=== PATIENT | male | born 1945 | race Caucasian/White ===

== ENCOUNTER 2019-11-02 09:39 | Observation (INO) | payer OTHER, MEDICARE, SELFPAY ==
[2019-11-01 11:09] VITALS: BMI 32.5
[2019-11-01 11:53] LABS: Basophils % 0.7 %; Eosinophils # 0.1 10^3/uL (0.0-0.8); Eosinophils % 3.1 %; Hematocrit 46.4 % (42.0-52.0); Hemoglobin 15.3 g/dL (11.7-16.6); Lymphocytes # 1.3 10^3/uL (0.8-4.8); Lymphocytes % 28.1 %; Mean Corpuscular Hemoglobin 30.8 pg (28.0-34.0); Mean Corpuscular Volume 93.4 fL (80-94); Mean Platelet Volume 10.2 fL (7.4-10.4); Monocytes # 0.3 10^3/uL (0.2-0.9); Monocytes % 6.1 %; Neutrophils # 2.8 10^3/uL (1.8-7.7); Neutrophils % 61.6 %; Nucleated Red Blood Cells % 0 %; Platelet Count 152 10^3/cmm (130-400); Red Blood Count 4.97 10^6/uL (4.1-5.3); White Blood Count 4.6 10^3/uL (4.0-10.0)
[2019-11-01 11:55] LABS: INR 0.95 (0.8-1.2)
[2019-11-01 12:02] LABS: Anion Gap 15.8 (5-19); Blood Urea Nitrogen 23 mg/dL (8-23); Calcium 10.1 mg/dL (8.5-10.5); Carbon Dioxide 29 mmol/L (22-29); Chloride 101 mmol/L (98-107); Glucose 227 mg/dL (74-106); Osmolality Calculated 296 mOsm/kg (285-295); Potassium 4.8 mmol/L (3.5-5.1); Sodium 141 mmol/L (136-145)
[2019-11-02] VITALS (26 sets, daily range): BP systolic 98–143; BP diastolic 51–71; PULSE 48–58; RESP 3–25; O2SAT 93–98
--- NOTE | 2019-11-02 07:30 | XACV_ITS ---
Ht: 178 cm Wt: 103 kg BSA: 2.29 m2 Gender: Male : 1945 Any Known Allergies: Sulfa Exam Priority: Routine Procedure(s): Procedure Description: Diagnostic procedure Procedure Description: Left Heart Catheterization Procedure Description: Left ventriculography Diagnostic Cath Status: Elective Diagnostic Findings The left main is a medium caliber vessel with no significant stenotic lesions. The left anterior descending artery is a medium caliber vessel with diffuse disease in the proximal and mid segment. The lesions were anywhere from 40 to 50%. Minimal intimal regularities were noted in the distal vessel. The artery appears to wrap around the LV apex minimally. The first diagonal branch was found to have around 30% ostial narrowing. The left circumflex artery is a medium caliber vessel which also was found to have diffuse narrowing of around 40% proximally. No other significant stenotic lesions were noted. The right coronary artery is a small to in caliber vessel with a minimal intimal irregularities. No significant stenotic lesions. Intermedius artery is a high obtuse marginal branch with 30 to 40% diffuse narrowing proximally. Coronary angiography shows right dominance. To moderate coronary calcification in the proximal vessels. Conclusions This is a 74-year-old white male with history of diabetes, high blood pressure, dyslipidemia, presenting with some atypical chest pain, increasing shortness of breath and fatigue. Myocardial perfusion imaging revealing areas of fixed defects. Because of the patient's ongoing worsening of the symptoms, in order to further evaluate his coronary status, a cardiac catheterization was recommended. Patient underwent left heart catheterization with a left and right coronary angiogram today. The findings are as follows. Mild to moderate diffuse disease in the proximal segment of all the 3 coronary arteries. No significant stenotic lesions. Slightly elevated LVEDP. Recommendations Continue current medical management and risk factor modification. Diagnostic RX Recommendation: medical therapy and/or counseling LV EDP: 18 mmHg Pressures Phase:Rest AO : 174 mmHg / 102 mmHg ( 130 mmHg ) @ 3:07:00 AM 117 mmHg / 46 mmHg ( 73 mmHg ) @ 3:10:00 AM LV : 122 mmHg / -4 mmHg / @ 3:21:00 AM 121 mmHg / -4 mmHg / @ 3:21:00 AM Clinical Evaluation EBL: 5mL-10mL Procedural Details Procedure Consent Obtained. Admit Source: In Patient. Pre-Procedure Time Out. Identified patient by full name and date of as verbalized by the patient/guarantor. Does the consent match the physician's order: Yes. Accurate & Complete Informed Consent: Yes. Inpatient/Outpatient History & Physical on Chart: Yes. If H&P is completed, is and addenduem needed: N/A; If yes, is the addendum complete: N/A. Visualize and Verify Site with Patient/Guarantor: N/A. Relevant Radiology Images available: N/A. Pre-op teaching completed and patient verbalized understanding. The risks, benefits, and alternatives of sedation and/or procedure were discussed by physician. The patient agrees to continue. Procedure started. Correct patient, site and procedure confirmed by cath team. PERRLA. Strong, equal hand flour broker bilaterally. Lungs clear x 5 lobes. IV Site on Arrival: 18 gauge in the left anticubital. Pre Procedural Pulses: bilateral dorsalis pedis was 2+. Pre Procedural Pulses: bilateral posterior tibial was 2+. Pre Procedural Pulses: bilateral radial was 3+. Oxygen started at 2liters/min via nasal canula. bilateral groins was prepped with chloroprep then draped in the usual sterile fashion. right radial was prepped with chloroprep then draped in the usual sterile fashion. Physician notified. Baseline sample Acquired. HR: 58 BPM. Physician arrived. Physician scrubbed in. Immediate Pre-Procedure Time Out. Correct Patient: Yes; Correct Procedure: Yes; Correct Site: Yes; Correct Patient Position: Yes; Correct Supplies: Yes; Dried Flammable Prep: Yes; Blood Products Available: No;. Lidocaine 1% infiltrated to the right radial. Arterial access obtained. A 5 taiwanese Corona catheter in over wire. Catheter out. A TR Band was successful obtaining hemostatsis at the Right Radial artery insertion site. Lidocaine 1% infiltrated to the right groin. Arterial access obtained with micropuncture set. A 5 taiwanese JL4 catheter in over wire. Catheter out. A 5 taiwanese JL4.5 catheter in over wire. Multiple views taken of left coronary artery. Catheter out. A 5 taiwanese JR4 catheter in over wire. Multiple views taken of right coronary artery. Catheter out. A 5 taiwanese Angled Pig catheter in over wire. LV gram performed in RAMIREZ @ 10 mL/second for a total of 30 mL. EDP Sample taken: LV 122/-5,16; HR: 54 BPM; SpO2: Off%. Catheter out. Sheath(s) removed and manual pressure held until hemostasis was achieved. Sterile 4x4 and Op-site applied to the puncture site. No oozing or hematoma noted. Post sheath removal instructions were given and the patient verbalized understanding. Post Procedure: Pulses reassessed and unchanged. PERRLA. Strong, equal hand flour broker bilaterally. No VTE prophylaxis required. Medication's Wasted: Lidocaine 1% = 18 mL. Medication's Wasted: Nitro = 49.8 mg. Medication's Wasted: Other = heprin 4500units. Total IV fluids: 250 mL. Contrast type used: Omnipaque 300 mgI/mL, 500 mL bottle. Contrast Material : Omnipaque 95 ml. Post-op diagnosis: moderate CAD. Complications: none. Estimated blood loss: 5mL-10mL. Procedure completed. Patient transferred by bed to 1st floor. A Manual Compression was successful obtaining hemostatsis at the Right Femoral artery insertion site. [facility] Clinical Fraility Score: 3: Managing Well. 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 Chest Pain Symptom Assessment: Non-anginal Chest Pain. Cardiovascular Instability: No. Vital chart was stopped. Site: Right Radial artery Sheath Size: 6 Fr Hemostasis Method: TR Band Hemostasis Success: Successful Site: Right Femoral artery Sheath Size: 5 Fr Hemostasis Method: Manual Compression Hemostasis Success: Successful Procedure Medications Start: 8:49 AM Stop: 8:49 AM Medication: Versed Amount: 1 mg Route: I.V. Start: 8:49 AM Stop: 8:49 AM Medication: Fentanyl Amount: 50 mcg Route: I.V. Start: 8:54 AM Stop: 8:54 AM Medication: Verapamil Amount: 5 mg Route: I.A. Start: 8:54 AM Stop: 8:54 AM Medication: Nitrogylcerin Amount: 200 mcg Route: I.A. Start: 9:01 AM Stop: 9:01 AM Medication: Versed Amount: 1 mg Route: I.V. Start: 9:01 AM Stop: 9:01 AM Medication: Fentanyl Amount: 50 mcg Route: I.V. Start: 9:06 AM Stop: 9:06 AM Medication: Heparin Amount: 1500 units Route: I.V. I, the attending physician, have reviewed and verified all procedure medications. Yes, all medications given per verbal order History/Risk Factors Hypertension: Yes Dyslipidemia: Yes Peripheral Arterial Disease (PAD): No Myocardial Infarction (AK): No Obesity: Yes Renal Disease: No Tobacco Use: Never Prior Interventions PCI: No CABG: No Valve Surgery: No Report Signatures Finalized by:Dr Chris Craft MD [facility] on 11/02/2019 6:14:56 PM
[2019-11-02] MEDS: diphenhydrAMINE 50 mg Capsule PO (08:03)
--- NOTE | 2019-11-02 08:16 | PM.HP ---
Providers/Chief Complaint Primary Care Provider: Chinedu Babin DO Chief Complaint: cath History of Present Illness Alex Quiros is a 74 year old male is here for a scheduled cardiac authorization. Patient has been having episodes of chest tightness/shortness of breath.he has a history of high blood pressure and dyslipidemia. His symptoms have been progressively getting worse. He had a myocardial perfusion imaging which revealed areas of fixed defects with no significant reversible defect. However because of his ongoing symptoms and the multiple risk factors, in order to further evaluate his coronary status, a cardiac catheterization was recommended. Review of Systems Const: Reports: other (Anorexia); Denies: fever, chills, change in appetite, fatigue or night sweats Eyes: Denies: change in vision, blurry vision or eye discomfort ENMT: Denies: bleeding gums, nose bleeds or other (Spinning Sensation, Trouble Swallowing) Card: Reports: chest pain; Denies: syncope, pre-syncope, shortness of breath when lying down or leg pain with exertion Resp: Reports: shortness of breath (With exception); Denies: productive cough, change in phlegm color or coughing up blood GI: Denies: vomiting, vomiting blood, bloating, blood in stool or black tarry stool : Denies: blood in urine or other (Gynecomastia) Musc: Denies: neck pain, extremity pain, extremity swelling, redness, muscle cramps, muscle weakness or other (Neck Pain or Swollen Glands) Skin/Breast: Denies: rash, itching, redness, new lesion, changes in skin color, yellow skin, nail changes or breast mass/lump Neuro: Denies: headache, changes in sensation, lack of coordination, frequent falls, dizziness, vertigo, seizure-like activity or other (TIA, Numbness) Psych: Reports: other (Delusions, Disorientation, or Insomnia); Denies: visual hallucinations, auditory hallucinations or tactile hallucinations Endo: Denies: excessive urination, excessive thirst or other (Abnormal Hair Loss) Michael/Lymph: Denies: easy bruising All/Imm: Denies: hives Medications/Allergies Home Medications Medication Instructions Recorded Confirmed Last Taken Type aspirin 81 mg PO DAILY 11/01/19 11/01/19 Unknown History atenolol 100 mg PO DAILY 11/01/19 11/01/19 Unknown History atorvastatin 10 mg PO DAILY 11/01/19 11/01/19 Unknown History calcium carbonate 600 mg PO BID 11/01/19 11/01/19 Unknown History chromium picolinate 1,000 mcg PO DAILY 11/01/19 11/01/19 Unknown History flaxseed oil 1,000 mg PO DAILY 11/01/19 11/01/19 Unknown History glipizide 10 mg PO DAILY 11/01/19 11/01/19 Unknown History hydrochlorothiazide 25 mg PO DAILY 11/01/19 11/01/19 Unknown History isosorbide mononitrate 30 mg PO DAILY 11/01/19 11/01/19 Unknown History lisinopril 10 mg PO DAILY 11/01/19 11/01/19 Unknown History metformin 1,000 mg PO BID 11/01/19 11/01/19 Unknown History multivitamin [Multiple Vitamins] 1 tab PO DAILY 11/01/19 11/01/19 Unknown History omega 4-ndr-vxv-fish oil [Fish Oil] 1 cap PO DAILY 11/01/19 11/01/19 Unknown History Allergies Allergy/AdvReac Type Severity Reaction Status Date / Time Sulfa (Sulfonamide Allergy ALGY-Rash Verified 11/01/19 10:47 Antibiotics) PFSH Acute PFSH: Statuses (acute, chronic, etc) shown below reflect problem list status as previously entered and may not be historically accurate Medical History Abnormal stress test (Acute) Chest pain (Acute) Diabetes mellitus (Acute) Hyperlipemia (Acute) Obesity (Acute) Primary hypertension (Acute) Tear of meniscus of right knee (Acute) Transient cerebral ischemia (Acute) Surgical History History of arthroscopic surgery of shoulder (Acute) History of knee replacement (Acute) History of prostatectomy (Acute) Family History Other CAD (coronary artery disease) Cancer Social History Smoking and tobacco status: never smoked Vitals/I&O/Wt Weight last 48 hrs Weight 227 lb Physical Exam Narrative: EXAM NARRATIVE: GENERAL: The patient is alert and oriented times three. Not in any acute distress. HEENT: No significant pallor, icterus or lymphadenopathy.Oral cavity: There are no mucous membrane lesions. NECK: Trachea appears to be central. No masses noted. No JVD or thyromegaly appreciated. RESPIRATORY: Chest is symmetrical. No intercostals muscle retraction or any accessory muscle activation. There is no chest wall tenderness. Breath sounds are heard bilaterally. No rales or rhonchi heard. No evidence of any consolidation. BREASTS: Deferred. HEART: The heart sounds are normal. No S3 or S4. Murmurs. No pericardial rub ABDOMEN: No vessel pulsations or distention. No tenderness. No organomegaly appreciated. Bowel sounds are normally heard. : Deferred. RECTAL: Deferred. LYMPHATIC: No lymphadenopathy noted in the neck or groin. EXTREMITIES: No edema or cyanosis. No clubbing. Peripheral pulses are palpated in fairly good volume and amplitude MUSCULOSKELETAL: No acute joint deformities or swelling SKIN: There are no significant scars or skin rash noted. NEUROPSYCHIATRIC: The patient is alert and oriented x3. Appears to be in a good mood. No tremors or rigidity noted. Data : 11/01/19 11:30 11/01/19 11:30 A&P Assessment and plan (1) Abnormal stress test: Patient has mainly areas of fixed defects. In view of his ongoing chest symptoms and the multiple risk factors, in order to further evaluate his coronary status, he requires a cardiac catheterization. The risk of bleeding, hematoma, vascular injury, myocardial infarction, CVA, renal failure and other concomitant complications were explained in detail. Patient understood this well and consented to proceed. Status: Acute Code(s): R94.39 - Abnormal result of other cardiovascular function study (2) Chest pain: As mentioned above. He has been having episodes of chest tightness/shortness of breath, easy fatigability and dyspnea on exertion. Status: Acute Qualifiers: Chest pain type: other chest pain Qualified Code(s): R07.89 - Other chest pain Code(s): R07.9 - Chest pain, unspecified (3) Hyperlipemia: Patient is on atorvastatin. He has been compliant with medications. Advised to continue on the current medications. Status: Acute Qualifiers: Hyperlipidemia type: mixed hyperlipidemia Qualified Code(s): E78.2 - Mixed hyperlipidemia Code(s): E78.5 - Hyperlipidemia, unspecified (4) Primary hypertension: Currently the blood pressure is of stage II. Need to optimize the antihypertensive medications. Status: Acute Code(s): I10 - Essential (primary) hypertension Additional A&P Information Patient also is known to have type 2 diabetes and moderate obesity. Based on the results of the cardiac catheterization, further recommendations will be made. He may continue on the current medications for the time being. Attestations Medical Necessity Statement*: Patient may require at least one midnight stay, if he is going to require intervention after the diagnostic catheterization. 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
--- NOTE | 2019-11-02 10:50 | PC.NURSE ---
TR band removed per protocol, patient tolerated well no bleeding or hematoma noted; 2x2 and tegaderm applied. Patient educated on s/s that need to be reported as well as activity for the next 2 days patient verbalizes understanding.
== END 2019-11-02 16:31 | disposition home or self-care (01) ==
LOC: CSU 09:41
PROVIDERS: Admitting Provider Internal Medicine Cardiovascular Disease; Family Provider Electrodiagnostic Medicine; PCP Electrodiagnostic Medicine; Visit Provider Internal Medicine Cardiovascular Disease
DX: I25.10 Atherosclerotic heart disease of native coronary artery without angina pectoris (principal); R94.39 Abnormal result of other cardiovascular function study; R07.89 Other chest pain; E78.5 Hyperlipidemia, unspecified; I10 Essential (primary) hypertension; Z79.82 Long term (current) use of aspirin; Z79.84 Long term (current) use of oral hypoglycemic drugs; E11.9 Type 2 diabetes mellitus without complications; E66.9 Obesity, unspecified; Z68.32 Body mass index [BMI] 32.0-32.9, adult; Z86.73 Personal history of transient ischemic attack (TIA), and cerebral infarction without residual deficits; Z82.49 Family history of ischemic heart disease and other diseases of the circulatory system
CPT/HCPCS: 12345; 36415; 80048; 85025; 85610; 86850; 86900; 93452; C1769; C1887; C1894; G0378; J1644; J2001; J2250; J3010; J3490; J7030; Q0163; Q9967

== ENCOUNTER → 2019-11-09 11:02 | Outpatient (BNVA) | payer OTHER, MEDICARE, SELFPAY | PROVIDERS: Family Provider Electrodiagnostic Medicine; PCP Electrodiagnostic Medicine; Visit Provider Nurse Practitioner Family | DX: I25.10 Atherosclerotic heart disease of native coronary artery without angina pectoris (principal); R07.9 Chest pain, unspecified; E78.5 Hyperlipidemia, unspecified; I10 Essential (primary) hypertension; R94.39 Abnormal result of other cardiovascular function study | CPT/HCPCS: 80048 ==

== ENCOUNTER 2020-05-12 10:21 | Observation (INO) | payer OTHER, MEDICARE, SELFPAY ==
--- NOTE | 2020-05-10 07:30 | XRR_ITS ---
PROCEDURE INFORMATION: Exam: XR Chest, 2 Views Exam date and time: 05/10/2020 9:52 AM Age: 74 years old Clinical indication: Pre-operative exam; Cardiovascular screening and respiratory screening exam; Additional info: Pre-pacemaker placement TECHNIQUE: Imaging protocol: XR of the chest Views: 2 views. COMPARISON: CR Chest 1 [place] [id number] 09/13/2019 10:43 PM FINDINGS: Lungs: Emphysematous change. Pleural space: No significant pleural effusion. Heart/Mediastinum: Marked cardiomegaly. Bones/joints: Degenerative change and ligamentous calcification. Right rotator cuff repair. Soft tissues: 9 mm nodular density overlying the right lung base on the frontal projection, suggesting an nipple shadow. Repeat radiograph utilizing nipple markers is recommended for confirmation. XR/XR chest 2V* [id number] IMPRESSION: 1. 9 mm nodular density overlying the right lung base on the frontal projection, suggesting an nipple shadow. Repeat radiograph utilizing nipple markers is recommended for confirmation. 2. Marked cardiomegaly.
[2020-05-10 10:32] LABS: Basophils % 0.5 %; Eosinophils # 0.1 10^3/uL (0.0-0.8); Eosinophils % 1.9 %; Hematocrit 47.9 % (42.0-52.0); Hemoglobin 15.2 g/dL (11.7-16.6); Lymphocytes # 1.5 10^3/uL (0.8-4.8); Lymphocytes % 26.3 %; Mean Corpuscular HGB Conc 31.7 g/dL (30.0-36.0); Mean Corpuscular Hemoglobin 29.7 pg (28.0-34.0); Mean Corpuscular Volume 93.7 fL (80-94); Mean Platelet Volume 9.8 fL (7.4-10.4); Monocytes # 0.5 10^3/uL (0.2-0.9); Monocytes % 8.9 %; Neutrophils # 3.54 10^3/uL (1.8-7.7); Nucleated Red Blood Cells % 0 %; Platelet Count 151 10^3/cmm (130-400); Red Blood Count 5.11 10^6/uL (4.1-5.3); Red Cell Distribution Width 13.2 % (12.1-15.1); White Blood Count 5.7 10^3/uL (4.0-10.0)
[2020-05-10 10:53] LABS: Anion Gap 11.1 (5-19); Blood Urea Nitrogen 22 mg/dL (8-23); Calcium 9.8 mg/dL (8.5-10.5); Carbon Dioxide 30 mmol/L (22-29); Chloride 100 mmol/L (98-107); Glucose 147 mg/dL (65-115); NT Pro B Type Natriuretic Pept 296 pg/mL (0-125); Osmolality Calculated 281 mOsm/kg (285-295); Potassium 5.1 mmol/L (3.5-5.1); Sodium 136 mmol/L (136-145)
[2020-05-10 10:57] LABS: INR 0.94 (0.8-1.2)
[2020-05-12] VITALS (13 sets, daily range): BP systolic 109–151; BP diastolic 52–78; PULSE 56–64; RESP 17–18; TEMP 36.8–37.1; O2SAT 93–97; BMI 31.7
--- NOTE | 2020-05-12 07:06 | W.PM.OPSUD ---
Surgery/Procedure H&P Update DATE OF PROCEDURE: May 12, 2020 DATE H&P PERFORMED: 05/04/20 H&P UPDATE INFORMATION: I have reviewed H&P completed within last 30 days, I have examined patient prior to procedure and No changes to prior documentation PREOP DIAGNOSIS: symptomatic bradycardia PLANNED PROCEDURE: Operation Date: 05/12/20 07:30 Proposed Procedures p Pacemaker Insertion(Not Applicable) - Chris Craft MD PATIENT REASSESSED PRIOR TO SEDATION, WITH NO CHANGE NOTED: Yes PHYSICAL EXAM: alert, oriented x 3, clear to auscultation bilaterally and regular rate & rhythm AIRWAY EVAL/ANESTHESIA PLAN: normal airway, see other exam findings, ASA II, Risks, benefits & alternatives of sedation and/or procedure discussed and Patient agrees to continue as planned
--- NOTE | 2020-05-12 10:12 | P.OP_ITS ---
Operative Report Date of procedure: May 12, 2020 Pre-op Diagnosis: symptomatic bradycardia Procedure: LOCATION: Outpatient PREOPERATIVE DIAGNOSES: Symptomatic bradycardia/sinus shauna dysfunction. POSTOPERATIVE DIAGNOSES: Same. COMPLICATIONS: None. ESTIMATED BLOOD LOSS: Around less than 5 milliliters. BRIEF HISTORY: This is a 74-year-old white male with a history of coronary artery disease, high blood pressure and dyslipidemia, presents with episodes of palpitations. He was found to have episodes of nonsustained ventricular tachycardia on the event monitor. He also was found to have sinus pauses of more than 3 seconds. The clinical features are consistent with sinus shauna dysfunction and nonsustained ventricular tachycardia. For further management of his condition, a permanent pacemaker implantation was recommended. For the AV synchrony and symptom relief, a dual-chamber pacemaker was thought to be appropriate. A dual-chamber permanent pacemaker implantation was recommended for further management of her condition. The procedure was explained to the patient in detail with the risks and benefits. The risks of bleeding, hematoma, vascular injury, infection, pneumothorax, myocardial perforation and other concomitant complications were explained in detail, which the patient understood well and consented to proceed. PROCEDURE DESCRIPTION: The patient was brought to the Cardiac Catheterization Lab. The left and the right side of the neck and the subclavian area were cleaned and draped in a sterile fashion. 1% Xylocaine was used as the local anesthetic agent. A left subclavian venous access was obtained using a micropuncture needle system. Under venographic guidance, the patient was injected with 20 milliliters of Omnipaque through the left antecubital vein. A two-inch long incision was made 2.0 centimeters below the midclavicular region. By sharp and blunt dissection, a pacemaker pocket was made. A second venous access was obtained using another micropuncture needle system. Over the first guidewire, a 7-Guyanese venous sheath with dilator was advanced. The venous dilator and the guidewire were taken out. A screw-in ventricular lead was advanced through the venous sheath and was positioned towards the right ventric le. Under fluoroscopy guidance, the ventricular lead was positioned toward the right ventricular apex. Good pacing and sensing thresholds were obtained. The lead was secured to the endocardium by advancing the helix. The stability of the lead was tested by gentle twisting movements and also by asking the patient to take some deep breaths and cough. The venous sheath was peeled off, at this time. The lead was secured to the pectoralis fascia, by suturing with 1-0 Surgilon. Over the second guidewire, another 7-Guyanese venous sheath with dilator was advanced. The dilator and the guidewire were taken out. Under fluoroscopy guidance, an atrial lead (Medtronic), was advanced and positioned toward the right atrium. The lead was positioned in the right atrial appendage. Good pacing and sensing thresholds were obtained. The lead was secured to the endocardium by advancing the helix. Stability of the lead was tested by gentle twisting movements and also by asking the patient to take some deep breaths and cough. The venous sheath was peeled off, at this time. The lead was secured to the pectoralis fascia by suturing with 0-Surgilon. The pacemaker pocket was copiously irrigated with vancomycin solution. Complete hemostasis was achieved. Sponge counts were confirmed. The leads were attached to a Medtronic generator. The leads were positioned behind the generator and the generator was attached to the pectoralis fascia by suturing with 0-Surgilon. The pocket was closed in layers. Skin was approximated using 4-0 Vicryl. IMPLANTED DEVICES: ATRIAL LEAD: Model number: 50 76/45 Serial number:[id number] Make: Medtronic VENTRICULAR LEAD: Model number: 50 76/52 Serial number:[id number] Make: Medtronic GENERATOR Brand:Viviane XT DR LOZANO Nathanstephaniewen Model number:[id number] Serial number:[id number] Make: Medtronic IMPLANTATION DATA: With the pacing system analyzer, the R wave sensing was 4.8 millivolts with a lead impedance of 917 ohms and a pacing threshold was 0.5 volts at 0.5 milliseconds. In the atrium, the sensing was 2.1 millivolts with a lead impedance of 770 ohms and a pacing threshold was 0.4 volts at 0.5 milliseconds. Through the device, the R-wave sensing was 4.3 millivolts with a lead impedance of 760 and a pacing threshold was 0.5 volts at 0.4 milliseconds. The atrial sensing was 3.3 millivolts with a lead impedance of 570 ohms and a pacing threshold of 0.5 volts at 0.4 milliseconds. The pacemaker was set for AAIR/DDDR mode with upper rate of 130 and a lower rate of 60/min. A pressure dressing was applied over the pacemaker site. The patient was transferred to the Medical Floor in stable condition. A chest x-ray was ordered to confirm the lead position and also to rule out any pneumothorax.
--- NOTE | 2020-05-12 10:30 | PC.NURSE ---
Patient arrived to floor at 1020. 2 nurse verification pacemaker insertion site, asymptomatic. Patient is A&Ox4, denies pain at this time. Immobilizer is in place. Patient oriented to room and call light. Nurse to continue to monitor.
[2020-05-12] MEDS: sodium chloride 0.9% 1,000 ML 75 ML IV (10:36)
--- NOTE | 2020-05-12 10:45 | PC.NURSE ---
Dr. Craft contacted via telephone instructs nurse to administer post procedure fluids NS at 75 ml/hr until Kefzol dose at 1500, RBVO.
[2020-05-12 11:02] LABS: Glucose Point of Care 192 mg/dL (70-110)
--- NOTE | 2020-05-12 12:06 | XRR_ITS ---
PROCEDURE INFORMATION: Exam: XR Chest, 1 View Exam date and time: 05/12/2020 12:07 PM Age: 74 years old Clinical indication: Device placement; Cardiac pacemaker placement or adjustment; Additional info: Post pacemaker TECHNIQUE: Imaging protocol: XR of the chest Views: 1 view. COMPARISON: CR XR chest 2V* [id number] 05/10/2020 9:57 AM FINDINGS: Lungs: Lungs are well aerated without a focal area of consolidation. Pleural space: Unremarkable. No pleural effusion. No pneumothorax. Heart/Mediastinum: Severe cardiomegaly Vasculature: Pacemaker is present via a left subclavian approach. Bones/joints: Unremarkable. XR/XR chest 1V portable [id number] IMPRESSION: Lungs are well aerated without a focal area of consolidation.
[2020-05-12 16:51] LABS: Glucose Point of Care 122 mg/dL (70-110)
--- NOTE | 2020-05-12 18:00 | PC.NURSE ---
Dr. Craft contacted via telephone to clarify orders. Physician gave telephone order to put metformin on hold. Physician also intended dc orders for tomorrow. Physician instructed nurse not to finalize anything on discharge until the program manager has seen him tomorrow and finished the discharge.
[2020-05-13 04:08] VITALS: BP 155/78; PULSE 66; RESP 18; TEMP 36.9; O2SAT 97
--- NOTE | 2020-05-13 04:44 | PC.NURSE ---
PT IS RESTING IN BED. PT HAD COMPLAINED OF PAIN EARLIER IN THE SHIFT. DR LYNNE WAS NOTIFIED AND HE ORDERED NORCO 5/325MG PRN. PT WAS RESTING WITH EYES CLOSED WHEN PRN ORDER CAME IN. PT DENIES PAIN AT THIS TIME. WILL CONTINUE TO MONITOR.
--- NOTE | 2020-05-13 06:00 | ECG_ITS ---
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 Measurements Intervals [place] Rate: 60 P: 56 SD: 185 QRS: 33 QRSD: 106 T: 71 QT: 401 QTc: 404 Interpretive Statements SINUS RHYTHM LOW QRS VOLTAGE IN PRECORDIAL LEADS [QRS DEFLECTION < 1.0 mV IN CHEST LEADS] Compared to ECG 09/13/2019 22:56:40 Sinus bradycardia no longer present Ventricular premature complex(es) no longer present Electronically Signed On 05-13-2020 12:48:57 CDT by Pauline Calderon M.D. [id number]
--- NOTE | 2020-05-13 06:00 | XRR_ITS ---
PROCEDURE INFORMATION: Exam: XR Chest, 1 View Exam date and time: 05/13/2020 5:16 AM Age: 74 years old Clinical indication: Device placement; Cardiac pacemaker placement or adjustment; Prior surgery; Additional info: Post permanent pacemaker placement; Visualize lead tip TECHNIQUE: Imaging protocol: XR of the chest Views: 1 view. COMPARISON: CR XR chest 1V portable [id number] 05/12/2020 12:11 PM FINDINGS: Lungs: Marked asymmetric left-sided airspace disease. Emphysematous change and interstitial prominence. Pleural space: Suspected left pleural effusion. Heart/Mediastinum: No cardiomegaly. Vasculature: Calcification of the thoracic aorta. Next para atrioventricular pacemaker. Bones/joints: Degenerative change. Right rotator cuff repair. XR/XR chest 1V [id number] IMPRESSION: Marked asymmetric left-sided airspace disease.
[2020-05-13 07:35] VITALS: BP 154/79; PULSE 63; RESP 18; TEMP 37; O2SAT 94
[2020-05-13] MEDS: isosorbide mononitrate ER 30 mg Tablet PO (09:01)
[2020-05-13] MEDS: lisinopril 10 mg Tablet PO (09:01)
[2020-05-13] MEDS: aspirin 81 mg EC Tablet PO (09:01)
[2020-05-13] MEDS: multivitamin therapeutic Tablet 1 TAB PO (09:01)
[2020-05-13] MEDS: atorvastatin 40 mg Tablet 20 MG PO (09:01)
[2020-05-13] MEDS: atenolol 50 mg Tablet 100 MG PO (09:01)
[2020-05-13] MEDS: hydroCHLOROthiazide 25 mg Tablet PO (09:01)
[2020-05-13 11:24] VITALS: BP 118/66; PULSE 60; RESP 18; TEMP 37; O2SAT 96
[2020-05-13 11:48] VITALS: BP 118/66; PULSE 60; RESP 18; TEMP 37; O2SAT 96
--- NOTE | 2020-05-13 11:58 | PM.DCS ---
Discharge Providers Date of Admission: 05/12/20 10:21 Date of Discharge: May 13, 2020 Attending Provider at Admission: Chris Craft MD Attending Provider at Discharge: Dr. Kvng MD Primary Care Provider: Chinedu Babin DO Diagnoses at Discharge Discharge Diagnosis (1) Non-sustained ventricular tachycardia: Status: Acute (2) Bradycardia: Status: Acute (3) Coronary atherosclerosis: Status: Acute Qualifiers: Coronary Disease-Associated Artery/Lesion type: [place] artery [place] vs. transplanted heart: [place] heart Associated angina: with unspecified angina Qualified Code(s): I25.119 - Atherosclerotic heart disease of [place] coronary artery with unspecified angina pectoris (4) Primary hypertension: Status: Acute (5) Hyperlipemia: Status: Acute Qualifiers: Hyperlipidemia type: mixed hyperlipidemia Qualified Code(s): E78.2 - Mixed hyperlipidemia Reason for Visit Reason for Visit: pacemaker insertion Hospital Course Hospital Course: 74-year-old man with past medical history of hypertension, hyperlipidemia, type 2 diabetes mellitus, dyslipidemia with history of palpitations for which he wore an event monitor. On event monitor he was found to have nonsustained ventricular tachycardia as well as 2 pauses 3 and 3.5 seconds long. These were asymptomatic. Patient was seen in office by Dr. Craft and decision was made to place permanent pacemaker for sinus node dysfunction. He was admitted and underwent elective dual-chamber Medtronic permanent pacemaker placement by Dr. Craft yesterday. Patient tolerated the procedure well. Chest x-ray this morning showed normal lead position without any pneumothorax. Pacemaker was interrogated and was found to be normally functioning. Occasional PVCs and 1 PVC triplet was noted. Discharge Summary: Patient feels well this morning denies having any significant discomfort at pacemaker insertion site. Physical Exam Narrative: EXAM NARRATIVE: GENERAL: Obese man lying in bed nourished in no acute distress HEENT: Extraocular movement intact. Pupils equal round reactive to light. No pallor or icterus. NECK: No JVD. No carotid bruit. CARDIOVASCULAR SYSTEM: S1-S2 regular. No S3 or S4 present. No murmur rubs or gallops. RESPIRATORY SYSTEM: Left upper chest dressing in situ. Mild tenderness present. No significant bruising or hematoma noted. Chest clear to auscultation. No wheezes rhonchi or rubs heard. No use of accessory muscles. ABDOMEN: Soft, nontender and nondistended. Normal bowel sounds present. EXTREMITIES: No cyanosis or clubbing. No edema. No signs of chronic venous insufficiency. BRIDGE ATTACHER: Patient is alert oriented ?3. No focal neurological deficits. PSYCH: Normal insight and judgment. Discharge Data Data Completed and Pending: Completed Studies During Hospitalization Category Date Time Status CANDY PACKER request for service Routin e Exams 05/12/20 06:00 Completed CXRP [XR chest 1V portable [id number]] S tat Exams 05/12/20 12:06 Completed XR chest 1V 25205 Routine Exams 05/13/20 06:00 Completed XR chest 2V* 7104 6 Routine Exams 05/10/20 07:30 Completed Labs from last 24 hours 05/12/20 16:30 POC Glucose 122 Vitals: Last Vital Signs Temp 98.6 F 05/13/20 11:48 Pulse 60 05/13/20 11:48 Resp 18 05/13/20 11:48 BP 118/66 05/13/20 11:48 Pulse Ox 96 05/13/20 11:48 Discharge Plan Discharge Patient Disposition: Home Condition: Stable Prescriptions: New Keflex 500 mg capsule 500 mg PO Q6H 5 Days Qty: 20 RF: 0 hydrocodone-acetaminophen 5-325 mg Tablet 1 tab PO Q8H PRN (Reason: Moderate Pain) 5 Days Qty: 15 RF: 0 Continued multivitamin [Multiple Vitamins] Tablet 1 tab PO DAILY RF: 0 atorvastatin 10 mg Tablet 10 mg PO DAILY RF: 0 atenolol 100 mg Tablet 100 mg PO DAILY RF: 0 isosorbide mononitrate 30 mg Tablet Extended Release 24 Hr 30 mg PO DAILY RF: 0 aspirin 81 mg Tablet,Delayed Release (Dr/Ec) 81 mg PO DAILY RF: 0 calcium carbonate 600 mg calcium (1,500 mg) Tablet 600 mg PO BID RF: 0 flaxseed oil 1,000 mg Capsule 1,000 mg PO DAILY RF: 0 lisinopril 10 mg Tablet 10 mg PO DAILY RF: 0 hydrochlorothiazide 25 mg Tablet 25 mg PO DAILY RF: 0 omega 3-lrm-pah-fish oil [Fish Oil] 1,000 mg (120 mg-180 mg) Capsule 1 cap PO DAILY RF: 0 chromium picolinate 1,000 mcg Tablet 1,000 mcg PO DAILY RF: 0 Held metformin 1,000 mg Tablet 1,000 mg PO BID RF: 0 Hold Instructions: Resume on 05/14/20. May resume 05/14/20 Discharge Orders: Discharge Order (Routine); Ordered 05/12/20 Ordered By: Chris Craft Referrals: Chris Craft MD [Physician] - ([facility] will contact you to schedule an follow-up appointment with Dr. Craft in 3 weeks. If you haven't heard from them by Friday afternnon. Please call ([phone]) Celina Herrera FNP [Nurse Practitioner] - 4-7 days ([facility] will contact you to schedule an follow-up appointment with Celina Herrera in 4 to 7 days. If you haven't heard from them by Friday Afternoon. Please call ) Discharge Diet: Cardiac Discharge Activity: Limit activity as instructed and As per PT/OT instructions Patient Instructions: Cephalexin (By mouth), Hydrocodone/Acetaminophen (By mouth), Pacemaker (DC), Post Pacemaker - Venancio Activity Restrictions/Additional Instructions: Limit the movements of the left shoulder to 45 degrees for the next 6 weeks.. Avoid any weightbearing on the left elbow. Appointment to [facility] on next for a wound check and pacemaker check with Celina Barrios. Appointment with me in the office in 3 weeks. Discharge Attestations Time Spent in Discharge Care*: greater than 30 min Specific Discharge Activities: Specific discharge activities: educating patient, documenting/other paperwork and evaluating patient/reviewing data Quality Metrics Clinical Quality Measures During this hospital stay, did patient experience: None Coding Level of Care Code Acute Automatic Profile Shaper Operator for g Fwd Diagnoses Non-sustained ventricular tachycardia I47.2 Bradycardia R00.1 Coronary atherosclerosis I25.119 Coronary Disease-Associated Artery/Lesion type: [place] artery [place] vs. transplanted heart: [place] heart Associated angina: with unspecified angina Primary hypertension I10 Hyperlipemia E78.2 Hyperlipidemia type: mixed hyperlipidemia
--- NOTE | 2020-05-13 12:44 | PC.NURSE ---
Discharge to home with caregiver Instructed pt on follow-up appointments for wound check and device check. Educated pt on new meds actions, dosing, timing and frequency. meds care notes provided to pt. Informed pt on continued home meds as well as resuming his metformin as prescribed tomorrow. Instructed pt on how to take care of his incision, activity restrictions. Pt teaches back. Discharge papers provided to pt. Call med to [facility]. Hard script for Hydrocodone given to pt.
--- NOTE | 2020-05-13 12:49 | PC.NURSE ---
Discharge to home with caregiver Instructed pt to follow-up as discussed for wound check. Instructed pt on how to take care of his incision and activity restrictions on left arm. Educated pt on new meds actions, dosing and timing. Med care notes provided. Pt teaches back. Discharge papers provided. Called [facility] and Hydrocodone hard script given to pt. Ushered pt via wheelchair to [facility]
== END 2020-05-13 12:44 | disposition home or self-care (01) ==
LOC: CSU 16:53
PROVIDERS: Admitting Provider Internal Medicine Cardiovascular Disease; PCP Electrodiagnostic Medicine; Visit Provider Internal Medicine Cardiovascular Disease
DX: R00.1 Bradycardia, unspecified (principal); I47.2 Ventricular tachycardia; I25.119 Atherosclerotic heart disease of native coronary artery with unspecified angina pectoris; I10 Essential (primary) hypertension; E78.2 Mixed hyperlipidemia
CPT/HCPCS: 12345; 33208; 36415; 36416; 71045; 71046; 80048; 82962; 83880; 85025; 85610; 86850; 86900; 93005; 96361; 96365; 97165; C1769; C1779; C1786; C1894; G0378; J0690; J2250; J3010; J7030; J7050; Q9967

== ENCOUNTER 2020-05-17 10:33 | Outpatient (CLI) | payer MEDICARE, OTHER, SELFPAY ==
--- NOTE | 2020-05-17 10:41 | XRR_ITS ---
PROCEDURE INFORMATION: Exam: XR Chest, 2 Views Exam date and time: 05/17/2020 11:05 AM Age: 74 years old Clinical indication: Device placement; Cardiac pacemaker placement or adjustment; Prior surgery; Patient HX: Checking to see if pacemaker leads have moved. ; Additional info: High threshold noted on post op check TECHNIQUE: Imaging protocol: XR of the chest Views: Frontal and lateral upright views. COMPARISON: 1. CR XR chest 1V [id number] 05/13/2020 5:03 AM 2. CT[place] [id number] 09/14/2019 12:57:47 AM FINDINGS: Lungs: The pulmonary vasculature is normal. The lungs are clear bilaterally. The lungs are clear bilaterally. Pleural space: No pleural effusion. No pneumothorax. Heart/Mediastinum: The heart is normal in size and contour. Prominent the left anterior mediastinal adipose with fat necrosis redemonstrated. Mediastinum: Stable. Vasculature: A dual lead left subclavian permanent pacemaker is present. The right atrial and right ventricular leads appear to be in good position. Bones/joints: Right proximal humeral greater tuberosity suture anchors. XR/XR chest 2V* [id number] IMPRESSION: Prominent the left anterior mediastinal adipose with fat necrosis redemonstrated.
== END 2020-05-17 10:34 | disposition home or self-care (01) ==
LOC: RAD 10:37
PROVIDERS: PCP Electrodiagnostic Medicine; Visit Provider Internal Medicine Cardiovascular Disease
DX: Z95.0 Presence of cardiac pacemaker (principal); M79.89 Other specified soft tissue disorders
CPT/HCPCS: 71046

== ENCOUNTER 2020-05-19 07:19 | Day surgery (SDC) | payer OTHER, MEDICARE, SELFPAY ==
[2020-05-19] VITALS (22 sets, daily range): BP systolic 120–169; BP diastolic 67–89; PULSE 57–65; RESP 16–25; TEMP 36.8–36.9; O2SAT 92–97; BMI 30.7
--- NOTE | 2020-05-19 08:00 | XACV_ITS ---
Exam Room: [facility] Ht: 178 cm Wt: 97 kg BSA: 2.22 m2 Gender: Male : 1945 Any Known Allergies: Sulfa Exam Priority: Routine Procedure(s): Procedure Description: Diagnostic procedure Procedure Description: Miscellaneous Diagnostic Cath Status: Elective Diagnostic Findings Patient is here for lead repositioning. The note was dictated. Recommendations Patient underwent lead repositioning under fluoroscopy. Tolerated the procedure well. No complications. Note is dictated. Patient is sent back to the telemetry floor. Discharge home tomorrow. Clinical Evaluation EBL: 5mL-10mL Procedural Details Procedure Consent Obtained. Admit Source: Out Patient. Pre-Procedure Time Out. Identified patient by full name and date of as verbalized by the patient/guarantor. Does the consent match the physician's order: Yes. Accurate & Complete Informed Consent: Yes. Inpatient/Outpatient History & Physical on Chart: Yes. If H&P is completed, is and addenduem needed: NO; If yes, is the addendum complete: N/A. Visualize and Verify Site with Patient/Guarantor: N/A. Relevant Radiology Images available: N/A. The risks, benefits, and alternatives of sedation and/or procedure were discussed by physician. The patient agrees to continue. Procedure started. Correct patient, site and procedure confirmed by cath team. PERRLA. Strong, equal hand flattening press operator bilaterally. Lungs clear x 5 lobes. IV Site on Arrival: 20 gauge in the left anticubital. Pre Procedural Pulses: bilateral radial was 3+. Oxygen started at 2liters/min via nasal canula. left subclavian was prepped with chloroprep then draped in the usual sterile fashion. Physician notified. Baseline sample Acquired. HR: 63 BPM. Ancef 1g IV was given in label press operator. Physician arrived. Supplies: Cath pack, micropunture, bovie pen, 2-0 silk, 0 surgilon, 3-0 vicryl, 4-0 vicryl. Pre sponge count: 55. Pre sharps count: 17. Pre instrument count: 19. Physician scrubbed in. Time out performed with cath team. Lidocaine 1% infiltrated to Left subclavian area. Incision and pacer pocket made in left subclavian region. cutting A and V lead sutures. detaching generator from A and V leads. A lead repositioned. A lead retested. V lead retested. A lead repositioned. V lead retested. Ventricular lead sutured into place with surgilon. cleaning pocket. A lead retested. Atrial lead sutured into place with surgilon. Antibiotic flush used to clean pacer pocket. A lead retested. [employer] TYRX 2.5 X 2.7 absorbable antibiotic envelope-medium used Lot#[id number]. V lead retested. Generator attached and tested. Generator secured with surgilon. Subcutaneous tissue closed with 3-0 vicryl. Cutaneous tissue closed with 4-0 vicryl. All final counts correct. left subclavian pocket dressed per physician order. Shoulder immobilizer in place. Fredy wrap and 4x4's in place. No bleeding or hematoma noted at left subclavian pocket. Post Procedure: Pulses reassessed and unchanged. Procedure completed. Total IV fluids: 100 mL. No VTE prophylaxis required. Post-op diagnosis: Lead displacement, repositioning. Estimated blood loss: 5mL-10mL. Complications: none. Procedure Medications Start: 8:56 AM Stop: 8:56 AM Medication: Ancef Amount: 1 g Route: I.V. Start: 9:16 AM Stop: 9:16 AM Medication: Versed Amount: 1 mg Route: I.V. Start: 9:17 AM Stop: 9:17 AM Medication: Fentanyl Amount: 50 mcg Route: I.V. I, the attending physician, have reviewed and verified all procedure medications. Yes, all medications given per verbal order History/Risk Factors Hypertension: Yes Dyslipidemia: Yes Diabetic Therapy: Oral Peripheral Arterial Disease (PAD): No Myocardial Infarction ([place]): No Obesity: Yes Tobacco Use: Former Prior Interventions PCI: No CABG: No Valve Surgery: No Report Signatures Finalized by:Dr Chris Craft MD [facility] on 05/19/2020 4:45:36 PM
[2020-05-19 08:40] LABS: Basophils % 0.7 %; Eosinophils # 0.2 10^3/uL (0.0-0.8); Hematocrit 42.7 % (42.0-52.0); Lymphocytes % 22.4 %; Mean Corpuscular HGB Conc 32.8 g/dL (30.0-36.0); Mean Corpuscular Volume 94.5 fL (80-94); Monocytes # 0.3 10^3/uL (0.2-0.9); Monocytes % 7.5 %; Neutrophils # 2.93 10^3/uL (1.8-7.7); Nucleated Red Blood Cells % 0 %; Platelet Count 148 10^3/cmm (130-400); Red Blood Count 4.52 10^6/uL (4.1-5.3); Red Cell Distribution Width 12.9 % (12.1-15.1); White Blood Count 4.5 10^3/uL (4.0-10.0)
[2020-05-19 08:58] LABS: Anion Gap 10.6 (5-19); Blood Urea Nitrogen 18 mg/dL (8-23); Calcium 9.7 mg/dL (8.5-10.5); Carbon Dioxide 29 mmol/L (22-29); Chloride 105 mmol/L (98-107); Glucose 191 mg/dL (65-115); Osmolality Calculated 292 mOsm/kg (285-295); Potassium 4.6 mmol/L (3.5-5.1); Sodium 140 mmol/L (136-145)
--- NOTE | 2020-05-19 08:58 | W.PM.OPSUD ---
Surgery/Procedure H&P Update DATE OF PROCEDURE: May 19, 2020 DATE H&P PERFORMED: 05/04/20 H&P UPDATE INFORMATION: I have reviewed H&P completed within last 30 days, I have examined patient prior to procedure and No changes to prior documentation PREOP DIAGNOSIS: symptomatic bradycardia/lead displacement PLANNED PROCEDURE: Operation Date: 05/19/20 08:30 Proposed Procedures p Pacemaker Generator Change/lead reposition(Not Applicable) - Chris Craft MD PATIENT REASSESSED PRIOR TO SEDATION, WITH NO CHANGE NOTED: No PHYSICAL EXAM: alert, oriented x 3, clear to auscultation bilaterally and regular rate & rhythm OTHER PERTINENT EXAM FINDINGS: Heart sounds are normal. No S3-S4. No pericardial rub. AIRWAY EVAL/ANESTHESIA PLAN: normal airway, see other exam findings, ASA II, Risks, benefits & alternatives of sedation and/or procedure discussed and Patient agrees to continue as planned
--- NOTE | 2020-05-19 11:01 | P.OP_ITS ---
Operative Report Date of procedure: May 19, 2020 Pre-op Diagnosis: symptomatic bradycardia/lead displacement Procedure: PROCEDURE: PACEMAKER lead repositioning PREOPERATIVE DIAGNOSIS: Lead displacement POSTOPERATIVE DIAGNOSIS: Same ESTIMATED BLOOD LOSS: Around 5 milliliters. COMPLICATIONS: None. BRIEF HISTORY: The patient is 74-year-old white [male/female] who had a permanent pacemaker implantation for symptomatic bradycardia/nonsustained ventricular tachycardia, on 05/12/2020. Follow-up pacemaker interrogation in the office revealed loss of sensing in the atrial lead. Subsequent chest x-ray revealed lead displacement. Apparently both the atrial and ventricular leads were pulled up. For further management of his condition, a lead repositioning was recommended. As per the patient, he accidentally was lying on the left side in the night. The procedure was explained to the patient and his in detail with the risks and benefits. The risks of bleeding, hematoma, vascular injury, infection and other concomitant complications were explained in detail, which the patient understood well and consented to proceed. PROCEDURES PERFORMED: 1. Repositioning of the atrial lead 2. Readjust the ventricular lead to provide more slack. The patient brought to the Cardiac Motor Express Clerk. The left side of the neck and the subclavian area were cleaned and draped in a sterile fashion. 1% Xylocaine was used for local anesthetic agent. A 2 inch long incision was made just below the previous pacemaker scar. By sharp and blunt dissection, the pacemaker pocket was accessed. The pacemaker generator was delivered from the pocket. The generator was detached from the lead. The stay sutures on the leads were removed. The ventricular lead tip was found to be positioned appropriately with loss of slack . Using a stylette, this lead was given more slack and then secured to the pectoralis fascia by suturing with 0 Surgilon. Then I released the atrial lead from the patella's fascia by removing the stay sutures. This lead was displaced. After retracting the helix at the tip, the lead was repositioned in the atrial appendage. Stability of the lead was tested by gentle twisting movements and also asking the patient to take some deep breath and cough. After confirming appropriate sensing and pacing, the lead was secured to the pectoralis fascia by suturing with 0 Surgilon. Both leads were reattached to the Medtronic generator. Pacemaker pocket was copiously irrigated with vancomycin solution. Considering the possibility of infection, it was decided to place the device in the antibiotic pouch - TYRX. The generator was attached to the pectoralis fascia bysuturing with 0 Surgilon Complete hemostasis was achieved. Sponge counts were confirmed. The pacemaker pocket was closed in layers. Skin was approximated using 4-0 Vicryl. IMPLANTED DEVICES: ATRIAL LEAD: Date of implantation 05/12/2020 Model number: 50 76/45 Serial number:[id number] Make: Medtronic VENTRICULAR LEAD: Model number: 50 76/52 Serial number:[id number] Make: Medtronic GENERATOR Brand:Viviane XT DR MRI Nathanflwen Model number:[id number] Serial number:[id number] Make: Medtronic The antibiotic pouch, TYRX had a reference code [id number]; lot # [id number] Stimulation Threshold: Through the PSA the ventricular sensing was 4.5 millivolts. Lead impedance was 570 and the pacing threshold was 0.5 volts at 0.4 milliseconds. The atrial lead sensing was 0.8 with an impedance of 410 ohms and a pacing threshold of 1.0 V at 0.4 ms Through the device, the ventricular sensing was 4.6 mV with an impedance of 551 ohms and a pacing threshold of 0.5 V at 0.4 ms. The atrial sensing was 1.0 mV with an impedance of 418 ohms and a pacing threshold of 1.0 V at 0.4 ms The pacemaker is set for an AAIR/DDDR mode with a lower rate of 60 and upper rate of 130 A pressure dressing was applied over the pacemaker site. The patient was transferred back to medical floor in stable condition. Sponge counts were correct. Chest x-ray was ordered to confirm the lead position.
--- NOTE | 2020-05-19 11:30 | PC.NURSE ---
Contacted Dr Craft to clarify if he wanted patient to have continuos fluids running at 75ml/hr instructions from Dr Craft to dc fluids if patient would continue to drink well
--- NOTE | 2020-05-19 12:09 | PC.CHAP ---
Pastoral Care Encounter/Spiritual Assessment Type of Contact [] Declined systems librarian visit [] Patient/Family/Request visit [] Outpatient visit [] Follow-up visit [] Physician referral [] Code/Alert [] Routine visit [] Staff referral [] Actively dying [] Patient sleeping [] Family support [] [X] Out of room [] Palliative care [] [] Receiving care in room [] Pre-surgical visit [] Trauma [] Long length of stay [] ICU visit [X] Other: NEEDS FOLLOW-UP. Relational/Emotional Strength [] Patient feels connected with others/family/visitors/staff [] Distress [] Loneliness/isolation [] Abandonment Spirituality of Patient [] Person of [place]omara [] Attends Buddhism of their [place] [] Believes in Prayer [] Reads Bible or Adventist materials [] There are Spiritual issues to be addressed Cost Consultant Interventions [] Prayer [] Active listening [] Non-anxious presence [] Spiritual/emotional support [] Crisis/trauma care [] Spiritual counseling [] Bereavement support [] Provided bereavement packet [] Provided Bible/devotional materials [] Provided toy/stuffed animal, coloring book to patient or family member [] Provided Communion [] Anointing/[place] [] Salvation [] Completed spiritual assessment [] Other: Impact on Illness or Injury [] Angry [] Fearful [] Anxious [] Often cries [] Exhaustion [] Unable to work [] Unable to attend jainism [] Unable to walk/stand [] Unable to read [] Unable to drive [] Unable to eat/drink [] Unable to sleep [] Unable to be with family [] Patient intubated [] Other: Summary PATIENT WAS OUT OF ROOM FOR EXTENSIVE CARE FOLLOW UP WILL BE NEEDED Time spent with patient QUANTITY SURVEYOR DANIELLE QUEZADA
--- NOTE | 2020-05-19 12:11 | PC.CHAP ---
Pastoral Care Encounter/Spiritual Assessment Type of Contact [] Declined line repairer tower visit [] Patient/Family/Request visit [] Outpatient visit [] Follow-up visit [] Physician referral [] Code/Alert [] Routine visit [] Staff referral [] Actively dying [] Patient sleeping [] Family support [] [X] Out of room [] Palliative care [] [] Receiving care in room [] Pre-surgical visit [] Trauma [] Long length of stay [] ICU visit [X] Other: FOLLOW UP NEEDED Relational/Emotional Strength [] Patient feels connected with others/family/visitors/staff [] Distress [] Loneliness/isolation [] Abandonment Spirituality of Patient [] Person of [place]omara [] Attends Orthodoxy of their [place] [] Believes in Prayer [] Reads Bible or Sabianist materials [] There are Spiritual issues to be addressed Advanced Practice Psychiatric Nurse Interventions [] Prayer [] Active listening [] Non-anxious presence [] Spiritual/emotional support [] Crisis/trauma care [] Spiritual counseling [] Bereavement support [] Provided bereavement packet [] Provided Bible/devotional materials [] Provided toy/stuffed animal, coloring book to patient or family member [] Provided Communion [] Anointing/[place] [] Salvation [] Completed spiritual assessment [] Other: Impact on Illness or Injury [] Angry [] Fearful [] Anxious [] Often cries [] Exhaustion [] Unable to work [] Unable to attend religious [] Unable to walk/stand [] Unable to read [] Unable to drive [] Unable to eat/drink [] Unable to sleep [] Unable to be with family [] Patient intubated [] Other: Summary PATIENT OUT OF ROOM FOR EXTENSIVE TREATMENTS. FOLLOW UP NEEDED Time spent with patient 2 MINUTES TAX FORM PREPARER DANIELLE QUEZADA
--- NOTE | 2020-05-19 13:00 | XR_ITS ---
WS: [id number] Portable AP upright chest, 05/19/2020 Clinical Data: s/p pacemaker Comparison: PA and lateral chest, 05/17/2020. Findings: No nodules, masses or effusions are seen. The heart is enlarged. The pulmonary vascularity is not increased. No pneumonia or pneumothorax is seen. The prominent pacemaker has not changed in po sition. The generator is overlying the left axilla. The wire leads end in the right atrium and ventri tenzin respectively. There are orthopedic anchors in the right humeral head. 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 XR/XR chest 1V portable [id number] Impression: 1. Cardiomegaly. 2. No change in position of pacemaker and pacemaker leads.
--- NOTE | 2020-05-19 18:10 | PC.NURSE ---
clarified orders with Dr Craft for metformin Patient reports he does not think that he is supposed to take it for a couple of days Instructions received from Dr Craft is ok for him to take metformin due to no contrast given today. patient did refuse medication Dr Craft aware.
--- NOTE | 2020-05-19 19:53 | PC.NURSE ---
Rounding: Patient is resting in bed reading a book and complaints of pain. Patient dressing is intact no sign of bleeding or hematoma. Patient denies any needs at this time.
[2020-05-19] MEDS: acetaminophen 325 mg Tablet 650 MG PO (21:01)
[2020-05-19] MEDS: atorvastatin 40 mg Tablet 20 MG PO (21:02)
[2020-05-20 00:28] VITALS: BP 111/60; PULSE 60; RESP 21; TEMP 36.7; O2SAT 93
[2020-05-20 04:25] VITALS: BP 133/78; PULSE 60; RESP 20; TEMP 36.6; O2SAT 95
--- NOTE | 2020-05-20 05:15 | PC.NURSE ---
End of shift: Patient ambulates to the bathroom with no assistance. Patient has rested well this shift. Patient remains alert and oriented. Patient has had tylenol for pain. Vitals remain stable will continue to monitor.
--- NOTE | 2020-05-20 06:00 | ECG_ITS ---
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 Measurements Intervals [place] Rate: 60 P: 112 VT: 217 QRS: 26 QRSD: 107 T: 30 QT: 396 QTc: 396 Interpretive Statements ELECTRONIC ATRIAL PACEMAKER ABNORMAL RHYTHM ECG Compared to ECG 05/13/2020 06:08:29 Sinus rhythm no longer present Electronically Signed On 05-21-2020 18:14:11 CDT by Jordi Juarez M.D. [id number]
--- NOTE | 2020-05-20 06:00 | XRR_ITS ---
PROCEDURE INFORMATION: Exam: XR Chest, 1 View Exam date and time: 05/19/2020 11:59 PM Age: 74 years old Clinical indication: Other: Post op; Prior surgery; Surgery date: Post-operative (0-2 days); Surgery type: Pacemaker; Additional info: Post permanent pacemaker placement; Visualize lead tip TECHNIQUE: Imaging protocol: XR of the chest Views: 1 view. COMPARISON: CR XR chest 1V portable [id number] 05/19/2020 1:08 PM FINDINGS: Lungs: Unremarkable. No consolidation. Pleural space: Unremarkable. No pleural effusion. No pneumothorax. Heart/Mediastinum: The heart is enlarged with left subclavian pacemaker in place. Additional density is seen overlying laterally which may be due to superimposed soft tissue. The appearance is unchanged since previous examination. Bones/joints: Unremarkable. XR/XR chest 1V [id number] IMPRESSION: No significant change.
[2020-05-20 06:42] VITALS: BP 134/75; PULSE 60; RESP 21; TEMP 36.8; O2SAT 95
--- NOTE | 2020-05-20 09:00 | PC.NURSE ---
Patient refused metformin rainey this AM. He states it can kill me if I take metformin after getting dye in the cardiac catheterization technologist . Unable to non-admit metformin in [facility].
[2020-05-20] MEDS: hydroCHLOROthiazide 25 mg Tablet PO (09:01)
[2020-05-20] MEDS: omega-3 fatty acids 1,000 mg Capsule 1000 MG PO (09:01)
[2020-05-20] MEDS: multivitamin therapeutic Tablet 1 TAB PO (09:02)
[2020-05-20] MEDS: lisinopril 10 mg Tablet PO (09:02)
[2020-05-20] MEDS: aspirin 81 mg EC Tablet PO (09:02)
[2020-05-20] MEDS: isosorbide mononitrate ER 30 mg Tablet PO (09:02)
[2020-05-20] MEDS: atenolol 50 mg Tablet 100 MG PO (09:03)
--- NOTE | 2020-05-20 10:47 | PM.SDS ---
Short Stay Summary Providers Date of Admit/Discharge: 05/20/20 Attending Provider: Chris Craft MD Primary Care Provider: Chinedu Babin DO Chief Complaint: pacemaker generator change HPI History of Present Illness Alex Quiros is a 74 year old male past medical history significant for diabetes mellitus history of permanent pacemaker placement for significant bradycardia underwent lead readjustment and reposition. Post op care remains uncomplicated. Patient denies pain and swelling. Pacemaker check revealed leads are working properly and in good standing. Pacemaker wound covered with gauze but no induration or swelling noted. Physical examination is unremarkable. He will be discharged home on Keflex for 5 days. Patient denies allergy to it. He will be following up with Celina Herrera in 7 days for wound check and Dr. Craft as scheduled. Patient has been given instruction for post pacemaker discharge. Home Meds/Allergies Home Medications and Allergies Home Medications Medication Instructions Recorded Confirmed Type aspirin 81 mg PO DAILY 11/01/19 05/19/20 History atenolol 100 mg PO DAILY 11/01/19 05/18/20 History atorvastatin 10 mg PO DAILY 11/01/19 05/18/20 History calcium carbonate 600 mg PO BID 11/01/19 05/18/20 History flaxseed oil 1,000 mg PO DAILY 11/01/19 05/18/20 History hydrochlorothiazide 25 mg PO DAILY 11/01/19 05/18/20 History isosorbide mononitrate 30 mg PO DAILY 11/01/19 05/18/20 History lisinopril 10 mg PO DAILY 11/01/19 05/18/20 History metformin 1,000 mg PO BID 11/01/19 05/19/20 History multivitamin [Multiple Vitamins] 1 tab PO DAILY 11/01/19 05/18/20 History omega 6-sov-ctm-fish oil [Fish Oil] 1 cap PO DAILY 11/01/19 05/18/20 History cephalexin 500 mg PO QID 05/18/20 05/18/20 History Allergies Allergy/AdvReac Type Severity Reaction Status Date / Time Sulfa (Sulfonamide Allergy ALGY-Rash Verified 05/19/20 08:21 Antibiotics) PFSH Acute PFSH: Medical History Abnormal stress test Bradycardia Bradycardia Chest pain Coronary atherosclerosis Diabetes mellitus History of colon polyps Hyperlipemia Intermittent palpitations Internal hemorrhoids Male erectile dysfunction Non-sustained ventricular tachycardia Obesity Pacemaker Primary hypertension Prostatic cancer Tear of meniscus of right knee Transient cerebral ischemia Urinary incontinence Ventricular arrhythmia Surgical History History of arthroscopic surgery of shoulder History of knee replacement History of prostatectomy Family History Other CAD (coronary artery disease) Cancer Social History Smoking and tobacco status: former smoker Alcohol intake: former Vitals/I&O/Wt Last Vital Signs Temp 98.3 F 05/20/20 06:42 Pulse 60 05/20/20 06:42 Resp 21 H 05/20/20 06:42 BP 134/75 05/20/20 06:42 Pulse Ox 95 05/20/20 06:42 05/19/20 05/20/20 05/20/20 22:59 06:59 14:59 Intake Total 410 / 650 450 / 1100 240 / 240 Balance 410 / 650 450 / 1100 240 / 240 Weight last 48 hrs Weight 214 lb Physical Exam Narrative: EXAM NARRATIVE: GENERAL: Patient is alert, awake and oriented x3. Pacemaker wound unremarkable, no swelling no induration NECK: No jugular vein distension. HEENT: No cyanosis. No icterus. No pallor. HEART: Regular S1 and S2. No murmur, rub or gallop. LUNGS: Clear to auscultate bilaterally. ABDOMEN: Soft, nontender and nondistended. Positive bowel sounds. No guarding, rebound or tenderness. CENTRAL NERVOUS SYSTEM: Grossly nonfocal. EXTREMITIES: Lower extremities without edema bilaterally. Hospital Course Hospital Course: As above unremarkable SSS Data Data Completed and Pending: Completed Studies During Hospitalization Category Date Time Status [employer]ER request for service Routin e Exams 05/19/20 08:00 Completed XR chest 1V [id number] Routine Exams 05/20/20 06:00 Completed XR chest 1V antwon ble [id number] Urgent Exams 05/19/20 13:00 Completed Discharge Plan Discharge Patient Disposition: Home Condition: Stable Prescriptions: New Keflex 500 mg capsule 500 mg PO Q6H 5 Days Qty: 20 RF: 0 Continued multivitamin [Multiple Vitamins] Tablet 1 tab PO DAILY RF: 0 atorvastatin 10 mg Tablet 10 mg PO DAILY RF: 0 atenolol 100 mg Tablet 100 mg PO DAILY RF: 0 isosorbide mononitrate 30 mg Tablet Extended Release 24 Hr 30 mg PO DAILY RF: 0 aspirin 81 mg Tablet,Delayed Release (Dr/Ec) 81 mg PO DAILY RF: 0 calcium carbonate 600 mg calcium (1,500 mg) Tablet 600 mg PO BID RF: 0 flaxseed oil 1,000 mg Capsule 1,000 mg PO DAILY RF: 0 metformin 1,000 mg Tablet 1,000 mg PO BID RF: 0 Hold Instructions: Resume on 05/14/20. May resume 05/14/20 lisinopril 10 mg Tablet 10 mg PO DAILY RF: 0 hydrochlorothiazide 25 mg Tablet 25 mg PO DAILY RF: 0 omega 2-squ-dop-fish oil [Fish Oil] 1,000 mg (120 mg-180 mg) Capsule 1 cap PO DAILY RF: 0 cephalexin 500 mg Capsule 500 mg PO QID RF: 0 Discharge Orders: Discharge Order (Routine); Ordered 05/20/20 Ordered By: Jordi Juarez Referrals: Chris Craft MD [Physician] - Discharge Diet: Cardiac Discharge Activity: Limit activity as instructed Patient Instructions: Post Pacemaker - Venancio Attestations Medical Necessity Statement*: Patient can be discharged home today. 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
[2020-05-20 10:48] VITALS: BP 134/75; PULSE 60; RESP 21; TEMP 36.8; O2SAT 95
--- NOTE | 2020-05-20 11:30 | PC.NURSE ---
Assisted patient to dress. Sling and swath reapplied. Reviewed positioning of sling and guidelines for limited mobility of left arm due to pacemanker placement.
== END 2020-05-20 11:40 | disposition home or self-care (01) ==
LOC: CCL 07:26 → CSU 05-20 07:40 → CCL 05-20 15:47 → CSU 05-20 15:47
PROVIDERS: PCP Electrodiagnostic Medicine; Visit Provider Internal Medicine Cardiovascular Disease
DX: T82.120A Displacement of cardiac electrode, initial encounter (principal); R00.1 Bradycardia, unspecified; E11.9 Type 2 diabetes mellitus without complications; I25.10 Atherosclerotic heart disease of native coronary artery without angina pectoris; E78.5 Hyperlipidemia, unspecified; I47.2 Ventricular tachycardia; E66.9 Obesity, unspecified; I10 Essential (primary) hypertension; N52.9 Male erectile dysfunction, unspecified; Z85.46 Personal history of malignant neoplasm of prostate; Z86.73 Personal history of transient ischemic attack (TIA), and cerebral infarction without residual deficits; Z95.0 Presence of cardiac pacemaker; Z86.010 Personal history of colon polyps; Y83.8 Other surgical procedures as the cause of abnormal reaction of the patient, or of later complication, without mention of misadventure at the time of the procedure; Z87.891 Personal history of nicotine dependence; Z79.82 Long term (current) use of aspirin; Z79.84 Long term (current) use of oral hypoglycemic drugs; Z79.899 Other long term (current) drug therapy
CPT/HCPCS: 12345; 33215; 36415; 71045; 80048; 85025; 93005; 97165; C1769; G0378; J0690; J2250; J3010; J7030; J7050

== ENCOUNTER → 2020-09-13 09:05 | Outpatient (BNVA) | payer MEDICARE, SELFPAY | PROVIDERS: PCP Electrodiagnostic Medicine; Referring Provider Electrodiagnostic Medicine; Visit Provider Specialist | DX: M17.12 Unilateral primary osteoarthritis, left knee (principal) | CPT/HCPCS: 73560; 73565 ==

== ENCOUNTER → 2022-01-16 11:02 | Outpatient (BNVA) | payer OTHER, SELFPAY | PROVIDERS: PCP Electrodiagnostic Medicine; Visit Provider Internal Medicine Cardiovascular Disease | DX: I25.10 Atherosclerotic heart disease of native coronary artery without angina pectoris (principal); I10 Essential (primary) hypertension; E78.2 Mixed hyperlipidemia; I49.9 Cardiac arrhythmia, unspecified; Z95.0 Presence of cardiac pacemaker; Z79.82 Long term (current) use of aspirin; Z87.891 Personal history of nicotine dependence | CPT/HCPCS: 99214 ==

== ENCOUNTER 2022-02-28 14:21 | Observation (INO) | payer OTHER, MEDICARE, SELFPAY ==
[2022-02-28 14:24] VITALS: BP 161/78; PULSE 64; RESP 16; TEMP 36.6; O2SAT 98
--- NOTE | 2022-02-28 15:49 | ECG_ITS ---
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 Measurements Intervals [place] Rate: 66 P: 106 DC: 224 QRS: 37 QRSD: 102 T: 62 QT: 388 QTc: 409 Interpretive Statements ELECTRONIC ATRIAL PACEMAKER LOW QRS VOLTAGE IN PRECORDIAL LEADS [QRS DEFLECTION < 1.0 mV IN CHEST LEADS] ABNORMAL RHYTHM ECG Compared to ECG 05/20/2020 10:17:53 Low QRS voltage now present Electronically Signed On 02-28-2022 22:24:44 CDT by Joshua Farrell M.D. [id number]
--- NOTE | 2022-02-28 15:49 | XRR_ITS ---
PROCEDURE INFORMATION: Exam: XR Chest Exam date and time: 02/28/2022 4:30 PM Age: 76 years old Clinical indication: Chest wall pain; Additional info: Chest pain TECHNIQUE: Imaging protocol: XR of the chest. Views: 1 view. COMPARISON: CR XR chest 1V [id number] 05/20/2020 4:33 AM FINDINGS: Tubes, catheters and devices: Two lead pacer device noted in the left chest wall. Rotator cuff anchors noted in the right humeral head. Lungs: No consolidation. Pleural spaces: No pleural effusion. No pneumothorax. Heart/Mediastinum: Similar moderate cardiomegaly. Bones/joints: Visualized osseous structures are intact. XR/XR chest 1V portable [id number] IMPRESSION: Stable exam, no acute findings.
--- NOTE | 2022-02-28 15:51 | ED_ITS ---
HPI - General Adult General: Chief complaint: Chest Pain Stated complaint: chest pain/heaviness Time Seen by Provider: 02/28/22 15:49 History of Present Illness: This is a 76 yo patient hx of CAD, HTN, HLD presenting to the ED complaining of acute sudden onset of chest pressure lasting for 5-10 minutes intermittent since 12pm. Chest pain present with exertion and dyspnea present on exertion. Pain is not tearing in nature and does not radiate to the back. Pain not associated with vomiting or PO intake. Denies any recent sympathomimetic drug use. Patient denies any cough. Denies palpitations, dysphagia, diaphoresis, radiation of pain to bilateral arms, jaw. Denies F/N/V/D. Patient denies any recent immobility, surgery, unilateral leg swelling, or prior PE. Patient denies any orthopnea. Onset: 12pm Duration: ongoing intermittently since 12pm Location: home Severity: moderate Associated symptoms: Reports chest pain and dyspnea (+exertional dyspnea); Deny nausea, rash, palpitations or vomiting Review of Systems Const: Denies: fever(s) or chills Eyes: Denies: change in vision ENMT: Denies: mouth pain Card: Reports: chest pain; Denies: palpitations Resp: Reports: dyspnea (+exertional dyspnea); Denies: non-productive cough GI: Denies: abdominal pain, nausea, vomiting or diarrhea : Denies: dysuria Musc: Denies: extremity pain Skin/Breast: Denies: rash or new lesions Neuro: Denies: weakness in extremities Psych: Reports: other (Normal mood) Michael/Lymph: Denies: easy bruising PFS ED PFSH: Medical History Abnormal stress test Benign essential HTN Bradycardia Bradycardia Chest pain Coronary atherosclerosis Diabetes mellitus Diastasis recti History of colon polyps Hyperlipemia Intermittent palpitations Internal hemorrhoids Male erectile dysfunction Non-sustained ventricular tachycardia Obesity Pacemaker Primary hypertension Prostatic cancer Tear of meniscus of right knee Transient cerebral ischemia Urinary incontinence Ventricular arrhythmia Surgical History History of arthroscopic surgery of shoulder History of knee replacement History of prostatectomy Family History Mother CAD (coronary artery disease) Diabetes Father Cancer Diabetes Denies family history of Clotting disorder Dementia Chronic kidney disease (CKD) Suicide Anesthesia complication Bleeding disorder Lung disease Stroke Social History Smoking and tobacco status: former smoker Alcohol intake: former Physical Exam Const: COMMON NORMALS: alert HENMT: COMMON NORMALS: atraumatic HEAD & SCALP: atraumatic MOUTH: moist mucous membranes not abnormal Eye: COMMON NORMALS: EOMs intact bilaterally and conjunctivae normal CONJUNCTIVA: Yes conjunctivae normal Neck/C-Spine: COMMON NORMALS: full ROM and supple Resp: COMMON NORMALS: normal respiratory effort and clear to auscultation bilaterally AUSCULTATION: clear to auscultation bilaterally Cardio: COMMON NORMALS: regular rate RATE: regular rate OTHER: 2+ radial pulses b/l GI: COMMON NORMALS: Soft to palpation and non-tender PALPATION: Yes Soft to palpation Extremity: COMMON NORMALS: full ROM OTHER: no lower extremity edema b/l Neuro: SENSORIUM/ORIENTATION: Yes alert MOTOR EXAM: No Abnormal motor strength present and Other motor observations present (no focal motor deficits) Psych: COMMON NORMALS: speech normal SPEECH: Yes normal speech MOOD & AFFECT: Yes euthymic mood Course Vital Signs: Vital signs: Vital Signs Temperature 97.9 F 02/28/22 14:24 Pulse Rate 58 L 02/28/22 15:52 Respiratory Rate 16 02/28/22 15:52 Blood Pressure 111/45 02/28/22 15:52 Pulse Oximetry 94 02/28/22 15:52 MDM - General Adult Medical Decision Making [76]yo patient w/ hx of CAD, HTN, DM presenting to the ED with evaluation of chest pain since 12pm. HDS, pulse 2+ radially bilaterally, no signs of fluid overload, AAOx3, neuro exam intact. Given History and Exam today, will evaluate for ACS, Pneumothorax, Pneumonia, Pulmonary Embolus, Tamponade, Aortic Dissection or other emergent problems as a cause for this presentation. EMS: ASA Workup: ECG x 2, CXR, CBC, BMP, Troponinx 2 Interventions: nitroglycerin SL, morphine Findings: ECG: No overt evidence of STEMI, hyperacute T waves, localizable STD or T wave inversions. No evidence of Brugada?s sign, delta wave, epsilon wave, significantly prolonged QTc, or malignant arrhythmia. No Q waves. Other Labs unremarkable for emergent problems. CXR: Without PTX, PNA, or widened mediastinum HEART Score: 5 [5:30pm] On reassessment, the patient is HDS, no complaints of persistent chest pain in the ED after evaluation. ECG is non-ischemic. Dispositin: admission Discharge Plan Discharge Condition: Stable Prescriptions: No Action isosorbide mononitrate 30 mg tablet extended release 24 hr See Rx Instructions .ROUTE .COMPLEX Qty: 90 3RF Dose Instruction: TAKE ONE TABLET BY MOUTH EVERY DAY Rx Instructions: TAKE ONE TABLET BY MOUTH EVERY DAY multivitamin [Multiple Vitamins] Tablet 1 tab PO DAILY 0RF atorvastatin 10 mg Tablet 10 mg PO DAILY 0RF atenolol 100 mg Tablet 100 mg PO DAILY 0RF aspirin 81 mg Tablet,Delayed Release (Dr/Ec) 81 mg PO DAILY 0RF calcium carbonate 600 mg calcium (1,500 mg) Tablet 600 mg PO BID 0RF flaxseed oil 1,000 mg Capsule 1,000 mg PO DAILY 0RF metformin 1,000 mg Tablet 1,000 mg PO BID 0RF Hold Instructions: Resume on 05/14/20. May resume 05/14/20 lisinopril 10 mg Tablet 10 mg PO DAILY 0RF hydrochlorothiazide 25 mg Tablet 25 mg PO DAILY 0RF omega 1-bxg-jau-fish oil [Fish Oil] 1,000 mg (120 mg-180 mg) Capsule 1 cap PO DAILY 0RF Referrals: Chinedu Babin DO [Primary Care Provider] - Coding Level of Care Code ED Manager Of Case Management for Chg Fwd Exam Comprehensive
[2022-02-28 15:52] VITALS: BP 111/45; PULSE 58; RESP 16; O2SAT 94
[2022-02-28 16:28] LABS: Basophils % 0.6 %; Eosinophils # 0.2 10^3/uL (0.0-0.8); Eosinophils % 3.7 %; Hematocrit 46.4 % (42.0-52.0); Hemoglobin 15.5 g/dL (11.7-16.6); Lymphocytes # 1.6 10^3/uL (0.8-4.8); Mean Corpuscular HGB Conc 33.4 g/dL (30.0-36.0); Mean Corpuscular Hemoglobin 31.3 pg (28.0-34.0); Mean Corpuscular Volume 93.7 fl (80-94); Mean Platelet Volume 10.3 fL (7.4-10.4); Monocytes # 0.4 10^3/uL (0.2-0.9); Neutrophils # 2.84 10^3/uL (1.8-7.7); Neutrophils % 55.5 %; Nucleated Red Blood Cells % 0 %; Platelet Count 149 10^3/cmm (130-400); Red Blood Count 4.95 10^6/uL (4.1-5.3); Red Cell Distribution Width 13.3 % (12.1-15.1); White Blood Count 5.1 10^3/uL (4.0-10.0)
[2022-02-28 16:33] VITALS: RESP 16; O2SAT 95
[2022-02-28] MEDS: morphine 4 mg/mL SDV 1 mL IVP (16:33)
[2022-02-28 16:40] LABS: Troponin(5th) Baseline 14 ng/L (0-15)
[2022-02-28 16:43] LABS: Anion Gap 15.8 (5-19); Blood Urea Nitrogen 20 mg/dL (8-23); Calcium 9.8 mg/dL (8.5-10.5); Carbon Dioxide 28 mmol/L (22-29); Chloride 102 mmol/L (98-107); Glucose 122 mg/dL (65-115); Osmolality Calculated 296 mOsm/kg (285-295); Potassium 4.8 mmol/L (3.5-5.1); Sodium 141 mmol/L (136-145)
--- NOTE | 2022-02-28 17:49 | ECG_ITS ---
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 Measurements Intervals [place] Rate: 62 P: 123 SD: 259 QRS: 37 QRSD: 92 T: 61 QT: 400 QTc: 409 Interpretive Statements ELECTRONIC ATRIAL PACEMAKER LOW QRS VOLTAGE IN PRECORDIAL LEADS [QRS DEFLECTION < 1.0 mV IN CHEST LEADS] SEPTAL MYOCARDIAL INFARCTION , PROBABLY OLD [40+ ms Q WAVE IN V1/V2] Compared to ECG 02/28/2022 14:29:38 Myocardial infarct finding now present Electronically Signed On 02-28-2022 22:27:00 CDT by Joshua Farrell M.D. [id number]
[2022-02-28 18:05] LABS: Troponin 5 2HR 13.97 ng/L (0-15)
--- NOTE | 2022-02-28 18:05 | PC.NURSE ---
PT placed on continuous NIBP, SpO2, and CM
[2022-02-28 18:12] LABS: Troponin 5 2HR Delta -0.03 ABS# (0-10)
--- NOTE | 2022-02-28 18:19 | PM.HP ---
Providers/Chief Complaint Admitting Physician: Rocio Angeles MD Primary Care Provider: Chinedu Babin DO Chief Complaint: chest pain/heaviness History of Present Illness Alex Quiros is a 76 year old male who has significant medical history for diabetes, hypertension, significant bradycardia requiring pacemaker with revision for lead dislodgment, presented today for chief complaint of chest pain. He follows up with Dr. Venancio maya. Patient stating that today he went to the bank and there he started having chest discomfort which he describing as pressure-like sensation at its last for about 10 to 12 minutes, it transformed into burning-like sensation substernally, it was associated with shortness of breath on exertion. He considers himself mildly active for his age. He did not experience any nausea, vomiting, diaphoresis, presyncope or syncopal event. According to his his heart rate has been running low. He is compliant with his medications including atenolol. He would not call his chest discomfort chest pain but he would describe it as pressure-like sensation, burning and fluttery sensation. This morning his blood pressure on LT arm 154/70 mmHg, right arm 134/90 mmHg At the time of my evaluation no active chest pain, hemodynamically stable, heart rate in 60s, I have admitted him to do stress test in the morning, do pacemaker evaluation, trend troponin and EKG Patient is full code Plan discussed with the patient and his at the bedside Diagnostic work-up in the ER revealed normal CBC and BMP troponin without remarkable delta, hemodynamically stable except bradycardia, he was given aspirin loading dose in the ER along morphine and nitroglycerin. EKG showing paced rhythm with old MN changes Previous) left heart catheterization after abnormal cardiac stress test 2020 gnostic Findings ? The left main is a medium caliber vessel with no significant stenotic lesions. ? The left anterior descending artery is a medium caliber vessel with diffuse disease in the proximal and mid segment.? The lesions were anywhere from 40 to 50%.? Minimal intimal regularities were noted in the distal vessel.? The artery appears to wrap around the LV apex minimally.? The first diagonal branch was found to have around 30% ostial narrowing. ? The left circumflex artery is a medium caliber vessel which also was found to have diffuse narrowing of around 40% proximally.? No other significant stenotic lesions were noted. ? The right coronary artery is a small to in caliber vessel with a minimal intimal irregularities.? No significant stenotic lesions. ? Intermedius artery is a high obtuse marginal branch with 30 to 40% diffuse narrowing proximally. ? Coronary angiography shows right dominance. To moderate coronary calcification in the proximal vessels. Conclusions ? This is a 74-year-old white male with history of diabetes, high blood pressure, dyslipidemia, presenting with some atypical chest pain, increasing shortness of breath and fatigue.? Myocardial perfusion imaging revealing areas of fixed defects.? Because of the patient's ongoing worsening of the symptoms, in order to further evaluate his coronary status, a cardiac catheterization was recommended.? Patient underwent left heart catheterization with a left and right coronary angiogram today.? The findings are as follows. ? Mild to moderate diffuse disease in the proximal segment of all the 3 coronary arteries. No significant stenotic lesions.? Slightly elevated LVEDP. Review of Systems Const: Denies: fever(s) Eyes: Denies: change in vision ENMT: Denies: throat pain Card: Reports: chest pain Resp: Reports: dyspnea GI: Denies: abdominal pain : Denies: flank pain Musc: Denies: neck pain Skin/Breast: Denies: rash Neuro: Denies: headache(s) Psych: Denies: anxiety Endo: Denies: polyuria Michael/Lymph: Denies: easy bruising All/Imm: Denies: urticaria Medications/Allergies Home Medications Medication Instructions Recorded Confirmed Last Taken Type aspirin 81 mg tablet,delayed 81 mg PO DAILY 11/01/19 02/28/22 02/28/22 History release 81 mg & 325 mg today atenolol 100 mg tablet 100 mg PO DAILY 11/01/19 02/28/22 02/28/22 History atorvastatin 10 mg tablet 10 mg PO DAILY 11/01/19 02/28/22 02/27/22 History flaxseed oil 1,000 mg capsule 1,000 mg PO DAILY 11/01/19 02/28/22 02/28/22 History hydrochlorothiazide 25 mg tablet 25 mg PO DAILY 11/01/19 02/28/22 02/28/22 History lisinopril 10 mg tablet 10 mg PO DAILY 11/01/19 02/28/22 02/28/22 History metformin 1,000 mg tablet 1,000 mg PO BID 11/01/19 02/28/22 02/28/22 History multivitamin (Multiple Vitamins) 1 tab PO DAILY 11/01/19 02/28/22 02/28/22 History omega 8-ksu-thy-fish oil 1,000 mg 1 cap PO DAILY 11/01/19 02/28/22 02/28/22 History (120 mg-180 mg) capsule (Fish Oil) calcium carbonate 500 mg calcium 500 mg PO DAILY 02/28/22 02/28/22 02/27/22 History (1,250 mg) tablet clindamycin phosphate 1 % topical 1 applic TOPICAL . DIRECTED 02/28/22 02/28/22 Unknown History gel hydrocortisone 2.5 % topical cream 1 applic TOPICAL . DIRECTED 02/28/22 02/28/22 Unknown History isosorbide mononitrate 30 mg 30 mg PO DAILY 02/28/22 02/28/22 02/28/22 History tablet,extended release 24 hr Allergies Allergy/AdvReac Type Severity Reaction Status Date / Time meloxicam Allergy elevated Verified 02/28/22 14:34 blood pressure Sulfa (Sulfonamide Allergy ALGY-Rash Verified 02/28/22 14:34 Antibiotics) PFSH Acute PFSH: Medical History (Updated 02/28/22 @ 18:40 by Jordi Durbin MD) Abnormal stress test Benign essential HTN Bradycardia Bradycardia Chest pain Coronary atherosclerosis Diabetes mellitus Diastasis recti History of cardiac pacemaker History of colon polyps Hyperlipemia Intermittent palpitations Internal hemorrhoids Male erectile dysfunction Non-sustained ventricular tachycardia Obesity Pacemaker Primary hypertension Prostatic cancer Tear of meniscus of right knee Transient cerebral ischemia Urinary incontinence Ventricular arrhythmia Surgical History (Updated 02/28/22 @ 18:40 by Jordi Durbin MD) History of arthroscopic surgery of shoulder History of colonoscopy with polypectomy History of eye surgery History of knee replacement History of knee surgery History of prostatectomy Family History Mother CAD (coronary artery disease) Diabetes Father Cancer Diabetes Denies family history of Clotting disorder Dementia Chronic kidney disease (CKD) Suicide Anesthesia complication Bleeding disorder Lung disease Stroke Social History Smoking and tobacco status: former smoker Alcohol intake: former Vitals/I&O/Wt Last Vital Signs Temp 97.9 F 02/28/22 14:24 Pulse 58 L 05/26/22 15:52 Resp 16 02/28/22 16:33 BP 111/45 02/28/22 15:52 Pulse Ox 95 02/28/22 16:33 Weight last 48 hrs Weight 92.986 kg Physical Exam Narrative: Very pleasant early male Sitting comfortably in his bed Saturating well on room air Hemodynamically stable Heart rate 60s, paced rhythm Abdomen which will be stated nontender soft S1, S2 No signs of heart failure or dehydration No active chest pain EOMI, PERRLA Lungs are clear to auscultation Very pleasant and cooperative No sign of cellulitis Data : 02/28/22 14:40 02/28/22 14:40 A&P Assessment and plan (1) Chest pain: Status: Acute (2) Presence of permanent cardiac pacemaker: Status: Acute (3) Benign essential HTN: Status: Acute (4) Pacemaker: Status: Acute (5) Bradycardia: Status: Acute Plan Atypical chest pain Has moderate risk factors for coronary disease, known atherosclerotic coronary disease as per previous coronary angiogram 2019 EKG showing paced rhythm Troponin unremarkable Do pacemaker evaluation Hold atenolol Cardiac stress test in the morning Check D-dimer Serial troponin EKG Currently chest pain-free hemodynamically stable Echo in the morning, 2018 echo revealed EF 65% Bradycardia Patient has a pacemaker for indication of symptomatic bradycardia He is on atenolol as well Currently noted bradycardia on telemetry, do pacemaker evaluation, hold atenolol check TSH and mag level No active signs of [place] Essential hypertension: Currently normotensive continue antihypertensive other than atenolol He has history of ventricular arrhythmia Diabetes: Sliding scale Cardiac diet Full code DVT prophylaxis Lovenox Attestations Medical Necessity Statement*: Anticipating discharge within 48 hours will need cardiac stress in the morning for atypical chest pain Time Spent in Patient Care: 40mins Coding Level of Care Code Acute Email Production Consultant for Chg Fwd Diagnoses Chest pain R07.9 Presence of permanent cardiac pacemaker Z95.0 Benign essential HTN I10 Pacemaker Z95.0 Bradycardia R00.1
--- NOTE | 2022-02-28 18:52 | ECG_ITS ---
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 Interpretive Statements NAME OF STUDY: LEXISCAN SESTAMIBI STRESS TEST INDICATION: [Unstable Angina, ] Procedure: At the baseline, the blood pressure was 153/81 mmHg with a heart rate of 60 bpm. The electrocardiogram showed normal sinus rhythm, normal axis with normal ST and T's. The Lexiscan was infused over a period of 20 seconds. A total of 0.4 mg of Lexiscan was infused. The stress phase was continued for a total of 5 minutes. Heart rate was at the end of stress phase was 62 bpm and a blood pressure of 141/75 mmHg. The EKG at the peak infusion revealed since normal sinus rhythm with no significant ST-T wave changes with occasional PVCs. Sestamibi was injected 20 seconds after the Lexiscan infusion. Blood pressure at the end of recovery phase was 148/82 mmHg with a heart rate of 61 bpm. Conclusion: 1. Normal EKG response to Lexiscan infusion 2. No Lexiscan induced chest pain or cardiac arrhythmia. 3. Normal blood pressure and heart rate response. 4. Sestamibi/sestamibi perfusion scan pending; see separate report. Electronically Signed On 03-14-2022 12:13:00 CDT by Joshua Farrell M.D. [id number]
[2022-02-28] MEDS: enoxaparin 40 mg/0.4 mL Syringe SUBCUT (19:19)
[2022-02-28 19:28] LABS: Thyroid Stimulating Hormone 1.97 uIU/mL (0.27-4.20)
[2022-02-28 20:33] VITALS: BMI 30.1
[2022-02-28 21:00] VITALS: BP 143/73; PULSE 83; RESP 16; TEMP -13.4; TEMP 7.9; O2SAT 92
[2022-02-28 21:02] LABS: Troponin 5 6HR 11.77 ng/L (0-15)
[2022-02-28 21:11] LABS: Troponin 5 6HR Delta -2.23 ng/L (0-12)
[2022-02-28 21:42] LABS: Glucose Point of Care 186 mg/dL (70-110)
--- NOTE | 2022-02-28 21:49 | ECG_ITS ---
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 Measurements Intervals [place] Rate: 59 P: 109 VT: 247 QRS: 41 QRSD: 111 T: 53 QT: 413 QTc: 412 Interpretive Statements ELECTRONIC ATRIAL PACEMAKER LOW QRS VOLTAGE IN PRECORDIAL LEADS [QRS DEFLECTION < 1.0 mV IN CHEST LEADS] MODERATE INTRAVENTRICULAR CONDUCTION DELAY [110+ ms QRS DURATION] ABNORMAL RHYTHM ECG Compared to ECG 02/28/2022 17:33:41 Intraventricular conduction delay now present Myocardial infarct finding no longer present Electronically Signed On 02-28-2022 22:26:24 CDT by Joshua Farrell M.D. [id number]
[2022-02-28 22:41] VITALS: PULSE 60
[2022-03-01] VITALS (10 sets, daily range): BP systolic 125–159; BP diastolic 62–83; PULSE 58–61; RESP 15–20; TEMP 36.5–37.2; O2SAT 94–97
--- NOTE | 2022-03-01 02:31 | USCV_ITS ---
Alex Quiros Age: 76 Gender: M : 1945 Exam Date: 03/01/2022 02:37 Ordering Phys: Jordi Durbin MD Technologist: CLAUDIA [place] [facility] [place]: UA BP: / HR: 59 Rhythm: Sinus Technical Quality: Adequate MEASUREMENTS (Male / Female) Normal Values 2D ECHO LV Diastolic Diameter PLAX 4.5 cm 4.2 - 5.9 / 3.9 - 5.3 cm LV Systolic Diameter PLAX 3.1 cm IVS Diastolic Thickness 1.3 cm 0.6 - 1.0 / 0.6 - 0.9 cm IVS Systolic Thickness 2.0 cm LVPW Diastolic Thickness 1.7 cm 0.6 - 1.0 / 0.6 - 0.9 cm LVPW Systolic Thickness 2.3 cm LVOT Diameter 2.6 cm LV Ejection Fraction 2D Teich 55.0 % LV Ejection Fraction MOD 2C 64.9 % LV Ejection Fraction 2C AL 64.4 % LA Diameter 3.4 cm LA Width 2.7 cm LA Height 4.6 cm RA Width 4.1 cm RA Height 3.8 cm Aorta at Sinotubular Diameter 2.4 cm M-MODE Aortic Annulus Diameter 2.4 cm LA Ao Ratio MM 1.4 MV E Point Septal Separation 1.8 cm DOPPLER AV Peak Velocity 127.5 cm/s LVOT Peak Velocity 75.0 cm/s AV Area Cont Eq vti 3.9 cm squared AV Area Cont Eq pk 3.1 cm squared MV Peak Velocity 84.0 cm/s MV Area PHT 3.2 cm squared Mitral E to A Ratio 0.8 MV E' Velocity 35.5 cm/s Mitral E to MV E' Ratio 18.2 Mitral E to LV E' Lateral Ratio 18.2 Mitral E to LV E' Septal Ratio 18.2 TR Peak Velocity 83.9 cm/s TR Peak Gradient 2.8 mmHg TR Mean Velocity 55.3 cm/s TR Mean Gradient 1.4 mmHg TR Velocity Time Integral 15.0 cm Right Atrial Pressure 10.0 mmHg Pulmonary Artery Systolic Pressu 12.8 mmHg PV Peak Velocity 62.0 cm/s RV Acceleration Time 0.1 s RV Ejection Time 0.4 s RV AcT/ET 0.2 FINDINGS Left Ventricle Technically difficult study. Only subcostal views were obtained. Definitely appears to be normal size and ejection fraction. Segmental wall motion analysis difficult.Grade I/IV diastolic dysfunction (abnormal relaxation filling pattern), normal to mildly elevated filling pressures. Right Ventricle Could not be visualized well Right Atrium Could not be visualized well Left Atrium Possibly of normal size Mitral Valve Moderate mitral annular calcification. .Trace mitral valve regurgitation. Aortic Valve Thickened aortic valve. Tricuspid Valve Could not be visualized well.trace tricuspid valve regurgitation. Pulmonic Valve Pulmonic valve not well visualized. Trace pulmonary valve regurgitation. Pericardium No pericardial effusion. Aorta Visualized IVC Could not be visualized well CONCLUSIONS Technically difficult study. Only subcostal views were obtained. The left ventricle appears to be normal size and ejection fraction. Segmental wall motion analysis difficult. Thickened aortic and mitral valves. Moderate mitral annular calcification. Trace of MR, TR and FL Grade I/IV diastolic dysfunction (abnormal relaxation filling pattern), normal to mildly elevated filling pressures. There is no pericardial effusion. Comparison with the previous study is difficult because of the difference in the technical quality. Dr Chris Craft MD [facility] (Electronically Signed) Final Date: 01 Mar 2022 11:24 S
[2022-03-01 04:34] LABS: Basophils % 0.7 %; Eosinophils # 0.2 10^3/uL (0.0-0.8); Eosinophils % 4.6 %; Hematocrit 44.5 % (42.0-52.0); Lymphocytes # 1.6 10^3/uL (0.8-4.8); Lymphocytes % 35.8 %; Mean Corpuscular HGB Conc 33.7 g/dL (30.0-36.0); Mean Corpuscular Hemoglobin 31.2 pg (28.0-34.0); Mean Corpuscular Volume 92.5 fl (80-94); Mean Platelet Volume 9.7 fL (7.4-10.4); Monocytes # 0.4 10^3/uL (0.2-0.9); Monocytes % 8.1 %; Neutrophils # 2.32 10^3/uL (1.8-7.7); Neutrophils % 50.6 %; Nucleated Red Blood Cells % 0 %; Platelet Count 124 10^3/cmm (130-400); Red Blood Count 4.81 10^6/uL (4.1-5.3); Red Cell Distribution Width 13.2 % (12.1-15.1); White Blood Count 4.6 10^3/uL (4.0-10.0)
[2022-03-01 05:06] LABS: Alanine Aminotransferase 26 U/L (0-41); Albumin Level 3.9 g/dL (3.5-5.2); Alkaline Phosphatase 65 IU/L (40-130); Anion Gap 16.1 (5-19); Aspartate Amino Transferase 26 U/L (0-40); Blood Urea Nitrogen 18 mg/dL (8-23); Calcium 9.1 mg/dL (8.5-10.5); Carbon Dioxide 23 mmol/L (22-29); Chloride 103 mmol/L (98-107); Globulin 1.9 g/dL (1.3-4.6); Glucose 126 mg/dL (65-115); Magnesium 1.9 mg/dL (1.7-2.3); Osmolality Calculated 289 mOsm/kg (285-295); Potassium 4.1 mmol/L (3.5-5.1); Sodium 138 mmol/L (136-145); Total Bilirubin 0.6 mg/dL (0.15-1.2); Total Protein 5.8 g/dL (6.6-8.7)
[2022-03-01 06:42] LABS: Glucose Point of Care 152 mg/dL (70-110)
[2022-03-01] MEDS: regadenoson 0.4 Mg/5 ml Syringe IVP (07:32)
[2022-03-01] MEDS: insulin lispro 100 unit/1 mL SUBCUT ×2 (09:24→11:41)
[2022-03-01] MEDS: aspirin 81 mg EC Tablet PO (09:26)
[2022-03-01] MEDS: hydroCHLOROthiazide 25 mg Tablet PO (09:26)
[2022-03-01] MEDS: isosorbide mononitrate ER 30 mg Tablet PO (09:26)
[2022-03-01] MEDS: atorvastatin 40 mg Tablet 20 MG PO (09:26)
[2022-03-01] MEDS: lisinopril 10 mg Tablet PO (09:27)
[2022-03-01 11:45] LABS: Glucose Point of Care 250 mg/dL (70-110)
--- NOTE | 2022-03-01 12:13 | P.PN_ITS ---
Subjective Subjective: Seen this morning. Patient is chest pain-free. He states he did have some pain last night with some shortness of breath but right now is doing okay. He also did not experience any pain or shortness of breath during exercise this morning. He is awaiting results of the stress test. Vitals/I&O/Wt Last Vital Signs Temp 98.0 F 03/01/22 11:11 Pulse 60 03/01/22 11:11 Resp 18 03/01/22 11:11 BP 125/72 03/01/22 11:11 Pulse Ox 96 03/01/22 11:11 02/28/22 03/01/22 03/01/22 22:59 06:59 14:59 Intake Total 520 / 520 480 / 1000 0 / 0 Output Total 0 / 0 Balance 520 / 520 480 / 1000 0 / 0 Weight last 48 hrs Weight 93.259 kg Weight 95.164 kg Weight 92.986 kg Physical Exam Narrative: General: Alert oriented x3, patient seen sitting up in bed appearing comfortable on room air at this time. Denies any chest pain HEENT: Normocephalic, atraumatic, EOMI, Cardio: Regular rate rhythm, normal S1-S2, no murmurs rubs gallops Respiratory: Good bilateral air entry, no wheezes no rhonchi appreciated GI: Abdomen soft, nontender, nondistended, bowel sounds + Behavior: Appropriate and cooperative Extremities: Trace edema, no cyanosis Data : 03/01/22 03:30 03/01/22 03:27 A&P Assessment and plan (1) Chest pain: Status: Acute (2) Presence of permanent cardiac pacemaker: Status: Acute (3) Atherosclerosis of coronary artery of [place] heart without angina pectoris: Status: Acute (4) Dyslipidemia: Status: Acute (5) Benign essential HTN: Status: Acute (6) Pacemaker: Status: Acute (7) Non-sustained ventricular tachycardia: Status: Acute (8) Coronary atherosclerosis: Status: Acute Qualifiers: Coronary Disease-Associated Artery/Lesion type: [place] artery [place] vs. transplanted heart: [place] heart Associated angina: with unspecified angina Qualified Code(s): I25.119 - Atherosclerotic heart disease of [place] coronary artery with unspecified angina pectoris (9) Chest pain: Status: Acute Qualifiers: Chest pain type: other chest pain Qualified Code(s): R07.89 - Other chest pain (10) Hyperlipemia: Status: Acute Qualifiers: Hyperlipidemia type: mixed hyperlipidemia Qualified Code(s): E78.2 - Mixed hyperlipidemia (11) Abnormal stress test: Status: Acute Plan #Chest pain #History of coronary artery disease, previous angiogram does show evidence of disease 2019 #Status post pacemaker due to bradycardia #Hypertension #Hyperlipidemia #History of NSVT EKG showing paced rhythm Troponin unremarkable Hold atenolol Cardiac stress test completed today. Result pending. Serial troponin EKG Echo results pending. Currently chest pain-free hemodynamically stable Echo in the morning, 2019 echo revealed EF 65% Stress test positive. Will consult cardiology Essential hypertension: Currently normotensive continue antihypertensive other than atenolol He has history of ventricular arrhythmia Diabetes: Sliding scale Cardiac diet Full code DVT prophylaxis Lovenox Attestations Medical Necessity Statement*: Will need to stay in hospital tonight. Stress test positive. He will need cardiology consult. Coding Level of Care Code Acute Bracelet Former for g Fwd Diagnoses Chest pain R07.9 Presence of permanent cardiac pacemaker Z95.0 Atherosclerosis of coronary artery of [place] heart without angina pectoris I25.10 Dyslipidemia E78.5 Benign essential HTN I10 Pacemaker Z95.0 Non-sustained ventricular tachycardia I47.2 Coronary atherosclerosis I25.119 Coronary Disease-Associated Artery/Lesion type: [place] artery [place] vs. transplanted heart: [place] heart Associated angina: with unspecified angina Chest pain R07.89 Chest pain type: other chest pain Hyperlipemia E78.2 Hyperlipidemia type: mixed hyperlipidemia Abnormal stress test R94.39
[2022-03-01 17:14] LABS: Glucose Point of Care 116 mg/dL (70-110)
--- NOTE | 2022-03-01 17:43 | PM.CONSULT ---
Providers/Reason For Consult Consulting Physician/Specialty*: Joshua Farrell MD/ Cardiology Reason for Consult*: Chest pain/abnormal stress test Requesting Physician: Dr Angeles Attending Physician: Rocio Angeles MD Primary Care Provider: Chinedu Babin DO History of Present Illness History of Present Illness Alex Quiros is a 76 year old male with PMH of diabetes, hypertension, pacemaker has presented with chest pressure symptoms. Patient was walking to bank when started noticing chest pressure. Initial episode lasted for 15-20 minutes but on and off still having chest pressure. EKG did not show significant ischemic changes. Troponin did not have significant uptrend. ECHO is of poor quality but grossly normal LV function. Lexiscan showed prior infarct with significant ashely infarct ischemia in left circumflex artery territory. Review of Systems Const: Denies: fever(s) Eyes: Denies: change in vision ENMT: Denies: throat pain Card: Reports: chest pain Resp: Reports: dyspnea GI: Denies: abdominal pain : Denies: flank pain Musc: Denies: neck pain Skin/Breast: Denies: rash Neuro: Denies: headache(s) Psych: Denies: anxiety Endo: Denies: polyuria Michael/Lymph: Denies: easy bruising All/Imm: Denies: urticaria Medications/Allergies Home Medications Medication Instructions Recorded Confirmed Last Taken Type aspirin 81 mg tablet,delayed 81 mg PO DAILY 11/01/19 02/28/22 02/28/22 History release 81 mg & 325 mg today atenolol 100 mg tablet 100 mg PO DAILY 11/01/19 02/28/22 02/28/22 History atorvastatin 10 mg tablet 10 mg PO DAILY 11/01/19 02/28/22 02/27/22 History flaxseed oil 1,000 mg capsule 1,000 mg PO DAILY 11/01/19 02/28/22 02/28/22 History hydrochlorothiazide 25 mg tablet 25 mg PO DAILY 11/01/19 02/28/22 02/28/22 History lisinopril 10 mg tablet 10 mg PO DAILY 11/01/19 02/28/22 02/28/22 History metformin 1,000 mg tablet 1,000 mg PO BID 11/01/19 02/28/22 02/28/22 History multivitamin (Multiple Vitamins) 1 tab PO DAILY 0102/28/22 02/28/22 History omega 3-ngz-vah-fish oil 1,000 mg 1 cap PO DAILY 11/01/19 02/28/22 02/28/22 History (120 mg-180 mg) capsule (Fish Oil) calcium carbonate 500 mg calcium 500 mg PO DAILY 02/28/22 02/28/22 02/27/22 History (1,250 mg) tablet clindamycin phosphate 1 % topical 1 applic TOPICAL . DIRECTED 02/28/22 02/28/22 Unknown History gel hydrocortisone 2.5 % topical cream 1 applic TOPICAL . DIRECTED 02/28/22 02/28/22 Unknown History isosorbide mononitrate 30 mg 30 mg PO DAILY 02/28/22 02/28/22 02/28/22 History tablet,extended release 24 hr Allergies Allergy/AdvReac Type Severity Reaction Status Date / Time meloxicam Allergy elevated Verified 02/28/22 14:34 blood pressure Sulfa (Sulfonamide Allergy ALGY-Rash Verified 02/28/22 14:34 Antibiotics) Current Medications Generic Name Dose Route Start Last Admin Trade Name Freq PRN Reason Stop Dose Admin Aspirin 81 mg 03/01/22 09:00 03/01/22 09:26 Aspirin 81 Mg Ec Tablet PO 81 mg DAILY YAMILETH Administration Atorvastatin Calcium 20 mg 03/01/22 09:00 03/01/22 09:26 Atorvastatin 40 Mg Tablet PO 20 mg DAILY YAMILETH Administration Enoxaparin Sodium 40 mg 02/28/22 19:00 02/28/22 19:19 Enoxaparin 40 Mg/0.4 Ml Syringe SUBCUT 40 mg Q24H YAMILETH Administration Hydrochlorothiazide 25 mg 03/01/22 09:00 03/01/22 09:26 Hydrochlorothiazide 25 Mg Tablet PO 25 mg DAILY YAMILETH Administration Insulin Human Lispro 0 unit 03/01/22 08:00 03/01/22 17:28 Insulin Lispro 100 Unit/1 Ml SUBCUT Not Given TIDWM [facility] Protocol Isosorbide Mononitrate 30 mg 03/01/22 09:00 03/01/22 09:26 Isosorbide Mononitrate Er 30 Mg Tablet PO 30 mg DAILY YAMILETH Administration Lisinopril 10 mg 03/01/22 09:00 03/01/22 09:27 Lisinopril 10 Mg Tablet PO 10 mg DAILY YAMILETH Administration PFSH Acute PFSH: Medical History Abnormal stress test Benign essential HTN Bradycardia Bradycardia Chest pain Coronary atherosclerosis Diabetes mellitus Diastasis recti History of cardiac pacemaker History of colon polyps Hyperlipemia Intermittent palpitations Internal hemorrhoids Male erectile dysfunction Non-sustained ventricular tachycardia Obesity Pacemaker Primary hypertension Prostatic cancer Tear of meniscus of right knee Transient cerebral ischemia Urinary incontinence Ventricular arrhythmia Surgical History History of arthroscopic surgery of shoulder History of colonoscopy with polypectomy History of eye surgery History of knee replacement History of knee surgery History of prostatectomy Family History Mother CAD (coronary artery disease) Diabetes Father Cancer Diabetes Denies family history of Clotting disorder Dementia Chronic kidney disease (CKD) Suicide Anesthesia complication Bleeding disorder Lung disease Stroke Social History Smoking and tobacco status: former smoker Alcohol intake: former Vitals/I&O/Wt Last Vital Signs Temp 98.9 F 03/01/22 15:07 Pulse 60 03/01/22 15:07 Resp 18 03/01/22 15:07 BP 126/78 03/01/22 15:07 Pulse Ox 95 03/01/22 15:07 03/01/22 03/01/22 03/01/22 06:59 14:59 22:59 Intake Total 480 / 1000 400 / 400 400 / 800 Balance 480 / 1000 400 / 400 400 / 800 Weight last 48 hrs Weight 205 lb 9.6 oz Weight 209 lb 12.8 oz Weight 205 lb Physical Exam Narrative: GENERAL: Patient is alert, awake and oriented x3.? NECK: No jugular vein distension. HEENT: No cyanosis. No icterus. No pallor. HEART: Regular S1 and S2. No murmur, rub or gallop. LUNGS: Clear to auscultate bilaterally. ABDOMEN: Soft, nontender and nondistended. Positive bowel sounds. No guarding, rebound or tenderness. CENTRAL NERVOUS SYSTEM: Grossly nonfocal. EXTREMITIES: Lower extremities without edema bilaterally. Data : 03/02/22 04:25 03/02/22 04:25 A&P Assessment and plan (1) Chest pain: Status: Acute (2) Presence of permanent cardiac pacemaker: Status: Acute (3) Dyslipidemia: Status: Acute (4) Benign essential HTN: Status: Acute (5) Hyperlipemia: Status: Acute Qualifiers: Hyperlipidemia type: mixed hyperlipidemia Qualified Code(s): E78.2 - Mixed hyperlipidemia (6) Abnormal stress test: Status: Acute Plan Patient has presented with chest pain symptoms with typical features and abnormal stress test with prior infarct and significant ashely-infarct ischemia in the LCx territory. We will proceed with coronary angiogram with possible percutaneous coronary intervention. Risks and benefits of the procedure have been discussed. He understands the risks and benefits and wants to proceed with the procedure Continue current medications ECHO is of limited quality but grossly normal NPO past midnights. Thank you for involving us with care of this patient. We will continue to follow. Please call with questions Consult Attestations Medical Necessity Statement: Care expected to cross 2 midnights. 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
[2022-03-01] MEDS: enoxaparin 40 mg/0.4 mL Syringe SUBCUT (18:12)
--- NOTE | 2022-03-01 18:19 | PC.NURSE ---
end of shift : Patient discussed plan of care with Steamtable Attendant Railroad at bedside. Discussed angiogram for in the am between 8-10 r/t stress test results. Denies current chest pain. Eating well, npo at midnight. No complaints or concerns at this time. Family also at bedside for discussion.
--- NOTE | 2022-03-01 18:52 | NMCV_ITS ---
NM mac perf SPECT r/s* [id number] Alex Quiros Age: 76 Gender: M : 1945 Exam Date: 03/01/2022 06:55 Ordering Phys: Jordi Durbin MD Technologist: MARYCRUZ Sellers Exam Location: [facility] Indications: CHEST PAIN STRESS TEST Please see separate stress test report [facility] for full findings IMAGE PROTOCOL Rest/Stress 1 Lexiscan Day Radiopharmaceutical Dose (mCi) Administration Site Administered by Rest: Tc-99m 10.9 IV MARYCRUZ Brooks Sestamibi Stress:Tc-99m 32.8 IV MARYCRUZ Sellers Sestamikrishna Rest: 01-Mar-2022 60 Discovery 630 Stress: 01-Mar-2022 30 Discovery 630 0.4mg Lexiscan. Images obtained in supine and prone position. SPECT RESULTS Technical Quality: Excellent Raw Data Analysis: Normal Image Corrections: No attenuation or motion correction applied Summed Stress Score: 9 Summed Rest Score: 4 Summed Difference Score: 6 PERFUSION FINDINGS There is a moderate sized, mostly reversible perfusion defect noted in the inferolateral wall. This is consistent with prior infarct with significant area of ashely-infarct ischemia in the left circumflex artery territory FUNCTIONAL RESULTS (calculated via Gated SPECT) Stress Image LV EF (%): 58 Stress EDV (mL):109 TID: 0.78 Stress ESV (mL):46 FUNCTIONAL FINDINGS: There is normal left ventricular systolic function. IMPRESSIONS 1. Abnormal myocardial perfusion imaging with prior infarct and significant area of ashely-infarct ischemia in the left circumflex artery territroy 2. LV systolic function is normal Joshua Farrell MD (Electronically Signed) Final Date: 01 Mar 2022 10:49 S
[2022-03-01 20:52] LABS: Glucose Point of Care 189 mg/dL (70-110)
[2022-03-02] VITALS (10 sets, daily range): BP systolic 107–150; BP diastolic 70–85; PULSE 57–73; RESP 14–20; TEMP 36.4–36.9; O2SAT 94–98
[2022-03-02 05:05] LABS: Basophils % 0.6 %; Eosinophils # 0.2 10^3/uL (0.0-0.8); Eosinophils % 3.4 %; Hematocrit 48.5 % (42.0-52.0); Hemoglobin 16.6 g/dL (11.7-16.6); Lymphocytes # 1.4 10^3/uL (0.8-4.8); Mean Corpuscular HGB Conc 34.2 g/dL (30.0-36.0); Mean Corpuscular Hemoglobin 31.2 pg (28.0-34.0); Mean Corpuscular Volume 91.2 fl (80-94); Mean Platelet Volume 10.1 fL (7.4-10.4); Monocytes # 0.4 10^3/uL (0.2-0.9); Monocytes % 8.7 %; Neutrophils # 2.95 10^3/uL (1.8-7.7); Neutrophils % 58.5 %; Nucleated Red Blood Cells % 0 %; Platelet Count 130 10^3/cmm (130-400); Red Blood Count 5.32 10^6/uL (4.1-5.3); Red Cell Distribution Width 13.2 % (12.1-15.1)
[2022-03-02 05:19] LABS: Slide Review Slide Review Perform
[2022-03-02 05:22] LABS: Anion Gap 18.1 (5-19); Blood Urea Nitrogen 20 mg/dL (8-23); Calcium 9.2 mg/dL (8.5-10.5); Carbon Dioxide 23 mmol/L (22-29); Chloride 101 mmol/L (98-107); Glucose 153 mg/dL (65-115); Magnesium 2.2 mg/dL (1.7-2.3); Osmolality Calculated 292 mOsm/kg (285-295); Potassium 4.1 mmol/L (3.5-5.1); Sodium 138 mmol/L (136-145)
--- NOTE | 2022-03-02 05:32 | XACV_ITS ---
Exam Room: [facility] Ht: 178 cm Wt: 92 kg BSA: 2.15 m2 Gender: Male : 1945 Any Known Allergies: Sulfa Exam Priority: Routine Procedure(s): Procedure Description: Diagnostic procedure Procedure Description: Left Heart Catheterization Procedure Description: Left ventriculography Procedure Description: Coronary Angiography Diagnostic Cath Status: Elective Diagnostic Findings * INDICATION:76 year old male with PMH of diabetes, hypertension, pacemaker has presented with chest pressure symptoms. Patient was walking to bank when started noticing chest pressure. Initial episode lasted for 15-20 minutes but on and off still having chest pressure. EKG did not show significant ischemic changes. Troponin did not have significant uptrend. ECHO is of poor quality but grossly normal LV function. Lexiscan showed prior infarct with significant ashely infarct ischemia in left circumflex artery territory.. * Left Main has no disease. * Right Coronary Artery has no disease. * Proximal Left Anterior Descending: luminal irregularities 20% stenosis, BOO: 3 flow. * Proximal Circumflex: luminal irregularities 20% stenosis, BOO: 3 flow. * Coronary angiography shows right dominance. Conclusions 1. There is luminal irregularities coronary artery disease with two vessel disease. 2. Normal left ventricular systolic function. Ejection fraction of 55%. Recommendations * Aggressive risk factor modification. * Outpatient cardiology followup in 4 weeks. Interventional RX Recommendation: medical therapy and/or counseling Diagnostic RX Recommendation: medical therapy and/or counseling Anticoagulation: Heparin Ventriculography Ejection Fraction: 55.0 % Pressures Phase:Rest AO : 111 / 72 ( 89 ) @ 8:26:00 AM 113 / 58 ( 79 ) @ 8:35:00 AM 112 / 58 ( 79 ) @ 8:35:00 AM LV : 109 / -7 / 7 @ 8:34:00 AM 109 / -6 / 10 @ 8:35:00 AM 110 / -6 / 10 @ 8:35:00 AM Valves Phase:DefaultPhase AV : 0.0 @ 7:45:37 AM AV Mean Gradient: 0.0 @ 7:45:37 AM 0.0 @ 7:45:37 AM Clinical Evaluation EBL: 5mL-10mL Procedural Details Procedure Consent Obtained. Admit Source: In Patient. Pre-Procedure Time Out. Identified patient by full name and date of as verbalized by the patient/guarantor. Does the consent match the physician's order: Yes. Accurate & Complete Informed Consent: Yes. Inpatient/Outpatient History & Physical on Chart: Yes. If H&P is completed, is and addenduem needed: N/A; If yes, is the addendum complete: N/A. Visualize and Verify Site with Patient/Guarantor: N/A. Relevant Radiology Images available: N/A. Pre-op teaching completed and patient verbalized understanding. The risks, benefits, and alternatives of sedation and/or procedure were discussed by physician. The patient agrees to continue. Procedure started. [facility] Clinical Fraility Score: 3: Managing Well. Examination Supervisor Indications: Worsening Angina, positive stress test. Chest Pain Symptom Assessment: Atypical Angina. Correct patient, site and procedure confirmed by cath team. Current diagnosis: Chest Pain. PERRLA. Strong, equal hand english as a second language instructor bilaterally. Lungs clear x 5 lobes. IV Site on Arrival: 20 gauge in the right anticubital. IV Fluids: 0.9% NaCl at KVO. 0 mL infused prior to operations label clerk. Pre Procedural Pulses: right radial was 2+. Pre Procedural Pulses: bilateral dorsalis pedis was 2+. Oxygen started at 2liters/min via nasal canula. right groin was prepped with chloroprep then draped in the usual sterile fashion. right radial was prepped with chloroprep then draped in the usual sterile fashion. Physician notified. Baseline sample Acquired. HR: 60 BPM. Physician arrived. Physician scrubbed in. Immediate Pre-Procedure Time Out. Correct Patient: Yes; Correct Procedure: Yes; Correct Site: Yes; Correct Patient Position: Yes; Correct Supplies: Yes; Dried Flammable Prep: Yes; Blood Products Available: N/A;. Arterial access obtained. A 5 german TIG catheter in over wire. Injection performed through the Alvord catheter to view placement in arm. Glidewire inserted through the Alvord catheter. Catheter out. Radial access aborted due to torturosity. A TR Band was successful obtaining hemostatsis at the Radial artery insertion site. Lidocaine 1% infiltrated to the right groin. Lidocaine 1% infiltrated to the right radial. Arterial access obtained with micropuncture set. A 5 german JL4 catheter in over wire. Multiple views taken of left coronary artery. Catheter removed over the standard wire. A 5 german JR4 catheter in over wire. Multiple views taken of right coronary artery. Catheter out. A 5 german Angled Pig catheter in over wire. EDP Sample taken: LV 109/-8,7; HR: 60 BPM; SpO2: 92%. LV gram performed in RAMIREZ @ 10 mL/second for a total of 30 mL. EDP Sample taken: LV 109/-7,10; HR: 60 BPM; SpO2: 93%. Pullback taken: LV 110/-7,10; AO 113/58(79); Mean: 0mmHg, Peak to Peak: 0mmHg, SEP: 6sec/min; HR: 60 BPM; SpO2: 93%. Catheter out. A Right femoral angiogram was performed to determine safe placement of closure device. Lidocaine 1% infiltrated to the right groin. A Angio-Seal VIP ([employer]) was successful obtaining hemostatsis at the Right Femoral artery insertion site. Lot #[id number] Exp 01/03/2023. Angioseal placed without complications. No signs or symptoms of hematoma noted. Sterile dressing applied per usual sterile fashion. Post Procedure: Pulses reassessed and unchanged. PERRLA. Strong, equal hand english as a second language instructor bilaterally. No VTE prophylaxis required. Medication's Wasted: Heparin = 1000u. Medication's Wasted: Nitro = 49.8 mg. Total IV fluids: 60 mL. Post-op diagnosis: Non Obstructive CAD. Complications: none. Estimated blood loss: 5mL-10mL. Responsiveness - Normal response to verbal stimuli; alert and oriented, PERRLA. Airway - Unaffected, no intervention required; spontaneous ventilation. Circulation: W/N/L, pulses unchanged. Nausea/Vomiting: No. Procedure completed. Patient transferred by bed to [facility]. Vital chart was stopped. Access Site Site: Radial artery Sheath Size: 6 Fr Hemostasis Method: TR Band Hemostasis Success: Successful Site: Right Femoral artery Sheath Size: 6 Fr Hemostasis Method: Angio-Seal VIP ([employer]) Hemostasis Success: Successful Procedure Medications Start: 7:05 AM Stop: 7:05 AM Medication: Versed Amount: 1 mg Route: I.V. Start: 7:05 AM Stop: 7:05 AM Medication: Fentanyl Amount: 50 mcg Route: I.V. Start: 7:09 AM Stop: 7:09 AM Medication: Versed Amount: 1 mg Route: I.V. Start: 7:15 AM Stop: 7:15 AM Medication: Nitrogylcerin Amount: 200 mcg Route: I.A. Start: 7:23 AM Stop: 7:23 AM Medication: Versed Amount: 1 mg Route: I.V. Start: 7:23 AM Stop: 7:23 AM Medication: Fentanyl Amount: 25 mcg Route: I.V. I, the attending physician, have reviewed and verified all procedure medications. Yes, all medications given per verbal order History/Risk Factors Hypertension: Yes Dyslipidemia: Yes Peripheral Arterial Disease (PAD): No Myocardial Infarction (DC): No Obesity: Yes Renal Disease: No Tobacco Use: Former Prior Interventions PCI: No CABG: No Valve Surgery: No Report Signatures Finalized by Joshua Farrell MD on 03/10/2022 11:00 PM
[2022-03-02 06:14] LABS: Glucose Point of Care 153 mg/dL (70-110)
[2022-03-02] MEDS: sodium chloride 0.9% 1,000 ML 50 ML IV (06:15)
--- NOTE | 2022-03-02 08:56 | W.PM.OPSUD ---
Surgery/Procedure H&P Update DATE OF PROCEDURE: March 02, 2022 DATE H&P PERFORMED: 03/01/22 H&P UPDATE INFORMATION: I have reviewed H&P completed within last 30 days, I have examined patient prior to procedure and No changes to prior documentation PREOP DIAGNOSIS: Chest pain/abnormal stress test PRIMARY INDICATION FOR PROCEDURE: Chest pain/abnormal stress test PLANNED PROCEDURE: Left heart cath with possible percutaneous coronary intervention PATIENT REASSESSED PRIOR TO SEDATION, WITH NO CHANGE NOTED: Yes PHYSICAL EXAM: alert, oriented x 3, clear to auscultation bilaterally and regular rate & rhythm AIRWAY EVAL/ANESTHESIA PLAN: ASA III, Monitored Anesthesia, Local Anesthesia, Risks, benefits & alternatives of sedation and/or procedure discussed and Patient agrees to continue as planned
--- NOTE | 2022-03-02 09:35 | P.PN_ITS ---
Subjective Subjective: Patient is doing well. Underwent coronary angiogram that showed nonobstructive CAD and no severe stenosis. LV systolic function on LV gram was normal. Vitals/I&O/Wt Last Vital Signs Temp 98.2 F 03/02/22 07:38 Pulse 73 03/02/22 07:38 Resp 14 03/02/22 07:38 BP 134/73 03/02/22 07:38 Pulse Ox 96 03/02/22 07:38 03/01/22 03/02/22 03/02/22 22:59 06:59 14:59 Intake Total 1360 / 1760 600 / 2360 Balance 1360 / 1760 600 / 2360 Weight last 48 hrs Weight 202 lb 9.6 oz Weight 205 lb 9.6 oz Weight 209 lb 12.8 oz Weight 205 lb Physical Exam Narrative: GENERAL: Patient is alert, awake and oriented x3.? NECK: No jugular vein distension. HEENT: No cyanosis. No icterus. No pallor. HEART: Regular S1 and S2. No murmur, rub or gallop. LUNGS: Clear to auscultate bilaterally. ABDOMEN: Soft, nontender and nondistended. Positive bowel sounds. No guarding, rebound or tenderness. CENTRAL NERVOUS SYSTEM: Grossly nonfocal. EXTREMITIES: Lower extremities without edema bilaterally. Data : 03/02/22 04:25 03/02/22 04:25 A&P Assessment and plan (1) Chest pain: Status: Acute (2) Presence of permanent cardiac pacemaker: Status: Acute (3) Dyslipidemia: Status: Acute (4) Benign essential HTN: Status: Acute (5) Hyperlipemia: Status: Acute Qualifiers: Hyperlipidemia type: mixed hyperlipidemia Qualified Code(s): E78.2 - Mixed hyperlipidemia (6) Abnormal stress test: Status: Acute Plan Patient has presented with chest pain symptoms with typical features and abnormal stress test with prior infarct and significant ashely-infarct ischemia in the LCx territory. Coronary angiogram did not show significant CAD. LV gram shows normal LV systolic function. Medical therapy Continue current medications ECHO is of limited quality but grossly normal Patient is stable to be discharged from cardiology standpoint. Thank you for involving us with care of this patient. Please call with questions Attestations Medical Necessity Statement*: Care expected to cross 2 midnights Coding Level of Care Code Acute Electric Fan Assembler for Chg Fwd Diagnoses Chest pain R07.9 Presence of permanent cardiac pacemaker Z95.0 Dyslipidemia E78.5 Benign essential HTN I10 Hyperlipemia E78.2 Hyperlipidemia type: mixed hyperlipidemia Abnormal stress test R94.39
[2022-03-02 11:12] LABS: Glucose Point of Care 129 mg/dL (70-110)
--- NOTE | 2022-03-02 11:24 | PM.DCS ---
Discharge Providers Date of Admission: 02/28/22 17:24 Date of Discharge: March 02, 2022 Attending Provider at Admission: Rocio Angeles MD Attending Provider at Discharge: Rocio Angeles MD Primary Care Provider: Chinedu Babin DO Diagnoses at Discharge Discharge Diagnosis (1) Chest pain: Status: Acute (2) Presence of permanent cardiac pacemaker: Status: Acute (3) Dyslipidemia: Status: Acute (4) Benign essential HTN: Status: Acute (5) Hyperlipemia: Status: Acute Qualifiers: Hyperlipidemia type: mixed hyperlipidemia Qualified Code(s): E78.2 - Mixed hyperlipidemia (6) Abnormal stress test: Status: Acute Reason for Visit Reason for Visit: chest pain/heaviness Brief History: As per Dr. 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 He follows up with Dr. Venancio maya. Patient stating that today he went to the bank and there he started having chest discomfort which he describing as pressure-like sensation at its last for about 10 to 12 minutes, it transformed into burning-like sensation substernally, it was associated with shortness of breath on exertion.? He considers himself mildly active for his age.? He did not experience any nausea, vomiting, diaphoresis, presyncope or syncopal event.? According to his his heart rate has been running low.? He is compliant with his medications including atenolol.? He would not call his chest discomfort chest pain but he would describe it as pressure-like sensation, burning and fluttery sensation.? This morning his blood pressure on LT? arm 154/70 mmHg, right arm 134/90 mmHg At the time of my evaluation no active chest pain, hemodynamically stable, heart rate in 60s, I have admitted him to do stress test in the morning, do pacemaker evaluation, trend troponin and EKG Patient is full code Plan discussed with the patient and his at the bedside Diagnostic work-up in the ER revealed normal CBC and BMP troponin without remarkable delta, hemodynamically stable except bradycardia, he was given aspirin loading dose in the ER along morphine and nitroglycerin. EKG showing paced rhythm with old SD changes Previous) left heart catheterization after abnormal cardiac stress test 2020 gnostic Findings ? The left main is a medium caliber vessel with no significant stenotic lesions. ? The left anterior descending artery is a medium caliber vessel with diffuse disease in the proximal and mid segment.? The lesions were anywhere from 40 to 50%.? Minimal intimal regularities were noted in the distal vessel.? The artery appears to wrap around the LV apex minimally.? The first diagonal branch was found to have around 30% ostial narrowing. ? The left circumflex artery is a medium caliber vessel which also was found to have diffuse narrowing of around 40% proximally.? No other significant stenotic lesions were noted. ? The right coronary artery is a small to in caliber vessel with a minimal intimal irregularities.? No significant stenotic lesions. ? Intermedius artery is a high obtuse marginal branch with 30 to 40% diffuse narrowing proximally. ? Coronary angiography shows right dominance. To moderate coronary calcification in the proximal vessels. Conclusions ? This is a 74-year-old white male with history of diabetes, high blood pressure, dyslipidemia, presenting with some atypical chest pain, increasing shortness of breath and fatigue.? Myocardial perfusion imaging revealing areas of fixed defects.? Because of the patient's ongoing worsening of the symptoms, in order to further evaluate his coronary status, a cardiac catheterization was recommended.? Patient underwent left heart catheterization with a left and right coronary angiogram today.? The findings are as follows. ? Mild to moderate diffuse disease in the proximal segment of all the 3 coronary arteries. No significant stenotic lesions.? Slightly elevated LVEDP. Hospital Course Hospital Course Patient presented with chest pain. Stress test was performed which was abnormal showing a large area with perfusion defect that seems to be old with ashely-infarct ischemia. Cardiology was consulted. Patient was taken for angiogram next day. Angio showed nonobstructive coronary disease and no severe stenosis. LV systolic function normal. Patient will be discharged home on his existing home medications with no changes at this time. He will follow-up outpatient [facility] within 2 to 3 weeks. Patient was asked to lay flat for about 6 hours postprocedure. He was discharged later on in the afternoon. Physical Exam Narrative: General: Alert oriented x3, patient seen sitting up in bed appearing comfortable on room air at this time.? Denies any chest pain. present at bedside HEENT: Normocephalic, atraumatic, EOMI, Cardio: Regular rate rhythm, normal S1-S2, no murmurs rubs gallops Right femoral site appears clean with no fluctuance erythema or evidence of hematoma Respiratory: Good bilateral air entry, no wheezes no rhonchi appreciated GI: Abdomen soft, nontender, nondistended, bowel sounds + Behavior: Appropriate and cooperative Extremities: Trace edema, no cyanosis Discharge Data Studies Completed and Pending Completed Studies During Hospitalization Category Date Time Status Sestamibi Stress Test Request Routine Exams 02/28/22 18:52 Draft XR chest 1V portable [id number] Stat Exams 02/28/22 15:49 Completed NM mac perf SPECT r/s* [id number] Routine Nuc Med 03/01/22 18:52 Completed CV. echo complete* [id number] Routine Ultrasound 03/01/22 02:31 Completed Pending at discharge Category Date Time Status LOST CHARGE CARD CLERK request for service Routine Exams 03/02/22 05:32 Ordered Radiology Impressions Chest X-Ray 02/28/22 15:49 IMPRESSION: Stable exam, no acute findings. Laboratory Results WBC 5.0 10^3/uL (4.0-10.0) 03/02/22 04:25 RBC 5.32 10^6/uL (4.1-5.3) H 03/02/22 04:25 Hgb 16.6 g/dL (11.7-16.6) 03/02/22 04:25 Hct 48.5 % (42.0-52.0) 03/02/22 04:25 MCV 91.2 fl (80-94) 03/02/22 04:25 MCH 31.2 pg (28.0-34.0) 03/02/22 04:25 MCHC 34.2 g/dL (30.0-36.0) 03/02/22 04:25 RDW 13.2 % (12.1-15.1) 03/02/22 04:25 Plt Count 130 10^3/cmm (130-400) 03/02/22 04:25 MPV 10.1 fL (7.4-10.4) 03/02/22 04:25 Neut % (Auto) 58.5 % 03/02/22 04:25 Lymph % (Auto) 28.0 % 03/02/22 04:25 [place] % (Auto) 8.7 % 03/02/22 04:25 Eos % (Auto) 3.4 % 03/02/22 04:25 Baso % (Auto) 0.6 % 03/02/22 04:25 Neut # (Auto) 2.95 10^3/uL (1.8-7.7) 03/02/22 04:25 Lymph # (Auto) 1.4 10^3/uL (0.8-4.8) 03/02/22 04:25 [place] # (Auto) 0.4 10^3/uL (0.2-0.9) 03/02/22 04:25 Eos # (Auto) 0.2 10^3/uL (0.0-0.8) 03/02/22 04:25 Baso # (Auto) 0.0 10^3/uL (0.0-0.1) 03/02/22 04:25 Nucleated RBC % (auto) 0 % 03/02/22 04:25 Nucleated RBCs # 0.0 /100WBC 03/02/22 04:25 D-Dimer 0.50 ug/mIFEU (0-0.59) 02/28/22 14:40 Sodium 138 mmol/L (136-145) 03/02/22 04:25 Potassium 4.1 mmol/L (3.5-5.1) 03/02/22 04:25 Chloride 101 mmol/L (98-107) 03/02/22 04:25 Carbon Dioxide 23 mmol/L (22-29) 03/02/22 04:25 Anion Gap 18.1 (5-19) 03/02/22 04:25 BUN 20 mg/dL (8-23) 03/02/22 04:25 Creatinine 0.9 mg/dL (0.7-1.2) 03/02/22 04:25 GFR Calculation Not Reportable 03/02/22 04:25 Glucose 153 mg/dL (65-115) H 03/02/22 04:25 POC Glucose 129 mg/dL (70-110) H 03/02/22 11:07 Calculated Osmolality 292 mOsm/kg (285-295) 03/02/22 04:25 Calcium 9.2 mg/dL (8.5-10.5) 03/02/22 04:25 Magnesium 2.2 mg/dL (1.7-2.3) 03/02/22 04:25 Total Bilirubin 0.6 mg/dL (0.15-1.2) 03/01/22 03:27 AST 26 U/L (0-40) 03/01/22 03:27 ALT 26 U/L (0-41) 03/01/22 03:27 Alkaline Phosphatase 65 IU/L (40-130) 03/01/22 03:27 Troponin T Baseline 14 ng/L (0-15) 02/28/22 14:40 Troponin T 120 Minute 13.97 ng/L (0-15) 02/28/22 17:24 Delta Troponin T -0.03 ABS# (0-10) L 02/28/22 17:24 Troponin T Hi Sens 6Hr 11.77 ng/L (0-15) 02/28/22 20:25 Troponin T Hi Sens 6Hr Delta -2.23 ng/L (0-12) L 02/28/22 20:25 Total Protein 5.8 g/dL (6.6-8.7) L 03/01/22 03:27 Albumin 3.9 g/dL (3.5-5.2) 03/01/22 03:27 Globulin 1.9 g/dL (1.3-4.6) 03/01/22 03:27 TSH 1.97 uIU/mL (0.27-4.20) 02/28/22 17:24 Vitals Last Vital Signs Temp 98.5 F 03/02/22 11:10 Pulse 60 03/02/22 11:10 Resp 18 03/02/22 11:10 BP 128/77 03/02/22 11:10 Pulse Ox 97 03/02/22 11:10 Discharge Plan Discharge Patient Disposition: Home Condition: Stable Prescriptions: Continued multivitamin [Multiple Vitamins] Tablet 1 tab PO DAILY 0RF atorvastatin 10 mg Tablet 10 mg PO DAILY 0RF atenolol 100 mg Tablet 100 mg PO DAILY 0RF aspirin 81 mg Tablet,Delayed Release (Dr/Ec) 81 mg PO DAILY 0RF flaxseed oil 1,000 mg Capsule 1,000 mg PO DAILY 0RF metformin 1,000 mg Tablet 1,000 mg PO BID 0RF Hold Instructions: Resume on 05/14/20. May resume 05/14/20 lisinopril 10 mg Tablet 10 mg PO DAILY 0RF hydrochlorothiazide 25 mg Tablet 25 mg PO DAILY 0RF omega 8-kbr-smm-fish oil [Fish Oil] 1,000 mg (120 mg-180 mg) Capsule 1 cap PO DAILY 0RF clindamycin phosphate 1 % gel 1 applic TOPICAL . DIRECTED 0RF calcium carbonate 500 mg calcium (1,250 mg) Tablet 500 mg PO DAILY 0RF hydrocortisone 2.5 % cream 1 applic TOPICAL . DIRECTED 0RF isosorbide mononitrate 30 mg tablet extended release 24 hr 30 mg PO DAILY 0RF Discharge Orders: Discharge Order (Routine); Ordered 03/02/22 Ordered By: Rocio Angeles Referrals: Celina Herrera FNP [Nurse Practitioner] - 2 weeks ([facility] will contact you to schedule an follow-up appointment. If you haven't heard from them by Friday afternoon. Please call ) Chinedu Babin, [Primary Care Provider] - 4-7 days (Please follow-up with Dr. Babin on March 11 at 9:30A.M. If you have any questions or need to reschedule. Please call ) Discharge Diet: Cardiac Discharge Activity: Resume usual activity Patient Instructions: Pneumonitis (DC), Carotid Artery Disease (DC), Hyperlipidemia (DC), Pacemaker (DC), Opioid Safety, Post Angiogram Home Care Instructions Discharge Attestations Time Spent in Discharge Care*: less than 30 min Quality Metrics Clinical Quality Measures [ No reported AMI, CVA or VTE this stay] Coding Level of Care Code Acute Chg FW DC note Diagnoses Chest pain R07.9 Presence of permanent cardiac pacemaker Z95.0 Dyslipidemia E78.5 Benign essential HTN I10 Hyperlipemia E78.2 Hyperlipidemia type: mixed hyperlipidemia Abnormal stress test R94.39
== END 2022-03-02 13:53 | disposition home or self-care (01) ==
LOC: ER 16:14 → MEDSURG 17:54
PROVIDERS: Internal Medicine; Admitting Provider Internal Medicine; Emergency Provider Emergency Medicine; PCP Electrodiagnostic Medicine; Visit Provider Internal Medicine
DX: R07.9 Chest pain, unspecified (principal); Z95.0 Presence of cardiac pacemaker; I10 Essential (primary) hypertension; E78.2 Mixed hyperlipidemia; R94.39 Abnormal result of other cardiovascular function study; E11.9 Type 2 diabetes mellitus without complications; E66.9 Obesity, unspecified; Z68.29 Body mass index [BMI] 29.0-29.9, adult; Z87.891 Personal history of nicotine dependence; Z79.82 Long term (current) use of aspirin; I25.119 Atherosclerotic heart disease of native coronary artery with unspecified angina pectoris; I47.2 Ventricular tachycardia
CPT/HCPCS: 36415; 36416; 71045; 78452; 80048; 80053; 82962; 83735; 84443; 84484; 85025; 85378; 93005; 93017; 93306; 93452; 93458; 96360; 96372; 96374; 99152; 99153; 99285; A9500; C1760; C1769; C1887; C1894; G0378; J1644; J1650; J1815; J2250; J2270; J2785; J3010; J3490; J7030; Q9967

== ENCOUNTER → 2022-03-18 12:39 | Outpatient (BNVA) | payer OTHER, SELFPAY | PROVIDERS: PCP Electrodiagnostic Medicine; Visit Provider Nurse Practitioner Family | DX: Z09 Encounter for follow-up examination after completed treatment for conditions other than malignant neoplasm (principal); I25.10 Atherosclerotic heart disease of native coronary artery without angina pectoris; Z87.891 Personal history of nicotine dependence | CPT/HCPCS: 99213; 99214 ==

== ENCOUNTER 2022-03-19 16:33 | Outpatient (CLI) | payer OTHER, SELFPAY ==
[2022-03-19 19:40] LABS: Anion Gap 17.4 (5-19); Blood Urea Nitrogen 25 mg/dL (8-23); Calcium 9.7 mg/dL (8.5-10.5); Carbon Dioxide 26 mmol/L (22-29); Chloride 102 mmol/L (98-107); Glucose 124 mg/dL (65-115); Osmolality Calculated 298 mOsm/kg (285-295); Potassium 4.4 mmol/L (3.5-5.1); Sodium 141 mmol/L (136-145)
== END 2022-03-19 16:34 | disposition home or self-care (01) ==
LOC: LAB 16:36
PROVIDERS: PCP Electrodiagnostic Medicine; Visit Provider Nurse Practitioner Family
DX: I25.10 Atherosclerotic heart disease of native coronary artery without angina pectoris (principal)
CPT/HCPCS: 36415; 80048

== ENCOUNTER 2022-06-26 09:21 | Outpatient (CLI) | payer OTHER, SELFPAY ==
--- NOTE | 2022-06-26 09:35 | US_ITS ---
WS: [id number] RENAL ULTRASOUND HISTORY: STAGE 3 A CHRONIC KIDNEY DZ COMPARISON: None available. TECHNIQUE: 2-D and color Doppler imaging of the kidney submitted. Right kidney: 11.0 cm x 5.8 cm x 3.8 cm. Normal size kidney. No hydronephrosis. Several small simple cortical cysts. The largest from the mid kidney measures 3.5 x 3.2 x 2.4 cm. No solid mass. No cortical thinning. Left kidney: 12.2 cm x 6.2 cm x 4.1 cm. Normal size kidney. There are several small exophytic cortical cysts. No solid mass or obstruction. L argest cyst measures approximately 1.3 x 1.2 x 1.3 cm. Aorta: Normal. Urinary Bladder: Nondistended. US/US renal BI* [id number] IMPRESSION: 1. No renal obstruction or solid mass. 2. Bilateral renal cysts as described above.
== END 2022-06-26 09:22 | disposition home or self-care (01) ==
PROVIDERS: PCP Electrodiagnostic Medicine; Visit Provider Internal Medicine Nephrology
DX: N18.31 Chronic kidney disease, stage 3a (principal); Q61.02 Congenital multiple renal cysts
CPT/HCPCS: 76770

== ENCOUNTER → 2022-07-11 11:23 | Outpatient (BNVA) | payer OTHER, SELFPAY | PROVIDERS: PCP Electrodiagnostic Medicine; Visit Provider Internal Medicine Cardiovascular Disease | DX: I25.10 Atherosclerotic heart disease of native coronary artery without angina pectoris (principal); Z95.0 Presence of cardiac pacemaker; E78.5 Hyperlipidemia, unspecified; I10 Essential (primary) hypertension; Z87.891 Personal history of nicotine dependence | CPT/HCPCS: 99214 ==

== ENCOUNTER → 2022-07-12 11:02 | Outpatient (BNVA) | payer OTHER, SELFPAY | PROVIDERS: PCP Electrodiagnostic Medicine; Visit Provider Internal Medicine Cardiovascular Disease | DX: Z45.010 Encounter for checking and testing of cardiac pacemaker pulse generator [battery] (principal) | CPT/HCPCS: 93280 ==

== ENCOUNTER → 2022-08-13 09:51 | Outpatient (BNVA) | payer OTHER, SELFPAY | PROVIDERS: PCP Electrodiagnostic Medicine; Visit Provider Podiatrist Foot & Ankle Surgery | DX: E11.8 Type 2 diabetes mellitus with unspecified complications (principal); L60.3 Nail dystrophy; M20.40 Other hammer toe(s) (acquired), unspecified foot; M21.611 Bunion of right foot; M21.612 Bunion of left foot; Z79.84 Long term (current) use of oral hypoglycemic drugs | CPT/HCPCS: 99204 ==

== ENCOUNTER → 2022-10-02 15:10 | Outpatient (BNVA) | payer OTHER, SELFPAY | PROVIDERS: PCP Electrodiagnostic Medicine; Referring Provider Nurse Practitioner; Visit Provider Specialist | DX: M17.11 Unilateral primary osteoarthritis, right knee (principal) | CPT/HCPCS: 73560; 73565; 99213 ==

== ENCOUNTER → 2022-10-03 10:32 | Outpatient (BNVA) | payer OTHER, SELFPAY | PROVIDERS: PCP Electrodiagnostic Medicine; Visit Provider Podiatrist Foot & Ankle Surgery | DX: L60.0 Ingrowing nail (principal); L60.3 Nail dystrophy | CPT/HCPCS: 11750; A6219; A6446 ==

== ENCOUNTER → 2022-10-24 10:27 | Outpatient (BNVA) | payer OTHER, SELFPAY | PROVIDERS: PCP Electrodiagnostic Medicine; Visit Provider Podiatrist Foot & Ankle Surgery | DX: L60.0 Ingrowing nail (principal); Z95.0 Presence of cardiac pacemaker | CPT/HCPCS: 11750; 93296 ==

== ENCOUNTER 2022-12-04 11:57 | Emergency (ER) | payer OTHER, SELFPAY ==
[2022-12-04 12:39] VITALS: BP 126/75; PULSE 71; RESP 16; TEMP 36.4; O2SAT 96; BMI 30.8
--- NOTE | 2022-12-04 13:24 | W.ED.EXTPRO ---
HPI - Extremity Problem General: Chief complaint: Extremity Injury, Upper Stated complaint: [facility] Time Seen by Provider: 12/04/22 12:51 Source: patient and family Mode of arrival: ambulatory Limitations: no limitations History of Present Illness: Patient is a nice 77-year-old male who presents to ED today along with his for concerns of right shoulder and neck pain that has been present for several weeks now. Patient states he has been seen by his primary care provider who apparently is trying to order him an MRI. He placed him on tramadol which has not been helping with his discomfort. He has been seen at a walk-in clinic and had x-rays of the shoulder and cervical spine. Radiology reports were reviewed. Patient has been on steroids and muscle relaxers without much relief. [facility] states [facility]. Patient is not having any numbness, tingling, or loss of sensation to the extremities. No fevers/EVERETT. MD Complaint: joint pain (R shoulder, neck) Onset (ago): month(s) Pain Consistency: constant Location: right and upper extremity Relieving factors: nothing Exacerbating factors: range of motion Associated symptoms: Reports no associated symptoms; Deny chest pain, fever(s) or rash Review of Systems Const: Denies: fever(s), chills, body aches, fatigue or malaise Eyes: Denies: change in vision, blurry vision, photophobia, floaters or seeing flashes Card: Denies: chest pain Resp: Denies: dyspnea GI: Denies: abdominal pain, nausea or vomiting Musc: Reports: neck pain and joint pain (R shoulder); Denies: back pain, extremity pain, extremity swelling, joint swelling, joint redness or joint warmth Skin/Breast: Denies: rash Neuro: Denies: headache(s), numbness in extremities, weakness in extremities, sensory changes or dizziness PFS ED PFSH: Medical History Abnormal stress test Benign essential HTN Bradycardia Bradycardia Chest pain Coronary atherosclerosis Diabetes mellitus Diastasis recti History of cardiac pacemaker History of colon polyps Hyperlipemia Intermittent palpitations Internal hemorrhoids Male erectile dysfunction Non-sustained ventricular tachycardia Obesity Pacemaker Primary hypertension Prostatic cancer Tear of meniscus of right knee Transient cerebral ischemia Urinary incontinence Ventricular arrhythmia Surgical History History of arthroscopic surgery of shoulder History of colonoscopy with polypectomy History of eye surgery History of knee replacement History of knee surgery History of prostatectomy Family History Mother CAD (coronary artery disease) Diabetes Father Cancer Diabetes Denies family history of Clotting disorder Dementia Chronic kidney disease (CKD) Suicide Anesthesia complication Bleeding disorder Lung disease Stroke Social History Smoking and tobacco status: former smoker Alcohol intake: former Physical Exam Const: COMMON NORMALS: no acute distress, patient oriented x3, no limitations, alert and well nourished GENERAL APPEARANCE: cooperative ORIENTATION/CONSCIOUSNESS: Yes awake, Yes oriented to person, Yes oriented to place and Yes oriented to time HENMT: COMMON NORMALS: normocephalic and atraumatic HEAD & SCALP: normal to inspection, normocephalic and atraumatic FACE & SINUS: normal facial exam Neck/C-Spine: COMMON NORMALS: full ROM, no lymphadenopathy, no meningeal signs and no JVD GENERAL: Yes normal visual inspection, No anterior neck swelling and No submandibular swelling CERVICAL SPINE: Yes cervical ROM normal, Yes pain with cervical ROM, Yes Cervical spine tenderness, No step off deformity, Yes Paracervical muscle tenderness and No Paracervical spasm Resp: COMMON NORMALS: normal respiratory effort Cardio: COMMON NORMALS: no JVD Back/Pelvis: COMMON NORMALS: thoracic and lumbar spine normal to inspection, no thoracic nor lumbar tenderness and thoraco-lumbar ROM normal Extremity: COMMON NORMALS: capillary refill normal, no joint enlargement and no clubbing, cyanosis or edema GENERAL: Yes normal exam except as noted RIGHT UPPER EXTREMITY: Yes shoulder joint (TTP posterior shoulder) Right shoulder: Yes palpation, Yes Right shoulder joint ROM exam (limited-patient states some of that is chronic from rotator cuff injury) and Yes Right shoulder joint neurovascular exam (normal) Neuro: COMMON NORMALS: patient oriented x3, moves all extremities, no focal motor deficits and no sensory deficits noted SENSORIUM/ORIENTATION: Yes alert, Yes oriented to person, Yes oriented to place and Yes oriented to time MENINGEAL SIGNS: Yes no meningeal signs Skin: COMMON NORMALS: no rashes or lesions noted GENERAL SKIN EXAM: no rashes or lesions noted Course Vital Signs: Vital signs: Vital Signs Temperature 97.6 F 12/04/22 12:39 Pulse Rate 71 12/04/22 12:39 Respiratory Rate 16 12/04/22 12:39 Blood Pressure 126/75 12/04/22 12:39 Pulse Oximetry 96 12/04/22 12:39 Oxygen Delivery Me thod 12/04/22 12:39 MDM - Extremity (Nontraumatic) Medical Decision Making SHOULDER AND CERVICAL XRS PERFORMED ON 11/25 REPORTS BELOW: XR/XR shoulder RT min 2V* [id number] IMPRESSION: 1. No fracture. 2. High riding humeral head suggesting rotator cuff degeneration. 3. Degenerative changes. ? XR/XR cervical spine 4-5V [id number] IMPRESSION: 1. Advanced degenerative changes. No fracture or malalignment. 2. No significant flexion or extension instability. Patient states his primary care is setting him up for MRI imaging. At this point from an ED standpoint I don't know what else to do for patient other than treat his discomfort. He was given something for pain here and I will up his pain medications to hydrocodone and recommend he follow up with his primary care provider. Discharge Plan Discharge Patient Disposition: Home Clinical Impression: Pain in right shoulder, Neck pain Condition: Stable Prescriptions: New hydrocodone-acetaminophen 5-325 mg tablet 1 tab PO Q6H PRN (Reason: pain) Qty: 20 0RF No Action ascorbic acid (vitamin C) 500 mg capsule PO DAILY clobetasol 0.05 % ointment 1 applic topical BID 14 Days Qty: 45 1RF Rx Instructions: Apply to affected area on right leg no more than 2 weeks per month. not for face or skin folds cephalexin 500 mg capsule 500 mg PO BID 7 Days Qty: 14 0RF mupirocin 2 % ointment 1 applic topical BID 14 Days Qty: 22 2RF isosorbide mononitrate 30 mg tablet extended release 24 hr 30 mg PO DAILY Qty: 90 3RF atenolol 100 mg tablet 100 mg PO DAILY Qty: 90 3RF multivitamin [Multiple Vitamins] Tablet 1 tab PO DAILY atorvastatin 10 mg Tablet 10 mg PO DAILY aspirin 81 mg Tablet,Delayed Release (Dr/Ec) 81 mg PO DAILY flaxseed oil 1,000 mg Capsule 1,000 mg PO DAILY metformin 1,000 mg Tablet 1,000 mg PO BID Hold Instructions: Resume on 05/14/20. May resume 05/14/20 lisinopril 10 mg Tablet 10 mg PO DAILY hydrochlorothiazide 25 mg Tablet 25 mg PO DAILY omega 4-wqn-bjn-fish oil [Fish Oil] 1,000 mg (120 mg-180 mg) Capsule 1 cap PO DAILY clindamycin phosphate 1 % gel 1 applic TOPICAL . DIRECTED calcium carbonate 500 mg calcium (1,250 mg) Tablet 500 mg PO DAILY hydrocortisone 2.5 % cream 1 applic TOPICAL . DIRECTED Discharge Orders: Discharge ED (Routine); Ordered 12/04/22 Ordered By: Debbie Gao Referrals: Chinedu Babin, [Primary Care Provider] - Patient Instructions: Opioid Safety, Pain Management Activity Restrictions/Additional Instructions: As we discussed you need to continue to follow-up with your primary care provider for further treatment of your pain. Coding Level of Care Code ED Product Safety Compliance Leader for Ravi Lee
[2022-12-04 13:47] VITALS: RESP 16
[2022-12-04] MEDS: morphine 4 mg/mL SDV 1 mL IM (13:47)
== END 2022-12-04 13:51 | disposition home or self-care (01) ==
PROVIDERS: Emergency Provider Physician Assistant; PCP Electrodiagnostic Medicine
DX: M25.511 Pain in right shoulder (principal); M54.2 Cervicalgia; Z79.82 Long term (current) use of aspirin; Z79.84 Long term (current) use of oral hypoglycemic drugs; Z87.891 Personal history of nicotine dependence; I10 Essential (primary) hypertension; I25.10 Atherosclerotic heart disease of native coronary artery without angina pectoris; E11.9 Type 2 diabetes mellitus without complications; Z95.0 Presence of cardiac pacemaker; E78.5 Hyperlipidemia, unspecified; Z85.46 Personal history of malignant neoplasm of prostate
CPT/HCPCS: 96372; 99284; J2270

== ENCOUNTER → 2023-01-16 10:24 | Outpatient (BNVA) | payer MEDICARE, SELFPAY | PROVIDERS: PCP Electrodiagnostic Medicine; Referring Provider Electrodiagnostic Medicine; Visit Provider Physician Assistant | DX: I25.10 Atherosclerotic heart disease of native coronary artery without angina pectoris (principal); I10 Essential (primary) hypertension; I49.9 Cardiac arrhythmia, unspecified; Z87.891 Personal history of nicotine dependence | CPT/HCPCS: 99203; 99214 ==

== ENCOUNTER → 2023-01-21 08:11 | Outpatient (BNVA) | payer MEDICARE, SELFPAY | PROVIDERS: PCP Electrodiagnostic Medicine; Visit Provider Internal Medicine Cardiovascular Disease | DX: Z45.010 Encounter for checking and testing of cardiac pacemaker pulse generator [battery] (principal) | CPT/HCPCS: 93296 ==

== ENCOUNTER → 2023-01-23 09:54 | Outpatient (BNVA) | payer MEDICARE, SELFPAY | PROVIDERS: PCP Electrodiagnostic Medicine; Visit Provider Family Medicine | DX: Z01.818 Encounter for other preprocedural examination (principal); E11.9 Type 2 diabetes mellitus without complications | CPT/HCPCS: 80048; 83036; 85025 ==

== ENCOUNTER 2023-02-05 10:29 | Inpatient (IN) | payer MEDICARE, SELFPAY ==
[2023-01-30 10:05] VITALS: BMI 28.7
--- NOTE | 2023-01-30 16:04 | P.ANESASSM_ITS ---
Pre-Anesthetic Assessment Height/Weight: Height 1.78 m Weight 90.718 kg Operation Date: 02/05/23 07:00 Proposed Procedures p Cervical Posterior Fusion Posterior Cervical Fusion: C2-T2,C2 02702,C3 62522,C4 43905,C5 21976, C6 25828,C7 16397, 79883,[id number] G9539, M54.12,M48.02(Not Applicable) - Jim Banda DO s Cervical Decompression:[id number](Not Applicable) - Jim Banda DO Familial anesthetic complications: Patient describes episodes of recall with previous surgeries. Was Beta Obie taken within 24 hours: Yes Was Clonidine taken within 24 hours: N/A Social No alcohol and No tobacco Exam alert, oriented x 3, clear to auscultation bilaterally and regular rate & rhythm Airway Submandibular: within normal limits Cervical ROM: Other (Very limited extension) Mallampati: Class II Dentition: false CV/HEM Arrythmia, Coronary Artery Disease and Hypertension Pacemaker CONCLUSIONS ?Technically difficult study.? Only subcostal views were ?obtained. ?The left ventricle appears to be normal size and ejection ?fraction.? ?Segmental wall motion analysis difficult. ?Thickened aortic and mitral valves. ?Moderate mitral annular calcification. ?Trace of MR, TR and MI ?Grade I/IV diastolic dysfunction (abnormal relaxation filling ?pattern), normal to mildly elevated filling pressures. ?There is no pericardial effusion. ?Comparison with the previous study is difficult because of the ?difference in the technical quality. ?Dr Chris Craft MD [facility] ?(Electronically Signed) ?Final Date:? ? ? 01 Mar 2022 11: Conclusion: 1.? Normal EKG response to Lexiscan infusion 2.? No Lexiscan induced chest pain or cardiac arrhythmia. 3.? Normal blood pressure and heart rate response. 4.? Sestamibi/sestamibi perfusion scan pending; see separate report. Electronically Signed On 03-14-2022 12:13:00 CDT by Joshua COLEMAN Chronic Renal Insufficiency Metabolic Diabetes Mellitus and Hyperlipidemia [facility] Osteoarthritis/DJD Anesthetic Plan ASA status: 3 Anesthesia: General Other: A.line, transfusion is OK Medications/Allergies Home Medications Medication Instructions Recorded Confirmed Last Taken Type aspirin 81 mg tablet,delayed 81 mg PO DAILY 11/01/19 01/30/23 01/29/23 History release atorvastatin 10 mg tablet 10 mg PO DAILY 11/01/19 01/30/23 01/29/23 History hydrochlorothiazide 25 mg tablet 25 mg PO DAILY 11/01/19 01/30/23 01/30/23 H istory lisinopril 10 mg tablet 10 mg PO DAILY 11/01/19 01/30/23 01/29/23 History metformin 1,000 mg tablet 1,000 mg PO BID 11/01/19 01/30/23 01/30/23 History multivitamin (Multiple Vitamins 1 tab PO DAILY 11/01/19 01/30/23 01/30/23 History tablet) calcium carbonate 500 mg calcium 500 mg PO DAILY 02/28/22 01/30/23 01/30/23 History (1,250 mg) tablet ascorbic acid (vitamin C) 500 mg 500 mg PO DAILY 07/11/22 01/30/23 01/30/23 History capsule isosorbide mononitrate 30 mg 30 mg PO DAILY #90 tabs 08/15/22 01/30/23 01/30/23 Rx tablet,extended release 24 hr atenolol 100 mg tablet 100 mg PO DAILY #90 tabs 08/16/22 01/30/23 01/30/23 Rx Allergies Allergy/AdvReac Type Severity Reaction Status Date / Time meloxicam Allergy elevated Verified 01/30/23 10:00 blood pressure Sulfa (Sulfonamide Allergy ALGY-Rash Verified 01/30/23 10:00 Antibiotics) [facility] Anesthesia Medical History Abnormal stress test Benign essential HTN Bradycardia Bradycardia Chest pain Coronary atherosclerosis Diabetes mellitus Diastasis recti History of cardiac pacemaker History of colon polyps Hyperlipemia Intermittent palpitations Internal hemorrhoids Male erectile dysfunction Non-sustained ventricular tachycardia Obesity Pacemaker Primary hypertension Prostatic cancer Tear of meniscus of right knee Transient cerebral ischemia Urinary incontinence Ventricular arrhythmia Surgical History History of arthroscopic surgery of shoulder History of colonoscopy with polypectomy History of eye surgery History of knee replacement History of knee surgery History of prostatectomy Family History Mother CAD (coronary artery disease) Diabetes Father Cancer Diabetes Denies family history of Clotting disorder Dementia Chronic kidney disease (CKD) Suicide Anesthesia complication Bleeding disorder Lung disease Stroke Social History Smoking and tobacco status: former smoker Alcohol intake: former Substance/Drug Use: never Data Anesthesia Cardiac Studies: Echocardiogram 03/01/22 Sestamibi Stress Test (Cardiology) 02/28 Holter Monitor 04/25/20
[2023-02-05] VITALS (24 sets, daily range): BP systolic 94–159; BP diastolic 49–82; PULSE 60–91; RESP 16–18; TEMP 36.1–38.5; O2SAT 94–100
--- NOTE | 2023-02-05 06:25 | W.PM.OPSUD ---
Surgery/Procedure H&P Update DATE OF PROCEDURE: February 05, 2023 DATE H&P PERFORMED: 01/16/23 H&P UPDATE INFORMATION: I have reviewed H&P completed within last 30 days, I have examined patient prior to procedure and No changes to prior documentation PREOP DIAGNOSIS: Cervical myelopathy with radiculopathy PLANNED PROCEDURE: Operation Date: 02/05/23 07:00 Proposed Procedures p Cervical Posterior Fusion Posterior Cervical Fusion: C2-T2,C2 54548,C3 33427,C4 72874,C5 61736, C6 90320,C7 19283, [id number] G9539, M54.12,M48.02(Not Applicable) - Jim Banda DO s Cervical Decompression:[id number](Not Applicable) - Jim Banda DO
--- NOTE | 2023-02-05 06:29 | P.ANESUD_ITS ---
Pre-Anesthetic Update Pre-Anesthetic Assessment: Date of Surgery/Procedure: 02/05/23 Preop Azalea gnosis: Cervical myelopathy with radiculopathy Proposed Procedure: Operation Date: 02/05/23 07:00 Proposed Procedures p Cervical Posterior Fusion Posterior Cervical Fusion: C2-T2,C2 07215,C3 57255,C4 42211,C5 95335, C6 46774,C7 19808, 86595,[id number],[id number] G9539, M54.12,M48.02(Not Applicable) - Jim Banda, DO s Cervical Decompression:[id number](Not Applicable) - Jim Banda, DO Any changes to Pre-Anesthetic Assessment?: No Last Intake: Intake Last Liquid Date 02/04/23 Last Liquid Time 22:00 Last Solid Date 02/04/23 Last Solid Time 18:00 Vitals: Temperature 97.8 F 02/05/23 06:11 Temperature Source Temporal Artery S can 02/05/23 06:11 Pulse Rate 81 02/05/23 06:11 Respiratory Rate 18 02/05/23 06:11 Blood Pressure 137/82 02/05/23 06:11 Blood Pressure Lisa n 100 02/05/23 06:11 Pulse Oximetry 96 02/05/23 06:11 Oxygen Delivery Me thod Room Air 02/05/23 06:21 Exam: Pre-Anes Outpt Exam: alert, oriented x 3, clear to auscultation bilaterally and regular rate & rhythm Cardiac Studies: Echocardiogram 03/01/22 Sestamibi Stress Test (Cardiology) 02/28 Holter Monitor 04/25/20
[2023-02-05 06:42] LABS: Glucose Point of Care 161 mg/dL (70-110)
[2023-02-05] MEDS: sodium chloride 0.9% 1,000 ML 30 ML IV (06:52)
[2023-02-05] MEDS: ceFAZolin 2,000 MG in sodium chloride 0.9% (plus) 50 ML 100 MG IV ×3 (07:05→22:51)
[2023-02-05] MEDS: lidocaine-epi 1% 20 mL INJ INJECTION (08:02)
[2023-02-05] MEDS: vancomycin 1,000 MG SDV 1000 MG XX (08:03)
[2023-02-05] MEDS: thrombin 5,000 unit SDV 5000 UNIT XX (08:36)
--- NOTE | 2023-02-05 10:34 | XR_ITS ---
WS: [id number] XR lumbar spine 2-3V* [id number] REASON FOR EXAM: OR PICS FINDINGS: Intraoperative images: Posterior decompression with posterior pedicle screws and interconnecting rods C2-T2. Surgical appliances are intact and in proper position and alignment. XR/XR lumbar spine 2-3V* [id number] IMPRESSION: Postoperative cervical spine as above.
[2023-02-05 10:51] LABS: Hematocrit 34.4 % (42.0-52.0); Hemoglobin 11.3 g/dL (11.7-16.6)
--- NOTE | 2023-02-05 11:05 | P.OP_ITS ---
Operative Report Date of procedure: February 05, 2023 Pre-op diagnosis: Preop Diagnosis Cervical myelopathy with radiculopathy Post-op diagnosis: same Procedure done: 1. C2-T2 posterior cervical fusion 2. C2-T2 instrumentation 3. C3/4 laminectomy with partial facetectomies 4. C4/5 laminectomy with partial facetectomies 5. C5/6 laminectomy with partial facetectomies 6. C6/7 laminectomy with partial facetectomies 7. C7/T1 laminectomy with partial facetectomies 8.? use of computer navigation/Serotactic for spine 9. use of autograft from same incision 10. Use of allograft Surgeon: Jim Banda Airplane Inspector: Faizan Sunshine Airplane Inspector: The clinical nursing assistant, Faizan Sunshine, PAC was needed for his expertise under the microscope. He was important and necessary throughout the procedure to complete in a safe and timely manner. He assisted with patient positioning prepping and draping tissue retraction suctioning of the operative field protection of the dural sac and tissue closure Estimated blood loss (mL): 900 Procedure: 1. C2-T2 posterior cervical fusion 2. C2-T2 instrumentation 3. C3/4 laminectomy with partial facetectomies 4. C4/5 laminectomy with partial facetectomies 5. C5/6 laminectomy with partial facetectomies 6. C6/7 laminectomy with partial facetectomies 7. C7/T1 laminectomy with partial facetectomies 8.? use of computer navigation/Serotactic for spine 9. use of autograft from same incision 10. Use of allograft Patient brought to the operative suite after undergoing anesthesia was placed in the prone position.? Neuro monitoring was attached to the patient is throughout the entire case.? Patient was placed so that was no areas impingement.? Patient was then prepped and draped normal sterile fashion. Skin incision is made from C2 down to T2.? Cervical fascia was identified.? Retractors were placed.? Subperiosteal dissection was made out from the spinous process of C2 out to the lateral masses of C2.? Down to C3, C4, C5, C6, C7, and out to the transverse processes of T1 and T2.? This was done bilaterally. Next attention was brought to placing a spinous process clamp on to T3.? This was done in order to facilitate using the computer navigation.? The C-arm was brought in and spun around patient and the information from the C-arm was loaded in the computer to facilitate placing screws using computer navigation. Next attention was brought to placing screws.? Attention was first brought to doing the pedicle screws at T1-T2.? This was done by using high-speed bur.? Followed by using the navigated drill followed by pedicle feeler followed by placement of the screws.? 24 mm screws were used at each level.? This process was done at T1 and T2 bilaterally.? Once pedicle screws are completed navigation was then used on the C2 screws. The C2 pars screw was placed.? This was done using the high-speed bur followed by the drill followed by placement of the screw.? A 14 mm screw was placed bilaterally.? The technique was used bilaterally.? The screw was placed navigated. Lateral mass screws were then placed at C3-C4-C5 and C6 bilaterally.? C7 was skipped.? The body mass screws were done by using high-speed bur followed by a drill set at 12 mm.? Followed by pedicle feeler followed by placement of the screw. Next attention was brought to performing the laminectomies and partial facetectomies.? Attention was brought to the C7-T1 level first.? The ligamentum flavum was taken down between the interlaminar space.? Was seen and lumbar space was opened up was used to help undermine and get the ligamentum flavum taken down from lateral mass lateral mass.? High-speed bur was then used to take down the medial aspect of the facet joint as well as the lamina.? Then the #2 Kerrison was used to finish off the gutter that was performed and also take down the medial aspect of the facet joint of C7 and T1.? This was done bilaterally.? The lamina was then elevated up and the facet joints were cleaned up with a Kerrison rongeur and curved curette was used to ensure that the nerve roots were freed up. Next attention was brought to the C6-7 level.The ligamentum flavum was taken down between the interlaminar space.? Was seen and lumbar space was opened up was used to help undermine and get the ligamentum flavum taken down from lateral mass lateral mass.? High-speed bur was then used to take down the medial aspect of the facet joint as well as the lamina.? Then the #2 Kerrison was used to finish off the gutter that was performed and also take down the medial aspect of the facet joint of C6 and C7.? This was done bilaterally.? The lamina was then elevated up and the facet joints were cleaned up with a Kerrison rongeur and curved curette was used to ensure that the nerve roots were freed up. Was brought to the C5-6 level.The ligamentum flavum was taken down between the interlaminar space.? Was seen and lumbar space was opened up was used to help undermine and get the ligamentum flavum taken down from lateral mass lateral mass.? High-speed bur was then used to take down the medial aspect of the facet joint as well as the lamina.? Then the #2 Kerrison was used to finish off the gutter that was performed and also take down the medial aspect of the facet joint of C5 and C6.? This was done bilaterally.? The lamina was then elevated up and the facet joints were cleaned up with a Kerrison rongeur and curved curette was used to ensure that the nerve roots were freed up. Next attention was brought to the C4-5 level. The ligamentum flavum was taken down between the interlaminar space.? Was seen and lumbar space was opened up was used to help undermine and get the ligamentum flavum taken down from lateral mass lateral mass.? High-speed bur was then used to take down the medial aspect of the facet joint as well as the lamina.? Then the #2 Kerrison was used to finish off the gutter that was performed and also take down the medial aspect of the facet joint of C4 and C5.? This was done bilaterally.? The lamina was then elevated up and the facet joints were cleaned up with a Kerrison rongeur and curved curette was used to ensure that the nerve roots were freed up. Next attention was brought to the C3-4 level. The ligamentum flavum was taken down between the interlaminar space.? Was seen and lumbar space was opened up was used to help undermine and get the ligamentum flavum taken down from lateral mass lateral mass.? High-speed bur was then used to take down the medial aspect of the facet joint as well as the lamina.? Then the #2 Kerrison was used to finish off the gutter that was performed and also take down the medial aspect of the facet joint of C3 and C4.? This was done bilaterally.? The lamina was then elevated up and the facet joints were cleaned up with a Kerrison rongeur and curved curette was used to ensure that the nerve roots were freed up. Once decompression was done at each level.? Attention was then brought to decorticating the lateral masses from C2-C7.? As well as the lamina and transverse processes of T1 and T2.? This was done bilaterally.? Then the autograft from the lamina of the shoulder was packed into the lateral gutters along with ostial amp bone graft. Vancomycin powder and deep drain was placed in the wound.? Wound was then closed in layered fashion with 0 Vicryl 2-0 Vicryl and Monocryl suture.? Sterile dressings were applied patient was transferred to the PACU in stable condition.
[2023-02-05 11:13] LABS: Glucose Point of Care 238 mg/dL (70-110)
--- NOTE | 2023-02-05 14:04 | ANE.PACU2 ---
Inpatient post-anesthesia follow up: Airway intact: Yes Vital signs: Temperature 97.6 F Pulse Rate 67 Respiratory Rate 18 Blood Pressure 124/70 Pulse Oximetry 97 Oxygen Delivery Me thod Room Air Oxygen Flow Rate 6 Fraction of Inspir ed Oxygen Hydration adequate: Yes Nausea and vomiting: No Pain level: 1 Mental status: Baseline
[2023-02-05] MEDS: lactated ringers 1,000 ML 90 ML IV (14:47)
[2023-02-05] MEDS: HYDROcodone-acetaminophen 5-325 mg Tablet PO (14:47)
[2023-02-05] MEDS: morphine 4 mg/mL SDV 1 mL 2 MG IVP (16:10)
[2023-02-05 16:38] LABS: Glucose Point of Care 273 mg/dL (70-110)
[2023-02-05] MEDS: ketorolac 30 mg/mL INJ IVP (17:50)
[2023-02-05] MEDS: metformin 500 mg Tablet 1000 MG PO (17:51)
[2023-02-05] MEDS: docusate sodium 100 mg Capsule PO (17:51)
[2023-02-06] VITALS: BP 111/62; PULSE 92; RESP 16; TEMP 37; O2SAT 94
[2023-02-06] MEDS: lactated ringers 1,000 ML 90 ML IV ×2 (01:15→20:04)
[2023-02-06 04:15] VITALS: BP 123/68; PULSE 91; RESP 18; TEMP 37.8; O2SAT 95
[2023-02-06] MEDS: ceFAZolin 2,000 MG in sodium chloride 0.9% (plus) 50 ML 100 MG IV (05:20)
[2023-02-06 05:48] LABS: Hematocrit 31.5 % (42.0-52.0); Hemoglobin 10.1 g/dL (11.7-16.6)
--- NOTE | 2023-02-06 07:17 | P.PN_ITS ---
Subjective Subjective: POD 1 Patient resting comfortably. Denies any headaches, shortness of breath, chest pain. He has noticed some improvement of his numbness in his hands. Vitals/I&O/Wt Last Vital Signs Temp 100.0 F H 02/06/23 04:15 Pulse 91 02/06/23 04:15 Resp 18 02/06/23 04:15 BP 123/68 02/06/23 04:15 Pulse Ox 95 02/06/23 04:15 O2 Del Method Room Air 02/05/23 20:00 O2 Flow Rate 6 02/05/23 11:08 02/05/23 02/06/23 02/06/23 22:59 06:59 14:59 Intake Total 290 / 2040 1142 / 3182 Output Total 800 / 2500 500 / 3000 Balance -510 / -460 642 / 182 Physical Exam Narrative: Patient is alert and oriented x3 with a good general appearance normal mood and affect. Nontender with palpation about the incisional site. Incision appears to be clean and dry without signs of erythema or drainage. No signs of infection. Good motor strength throughout both upper extremities. Appears to fire in all motor groups with 5/5 strength. Hands are warm good cap refill in all digits. Normal sensation to light touch in all dermatomal areas. Urinary Catheter Management: [place]: Cath Placed During This Visit: yes Reason for Continuing Indwelling Catheter: Perioperative Use in Selected Surgeries Urinary Catheter Date of Insertion: 02/05/23 Urinary Catheter Time of Insertion: 07:15 Data 02/06/23 04:57 A&P Assessment and plan (1) Status post cervical spinal fusion: Physical therapy to mobilize. We will discontinue the [place]ocho catheter and the Hemovac drain. Encourage incentive spirometer for pulmonary toilet. Patient is high risk of bleeding therefore we will continue mechanical SCDs for DVT pr ophylaxis. We will work to discharge home tomorrow. Attestations Medical Necessity Statement*: DC home tomorrow Coding Level of Care Code Acute Code for Chg Fwd Diagnoses Status post cervical spinal fusion Z98.1
[2023-02-06 08:22] VITALS: BP 143/69; PULSE 89; TEMP 38.2; O2SAT 95
[2023-02-06] MEDS: calcium carbonate 500 mg Chew Tablet PO (08:41)
[2023-02-06] MEDS: atorvastatin 40 mg Tablet 10 MG PO (08:42)
[2023-02-06] MEDS: isosorbide mononitrate ER 30 mg Tablet PO (08:42)
[2023-02-06] MEDS: docusate sodium 100 mg Capsule PO ×2 (08:44→17:33)
[2023-02-06] MEDS: ascorbic acid 500 mg Tablet PO (08:44)
[2023-02-06] MEDS: aspirin 81 mg EC Tablet PO (08:45)
[2023-02-06] MEDS: lisinopril 10 mg Tablet PO (08:46)
[2023-02-06] MEDS: hydroCHLOROthiazide 25 mg Tablet PO (08:46)
[2023-02-06] MEDS: atenolol 50 mg Tablet 100 MG PO (08:47)
[2023-02-06] MEDS: metformin 500 mg Tablet 1000 MG PO ×2 (08:48→17:33)
[2023-02-06] MEDS: multivitamin therapeutic Tablet 1 TAB PO (08:49)
[2023-02-06 11:56] VITALS: BP 150/72; PULSE 81; RESP 17; TEMP 37.1; O2SAT 96
[2023-02-06] MEDS: HYDROcodone-acetaminophen 5-325 mg Tablet PO ×2 (17:33→22:53)
[2023-02-06] MEDS: acetaminophen 325 mg Tablet 650 MG PO (19:41)
[2023-02-06 20:15] VITALS: BP 158/75; PULSE 91; RESP 18; TEMP 38.1; O2SAT 94
[2023-02-07] VITALS: BP 117/66; PULSE 86; RESP 18; TEMP 37.4; O2SAT 92
[2023-02-07] MEDS: HYDROcodone-acetaminophen 5-325 mg Tablet PO ×2 (04:31→10:00)
[2023-02-07 05:06] VITALS: BP 161/74; PULSE 91; RESP 29; TEMP 37.7; O2SAT 97
--- NOTE | 2023-02-07 06:51 | PM.DCS ---
Discharge Providers Date of Admission: 02/05/23 10:29 Date of Discharge: February 07, 2023 Attending Provider at Admission: Jim Banda DO Attending Provider at Discharge: Jim Banda DO Primary Care Provider: Chinedu Babin DO Diagnoses at Discharge Discharge Diagnosis (1) Status post cervical spinal fusion: Status: Acute Reason for Visit Reason for Visit: C2-T2 posterior instrumented fusion with decompres Physical Exam Narrative: Patient complaining of spasm in his neck. Otherwise pain controlled. Moving all extremities. Urinary Catheter Management: [place]: Cath Placed During This Visit: yes, but has since been removed by the nurse Reason for Continuing Indwelling Catheter: Decision to DC Catheter Urinary Catheter Date of Insertion: 02/05/23 Urinary Catheter Time of Insertion: 07:15 Date Urinary Catheter Removed: 02/06/23 Time Urinary Catheter Discontinued: 08:45 Discharge Data Studies Completed and Pending Completed Studies During Hospitalization Category Date Time Status XR lumbar spine 2-3V* [id number] Routine Exams 02/05/23 10:34 Completed Radiology Impressions Lumbar Spine X-Ray 02/05/23 10:34 IMPRESSION: Postoperative cervical spine as above. Laboratory Results Hgb 10.1 g/dL (11.7-16.6) L 02/06/23 04:57 Hct 31.5 % (42.0-52.0) L 02/06/23 04:57 POC Glucose 273 mg/dL (70-110) H 02/05/23 16:33 Blood Type O Positive 02/05/23 06:40 Rho(D) Type Positive 02/05/23 06:40 Antibody Screen Negative 02/05/23 06:40 Vitals Last Vital Signs Temp 99.9 F H 02/07/23 05:06 Pulse 91 02/07/23 05:06 Resp 29 H 02/07/23 05:06 BP 161/74 02/07/23 05:06 Pulse Ox 97 02/07/23 05:06 O2 Del Method Room Air 02/07/23 05:06 O2 Flow Rate 6 02/05/23 11:08 Discharge Plan Discharge Patient Disposition: Home Condition: Stable Prescriptions: New hydrocodone-acetaminophen 10-325 mg tablet 1 - 2 tab PO Q4H PRN (Reason: pain) 7 Days Qty: 40 0RF cyclobenzaprine 10 mg tablet 10 mg PO TID PRN (Reason: muscle spasm) 10 Days Qty: 30 0RF Continued ascorbic acid (vitamin C) 500 mg capsule 500 mg PO DAILY isosorbide mononitrate 30 mg tablet extended release 24 hr 30 mg PO DAILY Qty: 90 3RF atenolol 100 mg tablet 100 mg PO DAILY Qty: 90 3RF (DME) Intraoperative Neuromonitoring See Rx Instructions .Route .MEDSUPPLY Qty: 1 0RF Rx Instructions: As directed (DME) Bone Growth Stimulator E0748 See Rx Instructions .Route .MEDSUPPLY Qty: 1 0RF Rx Instructions: As directed multivitamin [Multiple Vitamins] Tablet 1 tab PO DAILY atorvastatin 10 mg Tablet 10 mg PO DAILY aspirin 81 mg Tablet,Delayed Release (Dr/Ec) 81 mg PO DAILY metformin 1,000 mg Tablet 1,000 mg PO BID Hold Instructions: Resume on 05/14/20. May resume 05/14/20 lisinopril 10 mg Tablet 10 mg PO DAILY hydrochlorothiazide 25 mg Tablet 25 mg PO DAILY calcium carbonate 500 mg calcium (1,250 mg) Tablet 500 mg PO DAILY Discharge Orders: Discharge Order (Routine); Ordered 02/07/23 Ordered By: Jim Banda Referrals: Jim Banda DO [Physician] - 02/13/23 2:00 pm Chinedu Babin DO [Primary Care Provider] - 02/10/23 11:30 am Discharge Diet: Advance as tolerated Discharge Activity: Limit activity as instructed Patient Instructions: Opioid Safety Activity Restrictions/Additional Instructions: Thank you for choosing [facility] for your care! The following is a list of instructions, from your provider, to follow upon your discharge to ensure you have the optimal recovery from your recent injury or surgery. Cervical fusion: What to Expect at Home Your Recovery Follow-up care is a soliz part of your treatment and safety. Be sure to make and go to all appointments, and call your doctor if you are having problems. If you do not already have a follow-up appointment made, call office in the next 1-3 days to make follow up appointment for 1-2 weeks at [phone]. It is also a good idea to know your test results and keep a list of the medicines you take. You can expect your neck to feel stiff or sore after surgery. This should improve in the weeks after surgery. But it may take 4 to 6 months for you to get better completely. You may have trouble sitting or standing in one position for very long and may need pain medicine in the weeks after your surgery. It may take 4 to 6 weeks to get back to your usual activities, but it may depend on what kind of surgery you had. Your throat will feel sore and it may be difficult to swallow for the first 3 days after your surgery. As long as you can get liquids down without difficulty, this should slowly improve, otherwise call our office or seek medical attention if it becomes increasingly difficult to get anything down including liquids. Avoid hot liquids for first 3-5 days. Soothing foods/liquids such as jello, pudding, and luke warm soups are recommended until swallowing improves. Staying elevated will also help, it's advised you keep propped up at while sleeping to help reduce the swelling. You may use an ice pack directly on your incision or around it on the front of your neck, using a cloth to protect your skin; and a heating pad to the back of your neck as needed. Do not use over the counter anti-inflammatory medications (Ibuprofen, Motrin, Aleve, Advil, etc) Taking these meds after having a fusion can delay fusion rates, we recommend you avoid them for the first 3 [address] your surgery[address]. Banda may advise you to work with a physical therapist to strengthen the muscles around your neck and back - this will be discussed at your follow - up appointments. The pain or numbness you were having in your arms before surgery should get better or go away completely. This care sheet gives you a general idea about how long it will take for you to recover. But each person recovers at a different pace. Follow the steps below to get better as quickly as possible. How can you care for yourself at home? Activity ? Rest when you feel tired. Getting enough sleep will help you recover. ? Try to walk each day. Start by walking a little more than you did the day before. Bit by bit, increase the amount you walk. Walking boosts blood flow and helps prevent pneumonia and constipation. Walking may also decrease your muscle soreness after surgery. ? No lifting anything that is more that 5 pounds. This may include heavy grocery bags and milk containers, a heavy briefcase or backpack, cat litter or dog food bags, a child, or a vacuum bobbin cleaner. ? Avoid strenuous activities, such as bicycle riding, jogging, weightlifting, or aerobic exercise, until your doctor says it is okay. ? Do not drive until your follow-up visit after your surgery, or until your doctor says it isokay. ? Avoid taking long car trips for 2 to 4 weeks after surgery. Your neck may become tired and painful from sitting too long in one position. ? You will probably need to take 4 to 6 weeks off from work. It depends on the type of work you do and how you feel. ? You may have sex as soon as you feel able, but avoid positions that put stress on your neck or cause pain. Diet ? You can eat your normal diet. If your stomach is upset, try bland, low-fat foods like plain rice, broiled chicken, toast, and yogurt ? Drink plenty of fluids. If you have kidney, heart, or liver disease and have to limit fluids, talk with your doctor before you increase the amount of fluids you drink. ? You may notice that your bowel movements are not regular right after your surgery. This is common. Try to avoid constipation and straining with bowel movements. You may want to take a fiber supplement every day. If you have not had a bowel movement after a couple of days, ask your doctor about taking a mild laxative. Medicines ? Take pain medicines exactly as directed. 1. If Dr. Banda gave you a prescription medicine for pain, take lt as prescribed. 2. Do not take two or more pain medicines at the same time unless the doctor told you to. Many pain medicines have acetaminophen, which is Tylenol. Too much acetaminophen {Tylenol) can be harmful. 3. If you think your pain pill is making you sick to your stomach: 4. Take your pills after meals (unless your doctor has told you not to). 5. Ask your Dr. for a different pain pill. Incisioncare ? Remove your dressing 48 hours after your surgery. Ok to shower and get the incision wet. Do not overtly wash your incision. When done, pad dry, leave open to air thereafter. Avoid creams and ointments directly on your incision. ? Your sutures in the incision will dissolve and fall out on their own. ? Keep the area clean and dry. You may cover it with a gauze bandage if it weeps or rubs against clothing; if you choose to do this, change the dressing everyday. Other instructions ? Use a heating pad, hot water bottle, or gentle massage on your back to reduce stiffness. Avoid putting heat on your incision When should you call for help? ? Call 911 anytime you think you may need emergency care. For example, call if: ? You pass out (lose consciousness). ? You have sudden chest pain and shortness of breath, or you cough upblood. ? You cannot swallow. ? You have severe pain in your neck or back. ? Call your Dr. or seek immediate medical care if: ? You have pain that does not get better after you take pain pills. ? You have loose stitches, or your incision comes open. ? You have blood or fluid draining from the incision. ? You have signs of infection, such as: 1. Increased pain, swelling, warmth, or redness. 2. Red streaks leading from the site. 3. Pus draining from the site. 4. Swollen lymph nodes in your neck or armpits. 5. A fever. ? You have severe pain in your arms. ? You have new or increased weakness or numbness in your arms. ? Watch closely for any changes in your health, and be sure to contact your doctor if: ? You do not have a bowel movement after taking a laxative. Discharge Attestations Time Spent in Discharge Care*: less than 30 min Quality Metrics Clinical Quality Measures [ No reported AMI, CVA or VTE this stay] Coding Level of Care Code Acute Code for Chg Fwd Diagnoses Status post cervical spinal fusion Z98.1
[2023-02-07 08:43] VITALS: BP 166/75; PULSE 91; RESP 18; TEMP 36.9; O2SAT 90
[2023-02-07] MEDS: calcium carbonate 500 mg Chew Tablet PO (09:56)
[2023-02-07] MEDS: docusate sodium 100 mg Capsule PO (09:57)
[2023-02-07] MEDS: aspirin 81 mg EC Tablet PO (09:57)
[2023-02-07] MEDS: metformin 500 mg Tablet 1000 MG PO (09:57)
[2023-02-07] MEDS: atenolol 50 mg Tablet 100 MG PO (09:57)
[2023-02-07] MEDS: hydroCHLOROthiazide 25 mg Tablet PO (09:57)
[2023-02-07] MEDS: lisinopril 10 mg Tablet PO (09:57)
[2023-02-07] MEDS: isosorbide mononitrate ER 30 mg Tablet PO (09:57)
[2023-02-07] MEDS: multivitamin therapeutic Tablet 1 TAB PO (09:57)
[2023-02-07] MEDS: ascorbic acid 500 mg Tablet PO (09:58)
[2023-02-07] MEDS: atorvastatin 40 mg Tablet 10 MG PO (09:58)
[2023-02-07 11:43] VITALS: BP 166/75; PULSE 91; RESP 18; TEMP 36.9; O2SAT 90
== END 2023-02-07 10:50 | disposition home or self-care (01) | DRG 460 ==
LOC: MEDSURG 10:29
PROVIDERS: Anesthesiology; Admitting Provider Orthopaedic Surgery; PCP Electrodiagnostic Medicine; Visit Provider Orthopaedic Surgery
PROC: 0RG607J Fusion of Thoracic Vertebral Joint with Autologous Tissue Substitute, Posterior Approach, Anterior Column, Open Approach (ICD-10-PCS; CPT 22600; principal; 2023-02-05 07:00)
PROC: 0RG607J Fusion of Thoracic Vertebral Joint with Autologous Tissue Substitute, Posterior Approach, Anterior Column, Open Approach (ICD-10-PCS; CPT 63001; 2023-02-05 07:00)
DX: M48.02 Spinal stenosis, cervical region (principal); M50.01 Cervical disc disorder with myelopathy, high cervical region; M50.11 Cervical disc disorder with radiculopathy, high cervical region; Z79.82 Long term (current) use of aspirin; Z79.891 Long term (current) use of opiate analgesic; I10 Essential (primary) hypertension; E11.9 Type 2 diabetes mellitus without complications; Z95.0 Presence of cardiac pacemaker; E78.5 Hyperlipidemia, unspecified; E66.9 Obesity, unspecified; Z68.28 Body mass index [BMI] 28.0-28.9, adult; Z85.46 Personal history of malignant neoplasm of prostate; Z90.79 Acquired absence of other genital organ(s); Z87.891 Personal history of nicotine dependence; Z88.2 Allergy status to sulfonamides
CPT/HCPCS: 36415; 36416; 51702; 72100; 76000; 82962; 85014; 85018; 86850; 86900; 97161; 97530; C1713; C9359; J0690; J1100; J1170; J1885; J2270; J2370; J2405; J2704; J2710; J3010; J3370; J3490; J7030; J7120; P9045

== ENCOUNTER 2023-02-11 17:28 | Inpatient (IN) | payer MEDICARE, OTHER, SELFPAY ==
[2023-02-11] VITALS (11 sets, daily range): BP systolic 130–159; BP diastolic 58–89; PULSE 76–87; RESP 15–18; TEMP 37.2–37.4; O2SAT 91–94; BMI 28.7
--- NOTE | 2023-02-11 17:46 | ED_ITS ---
HPI - Altered Mental Status General: Chief Complaint: Altered Mental Status Stated Complaint: HALLUCINATIONS Time Seen by Provider: 02/11/23 17:46 Limitations: altered mental status History of Present Illness: Mr Quiros is a 77-year-old gentleman with recent surgical history spine surgery on 02/05 presenting to the emergency department for altered mental status. History is somewhat limited by patient and is assisted by the patient's at bedside. She noticed symptoms yesterday. Patient has had mumbling, confusion, inappropriate words, hallucinations, generalized weakness. No similar history in the past. Course has worsened. Intensity is moderate to severe. Patient is on pain medication and cyclobenzaprine though in the past he has been on both of these with the exception of cyclobenzaprine only being 5 mg instead of 10 and he has not had issues like this. Review of Systems General: Reports: ROS unobtainable due to mental status PFSH ED PFSH: Medical History Abnormal stress test Atherosclerosis of coronary artery of [place] heart without angina pectoris Benign essential HTN Bilateral bunions Bilateral foot pain Bradycardia Bradycardia Cervical myelopathy with cervical radiculopathy Chest pain Coronary atherosclerosis Degenerative cervical spinal stenosis Diabetes mellitus Diastasis recti History of cardiac pacemaker History of colon polyps Hyperlipemia Intermittent palpitations Internal hemorrhoids Male erectile dysfunction Non-sustained ventricular tachycardia Obesity Osteoarthritis of left knee Pacemaker Presence of permanent cardiac pacemaker Primary hypertension Prostatic cancer Tear of meniscus of right knee Transient cerebral ischemia Urinary incontinence Ventricular arrhythmia Surgical History History of arthroscopic surgery of shoulder History of colonoscopy with polypectomy History of eye surgery History of knee replacement History of knee surgery History of prostatectomy Post-operative state Family History Mother CAD (coronary artery disease) Diabetes Father Cancer Diabetes Denies family history of Clotting disorder Dementia Chronic kidney disease (CKD) Suicide Anesthesia complication Bleeding disorder Lung disease Stroke Social History Smoking and tobacco status: former smoker Alcohol intake: former Substance/Drug Use: never Physical Exam Const: COMMON NORMALS: alert GENERAL APPEARANCE: cooperative and well developed HENMT: COMMON NORMALS: normocephalic and atraumatic HEAD & SCALP: normocephalic and atraumatic Eye: COMMON NORMALS: conjunctivae normal CONJUNCTIVA: Yes conjunctivae normal SCLERA: sclerae normal Neck/C-Spine: COMMON NORMALS: supple GENERAL: Yes trachea midline CERVICAL SPINE: Yes collar present Resp: COMMON NORMALS: clear to auscultation bilaterally EFFORT & INSPECTION: Yes able to speak in complete sentences AUSCULTATION: clear to auscultation bilaterally Cardio: COMMON NORMALS: regular rate and regular rhythm RATE: regular rate RHYTHM: regular rhythm GI: COMMON NORMALS: Soft to palpation PALPATION: Yes Soft to palpation and No Tenderness to palpation present (GI) Extremity: GENERAL: Yes normal exam except as noted and No edema Neuro: COMMON NORMALS: moves all extremities SENSORIUM/ORIENTATION: Yes alert and Yes Orientation impaired Psych: COMMON NORMALS: mental status grossly normal and Normal thought process present THOUGHT PROCESS: Normal thought process present Course Vital Signs: Vital signs: Vital Signs Temperature 98.4 F 02/14/23 19:13 Pulse Rate 78 02/14/23 19:13 Respiratory Rate 16 02/14/23 19:13 Blood Pressure 128/74 02/14/23 19:13 Pulse Oximetry 94 02/14/23 19:13 Oxygen Delivery Me thod Room Air 02/14/23 19:13 MDM - Altered Mental Status Medical Decision Making 77-year-old gentleman presenting due to mental status change. Exam as above. No focal neurologic deficits. He does not appear to have evidence of obvious postsurgical complication. EKG demonstrates sinus rhythm with normal axis and intervals, no STEMI. Labs performed a cytosis, normocytic anemia is present. ABG with hypoxemia and mild respiratory compensation. Metabolic panel with hyponatremia and likely dehydration.. Chest x-ray similar to prior with no lobar consolidation or pneumothorax. CT demonstrates no acute intracranial hemorrhage or mass. Patient given IV fluids and analgesia. Exact etiology of patient's symptoms is unclear, low sodium and dehydration are a possible cause however mental status change would be atypical of sodium at this level. Low clinical suspicion for postop infection and given recent surgical procedure I will defer further evaluation such as lumbar puncture to inpatient team. The results of ED evaluation were discussed with the patient including plan for admission due to requirement for level of care not available if discharged to prevent significant worsening/deterioration. Patient agreeable with plan. Discussed with hospitalist service who was agreeable to admit patient. Medical Records I reviewed the patient's medical records. Lab Data I reviewed the patient's lab results. 02/14/23 04:36 02/14/23 04:36 Radiology Impressions Chest X-Ray 02/11/23 17:58 IMPRESSION: 1. No acute cardiopulmonary process. 2. Stable soft tissue focus with areas of amorphous calcification in the left hemithorax. 3. Incidental/nonacute findings are listed in the report. Head CT 02/11/23 17:58 IMPRESSION: 1. No acute abnormality of the brain. 2. Mild atrophy of the brain parenchyma. 3. Mild chronic white matter microangiopathic change. 4. Incidental/nonacute findings are listed in the report. Lumbar Puncture Fluoroscopy 02/12/23 13:12 IMPRESSION: Uncomplicated lumbar puncture for CSF. CSF was a light orange in color. Laboratory Results WBC 7.8 10^3/uL (4.0-10.0) 02/13/23 05: RBC 3.32 10^6/uL (4.1-5.3) L 02/13/23 05: Hgb 10.1 g/dL (11.7-16.6) L 02/13/23 05:23 Hct 30.5 % (42.0-52.0) L 02/13/23 05: MCV 91.9 fl (80-94) 02/13/23 05: MCH 30.4 pg (28.0-34.0) 02/13/23 05: MCHC 33.1 g/dL (30.0-36.0) 02/13/23 05: RDW 13.9 % (12.1-15.1) 02/13/23 05: Plt Count 255 10^3/cmm (130-400) D 02/13/23 05: MPV 9.6 fL (7.4-10.4) 02/13/23 05: Neut % (Auto) 82.8 % 02/13/23 05: Lymph % (Auto) 7.4 % 02/13/23 05:23 [place] % (Auto) 7.8 % 02/13/23 05:23 Eos % (Auto) 1.0 % 02/13/23 05: Baso % (Auto) 0.5 % 02/13/23 05:23 Neut # (Auto) 6.44 10^3/uL (1.8-7.7) 02/13/23 05: Lymph # (Auto) 0.6 10^3/uL (0.8-4.8) L 02/13/23 05:23 [place] # (Auto) 0.6 10^3/uL (0.2-0.9) 02/13/23 05:23 Eos # (Auto) 0.1 10^3/uL (0.0-0.8) 02/13/23 05: Baso # (Auto) 0.0 10^3/uL (0.0-0.1) 02/13/23 05: Nucleated RBC % (auto) 0 % 02/13/23: Nucleated RBCs # 0.0 /100WBC 02/13/23 05: Specimen Type Arterial 02/11/23 15:55 Sample Site Radial, left 02/11/23 15:55 ABG pH 7.46 (7.35-7.45) H 02/11/23 15:55 ABG pCO2 44.7 mmHg (35-45) 02/11/23 15:55 ABG pO2 62.1 mmHg (80.0-100.0) L 02/11/23 15:55 ABG HCO3 31.6 mmol/L (22-26) H 02/11/23 15:55 ABG Base Excess 6.9 mmol/L (-2.0-2.0) H 02/11/23 15:55 Nasir Test Pos 02/11/23 15:55 Hematocrit 28.8 % (42-52) L 02/11/23 15:55 O2 Delivery Device Room air 02/11/23 15:55 Pigment Making Supervisor ID [id number] 02/11/23 15:55 Sodium 129 mmol/L (136-145) L 02/13/23 05:23 Potassium 3.8 mmol/L (3.5-5.1) 02/13/23 05: Chloride 93 mmol/L (98-107) L 02/13/23 05:23 Carbon Dioxide 26 mmol/L (22-29) 02/13/23 05:23 Anion Gap 13.8 (5-19) 02/13/23 05: BUN 13 mg/dL (8-23) 02/13/23 05: Creatinine 0.6 mg/dL (0.7-1.2) L 02/13/23 05: GFR Calculation Not Reportable 02/13/23 05: Glucose 192 mg/dL (65-115) H 02/13/23 05: Serum Osmolality 269 mOsm/kg (278-305) L 02/12/23 00:56 Calculated Osmolality 273 mOsm/kg (285-295) L 02/13/23 05: Lactic Acid 1.1 mmol/L (0.5-2.2) 02/11/23 22:05 Calcium 8.9 mg/dL (8.5-10.5) 02/13/23 05: Phosphorus 2.9 mg/dL (2.5-4.5) 02/13/23: Magnesium 1.9 mg/dL (1.7-2.3) 02/13/23: Total Bilirubin 0.6 mg/dL (0.15-1.2) 02/13/23: AST 18 U/L (0-40) 02/13/23 05: ALT 16 U/L (0-41) 02/13/23 05: Alkaline Phosphatase 59 U/L (40-130) 02/13/23 05: Ammonia 31 umol/L (16-60) 02/11/23 18:08 Troponin T Baseline 13 ng/L (0-15) 02/11/23 18:08 Troponin T 120 Minute 13.31 ng/L (0-15) 02/11/23 20:06 Delta Troponin T 0.13 ABS# (0-10) 02/11/23 20:06 Troponin T Hi Sens 6Hr 15.42 ng/L (0-15) H 02/12/23 00:56 Troponin T Hi Sens 6Hr Delta 2.42 ng/L (0-12) 02/12/23 00:56 C-Reactive Protein 32.4 mg/L (0.0-4.9) H 02/11/23 18:08 NT-Pro-B Natriuret Pep 1282 pg/mL (0-450) H 02/11/23 18:08 Total Protein 5.8 g/dL (6.6-8.7) L 02/13/23 05:23 Albumin 3.5 g/dL (3.5-5.2) 02/13/23 05: Globulin 2.3 g/dL (1.3-4.6) 02/13/23 05: Procalcitonin 0.12 ng/mL (0-0.5) 02/13/23 05: TSH 1.09 uIU/mL (0.27-4.20) 02/11/23 18:08 Urine Color Yellow (Yellow) 02/11/23 19:55 Urine Appearance Clear (CLEAR) 02/11/23 19:55 Urine pH 7 (5-7) 02/11/23 19:55 Ur Specific [place] 1.010 (1.005-1.030) 02/11/23 19:55 Urine Protein 1+ (Negative) H 02/11/23 19:55 Urine Glucose (UA) Trace (Normal) H 02/11/23 19:55 Urine Ketones Negative (Negative) 02/11/23 19:55 Urine Blood Neg (Negative) 02/11/23 19:55 Urine Nitrate Negative (Negative) 02/11/23 19:55 Urine Bilirubin Neg (Negative) 02/11/23 19:55 Urine Urobilinogen 1 mg/dL (Negative) H 02/11/23 19:55 Ur Leukocyte Esterase Negative (Negative) 02/11/23 19:55 Urine RBC 0-4 /hpf (0-2) H 02/11/23 19:55 Urine WBC 0-4 /hpf (0-5) H 02/11/23 19:55 Ur Squamous Epith Cells 0-4 /hpf (0-5) H 02/11/23 19:55 Amorphous Sediment Not Reportable 02/11/23 19:55 Urine Bacteria Trace /hpf (NONE) 02/11/23 19:55 Urine Osmolality 625 mOsm/kg (50-1200) 02/11/23 19:55 Ur Random Sodium 124 mmol/L 02/11/23 19:55 CSF Appearance Bloody (CLEAR) 02/12/23 15:46 CSF Color Xanthocromic (COLORLESS) 02/12/23 15:46 CSF WBC 2827 /uL (0-5) H 02/12/23 15:46 CSF RBC 44 10^3/uL (0-0) H 02/12/23 15:46 CSF Mononuclear # Auto 0.197 10^3/uL (50-90) L 02/12/23 15:46 CSF Mononuclear WBCs % 7 % (50-90) L 02/12/23 15:46 CSF Polynuclear WBCs # 2.630 10^3/uL (0-10) 02/12/23 15:46 CSF Polynuclear WBCs % 93 % (0-10) H 02/12/23 15:46 CSF Glucose 192 mg/dL (40-70) H 02/12/23 15:46 CSF Total Protein > 693 mg/dL (15-45) H 02/12/23 15:46 Nasal Influ A H1 2009 PCR Not detected (NOT DETECT) 02/11/23 18:21 Vancomycin Trough < 4.0 ug/mL (10-15) L 02/13/23 11:47 Adenovirus (PCR) Not detected (NOT DETECT) 02/11/23 18:21 C. pneumoniae DNA (PCR) Not detected (NOT DETECT) 02/11/23 18:21 Coronavirus 229E (PCR) Not detected (NOT DETECT) 02/11/23 18:21 Human Metapneumovir PCR Not detected (NOT DETECT) 02/11/23 18:21 Influenza A (H1) PCR Not detected (NOT DETECT) 02/11/23 18:21 Influenza A (H3) PCR Not detected (NOT DETECT) 02/11/23 18:21 Influenza Type A (PCR) Not detected (NOT DETECT) 02/11/23 18:21 Influenza Type B (PCR) Not detected (NOT DETECT) 02/11/23 18:21 M. pneumoniae (PCR) Not detected (NOT DETECT) 02/11/23 18:21 Parainfluenza 1 (PCR) Not detected (NOT DETECT) 02/11/23 18:21 Parainfluenza 2 (PCR) Not detected (NOT DETECT) 02/11/23 18:21 Parainfluenza 3 (PCR) Not detected (NOT DETECT) 02/11/23 18:21 Parainfluenza 4 (PCR) Not detected (NOT DETECT) 02/11/23 18:21 RSV Type A (PCR) Not detected (NOT DETECT) 02/11/23 18:21 RSV Type B (PCR) Not detected (NOT DETECT) 02/11/23 18:21 Entero/Rhino (PCR) Not detected (NOT DETECT) 02/11/23 18:21 SARS-CoV-2 (PCR) Not detected (NOT DETECT) 02/11/23 18:21 Discharge Plan Discharge Patient Disposition: Placed in Observation Admit Provider: Rocio Angeles Clinical Impression: Altered mental status, Post-operative state, Acute hyponatremia Coding Level of Care Code ED Lightning Protection Installer for Ravi Lee
--- NOTE | 2023-02-11 17:58 | CTR_ITS ---
PROCEDURE INFORMATION: Exam: CT Head Without Contrast Exam date and time: 02/11/2023 6:40 PM Age: 77 years old Clinical indication: Altered mental status/memory loss; Confusion or disorientation; Additional info: AMS TECHNIQUE: Imaging protocol: Computed tomography of the head without contrast. Sagittal and coronal reformatted images were created and reviewed. Radiation optimization: All CT scans at this facility use at least one of these dose optimization techniques: automated exposure control; mA and/or kV adjustment per patient size (includes targeted exams where dose is matched to clinical indication); or iterative reconstruction. REPORTING DATA: Count of CT and Cardiac NM exams in prior 12 months: This patient has received [address] and 0 known cardiac nuclear medicine studies in the 12 months prior to the current study. COMPARISON: MR cervical spin wo con* [id number] 12/19/2022 12:08 PM RADIATION DOSE METRICS: Total DLP (mGy-cm): 1081.65 FINDINGS: Brain: No acute intracranial hemorrhage. No acute infarct. No intra-axial or extra-axial masses. Stephenson-white matter differentiation is preserved. No cerebral edema. No extra-axial fluid collections. No midline shift. No evidence for Chiari 1 malformation. Mild atrophy of the brain parenchyma. Mildly decreased attenuation in the deep white matter, consistent with mild chronic microangiopathic change. Bilateral basal ganglia calcifications. Cerebral ventricles: No hydrocephalus. Paranasal sinuses: Visualized paranasal sinuses are clear. Mastoid air cells: Visualized mastoid air cells are clear. Orbital cavities: Globes and lenses, extraocular muscles, and optic nerves are intact bilaterally. No acute intraorbital abnormality. Nasal cavity: Mild right nasal septal deviation. Bones/joints: Patient has had a previous fusion in the cervical spine. Soft tissues: No acute abnormality of the extracranial soft tissues. Vasculature: Atherosclerotic changes in the visualized arteries. CT/CT head wo con* [id number] IMPRESSION: 1. No acute abnormality of the brain. 2. Mild atrophy of the brain parenchyma. 3. Mild chronic white matter microangiopathic change. 4. Incidental/nonacute findings are listed in the report.
--- NOTE | 2023-02-11 17:58 | XRR_ITS ---
PROCEDURE INFORMATION: Exam: XR Chest Exam date and time: 02/11/2023 6:07 PM Age: 77 years old Clinical indication: Other: AMS; Prior surgery; Surgery date: 1-6 months; Surgery type: C. Spine TECHNIQUE: Imaging protocol: Radiologic exam of the chest. Views: 1 view. COMPARISON: 1. CR XR chest 1V portable [id number] 02/28/2022 4:30 PM 2. CTA Chest-Pulmonary Emb [id number] 09/14/2019 12:57 AM FINDINGS: Tubes, catheters and devices: There is a dual-lead cardiac pacer via left subclavian approach. Findings are stable. Lungs: Lungs are clear bilaterally. Pleural spaces: No pleural effusion. No pneumothorax. Heart/Mediastinum: Stable mild enlargement of the cardiac silhouette. Mediastinal contours are unremarkable. Vasculature: Stable vascular calcifications in the aorta. Bones/joints: Findings consistent with a right rotator cuff repair. Patient has had a previous fusion in the cervical spine. Bones are diffusely osteopenic. Degenerative changes in the spine and shoulders. Soft tissues: Stable soft tissue focus with areas of amorphous calcification in the left hemithorax. XR/XR chest 1V portable [id number] IMPRESSION: 1. No acute cardiopulmonary process. 2. Stable soft tissue focus with areas of amorphous calcification in the left hemithorax. 3. Incidental/nonacute findings are listed in the report.
--- NOTE | 2023-02-11 17:59 | ECG_ITS ---
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 Measurements Intervals [place] Rate: 76 P: 73 NC: 168 QRS: 59 QRSD: 104 T: 63 QT: 378 QTc: 426 Interpretive Statements SINUS RHYTHM WITH SINUS ARRHYTHMIA LOW QRS VOLTAGE IN PRECORDIAL LEADS [QRS DEFLECTION < 1.0 mV IN CHEST LEADS] Compared to ECG 02/28/2022 21:30:56 Atrial-paced complex(es) or rhythm no longer present Intraventricular conduction delay no longer present Electronically Signed On 02-12-2023 7:18:10 CDT by Joshua Farrell M.D. [email or web address] [email or web address] [email or web address] Bio [id number]
[2023-02-11 18:09] LABS: ABG PCO2 44.7 mmHg (35-45); ABG PH Result 7.46 (7.35-7.45); Arterial Blood Gas Hematocrit 28.8 % (42-52); Base Excess ABG 6.9 mmol/L (-2.0-2.0); Blood Gas Allen Test Pos; Blood Gas Operator Identificat cw; Blood Gas Sample Site Radial, left; Blood Gas Sample Type Arterial; HCO3 ABG 31.6 mmol/L (22-26); Oxygen Device ROOM AIR; PO2 ABG 62.1 mmHg (80.0-100.0)
[2023-02-11 18:25] LABS: Basophils % 0.3 %; Eosinophils # 0.2 10^3/uL (0.0-0.8); Eosinophils % 2.3 %; Hematocrit 26.5 % (42.0-52.0); Hemoglobin 9.1 g/dL (11.7-16.6); Lymphocytes # 0.6 10^3/uL (0.8-4.8); Lymphocytes % 8.8 %; Mean Corpuscular HGB Conc 34.3 g/dL (30.0-36.0); Mean Corpuscular Hemoglobin 31.3 pg (28.0-34.0); Mean Corpuscular Volume 91.1 fl (80-94); Mean Platelet Volume 9.9 fL (7.4-10.4); Monocytes # 0.6 10^3/uL (0.2-0.9); Monocytes % 9.4 %; Neutrophils # 5.17 10^3/uL (1.8-7.7); Neutrophils % 78.7 %; Nucleated Red Blood Cells % 0 %; Platelet Count 200 10^3/cmm (130-400); Red Blood Count 2.91 10^6/uL (4.1-5.3); Red Cell Distribution Width 13.6 % (12.1-15.1); White Blood Count 6.6 10^3/uL (4.0-10.0)
[2023-02-11 18:50] LABS: Ammonia 31 umol/L (16-60)
[2023-02-11 18:55] LABS: Troponin(5th) Baseline 13 ng/L (0-15)
[2023-02-11 19:06] LABS: NT Pro B Type Natriuretic Pept 1282 pg/mL (0-450); Procalcitonin 0.11 ng/mL (0-0.5); Thyroid Stimulating Hormone 1.09 uIU/mL (0.27-4.20)
[2023-02-11 19:17] LABS: Alanine Aminotransferase 12 U/L (0-41); Albumin Level 3.6 g/dL (3.5-5.2); Alkaline Phosphatase 49 U/L (40-130); Anion Gap 17.4 (5-19); Aspartate Amino Transferase 16 U/L (0-40); Blood Urea Nitrogen 17 mg/dL (8-23); C Reactive Protein 32.4 mg/L (0.0-4.9); Calcium 8.6 mg/dL (8.5-10.5); Carbon Dioxide 25 mmol/L (22-29); Chloride 87 mmol/L (98-107); Creatinine Clr Calc Pharmacy 88.9858; Globulin 2.2 g/dL (1.3-4.6); Glucose 190 mg/dL (65-115); Osmolality Calculated 267 mOsm/kg (285-295); Potassium 4.4 mmol/L (3.5-5.1); Sodium 125 mmol/L (136-145); Total Bilirubin 0.7 mg/dL (0.15-1.2); Total Protein 5.8 g/dL (6.6-8.7)
--- NOTE | 2023-02-11 19:59 | ECG_ITS ---
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 Measurements Intervals [place] Rate: 78 P: 89 [place]: 190 QRS: 53 QRSD: 101 T: 56 QT: 387 QTc: 442 Interpretive Statements ELECTRONIC ATRIAL PACEMAKER LOW QRS VOLTAGE IN PRECORDIAL LEADS [QRS DEFLECTION < 1.0 mV IN CHEST LEADS] Compared to ECG 02/11/2023 19:05:05 Sinus rhythm no longer present Sinus arrhythmia no longer present Electronically Signed On 02-12-2023 7:20:10 CDT by Joshua Farrell M.D. [id number]
[2023-02-11] MEDS: sodium chloride 0.9% 1,000 ML 999 ML IV (20:07)
[2023-02-11 20:27] LABS: Adenovirus Not Detected (NOT DETECT); Chlamydia Pneumoniae Not Detected (NOT DETECT); Coronavirus 229E,HKU1,NL63,OC4 Not Detected (NOT DETECT); Human Metapneumovirus Not Detected (NOT DETECT); Human Rhinovirus/Enterovirus Not Detected (NOT DETECT); Influenza A Not Detected (NOT DETECT); Influenza A H1 Not Detected (NOT DETECT); Influenza A H1-2009 Not Detected (NOT DETECT); Influenza A H3 Not Detected (NOT DETECT); Influenza B Not Detected (NOT DETECT); Mycoplasma Pneumoniae Not Detected (NOT DETECT); Parainfluenza Virus Type 1 Not Detected (NOT DETECT); Parainfluenza Virus Type 2 Not Detected (NOT DETECT); Parainfluenza Virus Type 3 Not Detected (NOT DETECT); Parainfluenza Virus Type 4 Not Detected (NOT DETECT); Respiratory Syncytial Virus A Not Detected (NOT DETECT); Respiratory Syncytial Virus B Not Detected (NOT DETECT); SARS-COV-2 Not Detected (NOT DETECT)
[2023-02-11 20:39] LABS: Troponin 5 2HR 13.31 ng/L (0-15)
[2023-02-11 20:48] LABS: Add Urine Microscopic? YES; Bilirubin Urine Neg (Negative); Blood Urine Neg (Negative); Glucose Urine UA Trace (Normal); Ketones Urine Negative (Negative); Leukocyte Esterase Urine Negative (Negative); Nitrate Urine Negative (Negative); Protein Urine 1+ (Negative); RBC Urine 0-4 /hpf (0-2); Urine Appearance Clear (CLEAR); Urine Color Yellow (Yellow); Urobilinogen Urine 1 mg/dL (Negative); WBC Urine 0-4 /hpf (0-5); pH Urine 7 (5-7)
[2023-02-11 20:49] LABS: Add Urine Culture? No; Bacteria Urine TRACE /hpf; Squamous Epithelial Cell Urine 0-4 /hpf (0-5)
[2023-02-11 20:50] LABS: Troponin 5 2HR Delta 0.13 ABS# (0-10)
--- NOTE | 2023-02-11 21:10 | P.HP_ITS ---
Providers/Chief Complaint Primary Care Provider: Chinedu Babin DO Chief Complaint: HALLUCINATIONS History of Present Illness Alex Quiros is a 77 year old male with past medical history of hyperlipidemia, obesity, hypertension, TIA, ventricular arrhythmia, bradycardia status post pacemaker, hypertension, cervical spine fusion most recently on 02/05/2023 presented to the hospital today brought in by his for experiencing hallucinations and altered mental status. History in ER by ER physician was assisted by patient's at bedside. She stated that she noticed symptoms that patient had been seeing wires in the air floating around. He was also mumbling confused using inappropriate words and generally not being himself. He is currently on cyclobenzaprine, Percocet hydrocodone at home for pain since being postop. He was seen by hospitalist at bedside in room and by that time patient's confusion had improved quite a bit. Patient did receive 1 L normal saline bolus in the ER. 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 Patient able to endorse that he has indeed been seeing wires floating in the air which she has never experienced before. He states he also had numbness tingling in his bilateral upper extremities. However that has improved. He does have some pain in his neck and some stiffness however denies having a fever at home. Able to answer questions appropriately, follow commands and make his needs known at this time. He does have a slight cough and he clears his throat during encounter and states that recently he has been clearing it more compared to before. Patient also denies difficulty swallowing. He states he had a big bowl of soup tonight. At this time he is comfortable, denies nausea, vomiting, diarrhea, abdominal pain, chest pain, shortness of breath. Denies blurry vision. Denies any discharge from his dressing. Is wearing a cervical collar at this time. Denies loss of bowel or bladder control. ED course: On arrival blood pressure 139/71, respiratory 15, pulse 80, temperature 99.2, saturating 92% on room air. WBC 6.6, hemoglobin 9.1, platelet 200, ABG 7.46/44.7, 62.1, 31.6. EKG showed a paced rhythm. Sodium 125, potassium 4.4, chloride 88, glucose 184, anion gap 12.4, bicarb 29. Lactic acid 1.1, magnesium pending, AST 16, ALT 12, ammonia 31. Troponin 13, 13.3. BNP 1282, C-reactive protein 32.4. UA negative for leukocyte esterase or nitrates. Respiratory viral panel obtained is negative. CT head shows no acute abnormality of the brain, mild atrophy of brain parenchyma, mild chronic white matter microangiopathic change. Chest x-ray shows no acute cardiopulmonary process. Stable soft tissue focus with areas of amorphous calcification in left hemithorax. There does seem to be some atelectasis at bases. Medications/Allergies Home Medications Medication Instructions Recorded Confirmed Last Taken Type aspirin 81 mg tablet,delayed 81 mg PO DAILY 11/01/19 01/30/23 01/29/23 History release atorvastatin 10 mg tablet 10 mg PO DAILY 11/01/19 01/30/23 02/04/23 History hydrochlorothiazide 25 mg tablet 25 mg PO DAILY 11/01/19 01/30/23 02/05/23 History lisinopril 10 mg tablet 10 mg PO DAILY 11/01/19 01/30/23 02/04/23 History metformin 1,000 mg tablet 1,000 mg PO BID 11/01/19 01/30/23 02/04/23 History multivitamin (Multiple Vitamins 1 tab PO DAILY 11/01/19 01/30/23 02/04/23 History tablet) calcium carbonate 500 mg calcium 500 mg PO DAILY 02/28/22 01/30/23 02/04/23 History (1,250 mg) tablet ascorbic acid (vitamin C) 500 mg 500 mg PO DAILY 07/11/22 01/30/23 02/04/23 History capsule isosorbide mononitrate 30 mg 30 mg PO DAILY #90 tabs 08/15/22 01/30/23 02/05/23 Rx tablet,extended release 24 hr atenolol 100 mg tablet 100 mg PO DAILY #90 tabs 08/16/22 01/30/23 02/04/23 Rx Bone Growth Stimulator E0748 #1 ea 01/31/23 Unknown Rx cyclobenzaprine 10 mg tablet 10 mg PO TID PRN muscle spasm 02/07/23 Unknown Rx days #30 tabs hydrocodone 10 mg-acetaminophen 1 - 2 tab PO Q4H PRN pain 7 days 02/07/23 Unknown Rx 325 mg tablet #40 tabs Lift Chair #1 ea 02/11/23 Unknown Rx Allergies Allergy/AdvReac Type Severity Reaction Status Date / Time meloxicam Allergy elevated Verified 01/30/23 10:00 blood pressure Sulfa (Sulfonamide Allergy ALGY-Rash Verified 01/30/23 10:00 Antibiotics) PFSH Acute PFSH: Medical History Abnormal stress test Benign essential HTN Bradycardia Bradycardia Chest pain Coronary atherosclerosis Diabetes mellitus Diastasis recti History of cardiac pacemaker History of colon polyps Hyperlipemia Intermittent palpitations Internal hemorrhoids Male erectile dysfunction Non-sustained ventricular tachycardia Obesity Pacemaker Primary hypertension Prostatic cancer Tear of meniscus of right knee Transient cerebral ischemia Urinary incontinence Ventricular arrhythmia Surgical History History of arthroscopic surgery of shoulder History of colonoscopy with polypectomy History of eye surgery History of knee replacement History of knee surgery History of prostatectomy Family History Mother CAD (coronary artery disease) Diabetes Father Cancer Diabetes Denies family history of Clotting disorder Dementia Chronic kidney disease (CKD) Suicide Anesthesia complication Bleeding disorder Lung disease Stroke Social History Smoking and tobacco status: former smoker Alcohol intake: former Substance/Drug Use: never Vitals/I&O/Wt Last Vital Signs Temp 99.2 F 02/11/23 17:36 Pulse 76 02/11/23 19:01 Resp 15 02/11/23 17:36 BP 131/63 02/11/23 19:01 Pulse Ox 92 02/11/23 19:01 O2 Del Method Room Air 02/11/23 17:36 Weight last 48 hrs Weight 90.718 kg Physical Exam Narrative: Patient provided consent to be seen over audiovisual cart before proceeding with history taking and physical exam in presence of RN. General: Alert oriented x3, patient seen laying in bed appearing comfortable at this time but does state that he has mild pain at surgical site which he has been having for the last few days however since his surgery. HEENT: Normocephalic, atraumatic, EOMI, breathing comfortably on room air. Does clear his throat often while talking. Cardio: Regular rate rhythm, normal S1-S2 Respiratory: Diminished bilateral air entry, no wheezes no rhonchi GI: Abdomen soft, nontender,bowel sounds + Extremities: No edema noted. Brudzinski Kernig's sign negative. Mild neck stiffness present most likely secondary to recent surgery. Neck shows no swelling and no drainage. Incision appears to be intact with no drainage. Steri-Strips seen. No pus noted. Cervical collar in place. Strength equal upper and bilateral lower extremities. Patient does state that he has been seeing things however is not experiencing that right now. Data 02/12/23 00:56 02/11/23 22:05 A&P Assessment and plan (1) Altered mental status: (2) Post-operative state: (3) Acute hyponatremia: (4) Diabetes mellitus: (5) Dyslipidemia: (6) Pacemaker: (7) Coronary atherosclerosis: Qualifiers: Coronary Disease-Associated Artery/Lesion type: [place] artery [place] vs. transplanted heart: [place] heart Associated angina: with unspecified angina Qualified Code(s): I25.119 - Atherosclerotic heart disease of [place] coronary artery with unspecified angina pectoris (8) Hyperlipemia: Qualifiers: Hyperlipidemia type: mixed hyperlipidemia Qualified Code(s): E78.2 - Mixed hyperlipidemia (9) Primary hypertension: Plan #Status post cervical fusion postop day 7 #Dehydration #Hyponatremia most likely secondary to dehydration #Hallucinations, altered mental status/metabolic encephalopathy? Possibly secondary to above #Hypertension #Bradycardia, ventricular arrhythmia status post pacemaker #Hyperlipidemia #Diabetes mellitus ? There is a possibility that patient may be dehydrated and also is hyponatremic. He has not been eating very much since surgery however is not experiencing any difficulty swallowing at this time. His hallucinations could be related to polypharmacy versus possible postop infection?. I do not believe he has true meningitis. May consider lumbar puncture if no improvement. Denies having a fever. Was not altered at this time when seen. Will cover with Vanco and cefepime empirically at this time however my suspicion of such is low.. ? Spine surgery not on-call today. Reach out to Dr. Banda in a.m. ? Check urine sodium, urine, serum osmolality ? Patient is status post 1 L normal saline bolus in ER. Continue normal saline 75 cc/h ? Monitor for fever. Obtain blood cultures ? Ammonia level okay. Check vitamin B12 level ? Low-dose intensity sliding scale insulin -Placed on cardiac diet ? Continue aspirin, atenolol, atorvastatin, Imdur, lisinopril. ? We will hold opioid pain medications at this time and placed on Tylenol as a trial. ? May use hydrocodone every 6 hours for breakthrough pain. ? Avoid NSAIDs as advised by spine surgery. ? Encourage incentive spirometry ? PT OT assessment deferred to day team. ? Of note patient did recently have an angiogram which showed nonobstructive coronary artery disease. Troponins negative. ? Procalcitonin negative ? Neurochecks every 2 hours Full code SCDs, heparin SQ twice daily Attestations Medical Necessity Statement*: Will cross greater than 2 midnight stay for management of hyponatremia, hallucinations, altered mental status. Coding Level of Care Code G0427 (70 min) TH Encounter Time (min): 70 Patient seen via Telehealth in the acute care setting (hospital or ED location) by agreement and consent of patient or patient retail field representative. Telehealth technology used during the visit includes video and audio. This patient encounter is appropriate and reasonable under the circumstances given the patient?s particular presentation at this time. The patient has been advised of the potential risks and limitations of this mode of treatment (including but not limited to the absence of in-person examination at this time) and has agreed to be treated by an off-site physician for this visit. If deemed clinically necessary from this telehealth visit, or if condition or consent for telehealth visit changes, an in-person visit will be arranged. For this encounter, total time for the origination of telehealth care on this date is as shown. Patient provided consent to be seen over audiovisual cart before proceeding with history taking and physical exam in presence of RN. Diagnoses Altered mental status R41.82 Post-operative state Z98.890 Acute hyponatremia E87.1 Diabetes mellitus E11.9 Dyslipidemia E78.5 Pacemaker Z95.0 Coronary atherosclerosis I25.119 Coronary Disease-Associated Artery/Lesion type: [place] artery [place] vs. transplanted heart: [place] heart Associated angina: with unspecified angina Hyperlipemia E78.2 Hyperlipidemia type: mixed hyperlipidemia Primary hypertension I10
[2023-02-11] MEDS: morphine 4 mg/mL SDV 1 mL IVP (22:09)
[2023-02-11] MEDS: sodium chloride 0.9% 1,000 ML 75 ML IV (22:09)
[2023-02-11 22:33] LABS: Blood Urea Nitrogen 16 mg/dL (8-23); Calcium 8.6 mg/dL (8.5-10.5); Carbon Dioxide 29 mmol/L (22-29); Chloride 88 mmol/L (98-107); Creatinine Clr Calc Pharmacy 88.9858; Glucose 184 mg/dL (65-115); Lactic Sepsis W/Reflex 1.1 mmol/L (0.5-2.2); Osmolality Calculated 266 mOsm/kg (285-295); Sodium 125 mmol/L (136-145)
[2023-02-11 22:34] LABS: Anion Gap 12.4 (5-19); Potassium 4.4 mmol/L (3.5-5.1)
--- NOTE | 2023-02-11 23:50 | PC.PHAR ---
Initial Vanc Dosing Goal Vanc Trough: 10-20 Plan: Initial dose of 1500 mg Q12H Vanc trough to be scheduled for prior to 4th dose and will reassess
--- NOTE | 2023-02-11 23:59 | ECG_ITS ---
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 Measurements Intervals [place] Rate: 82 P: 89 SD: 186 QRS: 58 QRSD: 89 T: 52 QT: 362 QTc: 425 Interpretive Statements Atrial fibrillation with controllled ventricular response rate LOW QRS VOLTAGE IN PRECORDIAL LEADS [QRS DEFLECTION < 1.0 mV IN CHEST LEADS] Compared to ECG 02/11/2023 19:33:50 Atrial-paced complex(es) or rhythm no longer present Electronically Signed On 02-12-2023 21:17:55 CDT by Chris Craft M.D. [id number]
[2023-02-12 01:10] LABS: Basophils % 0.4 %; Eosinophils # 0.1 10^3/uL (0.0-0.8); Eosinophils % 2.1 %; Hematocrit 27.3 % (42.0-52.0); Hemoglobin 9.3 g/dL (11.7-16.6); Lymphocytes # 0.7 10^3/uL (0.8-4.8); Lymphocytes % 11.9 %; Mean Corpuscular HGB Conc 34.1 g/dL (30.0-36.0); Mean Corpuscular Hemoglobin 31.3 pg (28.0-34.0); Mean Corpuscular Volume 91.9 fl (80-94); Mean Platelet Volume 9.9 fL (7.4-10.4); Monocytes # 0.5 10^3/uL (0.2-0.9); Monocytes % 9.2 %; Neutrophils # 4.29 10^3/uL (1.8-7.7); Nucleated Red Blood Cells % 0 %; Platelet Count 196 10^3/cmm (130-400); Red Blood Count 2.97 10^6/uL (4.1-5.3); Red Cell Distribution Width 13.8 % (12.1-15.1); White Blood Count 5.6 10^3/uL (4.0-10.0)
[2023-02-12] MEDS: vancomycin 1,500 MG/300 ML PIGGYBACK 200 MG IV ×3 (01:13→23:57)
[2023-02-12] MEDS: cefepime 1,000 MG in sodium chloride 0.9% (plus) 50 ML 100 MG IV ×2 (01:13→20:52)
[2023-02-12 01:49] LABS: Troponin 5 6HR 15.42 ng/L (0-15)
[2023-02-12 01:50] LABS: Troponin 5 6HR Delta 2.42 ng/L (0-12)
--- NOTE | 2023-02-12 01:53 | PC.NURSE ---
Patient holding his hands up as if he is holding something. Patient reports he is holding a diabetic test strip although nothing is there. Believe patient is experiencing visual hallucinations.
[2023-02-12 01:55] LABS: Alanine Aminotransferase 13 U/L (0-41); Albumin Level 3.4 g/dL (3.5-5.2); Alkaline Phosphatase 55 U/L (40-130); Anion Gap 14.2 (5-19); Aspartate Amino Transferase 16 U/L (0-40); Blood Urea Nitrogen 15 mg/dL (8-23); Calcium 8.8 mg/dL (8.5-10.5); Carbon Dioxide 29 mmol/L (22-29); Chloride 90 mmol/L (98-107); Creatinine Clr Calc Pharmacy 88.9858; Globulin 2.3 g/dL (1.3-4.6); Glucose 186 mg/dL (65-115); Magnesium 1.6 mg/dL (1.7-2.3); Osmolality Calculated 274 mOsm/kg (285-295); Potassium 4.2 mmol/L (3.5-5.1); Sodium 129 mmol/L (136-145); Total Bilirubin 0.6 mg/dL (0.15-1.2); Total Protein 5.7 g/dL (6.6-8.7)
--- NOTE | 2023-02-12 02:48 | PC.NURSE ---
when obtaining patients admission assessment patient is asked do you have any muslim preferences that will affect how we take care of you? 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 Thats my wifes. It appears evident a full admission assessment will not be possible at this time.
[2023-02-12 03:36] LABS: Urine Random Sodium 124 mmol/L
[2023-02-12] MEDS: magnesium sulfate premix 2 GM/50 ML PIGGYBACK IV (03:44)
[2023-02-12 03:54] LABS: Anion Gap 14.3 (5-19); Blood Urea Nitrogen 15 mg/dL (8-23); Calcium 8.6 mg/dL (8.5-10.5); Carbon Dioxide 28 mmol/L (22-29); Chloride 90 mmol/L (98-107); Creatinine Clr Calc Pharmacy 88.9858; Glucose 196 mg/dL (65-115); Osmolality Calculated 272 mOsm/kg (285-295); Potassium 4.3 mmol/L (3.5-5.1); Sodium 128 mmol/L (136-145)
[2023-02-12 04:00] VITALS: BP 157/72; PULSE 84; RESP 17; TEMP 37.8; O2SAT 94
[2023-02-12 07:39] VITALS: BP 171/77; PULSE 81; RESP 18; TEMP 37.1; O2SAT 96
[2023-02-12] MEDS: aspirin 81 mg EC Tablet PO (09:42)
--- NOTE | 2023-02-12 09:58 | PC.PHAR ---
medications verified by calling [facility] to verify last filled and picked up
[2023-02-12 10:41] LABS: Blood Urea Nitrogen 14 mg/dL (8-23); Calcium 8.9 mg/dL (8.5-10.5); Carbon Dioxide 27 mmol/L (22-29); Chloride 87 mmol/L (98-107); Creatinine Clr Calc Pharmacy 88.9858; Glucose 257 mg/dL (65-115); Osmolality Calculated 271 mOsm/kg (285-295); Sodium 126 mmol/L (136-145)
[2023-02-12 11:25] VITALS: BP 162/76; PULSE 87; RESP 18; TEMP 37.4; O2SAT 93
--- NOTE | 2023-02-12 13:12 | FL_ITS ---
WS: [id number] LUMBAR PUNCTURE UNDER FLUOROSCOPY: OBTAIN CSF FOR ANALYSIS HISTORY: Rule out meningitis COMPARISON: None available. FLUOROSCOPY TIME: 0min [id number] # of spot films: 1 Procedure, complications, and risk and benefits explained to the patient and his . is provid ing consent. Consent was obtained. Recent laboratory work and medication are reviewed prior to proced ure. Head CT reviewed. Skin over the lumbar is cleansed with ChloraPrep and anesthetized with 1% buffered lidocaine. Access into the thecal sac is achieved. CSF is removed in a sterile manner and placed in the sterile tubes. Approximately 10 ml is removed without difficulty. The CSF removed was a light orange-colored. May be from the prior surgery and bleeding. No complications are encountered. Patient tolerated the procedure well. CSF this into the laboratory for analysis as requested. FL/FL guided lumbarpunc dx* [id number] IMPRESSION: Uncomplicated lumbar puncture for CSF. CSF was a light orange in color.
--- NOTE | 2023-02-12 13:25 | PM.PN ---
Subjective Subjective: Patient is awake. He is interactive but responses are tangential often to the severity of nearly word salad. Reports diffuse neck pain. Denies fevers, chills, nausea or emesis although patient is a poor historian. Medications: Reviewed: Yes Vitals/I&O/Wt Last Vital Signs Temp 99.3 F 02/12/23 11:25 Pulse 87 02/12/23 11:25 Resp 18 02/12/23 11:25 BP 162/76 02/12/23 11:25 Pulse Ox 93 02/12/23 11:25 O2 Del Method Room Air 02/12/23 11:25 02/11/23 02/12/23 02/12/23 22:59 06:59 14:59 Intake Total 1000 / 1000 400 / 1400 120 / 120 Output Total 200 / 200 Balance 1000 / 1000 200 / 1200 120 / 120 Weight last 48 hrs Weight 90.718 kg Weight 90.718 kg Physical Exam Narrative: General: Patient is awake. Very tangential at times, amost like word salad. Head: Normocephalic. Atraumatic. Neck: Neck brace. Cardiovascular: RRR. No gallops. No murmurs. Lungs: Non-labored. No use of accessory muscles, no crackles or wheezes. On room air. Skin: No jaundice. No rashes. Abdomen: Normal bowel sounds, abdomen soft. Genito Urinary: Genital exam not performed since complaints not related. Rectal: Rectal exam not performed since no symptoms indicated blood loss. Extremities: No cyanosis or clubbing. Musculoskeletal: No swollen or erythematous joints. Neurological: Moves all 4 extremities. No myoclonus. Data 02/12/23 00:56 02/12/23 10:01 Micro: Microbiology 02/11/23 22:05 Blood Culture - Preliminary Blood SPECIMEN COLLECTED 02/11/23 22:07 Blood Culture - Preliminary Blood SPECIMEN COLLECTED A&P Assessment and plan (1) Altered mental status: Broad differential including acute hyponatremia, medication induced, infection, delirium, etc Empiric abx LP requested Correct electrolytes Serial neurological exams Avoid sedating medications Frequent reorientation (2) Acute hyponatremia: Initially improved, but now downtrending again Discontinue normal saline Start salt tabs Awaiting urine labs (3) Status post cervical spinal fusion: Status post surgery one week ago Discussed w/ Dr Veronika Bandage change requested Continue neck brace unless Dr Banda suggests otherwise (4) Diabetes mellitus: Hold home metformin Monitor blood glucose Consider SSI pending oral intake (5) Coronary atherosclerosis: Continue aspirin Qualifiers: Coronary Disease-Associated Artery/Lesion type: [place] artery [place] vs. transplanted heart: [place] heart Associated angina: with unspecified angina Qualified Code(s): I25.119 - Atherosclerotic heart disease of [place] coronary artery with unspecified angina pectoris Plan DVT ppx: SCD Code Status: Full Code Attestations Medical Necessity Statement*: Patient requires ongoing hospitalization for serial neuro exams, IV abx, wound care, lumbar puncture, further work up and supportive care. Coding Level of Care Code Acute Code for Chg Fwd Diagnoses Altered mental status R41.82 Acute hyponatremia E87.1 Status post cervical spinal fusion Z98.1 Diabetes mellitus E11.9 Coronary atherosclerosis I25.119 Coronary Disease-Associated Artery/Lesion type: [place] artery [place] vs. transplanted heart: [place] heart Associated angina: with unspecified angina
--- NOTE | 2023-02-12 13:43 | PM.PN ---
Subjective Subjective: Patient seen at bedside. Patient is wearing his collar. Collar was removed dressing was taken down the wound looks clean dry and intact. Patient is somewhat confused this point will we will continue to follow from a distance. Vitals/I&O/Wt Last Vital Signs Temp 99.3 F 02/12/23 11:25 Pulse 87 02/12/23 11:25 Resp 18 02/12/23 11:25 BP 162/76 02/12/23 11:25 Pulse Ox 93 02/12/23 11:25 O2 Del Method Room Air 02/12/23 11:25 02/11/23 02/12/23 02/12/23 22:59 06:59 14:59 Intake Total 1000 / 1000 400 / 1400 120 / 120 Output Total 200 / 200 Balance 1000 / 1000 200 / 1200 120 / 120 Weight last 48 hrs Weight 200 lb Weight 200 lb Data 02/12/23 00:56 02/12/23 10:01 Micro: Microbiology 02/11/23 22:05 Blood Culture - Preliminary Blood SPECIMEN COLLECTED 02/11/23 22:07 Blood Culture - Preliminary Blood SPECIMEN COLLECTED A&P Assessment and plan (1) Status post cervical spinal fusion: Wound is clean dry and intact. Dressing was changed. At this point we will continue to follow from distance we will plan on seeing in the clinic in 1 week. Attestations Medical Necessity Statement*: Per primary service Coding Level of Care Code Acute Code for Chg Fwd Diagnoses Status post cervical spinal fusion Z98.1
[2023-02-12] MEDS: acetaminophen 325 mg Tablet 1000 MG PO ×2 (14:28→20:50)
[2023-02-12] MEDS: sodium chloride 1 gm Tablet PO ×2 (14:28→20:52)
[2023-02-12 18:42] LABS: CSF Mononuclear # 0.197 10^3/uL (50-90); Cyto Order Verification No Order; Mononuclear WBC CSF % 7 % (50-90); Polynuclear WBC CSF % 93 % (0-10); Red Blood Cell CSF 44 10^3/uL (0-0); White Blood Cell CSF 2827 /uL (0-5)
[2023-02-12 18:58] LABS: Appearance CSF BLOODY (CLEAR); Color CSF XANTHOCROMIC (COLORLESS)
[2023-02-12 19:10] LABS: Glucose CSF 192 mg/dL (40-70)
[2023-02-12 19:48] VITALS: BP 146/72; PULSE 70; RESP 15; TEMP 36.8; O2SAT 95
[2023-02-12 23:58] VITALS: BP 160/72; PULSE 71; RESP 16; TEMP 36.9; O2SAT 96
[2023-02-13 04:00] VITALS: BP 159/70; PULSE 85; RESP 16; TEMP 37.8; O2SAT 96
[2023-02-13] MEDS: acetaminophen 500 mg Tablet 1000 MG PO ×2 (04:13→09:49)
[2023-02-13 05:38] LABS: Basophils % 0.5 %; Eosinophils # 0.1 10^3/uL (0.0-0.8); Hematocrit 30.5 % (42.0-52.0); Hemoglobin 10.1 g/dL (11.7-16.6); Lymphocytes # 0.6 10^3/uL (0.8-4.8); Lymphocytes % 7.4 %; Mean Corpuscular HGB Conc 33.1 g/dL (30.0-36.0); Mean Corpuscular Hemoglobin 30.4 pg (28.0-34.0); Mean Corpuscular Volume 91.9 fl (80-94); Mean Platelet Volume 9.6 fL (7.4-10.4); Monocytes # 0.6 10^3/uL (0.2-0.9); Monocytes % 7.8 %; Neutrophils # 6.44 10^3/uL (1.8-7.7); Neutrophils % 82.8 %; Nucleated Red Blood Cells % 0 %; Platelet Count 255 10^3/cmm (130-400); Red Blood Count 3.32 10^6/uL (4.1-5.3); Red Cell Distribution Width 13.9 % (12.1-15.1); White Blood Count 7.8 10^3/uL (4.0-10.0)
[2023-02-13 05:52] LABS: Alanine Aminotransferase 16 U/L (0-41); Albumin Level 3.5 g/dL (3.5-5.2); Alkaline Phosphatase 59 U/L (40-130); Anion Gap 13.8 (5-19); Aspartate Amino Transferase 18 U/L (0-40); Blood Urea Nitrogen 13 mg/dL (8-23); Calcium 8.9 mg/dL (8.5-10.5); Carbon Dioxide 26 mmol/L (22-29); Chloride 93 mmol/L (98-107); Globulin 2.3 g/dL (1.3-4.6); Glucose 192 mg/dL (65-115); Magnesium 1.9 mg/dL (1.7-2.3); Osmolality Calculated 273 mOsm/kg (285-295); Phosphorus 2.9 mg/dL (2.5-4.5); Potassium 3.8 mmol/L (3.5-5.1); Sodium 129 mmol/L (136-145); Total Bilirubin 0.6 mg/dL (0.15-1.2); Total Protein 5.8 g/dL (6.6-8.7)
[2023-02-13 05:55] LABS: Creatinine Clr Calc Pharmacy 88.9858
[2023-02-13 07:40] VITALS: BP 155/93; PULSE 80; RESP 20; O2SAT 98
[2023-02-13] MEDS: sodium chloride 1 gm Tablet PO ×3 (09:49→20:52)
[2023-02-13] MEDS: cefTRIAXone 2,000 MG in sodium chloride 0.9% (plus) 50 ML 100 MG IV ×2 (09:51→21:56)
[2023-02-13] MEDS: ampicillin 2,000 MG in sodium chloride 0.9% (plus) 50 ML 100 MG IV ×3 (11:21→20:49)
[2023-02-13 11:54] VITALS: BP 162/70; PULSE 77; RESP 18; TEMP 36.8; O2SAT 94
[2023-02-13 12:27] LABS: Vancomycin Trough < 4.0 ug/mL (10-15)
--- NOTE | 2023-02-13 13:22 | PM.PN ---
Subjective Subjective: Patient remains severed altered. He is awake and alert. He was reportedly awake all night. It is unclear the last time he actually slept. Flaviater reports ongoing confusion so far this morning. On exam, he is conversational with much of his speech actually comprehensible but not all speech. Much of the conversation is very tangential without purpose. He seems to deny fevers, chills, nausea or emesis. Met with his significant other later outside his room. Discussed his condition, plan of care and prognosis a length with her. All questions answered. Psychosocial support offered. Medications: Reviewed: Yes Vitals/I&O/Wt Last Vital Signs Temp 98.3 F 02/13/23 11:54 Pulse 77 02/13/23 11:54 Resp 18 02/13/23 11:54 BP 162/70 02/13/23 11:54 Pulse Ox 94 02/13/23 11:54 O2 Del Method Room Air 02/13/23 11:54 02/12/23 02/13/23 02/13/23 22:59 06:59 14:59 Intake Total 590 / 1950 300 / 2250 340 / 340 Output Total 500 / 500 1300 / 1800 Balance 90 / 1450 -1000 / 450 340 / 340 Weight last 48 hrs Weight 90.718 kg Weight 90.718 kg Physical Exam Narrative: General: Patient is awake. Alert. Not oriented. Delirious. Neck: Neck brace. Cardiovascular: RRR. No gallops. No murmurs. Lungs: Non-labored. No use of accessory muscles, no crackles or wheezes. Skin: No jaundice. No rashes. Abdomen: Normal bowel sounds, abdomen soft. Extremities: No cyanosis or clubbing. Musculoskeletal: No swollen or erythematous joints. Neurological: Moves all 4 extremities. No myoclonus. Data 02/13/23 05:23 02/13/23 05:23 Micro: Microbiology 02/11/23 22:05 Blood Culture - Preliminary Blood NEGATIVE TO DATE 02/11/23 22:07 Blood Culture - Preliminary Blood NEGATIVE TO DATE 02/12/23 15:46 Gram Stain - Final Cerebrospinal Fluid A&P Assessment and plan (1) Meningitis: A/w severe acute metabolic encephalopathy and acute derlirum S/P LP w/ CSF c/w meningitis Discontinue cefepime Start ceftriaxone as meningitis dosing Start ampicillin as well given age Change vancomycin to meningitis dosing Hold off on systemic steroids given he has already been started on abx Meningitis PCR requested (2) Acute hyponatremia: Improving at 129 Although initially considered, acute hyponatremia is now the cause of his altered mental status Continue salt tabs for now, wean off in coming days (3) Status post cervical spinal fusion: Dr Banad notified 02/12 Bandages changed per nursing w/ surgical wound site reported c/d/i Continue therapy when medically appropriate Continue neck brace until instructed to removed by ortho (4) Diabetes mellitus: Hold home metformin Monitor blood glucose Consider SSI pending oral intake (5) Coronary atherosclerosis: Hold aspirin Qualifiers: Associated angina: with unspecified angina Coronary Disease-Associated Artery/Lesion type: [place] artery [place] vs. transplanted heart: [place] heart Qualified Code(s): I25.119 - Atherosclerotic heart disease of [place] coronary artery with unspecified angina pectoris Plan DVT ppx: SCD Code Status: Full Code Attestations Medical Necessity Statement*: Patient admitted for meningitis with severe encephalopathy status post cervical neck fusion one week with him requiring ongoing hospitalization for cultures, IV abx, serial exams, labs, and supportive care. Coding Level of Care Code Acute Code for g Fwd Diagnoses Meningitis G03.9 Acute hyponatremia E87.1 Status post cervical spinal fusion Z98.1 Diabetes mellitus E11.9 Coronary atherosclerosis I25.119 Associated angina: with unspecified angina Coronary Disease-Associated Artery/Lesion type: [place] artery [place] vs. transplanted heart: [place] heart
[2023-02-13] MEDS: vancomycin 1,500 MG/300 ML PIGGYBACK 200 MG IV (14:06)
--- NOTE | 2023-02-13 14:16 | PC.PHAR ---
Trough to be drawn before 3rd dose Patient: Floor: Age: 77 yo Serum creatinine: 0.6 mg/dL Height: 70.1 Inches Weight (kg): 91 IBW (kg): 73.23 Dosing wt(kg): 91 Estimated Creatinine clearance (ml/min): 108.5 CRCL method: Cockcroft and Gault using ibw(default). Drug selected: Vancomycin Loading dose (mg): Vd (liters): 63.7 (factor used: 0.7 L/kg) Brown (hr-1): 0.094 Half life (hrs): 7.37 CLvanco=?? 5.988 L/hr Recommended dose: 1750 mg Interval: 12 hrs Infusion time (hrs): 1 Predicted peak (mcg/mL): 38.8 Predicted trough (mcg/mL): 13.80 Total body weight is being used for vancomycin dosing. Recommendations: Give Vancomycin 1750 mg q 12 hrs with an expected Cpeak of 38.8 mcg/ml and an expected Ctrough of 13.80 mcg/ml AUC 0-24 /FRANKLIN Data: FRANKLIN 0.5 mcg/mL:?? AUC/FRANKLIN:? 1169.0 [place] 1.0 mcg/mL:?? AUC/FRANKLIN:? 584.5 --------- [place]ANKLIN 1.5 mcg/mL:?? AUC/FRANKLIN:? 389.7 FRANKLIN 2.0 mcg/mL:?? AUC/FRANKLIN:? 292.3 Renal dosing of other antibiotics (review renal dosing of other medications and list guidelines here): Thank you for the consult, will continue to follow. Signature: Patricio RodriguezD
[2023-02-13 15:14] LABS: Procalcitonin 0.12 ng/mL (0-0.5)
[2023-02-13 15:28] VITALS: BP 142/69; PULSE 88; RESP 20; TEMP 37.2; O2SAT 95
[2023-02-13 20:00] VITALS: BP 161/79; PULSE 91; RESP 18; TEMP 38; O2SAT 93
[2023-02-13] MEDS: trazodone 50 mg Tablet PO (20:52)
[2023-02-13] MEDS: vancomycin 1,750 MG/350 ML PIGGYBACK 200 MG IV (22:51)
[2023-02-14] VITALS (7 sets, daily range): BP systolic 128–177; BP diastolic 70–79; PULSE 72–103; RESP 16–19; TEMP 36.6–36.9; O2SAT 92–96
[2023-02-14] MEDS: ampicillin 2,000 MG in sodium chloride 0.9% (plus) 50 ML 100 MG IV ×5 (01:39→20:02)
[2023-02-14 04:53] LABS: Basophils % 0.4 %; Eosinophils # 0.1 10^3/uL (0.0-0.8); Eosinophils % 1.6 %; Hematocrit 30.7 % (42.0-52.0); Hemoglobin 9.9 g/dL (11.7-16.6); Lymphocytes # 0.8 10^3/uL (0.8-4.8); Lymphocytes % 11.1 %; Mean Corpuscular HGB Conc 32.2 g/dL (30.0-36.0); Mean Corpuscular Hemoglobin 30.3 pg (28.0-34.0); Mean Corpuscular Volume 93.9 fl (80-94); Mean Platelet Volume 9.3 fL (7.4-10.4); Monocytes # 0.7 10^3/uL (0.2-0.9); Monocytes % 9.6 %; Neutrophils # 5.13 10^3/uL (1.8-7.7); Nucleated Red Blood Cells % 0 %; Platelet Count 268 10^3/cmm (130-400); Red Blood Count 3.27 10^6/uL (4.1-5.3); Red Cell Distribution Width 14.2 % (12.1-15.1); White Blood Count 6.8 10^3/uL (4.0-10.0)
[2023-02-14 05:15] LABS: Alanine Aminotransferase 21 U/L (0-41); Albumin Level 3.3 g/dL (3.5-5.2); Alkaline Phosphatase 59 U/L (40-130); Anion Gap 13.9 (5-19); Aspartate Amino Transferase 19 U/L (0-40); Blood Urea Nitrogen 15 mg/dL (8-23); Calcium 8.3 mg/dL (8.5-10.5); Carbon Dioxide 27 mmol/L (22-29); Chloride 96 mmol/L (98-107); Creatinine Clr Calc Pharmacy 88.9858; Globulin 2.3 g/dL (1.3-4.6); Glucose 202 mg/dL (65-115); Osmolality Calculated 283 mOsm/kg (285-295); Phosphorus 3.2 mg/dL (2.5-4.5); Potassium 3.9 mmol/L (3.5-5.1); Sodium 133 mmol/L (136-145); Total Bilirubin 0.4 mg/dL (0.15-1.2); Total Protein 5.6 g/dL (6.6-8.7)
[2023-02-14 10:29] LABS: Osmolality Serum 269 mOsm/kg (278-305)
[2023-02-14 10:29] LABS: Osmolality Urine 625 mOsm/kg (50-1200)
[2023-02-14] MEDS: cefTRIAXone 2,000 MG in sodium chloride 0.9% (plus) 50 ML 100 MG IV ×2 (11:09→21:18)
[2023-02-14] MEDS: sodium chloride 1 gm Tablet PO ×3 (11:10→21:21)
--- NOTE | 2023-02-14 12:24 | P.PN_ITS ---
Subjective Subjective: Patient remains severely altered. Noted to have at least visual, possibly auditory, hallucinations. Some speech is comprehensible but much is not. He speaks but does not answer my questions. Extremely tangential. Further reliable history could not be obtained from patient due to his severe e ncephalopathy. Medications: Reviewed: Yes Vitals/I&O/Wt Last Vital Signs Temp 98.5 F 02/14/23 12:00 Pulse 81 02/14/23 12:00 Resp 18 02/14/23 12:00 BP 168/73 02/14/23 12:00 Pulse Ox 95 02/14/23 12:00 O2 Del Method Room Air 02/14/23 12:00 02/13/23 02/14/23 02/14/23 22:59 06:59 14:59 Intake Total 956 / 1656 716 / 2372 220 / 220 Output Total 1100 / 1100 300 / 300 Balance 956 / 1656 -384 / 1272 -80 / -80 Physical Exam Narrative: General: Patient is awake. Encephalopathic. Fairly redirectable. Neck: Neck brace. Cardiovascular: RRR. No gallops. No murmurs. Hypertensive. Lungs: Non-labored. No use of accessory muscles, no crackles or wheezes. Skin: No jaundice. No rashes. Abdomen: Normal bowel sounds, abdomen soft. Extremities: No cyanosis or clubbing. Musculoskeletal: No swollen or erythematous joints. Neurological: Moves all 4 extremities. No myoclonus. Data 02/14/23 04:36 02/14/23 04:36 Micro: Microbiology 02/12/23 15:46 Gram Stain - Final Cerebrospinal Fluid CSF Culture - Preliminary 02/12/23 20:45 MRSA Culture - Final Nose A&P Assessment and plan (1) Meningitis: A/w severe acute metabolic encephalopathy and acute derlirum Continue ceftriaxone and ampicillin (02/13-p) MRSA swab negative, cx still growing, continue vancomycin for now Continue ampicillin Follow up meningitis PCR (2) Acute hyponatremia: Continue salt tabs, may be able to dc tomorrow (3) Status post cervical spinal fusion: Ortho evaluated, following distally Continue therapy when medically appropriate Continue neck brace until instructed to removed by ortho (4) Diabetes mellitus: Hold home metformin Monitor blood glucose BS mostly below 200, continue to monitor (5) Coronary atherosclerosis: Hold aspirin Qualifiers: Coronary Disease-Associated Artery/Lesion type: [place] artery [place] vs. transplanted heart: [place] heart Associated angina: with unspecified angina Qualified Code(s): I25.119 - Atherosclerotic heart disease of [place] coronary artery with unspecified angina pectoris Plan DVT ppx: SCD Code Status: Full Code Attestations Medical Necessity Statement*: Patient has severe encephalopathy and is not responding to treatment as intended, he requires further hospitalization for further work of meningitis, IV abx, and supportive care. Coding Level of Care Code Acute Code for [facility] Fwd Diagnoses Meningitis G03.9 Acute hyponatremia E87.1 Status post cervical spinal fusion Z98.1 Diabetes mellitus E11.9 Coronary atherosclerosis I25.119 Coronary Disease-Associated Artery/Lesion type: [place] artery [place] vs. transplanted heart: [place] heart Associated angina: with unspecified angina
[2023-02-14] MEDS: vancomycin 1,750 MG/350 ML PIGGYBACK 200 MG IV ×2 (13:26→22:40)
[2023-02-14] MEDS: HYDROcodone-acetaminophen 5-325 mg Tablet 1 TAB PO ×2 (17:23)
[2023-02-14] MEDS: trazodone 50 mg Tablet PO (21:22)
[2023-02-14 22:35] LABS: Vancomycin Trough 14.2 ug/mL (10-15)
[2023-02-15] MEDS: ampicillin 2,000 MG in sodium chloride 0.9% (plus) 50 ML 100 MG IV ×6 (00:32→21:08)
[2023-02-15] MEDS: HYDROcodone-acetaminophen 5-325 mg Tablet 1 TAB PO (01:38)
[2023-02-15 04:00] VITALS: BP 159/84; PULSE 78; RESP 18; TEMP 36.7; O2SAT 93
[2023-02-15 06:02] LABS: Basophils # 0.1 10^3/uL (0.0-0.1); Basophils % 0.8 %; Eosinophils # 0.2 10^3/uL (0.0-0.8); Eosinophils % 3.9 %; Hematocrit 34.1 % (42.0-52.0); Lymphocytes # 0.9 10^3/uL (0.8-4.8); Lymphocytes % 15.3 %; Mean Corpuscular HGB Conc 32.3 g/dL (30.0-36.0); Mean Corpuscular Hemoglobin 30.4 pg (28.0-34.0); Mean Corpuscular Volume 94.2 fl (80-94); Monocytes # 0.5 10^3/uL (0.2-0.9); Monocytes % 7.9 %; Neutrophils # 4.21 10^3/uL (1.8-7.7); Neutrophils % 71.1 %; Nucleated Red Blood Cells % 0 %; Platelet Count 257 10^3/cmm (130-400); Red Blood Count 3.62 10^6/uL (4.1-5.3); Red Cell Distribution Width 14.3 % (12.1-15.1); White Blood Count 5.9 10^3/uL (4.0-10.0)
[2023-02-15 08:23] VITALS: BP 167/90; PULSE 74; RESP 17; TEMP 36.8; O2SAT 95
[2023-02-15] MEDS: sodium chloride 1 gm Tablet PO ×3 (09:30→21:18)
[2023-02-15] MEDS: cefTRIAXone 2,000 MG in sodium chloride 0.9% (plus) 50 ML 100 MG IV ×2 (09:30→21:46)
[2023-02-15] MEDS: vancomycin 1,750 MG/350 ML PIGGYBACK 200 MG IV ×2 (10:49→22:28)
[2023-02-15 12:00] VITALS: BP 168/88; PULSE 76; RESP 18; TEMP 37.2; O2SAT 95
[2023-02-15 15:53] VITALS: BP 162/85; PULSE 76; RESP 16; TEMP 36.8; O2SAT 94
--- NOTE | 2023-02-15 16:09 | PM.PN ---
Subjective Subjective: Patient remains altered and confused although less than prior days. He denies any pain. Not oriented. No longer requiring sitter. Denies fevers, nausea, abdominal pain, or chest pains. Medications: Reviewed: Yes Vitals/I&O/Wt Last Vital Signs Temp 98.2 F 02/15/23 15:53 Pulse 76 02/15/23 15:53 Resp 16 02/15/23 15:53 BP 162/85 02/15/23 15:53 Pulse Ox 94 02/15/23 15:53 O2 Del Method Room Air 02/15/23 15:53 02/15/23 02/15/23 02/15/23 06:59 14:59 22:59 Intake Total 716 / 2468 1246 / 1246 Output Total 400 / 400 400 / 800 Balance 716 / 868 846 / 846 -400 / 446 Physical Exam Narrative: General: Patient is awake. Encephalopathic. Redirectable. Neck: Neck brace. Cardiovascular: RRR. No gallops. No murmurs. Lungs: Non-labored. No use of accessory muscles, no crackles or wheezes. Skin: No jaundice. No rashes. Abdomen: Normal bowel sounds, abdomen soft. Extremities: No cyanosis or clubbing. Musculoskeletal: No swollen or erythematous joints. Neurological: Moves all 4 extremities. No myoclonus. Oriented to self. Data 02/15/23 05:42 02/14/23 04:36 Micro: Microbiology 02/12/23 15:46 Gram Stain - Final Cerebrospinal Fluid CSF Culture - Preliminary A&P Assessment and plan (1) Meningitis: A/w severe acute metabolic encephalopathy and acute derlirum Continue ceftriaxone and ampicillin (02/13-p) MRSA swab negative, cx still growing, continue vancomycin for now Follow up meningitis PCR Precautions (2) Acute hyponatremia: Continue salt tabs Renal panel in AM (3) Status post cervical spinal fusion: Ortho evaluated, following distally Continue therapy as tolerated Continue neck brace until instructed to removed by ortho (4) Diabetes mellitus: Hold home metformin Monitor blood glucose BS mostly below 200, continue to monitor (5) Coronary atherosclerosis: Hold aspirin Qualifiers: Coronary Disease-Associated Artery/Lesion type: [place] artery [place] vs. transplanted heart: [place] heart Associated angina: with unspecified angina Qualified Code(s): I25.119 - Atherosclerotic heart disease of [place] coronary artery with unspecified angina pectoris Plan DVT ppx: SCD Code Status: Full Code Attestations Medical Necessity Statement*: Patient still with persistent encephalopathy not responding to treatment as quickly as intended, he requires further hospitalization for further work of meningitis, IV abx, and supportive care. Coding Level of Care Code Acute Code for [facility] Fwd Diagnoses Meningitis G03.9 Acute hyponatremia E87.1 Status post cervical spinal fusion Z98.1 Diabetes mellitus E11.9 Coronary atherosclerosis I25.119 Coronary Disease-Associated Artery/Lesion type: [place] artery [place] vs. transplanted heart: [place] heart Associated angina: with unspecified angina
[2023-02-15 18:37] LABS: Alanine Aminotransferase 36 U/L (0-41); Albumin Level 3.6 g/dL (3.5-5.2); Alkaline Phosphatase 62 U/L (40-130); Aspartate Amino Transferase 34 U/L (0-40); Blood Urea Nitrogen 12 mg/dL (8-23); Calcium 8.3 mg/dL (8.5-10.5); Carbon Dioxide 25 mmol/L (22-29); Chloride 93 mmol/L (98-107); Globulin 2.1 g/dL (1.3-4.6); Glucose 149 mg/dL (65-115); Magnesium 2.1 mg/dL (1.7-2.3); Osmolality Calculated 275 mOsm/kg (285-295); Phosphorus 3.5 mg/dL (2.5-4.5); Sodium 131 mmol/L (136-145); Total Bilirubin 0.4 mg/dL (0.15-1.2); Total Protein 5.7 g/dL (6.6-8.7)
[2023-02-15 18:38] LABS: Creatinine Clr Calc Pharmacy 88.9858
[2023-02-15 20:00] VITALS: BP 176/74; PULSE 84; RESP 18; TEMP 37.5; O2SAT 94
[2023-02-15] MEDS: trazodone 50 mg Tablet PO (21:19)
[2023-02-16] VITALS (7 sets, daily range): BP systolic 161–179; BP diastolic 71–89; PULSE 75–85; RESP 17–19; TEMP 36.8–37.4; O2SAT 92–97
[2023-02-16] MEDS: ampicillin 2,000 MG in sodium chloride 0.9% (plus) 50 ML 100 MG IV ×6 (00:28→20:30)
[2023-02-16 05:24] LABS: Basophils # 0.1 10^3/uL (0.0-0.1); Basophils % 0.8 %; Eosinophils # 0.2 10^3/uL (0.0-0.8); Hematocrit 32.2 % (42.0-52.0); Hemoglobin 10.5 g/dL (11.7-16.6); Lymphocytes % 14.7 %; Mean Corpuscular HGB Conc 32.6 g/dL (30.0-36.0); Mean Corpuscular Hemoglobin 30.4 pg (28.0-34.0); Mean Corpuscular Volume 93.3 fl (80-94); Mean Platelet Volume 9.1 fL (7.4-10.4); Monocytes # 0.5 10^3/uL (0.2-0.9); Monocytes % 8.1 %; Neutrophils # 4.76 10^3/uL (1.8-7.7); Neutrophils % 72.3 %; Nucleated Red Blood Cells % 0 %; Platelet Count 302 10^3/cmm (130-400); Red Blood Count 3.45 10^6/uL (4.1-5.3); Red Cell Distribution Width 13.9 % (12.1-15.1); White Blood Count 6.6 10^3/uL (4.0-10.0)
[2023-02-16 07:57] LABS: Alanine Aminotransferase 28 U/L (0-41); Albumin Level 3.3 g/dL (3.5-5.2); Alkaline Phosphatase 58 U/L (40-130); Aspartate Amino Transferase 21 U/L (0-40); Blood Urea Nitrogen 11 mg/dL (8-23); Carbon Dioxide 24 mmol/L (22-29); Chloride 95 mmol/L (98-107); Creatinine Clr Calc Pharmacy 88.9858; Glucose 172 mg/dL (65-115); Magnesium 1.8 mg/dL (1.7-2.3); Osmolality Calculated 273 mOsm/kg (285-295); Phosphorus 3.2 mg/dL (2.5-4.5); Sodium 130 mmol/L (136-145); Total Bilirubin 0.4 mg/dL (0.15-1.2); Total Protein 5.3 g/dL (6.6-8.7)
[2023-02-16] MEDS: sodium chloride 1 gm Tablet PO ×3 (09:40→20:30)
[2023-02-16] MEDS: cefTRIAXone 2,000 MG in sodium chloride 0.9% (plus) 50 ML 100 MG IV ×2 (09:42→22:10)
[2023-02-16] MEDS: vancomycin 1,750 MG/350 ML PIGGYBACK 200 MG IV ×2 (10:52→23:23)
[2023-02-16] MEDS: trazodone 50 mg Tablet PO (20:30)
--- NOTE | 2023-02-16 21:19 | P.PN_ITS ---
Subjective Subjective: Patient is more awake and alert today. He is much more conversational and appropriate as compared to prior days. Staff who are familiar with him from before his initial surgery reports he is getting closer to his baseline. He denies fevers, chills, nausea, chest pain, or neck pains. Medications: Reviewed: Yes Vitals/I&O/Wt Last Vital Signs Temp 98.4 F 02/16/23 20:00 Pulse 79 02/16/23 20:00 Resp 18 02/16/23 20:00 BP 161/83 02/16/23 20:00 Pulse Ox 94 02/16/23 20:00 O2 Del Method Room Air 02/16/23 20:00 02/16/23 02/16/23 02/16/23 06:59 14:59 22:59 Intake Total 956 / 2858 1246 / 1246 316 / 1562 Output Total 999 / 1999 1250 / 1250 850 / 2100 Balance -44 / 858 -4 / -4 -534 / -538 Physical Exam Narrative: General: Patient is awake. Alert. Pleasant. Neck: Neck brace. Cardiovascular: RRR. No gallops. No murmurs. Lungs: Non-labored. No use of accessory muscles, no crackles or wheezes. Skin: No jaundice. No rashes. Abdomen: Normal bowel sounds, abdomen soft. Extremities: No cyanosis or clubbing. Musculoskeletal: No swollen or erythematous joints. Neurological: Moves all 4 extremities. No myoclonus. Data 02/16/23 04:25 02/16/23 04:25 Micro: Microbiology 02/12/23 15:46 Gram Stain - Final Cerebrospinal Fluid CSF Culture - Final A&P Assessment and plan (1) Meningitis: A/w severe acute metabolic encephalopathy and acute delirium, improving Meningitis in the setting of recent cervical neck surgery Continue ceftriaxone and ampicillin (02/13-p) MRSA swab negative, cx still growing, continue vancomycin, consider d/c w/i next 24 hrs Continue Zovirax Follow up meningitis PCR Follow up CSF cultures (note abx started before LP) No steroids given abx started first (2) Acute hyponatremia: Continue salt tabs Trend (3) Status post cervical spinal fusion: Ortho evaluated, following distally Continue therapy as tolerated Continue neck brace until instructed to removed by ortho (4) Diabetes mellitus: Hold home metformin Monitor blood glucose SSI (5) Coronary atherosclerosis: Continue aspirin Qualifiers: Coronary Disease-Associated Artery/Lesion type: [place] artery [place] vs. transplanted heart: [place] heart Associated angina: with unspecified angina Qualified Code(s): I25.119 - Atherosclerotic heart disease of [place] coronary artery with unspecified angina pectoris Plan DVT ppx: SCD Code Status: Full Code Attestations Medical Necessity Statement*: Patient requires ongoing hospitalization for meningitis work up, IV abx, IV antiviral, serial labs, and supportive care. Coding Level of Care Code Acute Code for [facility] Fwd Diagnoses Meningitis G03.9 Acute hyponatremia E87.1 Status post cervical spinal fusion Z98.1 Diabetes mellitus E11.9 Coronary atherosclerosis I25.119 Coronary Disease-Associated Artery/Lesion type: [place] artery [place] vs. transplanted heart: [place] heart Associated angina: with unspecified angina
[2023-02-16] MEDS: enoxaparin 40 mg/0.4 mL Syringe SUBCUT (22:13)
--- NOTE | 2023-02-16 23:14 | PC.NURSE ---
Nurse called Nghia in Pharmacy for clarification on when Vancomycin trough should be drawn, Nghia verbalized to nurse to administer next dose of Vancomycin.
[2023-02-17] MEDS: ampicillin 2,000 MG in sodium chloride 0.9% (plus) 50 ML 100 MG IV ×2 (01:27→05:54)
[2023-02-17 03:56] VITALS: BP 163/66; PULSE 81; RESP 18; TEMP 36.9; O2SAT 96
[2023-02-17 05:19] LABS: Basophils # 0.1 10^3/uL (0.0-0.1); Basophils % 0.7 %; Eosinophils # 0.3 10^3/uL (0.0-0.8); Hematocrit 33.7 % (42.0-52.0); Lymphocytes # 0.9 10^3/uL (0.8-4.8); Lymphocytes % 13.4 %; Mean Corpuscular HGB Conc 32.6 g/dL (30.0-36.0); Mean Corpuscular Hemoglobin 30.3 pg (28.0-34.0); Mean Corpuscular Volume 92.8 fl (80-94); Mean Platelet Volume 8.8 fL (7.4-10.4); Monocytes # 0.5 10^3/uL (0.2-0.9); Monocytes % 6.5 %; Neutrophils # 5.25 10^3/uL (1.8-7.7); Neutrophils % 74.5 %; Nucleated Red Blood Cells % 0 %; Platelet Count 298 10^3/cmm (130-400); Red Blood Count 3.63 10^6/uL (4.1-5.3); Red Cell Distribution Width 13.7 % (12.1-15.1)
[2023-02-17 05:37] LABS: Alanine Aminotransferase 27 U/L (0-41); Albumin Level 3.2 g/dL (3.5-5.2); Alkaline Phosphatase 61 U/L (40-130); Anion Gap 12.3 (5-19); Aspartate Amino Transferase 18 U/L (0-40); Blood Urea Nitrogen 10 mg/dL (8-23); Calcium 8.4 mg/dL (8.5-10.5); Carbon Dioxide 27 mmol/L (22-29); Chloride 93 mmol/L (98-107); Globulin 2.1 g/dL (1.3-4.6); Glucose 172 mg/dL (65-115); Magnesium 1.9 mg/dL (1.7-2.3); Osmolality Calculated 269 mOsm/kg (285-295); Phosphorus 3.5 mg/dL (2.5-4.5); Potassium 4.3 mmol/L (3.5-5.1); Sodium 128 mmol/L (136-145); Total Bilirubin 0.4 mg/dL (0.15-1.2); Total Protein 5.3 g/dL (6.6-8.7)
[2023-02-17 05:47] LABS: Creatinine Clr Calc Pharmacy 88.9858
[2023-02-17 07:27] VITALS: BP 172/84; PULSE 81; RESP 17; TEMP 37; O2SAT 94
[2023-02-17] MEDS: aspirin 81 mg EC Tablet PO (08:23)
[2023-02-17] MEDS: sodium chloride 1 gm Tablet PO ×3 (08:23→20:07)
--- NOTE | 2023-02-17 10:43 | CT_ITS ---
WS: [id number] CT CERVICAL spine with contrast. HISTORY: post operative, possible abscess Technique: All CT scans at [facility] use at least one of these dose optimization techniques: automated exposure control; mA and/or kV adjustment per patient size (includes targeted exams where dose is matched to clinical indication); or iterative reconstruction. Omnipaque 350; 75 mL IV. DLP: 193.57 mGy.cm COMPARISON: No similar studies. Status post posterior cervical fusion beginning at the C2 level extending to T2. Vertical rods and sc rews are present at multiple levels. Absence screws at C7. Disc spaces are narrowed. There is extensi ve large laminectomy defects beginning at the C2-3 level and extending through C7-T1. Along the posterior surgical bed there is a large fluid collection beginning at the C1 level and exte nding contiguously to the upper thoracic spine. This collection extends over a length of at least 10. 7 cm x 4.6 cm. Fluid extends from the posterior epidural surgical bed posteriorly to the subcutaneous soft tissues. At the C2-3 level there is increased soft tissue that extends into the thecal sac whic h may be causing some mild compression upon the posterior cord. No significant enhancement. CT/CT cervical spine w con [id number] IMPRESSION: 1. There is a very large fluid collection in the cervical surgical bed measuri ng 10.7 x 4.6 cm. Fluid collection is contiguous from C1 to the upper thoracic spine and extends into the laminectomy sites to the posterior epidural space. M ost significant involvement of the epidural spaces at the C2-3 level there may be mild compression upon the cord. This complex fluid collection may be an absc ess, post operative seroma or hematoma. 2. Extensive postsurgical fusion from C2 to T2 with large laminectomy defects from C2-3 to C7-T1.
--- NOTE | 2023-02-17 10:43 | CT_ITS ---
WS: [id number] CT THORACIC spine with contrast. HISTORY: possible abscess TECHNIQUE: Contiguous axial images are reviewed through the thoracic spine with contrast. Images are reformatted in sagittal and coronal planes. All CT scans at [facility] use at least one of th liv[place] dose optimization techniques: automated exposure control; mA and/or kV adjustment per patient siz e (includes targeted exams where dose is matched to clinical indication); or iterative reconstruction . DLP: 1576.63 mGy.cm COMPARISON: None available. Significant motion artifact causing a significant limitation of the soft tissue structures. Mild incr ease in thoracic kyphosis and mild curvature. Degenerative disc disease and osteophytes. No air is no shiva along the thoracic spine or within the thecal sac. There is no compression or abnormal enhancemen t. No paraspinal edema or abscess. Calcified masses noted in the LEFT lower thorax within the pericardial fat. These calcifications were seen on a prior CT from 2019. Probably fat necrosis. Interstitial thickening throughout both lungs. Mild atherosclerosis aorta. CT/CT thoracic spine w con [id number] IMPRESSION: 1. Study is compromised by motion artifact. 2. No focal areas of abnormal enhancement in the thoracic spine along the thec al sac. No epidural abscess identified.
--- NOTE | 2023-02-17 10:43 | CT_ITS ---
WS: [id number] CT LUMBAR SPINE with contrast HISTORY: possible abscess, meningitis, recent spine surgery. TECHNIQUE: Contiguous axial imaging performed from T12 through the mid sacral level with contrast. Quirino ne and soft tissue windows reviewed. Sagittal and coronal reformats are submitted and reviewed. Omnipaque 350; 75 mL IV. DLP: 1576.[address] scans at [facility] use at least one of these dose optimization techniques: automated e xposure control; mA and/or kV adjustment per patient size (includes targeted exams where dose is matc hed to clinical indication); or iterative reconstruction. COMPARISON: Prior MRI 01/20/2019 Normal lumbar alignment. Disc spaces are mildly narrowed and desiccated. No areas of abnormal enhance ment within the disc or epidural space. Very insensitive examination for epidural abscess. There is a focal area of enhancement in the RIGHT paracentral subarticular location at the L2 level. Disc extru niall was noted in the same location on a prior MRI from 2019 with no change. Not likely an abscess. L1-L2: Osteophytic ridging with moderate RIGHT foraminal stenosis. L2-L3: Annular disc bulge with mild foraminal stenosis and mild central stenosis. L3-L4: Diffuse annular disc bulging with a RIGHT foraminal disc protrusion. Moderate central, bilater al subarticular recess and foraminal stenosis, RIGHT greater than LEFT. L4-L5: Diffuse annular disc bulging with facet and ligamentum flavum hypertrophy. Severe central, kerwin ateral subarticular recess and foraminal stenosis. L5-S1: Facet joint arthritis. Mild RIGHT foraminal stenosis. Calcification in aorta. LEFT renal cyst 10 mm. RIGHT renal cyst incompletely visualized. CT/CT lumbar spine w con [id number] IMPRESSION: 1. No epidural abscess or abnormal enhancement is identified. Please note this study is an insensitive evaluation for epidural abscess/discitis or osteomyeli tis. 2. Multilevel areas of the central, foraminal and subarticular recess stenosis . Most severe stenosis at L3-4 and L4-5. Stenoses have progressed since 2019. 3. Long-term stability RIGHT subarticular disc protrusion at L2-3. Similar to 2019.
[2023-02-17 11:34] LABS: Thyroid Stimulating Hormone 0.64 uIU/mL (0.27-4.20)
[2023-02-17 11:44] LABS: Procalcitonin 0.07 ng/mL (0-0.5); Vitamin B12 518 pg/mL (232-1245)
[2023-02-17 11:57] LABS: Iron 40 ug/dL (59-158); Percent Saturation 20.3 % (20-50); Total Iron Binding Capacity 197 mcg/dl; Unsaturated Iron Binding 157 ug/dL (112-347)
[2023-02-17] MEDS: iohexol 350 mg/mL 500 mL Btl (per mL) IV (12:05)
[2023-02-17] MEDS: magnesium hydroxide 30 mL UDC PO (12:19)
[2023-02-17] MEDS: sennosides-docusate Tablet 1 TAB PO ×2 (12:20→18:01)
[2023-02-17] MEDS: isosorbide mononitrate ER 30 mg Tablet PO (12:20)
[2023-02-17] MEDS: cefepime 2,000 MG in sodium chloride 0.9% (plus) 50 ML 100 MG IV ×2 (12:22→23:32)
--- NOTE | 2023-02-17 14:29 | PM.PN ---
Subjective Subjective: Hospital course, labs appreciated. On examination patient lying comfortably in bed with family at bedside. Cervical collar in place. Patient is hard of hearing. Able to answer questions appropriately. AOx3. After the family is doing a lot better than before. Patient has not had a bowel movement for last couple of weeks. Denies any abdominal pain or nausea. Otherwise has remained afebrile. Blood pressure slightly elevated. Medications: Reviewed: Yes Vitals/I&O/Wt Last Vital Signs Temp 98.6 F 02/17/23 07:27 Pulse 81 02/17/23 07:27 Resp 17 02/17/23 07:27 BP 172/84 02/17/23 07:27 Pulse Ox 94 02/17/23 07:27 O2 Del Method Room Air 02/17/23 03:56 02/16/23 02/17/23 02/17/23 22:59 06:59 14:59 Intake Total 416 / 1662 716 / 2378 240 / 240 Output Total 1200 / 2450 1700 / 4150 Balance -784 / -788 -984 / -1772 240 / 240 Physical Exam Narrative: General: No acute distress, AO x3, hard of hearing Neck: Neck brace. Cardiovascular: RRR. No gallops. No murmurs. Lungs: Non-labored. No use of accessory muscles, no crackles or wheezes. Skin: No jaundice. No rashes. Abdomen: Normal bowel sounds, abdomen soft. Extremities: No cyanosis or clubbing. Musculoskeletal: No swollen or erythematous joints. Neurological: Moves all 4 extremities. No myoclonus. Data 02/17/23 05:11 02/17/23 05:11 Micro: Microbiology 02/11/23 22:05 Blood Culture - Final Blood NO GROWTH AFTER 5 DAYS 02/11/23 22:07 Blood Culture - Final Blood NO GROWTH AFTER 5 DAYS A&P Assessment and plan (1) Altered mental status: In setting of meningitis and hyponatremia. Resolving. (2) Meningitis: Appreciate lumbar puncture results. CSF studies consistent with elevated protein, glucose and white count. CSF cultures so far negative. PCR panel on CSF elevated. So far blood cultures negative, MRSA negative. Stop vancomycin, ampicillin, ceftriaxone, acyclovir. Switch to cefepime to cover for Pseudomonas as well given recent postoperative status. We will consult ID for further recommendations. (3) Post-operative state: Given meningitis postoperatively within last 2 weeks of cervical laminectomy cannot rule out dural injury. Cannot rule out epidural abscess. Check CT spine with contrast to rule out epidural abscess or collection. We will consult neurosurgery as per the result of the CT spine given recent postoperative status with the last 2 weeks. (4) Acute hyponatremia: Baseline sodium level normal. Currently 128 today. Continue with oral salt tablets. Regular diet. Urine osmolality and sodium on admission appreciated. Urine sodium elevated 124 and osmolality of 625. Check TSH. Lipid panel recently checked. Oral Lasix 40 mg one-time. Repeat sodium level in morning. (5) Diabetes mellitus: Continue with insulin sliding scale. Carb consistent diet. (6) Primary hypertension: Goal blood pressure less than 140/90 mmHg. Blood pressure is elevated. At home patient takes atenolol 100 mg oral daily, Imdur 30 mg oral daily, hydrochlorothiazide 25 mg oral daily, lisinopril 10 mg oral daily. For now restart atenolol 50 mg oral daily at home dose of Imdur. Will uptitrate as per goal blood pressures. (7) Dyslipidemia: (8) Pacemaker: (9) Coronary atherosclerosis: No active chest pain. Continue with home dose of aspirin, statin. Qualifiers: Coronary Disease-Associated Artery/Lesion type: [place] artery [place] vs. transplanted heart: [place] heart Associated angina: with unspecified angina Qualified Code(s): I25.119 - Atherosclerotic heart disease of [place] coronary artery with unspecified angina pectoris (10) Hyperlipemia: Qualifiers: Hyperlipidemia type: mixed hyperlipidemia Qualified Code(s): E78.2 - Mixed hyperlipidemia Plan Aggressive bowel regimen. Soft mechanical carb consistent diet. Lovenox for DVT prophylaxis Famotidine for PUD prophylaxis. Full code. Discharge plan: Plan to discharge on oral antibiotics once meningitis panel is back depending on clinical picture going forward. Attestations Medical Necessity Statement*: Requires further hospitalization for management of postoperative meningitis, acute hyponatremia Diagnoses Altered mental status R41.82 Meningitis G03.9 Post-operative state Z98.890 Acute hyponatremia E87.1 Diabetes mellitus E11.9 Primary hypertension I10 Dyslipidemia E78.5 Pacemaker Z95.0 Coronary atherosclerosis I25.119 Coronary Disease-Associated Artery/Lesion type: [place] artery [place] vs. transplanted heart: [place] heart Associated angina: with unspecified angina Hyperlipemia E78.2 Hyperlipidemia type: mixed hyperlipidemia
[2023-02-17] MEDS: FUROsemide 10 mg/mL SDV 4mL 40 MG IVP (16:06)
[2023-02-17 19:52] VITALS: BP 141/71; PULSE 74; RESP 17; TEMP 37; O2SAT 96
[2023-02-17] MEDS: trazodone 50 mg Tablet PO (20:07)
[2023-02-17 20:36] LABS: Glucose Point of Care 214 mg/dL (70-110)
[2023-02-17] MEDS: enoxaparin 40 mg/0.4 mL Syringe SUBCUT (21:33)
[2023-02-17] MEDS: insulin lispro 100 unit/1 mL SUBCUT (21:33)
[2023-02-18] VITALS: BP 154/71; PULSE 72; RESP 16; TEMP 37; O2SAT 96
--- NOTE | 2023-02-18 00:31 | PM.CONSULT ---
Providers/Reason For Consult Consulting Physician/Specialty*: Staci Harvey MD/ Infectious Disease Reason for Consult*: Meningitis Requesting Physician: Simón Jordan MD Attending Physician: Simón Jordan MD Primary Care Provider: Chinedu Babin, DO History of Present Illness History of Present Illness Alex Quiros is a 77 year old male ?significant medical history for diabetes, hypertension, significant bradycardia requiring pacemaker?, recently diagnosed with Cervical myelopathy with cervical radiculopathy for which he underwent C2-T2 posterior instrumented fusion with decompression from C3-C7 posteriorly on 02/05/23. There were no immediate perioperative complications. EBL 900cc during surgery. He was discharged on 02/07. He was brought to the ER on 02/11 with hallucinations and altered mental status. He was also mumbling confused using inappropriate words and generally not being himself.?At hospitalist eveluation that same nigth he was AAO x 4. HE cc/o pain and tingling in his neck and arms B/L. Dressings were clean. his Na was 125. By the next day, his responses became tangential, often to the severity of nearly word salad. Wound evalutaed by surgery on 02/12 noted to be dry and intact. Lumbar puncture performed on February 12, 2023 showed xanthochromic CSF, WBCs 2827, predominantly 93% PMNLs, total protein greater than 600, CSF glucose 192. CSF Gram stain and culture are thus far negative to date. Blood cultures from admission are negative to date. Patient had received cefepime and vancomycin prior to lumbar puncture being performed. On February 13, antibiotics were changed to ceftriaxone, ampicillin, vancomycin and acyclovir. Meningitis PCR has been requested, sent out to reference lab, currently pending. CT head did not show any acute abnormalities. By 02/16 he was noted to have a clinical improvement. Patient was febrile on admission until 02/13/2023, Tmax 100.4 Fahrenheit during the course of this admission. No leukocytosis. Sodium improving. CT head without any acute intracranial abnormalities. He is currently showing clinical improvement, mentation is back at baseline culture from CSF remains negative to date. Review of Systems General: Reports: 10 or more systems reviewed and unremarkable except in HPI and below Const: Denies: fever(s), chills or body aches Eyes: Denies: change in vision, blurry vision or photophobia ENMT: Reports: hoarseness; Denies: throat pain, enlarged tonsils, odynophagia or nasal congestion Card: Denies: chest pain, palpitations, irregular heart rhythm, edema, swelling of feet/ankles, lightheadedness, pre-syncope, dyspnea on exertion or orthopnea Resp: Denies: dyspnea, productive cough, non-productive cough, wheezing, stridor, pain on inspiration, change in phlegm color, hemoptysis or chest congestion GI: Denies: abdominal pain, nausea, vomiting, hematemesis, coffee ground emesis, dysphagia, heartburn, diarrhea, constipation, GI cramping, change in stool character, hematochezia or melena : Denies: flank pain, dysuria, urinary frequency, urinary urgency, urinary hesitancy or hematuria Musc: Denies: neck pain, back pain, extremity pain, joint swelling, joint warmth or deformity Neuro: Denies: headache(s), numbness in extremities, weakness in extremities, sensory changes, difficulty walking, frequent falls, dizziness, vertigo, behavioral changes, Slurred speech present or seizure-like activity Psych: Denies: anxiety, depression, suicidal ideation or homicidal ideation Endo: Denies: polyuria, polydipsia, tired all the time, cold intolerance or hot flashes Michael/Lymph: Denies: easy bruising or easy bleeding Medications/Allergies Home Medications Medication Instructions Recorded Confirmed Last Taken Type aspirin 81 mg tablet,delayed 81 mg PO DAILY 11/01/19 02/12/23 01/29/23 History release atorvastatin 10 mg tablet 10 mg PO DAILY 11/01/19 02/12/23 02/04/23 History metformin 1,000 mg tablet 1,000 mg PO BID 11/01/19 02/12/23 02/04/23 History multivitamin (Multiple Vitamins 1 tab PO DAILY 11/01/19 02/12/23 02/04/23 History tablet) calcium carbonate 500 mg calcium 500 mg PO DAILY 02/28/22 02/12/23 02/04/23 History (1,250 mg) tablet ascorbic acid (vitamin C) 500 mg 500 mg PO DAILY 07/11/22 02/12/23 02/04/23 History capsule Bone Growth Stimulator [id number] #1 ea 01/31/23 02/12/23 Unknown Rx cyclobenzaprine 10 mg tablet 10 mg PO TID PRN muscle spasm 10 02/07/23 02/12/23 Unknown Rx days #30 tabs hydrocodone 10 mg-acetaminophen 1 - 2 tab PO Q4H PRN pain 7 days 02/07/23 02/12/23 Unknown Rx 325 mg tablet #40 tabs Lift Chair #1 ea 02/11/23 02/12/23 Unknown Rx atenolol 50 mg tablet 50 mg PO DAILY #30 tabs 02/21/23 Unknown Rx isosorbide mononitrate 30 mg 30 mg PO BID #90 tabs 02/21/23 02/12/23 02/05/23 Rx tablet,extended release 24 hr lisinopril 10 mg tablet 20 mg PO DAILY #60 tabs 02/21/23 02/12/23 02/04/23 Rx sennosides 8.6 mg-docusate sodium 1 tab PO BID #14 tabs 02/21/23 Unknown Rx 50 mg tablet (Stool Softener-Laxative) sodium chloride 1,000 mg soluble 1 g PO TID #42 tabs 02/21/23 Unknown Rx tablet Allergies Allergy/AdvReac Type Severity Reaction Status Date / Time meloxicam Allergy elevated Verified 01/30/23 10:00 blood pressure Sulfa (Sulfonamide Allergy ALGY-Rash Verified 01/30/23 10:00 Antibiotics) Current Medications Generic Name Dose Route Start Last Admin Trade Name Freq PRN Reason Stop Dose Admin Aspirin 81 mg 02/12/23 09:00 02/17/23 08:23 Aspirin 81 Mg Ec Tablet PO 81 mg DAILY YAMILETH Administration Enoxaparin Sodium 40 mg 02/16/23 21:30 02/17/23 21:33 Enoxaparin 40 Mg/0.4 Ml Syringe SUBCUT 40 mg Q24H YAMILETH Administration Cefepime HCl 2,000 mg/ Sodium 50 mls @ 100 mls/hr 02/17/23 11:00 02/17/23 23:32 Chloride IV 100 mls/hr Q12H YAMILETH Administration Protocol Insulin Human Lispro 0 unit 02/17/23 08:00 02/17/23 21:33 Insulin Lispro 100 Unit/1 Ml SUBCUT 4 unit WM&BEDTIME YAMILETH Administration Protocol Isosorbide Mononitrate 30 mg 02/17/23 10:50 02/17/23 12:20 Isosorbide Mononitrate Er 30 Mg Tablet PO 30 mg DAILY YAMILETH Administration Senna/Docusate Sodium 1 tab 02/17/23 11:15 02/17/23 18:01 Sennosides-Docusate Tablet PO 1 tab BID YAMILETH Administration Sodium Chloride 1 gm 02/12/23 15:00 02/17/23 20:07 Sodium Chloride 1 Gm Tablet PO 1 gm TID YAMILETH Administration Trazodone HCl 50 mg 02/13/23 21:00 02/17/23 20:07 Trazodone 50 Mg Tablet PO 50 mg BEDTIME YAMILETH Administration PFSH Acute PFSH: Medical History Abnormal stress test Atherosclerosis of coronary artery of [place] without angina pectoris Benign essential HTN Bilateral bunions Bilateral foot pain Bradycardia Bradycardia Cervical myelopathy with cervical radiculopathy Chest pain Coronary atherosclerosis Degenerative cervical spinal stenosis Diabetes mellitus Diastasis recti History of cardiac pacemaker History of colon polyps Hyperlipemia Intermittent palpitations Internal hemorrhoids Male erectile dysfunction Non-sustained ventricular tachycardia Obesity Osteoarthritis of left knee Pacemaker Presence of permanent cardiac pacemaker Primary hypertension Prostatic cancer Tear of meniscus of right knee Transient cerebral ischemia Urinary incontinence Ventricular arrhythmia Surgical History History of arthroscopic surgery of shoulder History of colonoscopy with polypectomy History of eye surgery History of knee replacement History of knee surgery History of prostatectomy Post-operative state Family History Mother CAD (coronary artery disease) Diabetes Father Cancer Diabetes Denies family history of Clotting disorder Dementia Chronic kidney disease (CKD) Suicide Anesthesia complication Bleeding disorder Lung disease Stroke Social History Smoking and tobacco status: former smoker Alcohol intake: former Substance/Drug Use: never Vitals/I&O/Wt Last Vital Signs Temp 98.6 F 02/17/23 19:52 Pulse 74 02/17/23 19:52 Resp 17 02/17/23 19:52 BP 141/71 02/17/23 19:52 Pulse Ox 96 02/17/23 19:52 O2 Del Method Room Air 02/17/23 03:56 02/17/23 02/17/2302/18/23 14:59 22:59 06:59 Intake Total 720 / 720 410 / 1130 Balance 720 / 720 410 / 1130 Physical Exam Narrative: General: No acute distress, AO x3 HEENT: PERRLA, pupils bilaterally equal and reactive, pallors not present Chest: Normal vesicular breath sounds, no added sounds, equal good air entry bilaterally CVS: S1-S2 regular, no murmurs, no tachycardia, no gallops, no rubs Abdomen: Soft, nontender, no organomegaly, bowel sounds present Neuro: No focal deficits, no facial deformity, AO x3, power 5/5 in all limbs Data 02/20/23 03:24 02/20/23 03:24 Other Labs: [facility] [address] [place] [id number] ALBAN CLARK, [employer] PROCESS[employer] TECHNICIAN NAME: Alex Quiros LOC: [facility] #: [id number] AGE/SX: 77/M ROOM: 255 RE02/13/[address]: Simón Jordan MD : 1945 BED: 1 DIS: FAX #: STATUS: ADM IN TLOC: Spec : [id number] Carlene: 02/12/23-1546 Status: COMP Req : [id number] Recd: 02/12/23-[address]: Patrick Wang MD Ordered: CSF Analysis, CSF Glu, CSF TP Test Low Normal High Flag Reference Site CSF Adan BLOODY CLEAR CSF Col XANTHOCROMIC COLORLESS CSF WBC 2827 H 0-5 /uL CSF RBC 44 H 0-0 10^3/uL CSF [place] WBC % 7 L 50-90 % CSF Poly WBC % 93 H 0-10 % CSF Glu 192 H 40-70 mg/dL CSF TP > 693 H 15-45 mg/dL CSF [place] # 0.197 L 50-90 10^3/uL CSF Poly # 2.630 0-10 10^3/uL [facility] [address] [place] [id number] ALBAN CLARK, SHALE PROCESSING TECHNICIAN NAME: Alex Quiros [facility] #: [id number] AGE/SX: 77/M ROOM: 255 RE02/13/[address]: Simón Jordan MD : 1945 BED: 1 DIS: FAX #: STATUS: ADM IN TLOC: Spec #: [id number] Carlene: 02/12/23 Status: COMP Req #: [id number] Recd: 02/12/[address]: Patrick Wang MD Src: CSF SpDesc: Ordered: CSf Culture GS Procedure Result Verified Site Gram Stain Final 02/12/23-1931 Result NO ORGANISMS SEEN Gram Stain Final (changed) 02/12/23 Result NO ORGANISMS SEEN CSF Culture Final 02/15/23-1627 NO GROWTH AT 72 HOURS CSF Culture Preliminary (changed) 02/14/23 NO GROWTH AT 36-48 HOURS CSF Culture Preliminary (changed) 02/13/23-1752 NO GROWTH AT 18-24 HOURS MRSA by PCR Final 02/13/23-1325 NO MRSA DNA DETECTED Micro: Microbiology 02/11/23 22:05 Blood Culture - Final Blood NO GROWTH AFTER 5 DAYS 02/11/23 22:07 Blood Culture - Final Blood NO GROWTH AFTER 5 DAYS Other data: CT/CT thoracic spine w con [id number] IMPRESSION: ? 1.? Study is compromised by motion artifact. 2.? No focal areas of abnormal enhancement in the thoracic spine along the thecal sac. No epidural abscess identified. CT/CT lumbar spine w con [id number] IMPRESSION: ? 1.? No epidural abscess or abnormal enhancement is identified. Please note this study is an insensitive evaluation for epidural abscess/discitis or osteomyelitis. 2.? Multilevel areas of the central, foraminal and subarticular recess stenosis. Most severe stenosis at L3-4 and L4-5. Stenoses have progressed since 2019. 3.? Long-term stability RIGHT subarticular disc protrusion at L2-3. Similar to 2019. CT/CT cervical spine w con [id number] IMPRESSION: ? 1.? There is a very large fluid collection in the cervical surgical bed measuring 10.7 x 4.6 cm. Fluid collection is contiguous from C1 to the upper thoracic spine and extends into the laminectomy sites to the posterior epidural space. Most significant involvement of the epidural spaces at the C2-3 level there may be mild compression upon the cord. This complex fluid collection may be an abscess, post operative seroma or hematoma. 2.? Extensive postsurgical fusion from C2 to T2 with large laminectomy defects from C2-3 to C7-T1. A&P Assessment and plan (1) Meningitis: (2) Status post cervical spinal fusion: (3) Postoperative abscess: (4) Epidural abscess: Plan 77-year-old male with recent events and surgery on 02/05 as described above in HPI presenting currently with meningitis, manifesting as hallucinations, fever, altered mental status. Patient was started on treatment with cefepime and vancomycin on the day of admission. Underwent lumbar puncture on the subsequent day which showed abnormal CSF as noted above consistent with meningitis. CSF cultures remain negative to date, of note taken approximately 24 hours after starting antibiotic coverage. Initially on treatment with ceftriaxone, vancomycin, ampicillin and acyclovir. After discussion with the hospitalist service, I recommended narrowing the treatment to cefepime to maintain pseudomonal coverage in postop neurosurgical patient and to discontinue vancomycin ampicillin and acyclovir as patient unlikely to be suffering from viral or Listeria meningitis. Culture thus far does not reveal any MRSA. Reviewed op note in detail, there does not appear to have been durotomy intraoperatively, however given the presence of meningitis now, suspect that dural breach may have occurred at some point perioperatively. As such since meningitis is such a rare complication following C-spine surgery, I was concerned for potential epidural abscess and if lumbar puncture had traversed an epidural abscess would expect to see abnormal CSF findings as well. For this reason recommended to obtain CT imaging of the spine. While CT imaging did not reveal any epidural abscess at the lumbar level, it did show a large fluid collection in the surgical bed measuring 10.7 x 4.7 cm, differentials for which include a dural leak, pseudomeningocoele postop seroma versus hematoma or an epidural abscess. Patient is unable to get an MRI at our facility due to having a pacemaker in place. Recommend to obtain spine surgery consult due to concern for potentially ongoing dural leak, possibility of epidural abscess and to assess for drainage and obtain cultures. Patient is overall clinically improving at this point. He is now afebrile. His mentation is back at baseline. Pain in the neck is also improving. Given negative CSF cultures, cannot exclude the possibility of chemical meningitis, however need to interpret culture data with caution given that CSF cultures were obtained approximately 24 hours after starting antibiotics. Plan: Continue cefepime empirically Follow CSF cultures Obtain spine surgery consult If unable to drain surgical bed culture of operatively, recommend IR aspiration to obtain cultures. will follow Coding Level of Care Code Acute Code for Chg Fwd Diagnoses Meningitis G03.9 Status post cervical spinal fusion Z98.1 Postoperative abscess T81.49XA Epidural abscess G06.2
[2023-02-18 04:00] VITALS: BP 138/56; PULSE 79; RESP 18; TEMP 37; O2SAT 94
[2023-02-18 05:33] LABS: Basophils % 0.6 %; Eosinophils # 0.1 10^3/uL (0.0-0.8); Eosinophils % 1.6 %; Hematocrit 33.3 % (42.0-52.0); Hemoglobin 10.9 g/dL (11.7-16.6); Lymphocytes # 0.9 10^3/uL (0.8-4.8); Lymphocytes % 12.6 %; Mean Corpuscular HGB Conc 32.7 g/dL (30.0-36.0); Mean Corpuscular Hemoglobin 30.5 pg (28.0-34.0); Mean Corpuscular Volume 93.3 fl (80-94); Mean Platelet Volume 8.8 fL (7.4-10.4); Monocytes # 0.4 10^3/uL (0.2-0.9); Monocytes % 5.8 %; Neutrophils # 5.46 10^3/uL (1.8-7.7); Neutrophils % 78.7 %; Nucleated Red Blood Cells % 0 %; Platelet Count 305 10^3/cmm (130-400); Red Blood Count 3.57 10^6/uL (4.1-5.3); Red Cell Distribution Width 14.2 % (12.1-15.1); White Blood Count 6.9 10^3/uL (4.0-10.0)
[2023-02-18 05:54] LABS: Alanine Aminotransferase 24 U/L (0-41); Albumin Level 3.6 g/dL (3.5-5.2); Alkaline Phosphatase 61 U/L (40-130); Anion Gap 14.2 (5-19); Aspartate Amino Transferase 16 U/L (0-40); Blood Urea Nitrogen 14 mg/dL (8-23); Calcium 8.5 mg/dL (8.5-10.5); Carbon Dioxide 28 mmol/L (22-29); Chloride 92 mmol/L (98-107); Chol HDL Ratio 3.66 mg/dL (1.0-5.00); Cholesterol 150 mg/dL (0-200); Creatinine Clr Calc Pharmacy 88.9858; Glucose 182 mg/dL (65-115); HDL Cholesterol 41 mg/dL (60-100); LDL Cholesterol Calculated 87 mg/dL (50-129); Osmolality Calculated 275 mOsm/kg (285-295); Potassium 4.2 mmol/L (3.5-5.1); Sodium 130 mmol/L (136-145); Total Bilirubin 0.6 mg/dL (0.15-1.2); Total Protein 5.6 g/dL (6.6-8.7); Triglycerides 109 mg/dL (0-150); VLDL Cholestrol Calculation 22 mg/dL (0-30)
[2023-02-18 06:31] LABS: Glucose Point of Care 189 mg/dL (70-110)
[2023-02-18 06:41] LABS: Folate Level > 20.0 ng/mL (4.5-32.2)
--- NOTE | 2023-02-18 07:21 | PM.PN ---
Subjective Subjective: POD 13 Patient resting comfortably. Reports mild neck pain reports improvement of his arm symptoms. Vitals/I&O/Wt Last Vital Signs Temp 98.6 F 02/18/23 04:00 Pulse 79 02/18/23 04:00 Resp 18 02/18/23 04:00 BP 138/56 02/18/23 04:00 Pulse Ox 94 02/18/23 04:00 O2 Del Method Room Air 02/17/23 03:56 02/17/23 02/18/23 02/18/23 22:59 06:59 14:59 Intake Total 410 / 1130 170 / 1300 Balance 410 / 1130 170 / 1300 Physical Exam Narrative: Patient presents alert and oriented x3 with a good general appearance normal mood and affect. Normal coordination normal stability. Mild tenderness around the incisional site with the incision appear to be healing nicely. No signs of erythema or drainage. No signs of infection. Patient denies any fevers or chills. 4/5 motor strength both lower extremities with negative straight leg raise bilaterally. Calves are supple no medial thigh tenderness. Pulses are 2+ at the dorsalis pedis and posterior tibial region. Good capillary refill throughout normal sensation light touch both lower extremities. Data 02/18/23 05:25 02/18/23 05:25 A&P Assessment and plan (1) Status post cervical spinal fusion: Continue [place] J collar. We will change the dressing posteriorly with a new Silverlon dressing. Continue to mobilize with physical therapy. See him back in the office in 1 to 2 weeks for postoperative follow-up. Attestations Medical Necessity Statement*: Defer to medical team Coding Level of Care Code Acute Code for Chg Fwd Diagnoses Status post cervical spinal fusion Z98.1
[2023-02-18 08:00] VITALS: BP 172/91; PULSE 78; RESP 18; TEMP 36.6; O2SAT 92
[2023-02-18] MEDS: insulin lispro 100 unit/1 mL SUBCUT ×4 (09:00→22:31)
[2023-02-18] MEDS: atenolol 50 mg Tablet PO (09:00)
[2023-02-18] MEDS: sodium chloride 1 gm Tablet PO ×3 (09:00→20:01)
[2023-02-18] MEDS: sennosides-docusate Tablet 1 TAB PO ×2 (09:00→18:06)
[2023-02-18] MEDS: aspirin 81 mg EC Tablet PO (09:00)
[2023-02-18] MEDS: isosorbide mononitrate ER 30 mg Tablet PO ×2 (09:00→18:06)
--- NOTE | 2023-02-18 10:27 | US_ITS ---
WS: [id number] ULTRASOUND-GUIDED FLUID ASPIRATION INDICATION: Subcutaneous cervical collection postoperative TECHNIQUE: The procedure including risks, benefits, and complications were discussed with the patient who agreed to proceed. Timeout was performed. Using standard technique, patient was prepped and drap ed in sterile fashion. After 1% lidocaine, using ultrasound guidance, a 4 Czech Yueh catheter was ad vanced into the upper cervical spine collection in the dorsal subcutaneous soft tissues. 20 cc of tenzin ar light orange fluid was aspirated. No immediate complications. Fluid was sent to the laboratory for cultures. US/US guide [facility] asp a/c/h [id number] IMPRESSION: 20 cc of clear light orange fluid was aspirated. No immediate compl ications. Fluid was sent to the laboratory for cultures
[2023-02-18 10:45] LABS: Glucose Point of Care 222 mg/dL (70-110)
[2023-02-18] MEDS: cefepime 2,000 MG in sodium chloride 0.9% (plus) 50 ML 100 MG IV ×2 (11:10→22:32)
[2023-02-18] MEDS: magnesium hydroxide 30 mL UDC PO (11:10)
[2023-02-18 12:00] VITALS: BP 161/77; PULSE 72; RESP 18; TEMP 37.2; O2SAT 92
--- NOTE | 2023-02-18 13:21 | PM.PN ---
Subjective Subjective: No acute events overnight. Patient remains hemodynamically stable and afebrile. Blood pressure is better but continues to remain on the higher side. Patient states he is feeling better. at bedside. Denies any nausea, vomiting, headache. Continues to remain in the cervical collar. Continues to complain of constipation. Received bowel regimen yesterday. Medications: Reviewed: Yes Vitals/I&O/Wt Last Vital Signs Temp 97.8 F 02/18/23 08:00 Pulse 78 02/18/23 08:00 Resp 18 02/18/23 08:00 BP 172/91 02/18/23 08:00 Pulse Ox 92 02/18/23 08:00 O2 Del Method Room Air 02/18/23 08:00 02/17/23 02/18/23 02/18/23 22:59 06:59 14:59 Intake Total 410 / 1130 170 / 1300 50 / 50 Balance 410 / 1130 170 / 1300 50 / 50 Physical Exam Narrative: General: No acute distress, AO x3, hard of hearing Neck: Neck brace. Cardiovascular: RRR. No gallops. No murmurs. Lungs: Non-labored. No use of accessory muscles, no crackles or wheezes. Skin: No jaundice. No rashes. Abdomen: Normal bowel sounds, abdomen soft. Extremities: No cyanosis or clubbing. Musculoskeletal: No swollen or erythematous joints. Neurological: Moves all 4 extremities. No myoclonus. Data 02/18/23 05:25 02/18/23 05:25 A&P Assessment and plan (1) Altered mental status: In setting of meningitis and hyponatremia. Resolving. (2) Meningitis: Appreciate lumbar puncture results. CSF studies consistent with elevated protein, glucose and white count. CSF cultures so far negative. PCR panel on CSF awaited. So far blood cultures negative, MRSA negative. Continue with cefepime to cover for Pseudomonas as well given recent postoperative status. Appreciate ID recommendations. (3) Post-operative state: Given meningitis postoperatively within last 2 weeks of cervical laminectomy cannot rule out dural injury. Cannot rule out epidural abscess. Appreciate CT spine results with concerns for collection at surgical site. Hematoma versus seroma versus abscess. Abscess cannot be ruled out. Discussed in detail with Dr. Banda. As per him patient is at a high risk of decompensating or having more complications if he tried to drain the collection and would want to treat the patient clinically with antibiotics. He is okay with needle aspiration for further evaluation of fluid. Discussed in detail with Dr. Morgan from radiology. Keep NPO. Plan for ultrasound-guided needle aspiration as possible for fluid studies and culture. (4) Acute hyponatremia: Baseline sodium level normal. Resolving. Sodium up to 130 today after Lasix yesterday. Continue with oral salt tablets. Regular diet. Urine osmolality and sodium on admission appreciated. Urine sodium elevated 124 and osmolality of 625. Appreciate lipid panel and TSH levels. Oral Lasix 40 mg one-time. Repeat sodium level in morning. (5) Diabetes mellitus: Continue with insulin sliding scale. Carb consistent diet. (6) Primary hypertension: Goal blood pressure less than 140/90 mmHg. Blood pressure continues to remain elevated. At home patient takes atenolol 100 mg oral daily, Imdur 30 mg oral daily, hydrochlorothiazide 25 mg oral daily, lisinopril 10 mg oral daily. For now restart atenolol 50 mg oral daily, increase dose of Imdur to 40 mg twice daily. Add lisinopril 10 mg oral daily. (7) Dyslipidemia: (8) Pacemaker: (9) Coronary atherosclerosis: No active chest pain. Continue with home dose of aspirin, statin. Qualifiers: Coronary Disease-Associated Artery/Lesion type: [place] artery [place] vs. transplanted heart: [place]ski heart Associated angina: with unspecified angina Qualified Code(s): I25.119 - Atherosclerotic heart disease of [place] coronary artery with unspecified angina pectoris (10) Hyperlipemia: Qualifiers: Hyperlipidemia type: mixed hyperlipidemia Qualified Code(s): E78.2 - Mixed hyperlipidemia Plan Aggressive bowel regimen. If no bowel movements today we will plan for enema tomorrow. N.p.o. for now. Restart soft mechanical carb consistent diet after needle aspiration. Lovenox for DVT prophylaxis Famotidine for PUD prophylaxis. Full code. Discharge plan: Plan to discharge to SNF as per PT recommendations on IV antibiotics for 2 to 4 weeks as per fluid study results once medically stable. Attestations Medical Necessity Statement*: Requires further hospitalization for management of meningitis, further evaluation of epidural collection at the surgical site Abscess is ruled out and outpatient antibiotics are sought. Diagnoses Altered mental status R41.82 Meningitis G03.9 Post-operative state Z98.890 Acute hyponatremia E87.1 Diabetes mellitus E11.9 Primary hypertension I10 Dyslipidemia E78.5 Pacemaker Z95.0 Coronary atherosclerosis I25.119 Coronary Disease-Associated Artery/Lesion type: [place] artery [place] vs. transplanted heart: [place]afski heart Associated angina: with unspecified angina Hyperlipemia E78.2 Hyperlipidemia type: mixed hyperlipidemia
[2023-02-18] MEDS: FUROsemide 40 mg Tablet PO (15:48)
[2023-02-18] MEDS: lisinopril 10 mg Tablet PO (15:49)
[2023-02-18 16:00] VITALS: BP 158/78; PULSE 70; RESP 16; TEMP 36.7; O2SAT 94
[2023-02-18 16:30] LABS: Cyto Order Verification No Order
[2023-02-18 16:33] LABS: Body Fluid Polynuclear #Cells 0.093; Body Fluid WBC 139 /uL; Monocytes # Body Fluid 0.046
[2023-02-18 16:46] LABS: Glucose Point of Care 228 mg/dL (70-110)
[2023-02-18 17:08] LABS: Apprearance, Body Fluid CLEAR; Color, Body Fluid YELLOW; Fluid Laterality PARASPINAL
[2023-02-18 19:23] VITALS: BP 138/74; PULSE 77; RESP 16; TEMP 37; O2SAT 95
[2023-02-18] MEDS: trazodone 50 mg Tablet PO (20:01)
[2023-02-18 21:44] LABS: Glucose Point of Care 210 mg/dL (70-110)
[2023-02-19] VITALS: BP 161/63; PULSE 72; RESP 18; TEMP 36.6; O2SAT 96
[2023-02-19 04:58] VITALS: BP 136/75; PULSE 73; RESP 18; TEMP 36.7; O2SAT 96
[2023-02-19 06:35] LABS: Glucose Point of Care 198 mg/dL (70-110)
[2023-02-19 08:00] VITALS: BP 163/85; PULSE 71; RESP 17; TEMP 37.1; O2SAT 95
[2023-02-19] MEDS: sodium chloride 1 gm Tablet PO ×3 (08:50→20:44)
[2023-02-19] MEDS: sennosides-docusate Tablet 1 TAB PO ×2 (08:50→18:38)
[2023-02-19] MEDS: atenolol 50 mg Tablet PO (08:50)
[2023-02-19] MEDS: aspirin 81 mg EC Tablet PO (08:51)
[2023-02-19] MEDS: isosorbide mononitrate ER 30 mg Tablet PO ×2 (08:51→18:38)
[2023-02-19] MEDS: insulin lispro 100 unit/1 mL SUBCUT ×3 (08:51→21:04)
[2023-02-19] MEDS: lisinopril 10 mg Tablet PO (08:51)
[2023-02-19 11:32] LABS: Glucose Point of Care 290 mg/dL (70-110)
[2023-02-19 12:00] VITALS: BP 164/82; PULSE 67; RESP 16; TEMP 37.3; O2SAT 96
[2023-02-19] MEDS: cefepime 2,000 MG in sodium chloride 0.9% (plus) 50 ML 100 MG IV ×2 (12:27→23:54)
--- NOTE | 2023-02-19 13:37 | XR_ITS ---
WS: [id number] Portable AP upright chest, 02/19/2023 Clinical Data: post picc insertion Comparison: Portable chest 02/11/2023 Findings: The right PICC line has been inserted a ends at the cavoatrial junction. No pneumothorax is seen. The remainder of the chest shows no change. XR/XR chest 1V portable [id number] Impression: Satisfactory insertion of right PICC line.
--- NOTE | 2023-02-19 14:10 | PC.NURSE ---
Single lumen PICC placed to right basilic vein without difficulty. Informed consent obtained from patient prior to procedure. Mid-arm circumference measured 10 cm from right AC 28 cm. Trimmed cath length 39 cm with 0 cm external length noted. CXR confirms cath tip in distal SVC, cavoatrial junction, good to use per radiologist. Dressing due to be changed 02/20/23. Report given to bedside nurseMiriam.
--- NOTE | 2023-02-19 15:49 | P.PN_ITS ---
Subjective Subjective: No acute vents overnight. Patient has been hemodynamically stable and afebrile. Patient denies any nausea, vomiting, headache. Laying comfortably in bed. Has hearing gait today stable to be better. As per patient is back to his baseline mentation. Working with physical therapy. Medications: Reviewed: Yes Vitals/I&O/Wt Last Vital Signs Temp 99.1 F 02/19/23 12:00 Pulse 67 02/19/23 12:00 Resp 16 02/19/23 12:00 BP 164/82 02/19/23 12:00 Pulse Ox 96 02/19/23 12:00 O2 Del Method Room Air 02/19/23 12:00 02/19/23 02/19/23 02/19/23 06:59 14:59 22:59 Intake Total 170 / 940 530 / 530 Balance 170 / 940 530 / 530 Physical Exam Narrative: General: No acute distress, AO x3, hard of hearing Neck: Neck brace. Cardiovascular: RRR. No gallops. No murmurs. Lungs: Non-labored. No use of accessory muscles, no crackles or wheezes. Skin: No jaundice. No rashes. Abdomen: Normal bowel sounds, abdomen soft. Extremities: No cyanosis or clubbing. Musculoskeletal: No swollen or erythematous joints. Neurological: Moves all 4 extremities. No myoclonus. Data 02/18/23 05:25 02/18/23 05:25 Micro: Microbiology 02/18/23 15:15 Gram Stain - Final Other Source Body Fluid Culture - Preliminary A&P Assessment and plan (1) Altered mental status: In setting of meningitis and hyponatremia. Resolving. (2) Meningitis: Appreciate lumbar puncture results. CSF studies consistent with elevated protein, glucose and white count. CSF cultures so far negative. PCR panel on CSF awaited. So far blood cultures negative, MRSA negative. Continue with cefepime to cover for Pseudomonas as well given recent postoperative status. Appreciate ID recommendations. (3) Post-operative state: Given meningitis postoperatively within last 2 weeks of cervical laminectomy cannot rule out dural injury. Cannot rule out epidural abscess. Appreciate CT spine results with concerns for collection at surgical site. Hematoma versus seroma versus abscess. Abscess cannot be ruled out. Discussed in detail with Dr. Banda. As per him patient is at a high risk of decompensating or having more complications if he tried to drain the collection and would want to treat the patient clinically with antibiotics. He is okay with needle aspiration for further evaluation of fluid. Discussed in detail with Dr. Morgan from radiology. Keep NPO. Plan for ultrasound-guided needle aspiration as possible for fluid studies and culture. (4) Acute hyponatremia: Baseline sodium level normal. Resolving. Sodium up to 130 today after Lasix yesterday. Continue with oral salt tablets. Regular diet. Urine osmolality and sodium on admission appreciated. Urine sodium elevated 124 and osmolality of 625. Appreciate lipid panel and TSH levels. Oral Lasix 40 mg one-time. Repeat sodium level in morning. (5) Diabetes mellitus: Continue with insulin sliding scale. Carb consistent diet. (6) Primary hypertension: Goal blood pressure less than 140/90 mmHg. Blood pressure continues to remain elevated. At home patient takes atenolol 100 mg oral daily, Imdur 30 mg oral daily, hydrochlorothiazide 25 mg oral daily, lisinopril 10 mg oral daily. For now restart atenolol 50 mg oral daily, increase dose of Imdur to 40 mg twice daily. Add lisinopril 10 mg oral daily. (7) Dyslipidemia: (8) Pacemaker: (9) Coronary atherosclerosis: No active chest pain. Continue with home dose of aspirin, statin. Qualifiers: Coronary Disease-Associated Artery/Lesion type: [place] artery [place] vs. transplanted heart: [place] heart Associated angina: with unspecified angina Qualified Code(s): I25.119 - Atherosclerotic heart disease of [place] coronary artery with unspecified angina pectoris (10) Hyperlipemia: Qualifiers: Hyperlipidemia type: mixed hyperlipidemia Qualified Code(s): E78.2 - Mixed hyperlipidemia Plan Aggressive bowel regimen. If no bowel movements today we will plan for enema tomorrow. N.p.o. for now. Restart soft mechanical carb consistent diet after needle aspiration. Lovenox for DVT prophylaxis Famotidine for PUD prophylaxis. Full code. Discharge plan: Plan to discharge to SNF as per PT recommendations on IV antibiotics for 2 to 4 weeks as per fluid study results once medically stable. Plan for today: Continue to follow-up fluid culture results. Following up on PCR for meningitis. For now continue with IV cefepime. Plan to continue antibiotics for 6 weeks overall. Appreciate neurosurgery and ID recommendations. Plan for PICC line placement. Blood pressures better controlled. Increase lisinopril to 20 mg daily. Continue with atenolol 50 mg and Imdur 30 mg twice daily. Attestations Medical Necessity Statement*: Requires further hospitalization for management of meningitis, postsurgical cervical paraspinal fluid collection while abscesses ruled out, outpatient antibiotics and safe discharge planning is sought Diagnoses Altered mental status R41.82 Meningitis G03.9 Post-operative state Z98.890 Acute hyponatremia E87.1 Diabetes mellitus E11.9 Primary hypertension I10 Dyslipidemia E78.5 Pacemaker Z95.0 Coronary atherosclerosis I25.119 Coronary Disease-Associated Artery/Lesion type: [place] artery [place] vs. transplanted heart: [place] heart Associated angina: with unspecified angina Hyperlipemia E78.2 Hyperlipidemia type: mixed hyperlipidemia
[2023-02-19 16:00] VITALS: BP 161/80; PULSE 69; RESP 16; TEMP 37.2; O2SAT 96
[2023-02-19 17:04] LABS: Glucose Point of Care 128 mg/dL (70-110)
[2023-02-19 19:46] VITALS: BP 150/70; PULSE 71; RESP 18; TEMP 37; O2SAT 93
[2023-02-19] MEDS: trazodone 50 mg Tablet PO (20:44)
[2023-02-19] MEDS: enoxaparin 40 mg/0.4 mL Syringe SUBCUT (20:46)
[2023-02-19 20:59] LABS: Glucose Point of Care 246 mg/dL (70-110)
[2023-02-20] VITALS (8 sets, daily range): BP systolic 135–174; BP diastolic 69–80; PULSE 64–74; RESP 12–18; TEMP 36.6–37.2; O2SAT 92–97
[2023-02-20 04:14] LABS: Basophils # 0.1 10^3/uL (0.0-0.1); Basophils % 0.7 %; Eosinophils # 0.2 10^3/uL (0.0-0.8); Eosinophils % 2.2 %; Hematocrit 33.1 % (42.0-52.0); Hemoglobin 10.8 g/dL (11.7-16.6); Lymphocytes % 15.5 %; Mean Corpuscular HGB Conc 32.6 g/dL (30.0-36.0); Mean Corpuscular Hemoglobin 30.9 pg (28.0-34.0); Mean Corpuscular Volume 94.8 fl (80-94); Monocytes # 0.4 10^3/uL (0.2-0.9); Monocytes % 6.4 %; Neutrophils % 74.6 %; Nucleated Red Blood Cells % 0 %; Platelet Count 288 10^3/cmm (130-400); Red Blood Count 3.49 10^6/uL (4.1-5.3); Red Cell Distribution Width 14.6 % (12.1-15.1); White Blood Count 6.7 10^3/uL (4.0-10.0)
[2023-02-20 04:46] LABS: Alanine Aminotransferase 22 U/L (0-41); Albumin Level 3.4 g/dL (3.5-5.2); Alkaline Phosphatase 56 U/L (40-130); Blood Urea Nitrogen 16 mg/dL (8-23); Calcium 8.7 mg/dL (8.5-10.5); Carbon Dioxide 29 mmol/L (22-29); Chloride 95 mmol/L (98-107); Creatinine Clr Calc Pharmacy 88.9858; Globulin 2.1 g/dL (1.3-4.6); Glucose 142 mg/dL (65-115); Osmolality Calculated 276 mOsm/kg (285-295); Sodium 131 mmol/L (136-145); Total Bilirubin 0.5 mg/dL (0.15-1.2); Total Protein 5.5 g/dL (6.6-8.7)
[2023-02-20 04:47] LABS: Anion Gap 11.6 (5-19); Aspartate Amino Transferase 21 U/L (0-40); Potassium 4.6 mmol/L (3.5-5.1)
[2023-02-20 06:28] LABS: Glucose Point of Care 142 mg/dL (70-110)
[2023-02-20] MEDS: lisinopril 20 mg Tablet PO (08:49)
[2023-02-20] MEDS: sodium chloride 1 gm Tablet PO ×3 (08:49→21:18)
[2023-02-20] MEDS: sennosides-docusate Tablet 1 TAB PO ×2 (08:50→17:43)
[2023-02-20] MEDS: atenolol 50 mg Tablet PO (08:50)
[2023-02-20] MEDS: isosorbide mononitrate ER 30 mg Tablet PO ×2 (08:50→17:43)
[2023-02-20] MEDS: aspirin 81 mg EC Tablet PO (08:50)
[2023-02-20] MEDS: insulin lispro 100 unit/1 mL SUBCUT ×4 (08:55→21:17)
--- NOTE | 2023-02-20 09:26 | PC.NURSE ---
Verbal orders from Dr. Jordan to give patient 80 mg PO Potassium chloride
[2023-02-20 12:02] LABS: Glucose Point of Care 163 mg/dL (70-110)
--- NOTE | 2023-02-20 12:43 | PC.CHAP ---
Pastoral Care Encounter/Spiritual Assessment Type of Contact [] Declined historian dramatic arts visit [] Patient/Family/Request visit [] Outpatient visit [x] Follow-up visit [] Physician referral [] Code/Alert [x] Routine visit [] Staff referral [] Actively dying [] Patient sleeping [] Family support [] [] Out of room [] Palliative care [] [x] Receiving care in room [] Pre-surgical visit [] Trauma [] Long length of stay [] ICU visit [] Other: Relational/Emotional Strength [x] Patient feels connected with others/family/visitors/staff [] Distress [] Loneliness/isolation [] Abandonment Spirituality of Patient [] Person of [place] [] Attends Pentecostal of their [place] [] Believes in Prayer [] Reads Bible or Shinto materials [] There are Spiritual issues to be addressed Heavy Duty Diesel Mechanic Interventions [] Prayer [] Active listening [] Non-anxious presence [] Spiritual/emotional support [] Crisis/trauma care [x] Spiritual counseling [] Bereavement support [] Provided bereavement packet [] Provided Bible/devotional materials [] Provided toy/stuffed animal, coloring book to patient or family member [] Provided Communion [] Anointing/[place] [] Salvation [x] Completed spiritual assessment [] Other: Impact on Illness or Injury [] Angry [] Fearful [] Anxious [] Often cries [] Exhaustion [] Unable to work [] Unable to attend yarsanism [] Unable to walk/stand [] Unable to read [] Unable to drive [] Unable to eat/drink [] Unable to sleep [] Unable to be with family [] Patient intubated [] Other: Summary had surgery Follow-up visit Time spent with patient 5 mins
--- NOTE | 2023-02-20 12:49 | PC.CHAP ---
Pastoral Care Encounter/Spiritual Assessment Type of Contact [] Declined travelift operator visit [] Patient/Family/Request visit [] Outpatient visit [] Follow-up visit [] Physician referral [] Code/Alert [x] Routine visit [] Staff referral [] Actively dying [] Patient sleeping [] Family support [] [] Out of room [] Palliative care [] [x] Receiving care in room [] Pre-surgical visit [] Trauma [] Long length of stay [] ICU visit [] Other: Relational/Emotional Strength [x] Patient feels connected with others/family/visitors/staff [] Distress [] Loneliness/isolation [] Abandonment Spirituality of Patient [xx] Person of Siomara [] Attends Shinto of their [place] [x] Believes in Prayer [] Reads Bible or Adventist materials [] There are Spiritual issues to be addressed Switchboard Wire Worker Helper Interventions [x] Prayer [x] Active listening [x] Non-anxious presence [x] Spiritual/emotional support [] Crisis/trauma care [xz] Spiritual counseling [] Bereavement support [] Provided bereavement packet [] Provided Bible/devotional materials [] Provided toy/stuffed animal, coloring book to patient or family member [] Provided Communion [] Anointing/[place] [] Salvation [x] Completed spiritual assessment [] Other: Impact on Illness or Injury [] Angry [] Fearful [] Anxious [] Often cries [] Exhaustion [] Unable to work [] Unable to attend mu-ism [] Unable to walk/stand [] Unable to read [] Unable to drive [] Unable to eat/drink [] Unable to sleep [] Unable to be with family [] Patient intubated [] Other: Summary knee surgery jn has a good attitude going home +1 Time spent with patient 10 mins
[2023-02-20] MEDS: cefepime 2,000 MG in sodium chloride 0.9% (plus) 50 ML 100 MG IV ×2 (13:23→23:08)
--- NOTE | 2023-02-20 15:03 | PC.NURSE ---
Tried to call Dr. Banda due to Radiology cannot do the MRI patient has a pacemaker. Dimensional Integration Engineer left message for him. Has not returned call.
--- NOTE | 2023-02-20 15:24 | PM.PN ---
Subjective Subjective: No acute events overnight. Today morning patient seen walking in the hallway with physical therapy. Denies any nausea, vomiting, headache. Medications: Reviewed: Yes Vitals/I&O/Wt Last Vital Signs Temp 99.0 F 02/20/23 12:00 Pulse 68 02/20/23 12:00 Resp 16 02/20/23 12:00 BP 145/74 02/20/23 12:00 Pulse Ox 94 02/20/23 12:00 O2 Del Method Room Air 02/20/23 12:00 02/20/23 02/20/23 02/20/23 06:59 14:59 22:59 Intake Total 170 / 1300 840 / 840 Output Total 1300 / 1300 Balance 170 / 1050 -460 / -460 Physical Exam Narrative: General: No acute distress, AO x3, Neck: Neck brace. Cardiovascular: RRR. No gallops. No murmurs. Lungs: Non-labored. No use of accessory muscles, no crackles or wheezes. Skin: No jaundice. No rashes. Abdomen: Normal bowel sounds, abdomen soft. Extremities: No cyanosis or clubbing. Musculoskeletal: No swollen or erythematous joints. Neurological: Moves all 4 extremities. No myoclonus. Data 02/20/23 03:24 02/20/23 03:24 Micro: Microbiology 02/18/23 15:15 Gram Stain - Final Other Source Body Fluid Culture - Preliminary A&P Assessment and plan (1) Meningitis: Appreciate lumbar puncture results. CSF studies consistent with elevated protein, glucose and white count. CSF cultures so far negative. PCR panel on CSF is still pending. Sent on 02/12. So far blood cultures negative, MRSA negative. Continue with cefepime to cover for Pseudomonas as well given recent postoperative status. Appreciate ID recommendations. Plan to discharge with IV cefepime 2 g every 12 hourly for 6-week course with repeat imaging of the spine within 3 weeks for further evaluation of collection to determine the duration of IV antibiotics in total. PICC line placed on 02/19. Case management has been alerted regarding IV antibiotics. Continue to monitor on cefepime for now. If decompensates will add vancomycin. (2) Status post cervical spinal fusion: (3) Postoperative abscess: (4) Epidural abscess: (5) Altered mental status: In setting of meningitis and hyponatremia. Resolved. (6) Post-operative state: Given meningitis postoperatively within last 2 weeks of cervical laminectomy cannot rule out dural injury. Cannot rule out epidural abscess. Appreciate CT spine results with concerns for collection at surgical site. Hematoma versus seroma versus abscess versus postoperative dural collection secondary to dural tear . Abscess cannot be ruled out. Discussed in detail with Dr. Banda. As per him patient is at a high risk of decompensating or having more complications if he tried to drain the collection and would want to treat the patient clinically with antibiotics. Post needle aspiration with IR. Follow-up fluid culture results. Again discussed in detail with Dr. Banda. He requests an MRI of the spine but could not be done as patient is post pacemaker implantation. Most likely patient will need to be on IV antibiotics and then repeat CT imaging as MRI could not be done for further evaluation of postoperative fluid collection resolution. (7) Acute hyponatremia: Baseline sodium level normal. Resolved. Continue with oral salt tablets. Regular diet. Urine osmolality and sodium on admission appreciated. Urine sodium elevated 124 and osmolality of 625. Appreciate lipid panel and TSH levels. (8) Diabetes mellitus: Continue with insulin sliding scale. Carb consistent diet. (9) Primary hypertension: Goal blood pressure less than 140/90 mmHg. Blood pressure continues to remain elevated. At home patient takes atenolol 100 mg oral daily, Imdur 30 mg oral daily, hydrochlorothiazide 25 mg oral daily, lisinopril 10 mg oral daily. Continue with atenolol at 50 mg daily, Imdur 30 mg twice daily. Increase dose of lisinopril to 30 mg daily. Uptitrate as tolerated. (10) Dyslipidemia: (11) Pacemaker: (12) Coronary atherosclerosis: No active chest pain. Continue with home dose of aspirin, statin. Qualifiers: Coronary Disease-Associated Artery/Lesion type: [place] artery [place] vs. transplanted heart: [place] heart Associated angina: with unspecified angina Qualified Code(s): I25.119 - Atherosclerotic heart disease of [place] coronary artery with unspecified angina pectoris (13) Hyperlipemia: Qualifiers: Hyperlipidemia type: mixed hyperlipidemia Qualified Code(s): E78.2 - Mixed hyperlipidemia Plan Aggressive bowel regimen. If no bowel movements today we will plan for enema tomorrow. Mechanical soft carb consistent diet. Lovenox for DVT prophylaxis Famotidine for PUD prophylaxis. Full code. Plan of treatment discussed in detail with patient and patient's at bedside. All the questions were answered. Discharge plan: Plan to discharge to SNF as per PT recommendations on IV antibiotics for 6 weeks as per fluid study results once medically stable. Patient has been accepted but awaiting authorization. Attestations Medical Necessity Statement*: Requires further hospitalization for management of meningitis post cervical spinal laminectomy, epidural fluid collection while safe discharge planning and outpatient IV antibiotics are set up Diagnoses Meningitis G03.9 Status post cervical spinal fusion Z98.1 Postoperative abscess T81.49XA Epidural abscess G06.2 Altered mental status R41.82 Post-operative state Z98.890 Acute hyponatremia E87.1 Diabetes mellitus E11.9 Primary hypertension I10 Dyslipidemia E78.5 Pacemaker Z95.0 Coronary atherosclerosis I25.119 Coronary Disease-Associated Artery/Lesion type: [place] artery [place] vs. transplanted heart: [place] heart Associated angina: with unspecified angina Hyperlipemia E78.2 Hyperlipidemia type: mixed hyperlipidemia
[2023-02-20 16:52] LABS: Glucose Point of Care 203 mg/dL (70-110)
--- NOTE | 2023-02-20 18:00 | P.PN_ITS ---
Subjective Subjective: Infectious disease progress note Patient underwent IR guided aspiration of the C-spine collection on February 18, 2023. Fluid appearance was clear, 139 WBC, 66% PMNLs He remains afebrile, mentation at baseline Medications: Reviewed: Yes Medication Review Details: cefepime, vancomycin 02/11-02/13 02/13-02/13, CTX, vancomycin, ampicillin, ACV 02/13-current Cefepime 2 g iv q12h last febrile 02/13 100.4F t max Vitals/I&O/Wt Last Vital Signs Temp 98.0 F 02/20/23 16:00 Pulse 69 02/20/23 16:00 Resp 17 02/20/23 16:00 BP 153/80 02/20/23 16:00 Pulse Ox 97 02/20/23 16:00 O2 Del Method Room Air 02/20/23 16:00 02/20/23 02/20/23 02/20/23 06:59 14:59 22:59 Intake Total 170 / 1300 840 / 840 240 / 1080 Output Total 1300 / 1300 400 / 1700 Balance 170 / 1050 -460 / -460 -160 / -620 Physical Exam Narrative: General: No acute distress, AO x3 HEENT: PERRLA, pupils bilaterally equal and reactive, pallors not present Chest: Normal vesicular breath sounds, no added sounds, equal good air entry bilaterally CVS: S1-S2 regular, no murmurs, no tachycardia, no gallops, no rubs Abdomen: Soft, nontender, no organomegaly, bowel sounds present Neuro: No focal deficits, no facial deformity, AO x3, power 5/5 in all limbs Data 02/20/23 03:24 02/20/23 03:24 Micro: Microbiology 02/18/23 15:15 Gram Stain - Final Other Source Body Fluid Culture - Preliminary ? [facility]? CLINICAL LABORATORY ? [address] [place] [address]? [place] [id number] ? DR. ALBAN CLARK, HEAD OF TALENT MANAGEMENT? NAME:?Ishaan,Alex L ?ACCT #:?[id number]?LOC:? [facility]? ??U #:?[id number] ?AGE/SX:?77/M ?ROOM:?255? REG:?02/13/[address]:? Simón Jordan MD?:? ? 1945 ??BED:? 1? DIS:? FAX #:?STATUS:?ADM IN ?TLOC:? Spec : [id number] ? Carlene: 02/12/23316 Status: COMP ? ? Req : [id number] ? Recd: 02/12/[address]: Patrick Wang MD? ? Ordered:? CSF Analysis, CSF Glu, CSF TP? Test ? Low? Normal ? High? ? Flag Reference? Site ? CSF Adan? BLOODY ? CLEAR ? CSF Col? XANTHOCROMIC ? COLORLESS ? CSF WBC? 2827? ? H 0-5 /uL ? CSF RBC? 44 ? ? H 0-0 10^3/uL ? CSF [place] WBC % ? 7? L 50-90 % ? CSF Poly WBC % ? 93 ? ? H 0-10 %? CSF Glu? 192 ? ? H 40-70 mg/dL ? CSF TP ? > 693? ? H 15-45 mg/dL ? CSF [place] # ? 0.197? L 50-90 10^3/uL ? ? ? CSF Poly # ? 2.630? 0-10 10^3/uL? [facility]? CLINICAL LABORATORY ? [address]? [place], [place] [address] ? [address]. ALBAN CLARK, HEAD OF TALENT MANAGEMENT? NAME:?Quiros,Alex L ?ACCT #:?[id number]?LOC:? [facility]? ??U #:?[id number] ?AGE/SX:?77/M ?ROOM:?255? REG:?02/13/[address]:? Simón Jordan MD?:? ? 1945 ??BED:? 1? DIS:? FAX #:?STATUS:?ADM IN ?TLOC:? Spec #: [id number] ? Carlene: 02/12/23 Status: COMP ? ? Req #: [id number] ? Recd: 02/12/[address]: Patrick Wang MD? Src:? CSF ? SpDesc: ? Ordered:? CSf Culture GS ? N ? Procedure ? Result ? Verified ? Site ? Gram Stain??Final? 02/12/23 ? Result? NO ORGANISMS SEEN ? Gram Stain??Final (changed)? 02/12/23 ? Result? NO ORGANISMS SEEN ? CSF Culture??Final? 02/15/23 ? NO GROWTH AT 72 HOURS ? CSF Culture??Preliminary (changed)? 02/14/23-1839 ? NO GROWTH AT 36-48 HOURS ? CSF Culture??Preliminary (changed)? 02/13/23-1753 ? NO GROWTH AT 18-24 HOURS [facility] [address] [place] [id number] [address] ALBAN CLARK, HEAD OF TALENT MANAGEMENT NAME: Alex Quiros [facility]: [facility] U #: [id number] AGE/SX: 77/M ROOM: 255 RE02/13/[address]: Simón Jordan MD : 1945 BED: 1 DIS: FAX #: STATUS: ADM IN TLOC: Spec #: [id number] Carlene: 02/18/23-151 Status: RES Req #: [id number] Recd: 02/18/23-[address]: Simón Jordan MD Src: Other Sour SpDesc: Ordered: Body FL Cult&GS ('paraspinal , IR guided drainage ) Procedure Result Verified Site Gram Stain Final 02/18/23-172 Result FEW WHITE BLOOD CELLS NO ORGANISMS SEEN Body Fluid Culture Preliminary 02/20/23-1346 NO GROWTH AT 36-48 HOURS Body Fluid Culture Preliminary (changed) 02/19/23-1102 MRSA by PCR??Final? 02/13/23-1325 ? NO MRSA DNA DETECTED A&P Assessment and plan (1) Meningitis: (2) Status post cervical spinal fusion: (3) Postoperative abscess: (4) Epidural abscess: Plan 77-year-old male with C2-T2 posterior instrumented fusion with decompression from C3-C7 posteriorly on 02/05/23 presenting currently with meningitis, manifesting as hallucinations, fever, altered mental status. Patient was started on treatment with cefepime and vancomycin on the day of admission. Underwent lumbar puncture on the subsequent day which showed abnormal CSF as noted above consistent with meningitis. CSF cultures remain negative to date, of note taken approximately 24 hours after starting antibiotic coverage. Reviewed op note in detail, there does not appear to have been durotomy intraoperatively, however given the presence of meningitis now, suspect that dural breach may have occurred at some point perioperatively. He is add itionally noted to have a large fluid collection in the surgical bed measuring 10.7 x 4.7 cm, differentials for which include a dural leak, pseudomeningocoele postop seroma versus hematoma or an epidural abscess.? Patient is unable to get an MRI at our facility due to having a pacemaker in place. Care plan was discussed extensively with Dr. Banda, given that patient is overall clinically improving with resolution of symptoms of meningitis, not currently complaining of any worsening pain, surgical reexploration is not recommended from a surgical standpoint. Should he indeed have a dural leak leading to the large collection, treatment would be conservative given clinical improvement. Patient underwent IR guided drainage of above collection, cultures from which remain negative to date. Of note patient has been on antibiotics for nearly 1 week prior to this aspiration therefore negative cultures need to be interpreted with caution. Given negative CSF cultures, cannot exclude the possibility of chemical meningitis, however need to interpret culture data with caution given that CSF cultures were obtained approximately 24 hours after starting antibiotics. Signs of discitis on imaging Plan: We will presumptively treat the patient for epidural abscess and meningitis. Overall this is a clinically complex case with negative cultures however both CSF culture and abscess cultures taken after being on antibiotics therefore cannot conclusively rule out possibility of infection especially with patient's symptoms. We will plan on treating with empiric cefepime 2 g IV every 12 hours over the next 6 weeks until resolution of the above collection. plan to repeat a CT C-spine in 3 weeks to assess for serial improvement. If the above collection is noted to be worsening without also corresponding signs of infection would be concerned for ongoing dural leak in which case myelogram may be indicated. However deferred to spine surgery regarding timing and indication for myelogram eventually. While on cefepime, obtain weekly CBC, LFT and creatinine to monitor for any potential side effects Patient is planned to transition to SNF after discharge. PICC line to facilitate long-term antibiotics Final duration of antibiotics to be determined based on serial follow-up on imaging and clinically as outpatient, however anticipate at least 6 weeks at this point. We will follow Attestations Medical Necessity Statement*: Per admitting Coding Level of Care Code Acute Code for Chg Fwd Diagnoses Meningitis G03.9 Status post cervical spinal fusion Z98.1 Postoperative abscess T81.49XA Epidural abscess G06.2
[2023-02-20 20:16] LABS: Glucose Point of Care 179 mg/dL (70-110)
[2023-02-20] MEDS: trazodone 50 mg Tablet PO (21:18)
[2023-02-20] MEDS: enoxaparin 40 mg/0.4 mL Syringe SUBCUT (21:18)
[2023-02-21 03:32] VITALS: BP 148/71; PULSE 74; RESP 16; TEMP 36.8; O2SAT 93
[2023-02-21 06:41] LABS: Glucose Point of Care 153 mg/dL (70-110)
[2023-02-21 08:00] VITALS: PULSE 70; RESP 18; TEMP 36.4; O2SAT 95
[2023-02-21] MEDS: sennosides-docusate Tablet 1 TAB PO (10:12)
[2023-02-21] MEDS: isosorbide mononitrate ER 30 mg Tablet PO (10:12)
[2023-02-21] MEDS: atenolol 50 mg Tablet PO (10:12)
[2023-02-21] MEDS: aspirin 81 mg EC Tablet PO (10:12)
[2023-02-21] MEDS: sodium chloride 1 gm Tablet PO (10:12)
[2023-02-21] MEDS: lisinopril 20 mg Tablet PO (10:12)
--- NOTE | 2023-02-21 13:00 | PM.DCS ---
Discharge Providers Date of Admission: 02/13/23 13:41 Date of Discharge: February 21, 2023 Attending Provider at Admission: Rocio Angeles MD Attending Provider at Discharge: Simón Jordan MD Consults: Orthopedic surgery: Dr. Banda ID: Dr. Harvey Primary Care Provider: Chinedu Babin DO Diagnoses at Discharge Discharge Diagnosis (1) Meningitis: Status: Acute (2) Status post cervical spinal fusion: Status: Acute (3) Postoperative abscess: Status: Acute (4) Epidural abscess: Status: Acute (5) Altered mental status: Status: Acute (6) Post-operative state: Status: Inactive (7) Acute hyponatremia: Status: Acute (8) Diabetes mellitus: Status: Acute (9) Primary hypertension: Status: Acute (10) Dyslipidemia: Status: Acute (11) Pacemaker: Status: Acute (12) Coronary atherosclerosis: Status: Acute Qualifiers: Coronary Disease-Associated Artery/Lesion type: [place] artery [place] vs. transplanted heart: [place] heart Associated angina: with unspecified angina Qualified Code(s): I25.119 - Atherosclerotic heart disease of [place] coronary artery with unspecified angina pectoris (13) Hyperlipemia: Status: Acute Qualifiers: Hyperlipidemia type: mixed hyperlipidemia Qualified Code(s): E78.2 - Mixed hyperlipidemia Reason for Visit Reason for Visit: HALLUCINATIONS Hospital Course Hospital Course Alex Quiros is a 77 year old male ?significant medical history for diabetes, hypertension, significant bradycardia requiring pacemaker?, recently diagnosed with Cervical myelopathy with cervical radiculopathy for which he underwent C2-T2 posterior instrumented fusion with decompression from C3-C7 posteriorly on 02/05/23. There were no immediate preoperative complications. EBL 900cc during surgery. He was discharged on 02/07. He was brought to the ER on 02/11 with hallucinations and altered mental status. He was also mumbling confused using inappropriate words and generally not being himself.?At hospitalist evaluation that same night he was AAO x 4. He c/o pain and tingling in his neck and arms B/L. Dressings were clean. his Na was 125. By the next day, his responses became tangential, often to the severity of nearly word salad. Wound evaluated by surgery on 02/12 noted to be dry and intact.? Lumbar puncture performed on February 12, 2023 showed xanthochromic CSF, WBCs 2827, predominantly 93% PMNLs, total protein greater than 600, CSF glucose 192.? Patient was started on broad-spectrum antibiotics. During hospitalization his blood culture, CSF culture and fluid culture remained negative. Meningitis PCR panel was sent but is still awaited. Patient did have clinical improvement while being on medication. Because of concerns of recent spinal surgery CT spine was done which was concerning for large fluid collection of the cervical surgical bed measuring up to 10 x 4.6 which was contiguous from C1 to upper thoracic spine extending into laminectomy sites. There was a concern for epidural abscess, seroma, hematoma or dural cyst. Primary orthopedic/spinal surgery team was consulted. Patient underwent IR diagnostic. Cultures of the fluid so far are negative as well. Fluid collection was done while patient was been on antibiotics for 4 days. For further evaluation infectious disease was consulted. Given the complexity of patient's care, fluid collection, significant CSF abnormalities consistent with meningitis and clinical improvement of antibiotics decision was made to discharge patient on IV antibiotics for next 6 weeks. For safe discharge planning patient has been discharged to SNF for further rehabitation. He is to follow-up with neurosurgery and ID in 3 weeks as an outpatient. He is also to have a CT spine just to followed up by neurosurgery in 3 weeks. Physical Exam Narrative: General: No acute distress, AO x3, Neck: Neck brace. Cardiovascular: RRR. No gallops. No murmurs. Lungs: Non-labored. No use of accessory muscles, no crackles or wheezes. Skin: No jaundice. No rashes. Abdomen: Normal bowel sounds, abdomen soft. Extremities: No cyanosis or clubbing. Musculoskeletal: No swollen or erythematous joints. Neurological: Moves all 4 extremities. No myoclonus. Discharge Data Studies Completed and Pending Completed Studies During Hospitalization Category Date Time Status CT cervical spine w con [id number] Routine Cat Scan 02/17/23 10:[address] head wo con* [id number] Stat Cat Scan 02/11/23 17:[address] lumbar spine w con [id number] Routine Cat Scan 02/17/23 10:[address] thoracic spine w con [id number] Routine Cat Scan 02/17/23 10:43 Completed CXRP [XR chest 1V portable [id number]] Routine Exams 02/19/23 13:37 Completed Fluoro guided lumbar puncture [FL guided lumbarpunc dx* Exams 02/12/23 13:12 Completed [id number]] Routine XR chest 1V portable [id number] Stat Exams 02/11/23 17:58 Completed US guide [facility] a/c/h [id number] Routine Ultrasound 02/18/23 10:27 Completed Pending at discharge Category Date Time Status Body Fluid Culture & GS Stat Lab 02/18/23 15:15 Results Miscellaneous Test Routine Lab 02/13/23 13:41 Received SARS Covid-2 Antigen Stat Lab 02/21/23 12:48 Uncollected Radiology Impressions Head CT 02/11/23 17:58 IMPRESSION: 1. No acute abnormality of the brain. 2. Mild atrophy of the brain parenchyma. 3. Mild chronic white matter microangiopathic change. 4. Incidental/nonacute findings are listed in the report. Lumbar Puncture Fluoroscopy 02/12/23 13:12 IMPRESSION: Uncomplicated lumbar puncture for CSF. CSF was a light orange in color. Cervical Spine CT 02/17/23 10:43 IMPRESSION: 1. There is a very large fluid collection in the cervical surgical bed measuring 10.7 x 4.6 cm. Fluid collection is contiguous from C1 to the upper thoracic spine and extends into the laminectomy sites to the posterior epidural space. Most significant involvement of the epidural spaces at the C2-3 level there may be mild compression upon the cord. This complex fluid collection may be an abscess, post operative seroma or hematoma. 2. Extensive postsurgical fusion from C2 to T2 with large laminectomy defects from C2-3 to C7-T1. Lumbar Spine CT 02/17/23 10:43 IMPRESSION: 1. No epidural abscess or abnormal enhancement is identified. Please note this study is an insensitive evaluation for epidural abscess/discitis or osteomyelitis. 2. Multilevel areas of the central, foraminal and subarticular recess stenosis. Most severe stenosis at L3-4 and L4-5. Stenoses have progressed since 2019. 3. Long-term stability RIGHT subarticular disc protrusion at L2-3. Similar to 2019. Thoracic Spine CT 02/17/23 10:43 IMPRESSION: 1. Study is compromised by motion artifact. 2. No focal areas of abnormal enhancement in the thoracic spine along the thecal sac. No epidural abscess identified. Needle Aspiration US 02/18/23 10:27 IMPRESSION: 20 cc of clear light orange fluid was aspirated. No immediate complications. Fluid was sent to the laboratory for cultures Chest X-Ray 02/19/23 13:37 Impression: Satisfactory insertion of right PICC line. Microbiology 02/18/23 15:15 Other Source Gram Stain - Final 02/18/23 15:15 Other Source Body Fluid Culture - Preliminary 02/11/23 22:05 Blood Blood Culture - Final NO GROWTH AFTER 5 DAYS 02/11/23 22:07 Blood Blood Culture - Final NO GROWTH AFTER 5 DAYS 02/12/23 15:46 Cerebrospinal Fluid Gram Stain - Final 02/12/23 15:46 Cerebrospinal Fluid CSF Culture - Final 02/12/23 20:45 Nose MRSA Culture - Final Laboratory Results WBC 6.7 10^3/uL (4.0-10.0) 02/20/23 03:24 RBC 3.49 10^6/uL (4.1-5.3) L 02/20/23 03:24 Hgb 10.8 g/dL (11.7-16.6) L 02/20/23 03:24 Hct 33.1 % (42.0-52.0) L 02/20/23 03:24 MCV 94.8 fl (80-94) H 02/20/23 03:24 MCH 30.9 pg (28.0-34.0) 02/20/23 03:24 MCHC 32.6 g/dL (30.0-36.0) 02/20/23 03:24 RDW 14.6 % (12.1-15.1) 02/20/23 03:24 Plt Count 288 10^3/cmm (130-400) 02/20/23 03:24 MPV 9.0 fL (7.4-10.4) 02/20/23 03:24 Neut % (Auto) 74.6 % 02/20/23 03:24 Lymph % (Auto) 15.5 % 02/20/23 03:24 [place] % (Auto) 6.4 % 02/20/23 03:24 Eos % (Auto) 2.2 % 02/20/23 03:24 Baso % (Auto) 0.7 % 02/20/23 03:24 Neut # (Auto) 5.00 10^3/uL (1.8-7.7) 02/20/23 03:24 Lymph # (Auto) 1.0 10^3/uL (0.8-4.8) 02/20/23 03:24 [place] # (Auto) 0.4 10^3/uL (0.2-0.9) 02/20/23 03:24 Eos # (Auto) 0.2 10^3/uL (0.0-0.8) 02/20/23 03:24 Baso # (Auto) 0.1 10^3/uL (0.0-0.1) 02/20/23 03:24 Nucleated RBC % (auto) 0 % 02/20/23 03:24 Nucleated RBCs # 0.0 /100WBC 02/20/23 03:24 Specimen Type Arterial 02/11/23 15:55 Sample Site Radial, left 02/11/23 15:55 ABG pH 7.46 (7.35-7.45) H 02/11/23 15:55 ABG pCO2 44.7 mmHg (35-45) 02/11/23 15:55 ABG pO2 62.1 mmHg (80.0-100.0) L 02/11/23 15:55 ABG HCO3 31.6 mmol/L (22-26) H 02/11/23 15:55 ABG Base Excess 6.9 mmol/L (-2.0-2.0) H 02/11/23 15:55 Nasir Test Pos 02/11/23 15:55 Hematocrit 28.8 % (42-52) L 02/11/23 15:55 O2 Delivery Device Room air 02/11/23 15:55 Sizing Machine And Drier Operator ID cw 02/11/23 15:55 Sodium 131 mmol/L (136-145) L 02/20/23 03:24 Potassium 4.6 mmol/L (3.5-5.1) 02/20/23 03:24 Chloride 95 mmol/L (98-107) L 02/20/23 03:24 Carbon Dioxide 29 mmol/L (22-29) 02/20/23 03:24 Anion Gap 11.6 (5-19) 02/20/23 03:24 BUN 16 mg/dL (8-23) 02/20/23 03:24 Creatinine 0.6 mg/dL (0.7-1.2) L 02/20/23 03:24 GFR Calculation Not Reportable 02/20/23 03:24 Glucose 142 mg/dL (65-115) H 02/20/23 03:24 POC Glucose 153 mg/dL (70-110) H 02/21/23 06:31 Serum Osmolality 269 mOsm/kg (278-305) L 02/12/23 00:56 Calculated Osmolality 276 mOsm/kg (285-295) L 02/20/23 03:24 Lactic Acid 1.1 mmol/L (0.5-2.2) 02/11/23 22:05 Calcium 8.7 mg/dL (8.5-10.5) 02/20/23 03:24 Phosphorus 3.5 mg/dL (2.5-4.5) 02/17/23 05:11 Magnesium 1.9 mg/dL (1.7-2.3) 02/17/23 05:11 Iron 40 ug/dL (59-158) L 02/17/23 05:11 TIBC 197 mcg/dl 02/17/23 05:11 % Saturation 20.3 % (20-50) 02/17/23 05:11 Unsat Iron Binding 157 ug/dL (112-347) 02/17/23 05:11 Total Bilirubin 0.5 mg/dL (0.15-1.2) 02/20/23 03:24 AST 21 U/L (0-40) 02/20/23 03:24 ALT 22 U/L (0-41) 02/20/23 03:24 Alkaline Phosphatase 56 U/L (40-130) 02/20/23 03:24 Ammonia 31 umol/L (16-60) 02/11/23 18:08 Troponin T Baseline 13 ng/L (0-15) 02/11/23 18:08 Troponin T 120 Minute 13.31 ng/L (0-15) 02/11/23 20:06 Delta Troponin T 0.13 ABS# (0-10) 02/11/23 20:06 Troponin T Hi Sens 6Hr 15.42 ng/L (0-15) H 02/12/23 00:56 Troponin T Hi Sens 6Hr Delta 2.42 ng/L (0-12) 02/12/23 00:56 C-Reactive Protein 32.4 mg/L (0.0-4.9) H 02/11/23 18:08 NT-Pro-B Natriuret Pep 1282 pg/mL (0-450) H 02/11/23 18:08 Total Protein 5.5 g/dL (6.6-8.7) L 02/20/23 03:24 Albumin 3.4 g/dL (3.5-5.2) L 02/20/23 03:24 Globulin 2.1 g/dL (1.3-4.6) 02/20/23 03:24 Triglycerides 109 mg/dL (0-150) 02/18/23 05:25 Cholesterol 150 mg/dL (0-200) 02/18/23 05:25 LDL Cholesterol, Calc 87 mg/dL (50-129) 02/18/23 05:25 Total VLDL Cholesterol 22 mg/dL (0-30) 02/18/23 05:25 HDL Cholesterol 41 mg/dL (60-100) L 02/18/23 05:25 Cholesterol/HDL Ratio 3.66 mg/dL (1.0-5.00) 02/18/23 05:25 Vitamin B12 518 pg/mL (232-1245) 02/17/23 05:11 Folate > 20.0 ng/mL (4.5-32.2) 02/18/23 05:25 Procalcitonin 0.07 ng/mL (0-0.5) 02/17/23 05:11 TSH 0.64 uIU/mL (0.27-4.20) 02/17/23 05:11 Urine Color Yellow (Yellow) 02/11/23 19:55 Urine Appearance Clear (CLEAR) 02/11/23 19:55 Urine pH 7 (5-7) 02/11/23 19:55 Ur Specific [place] 1.010 (1.005-1.030) 02/11/23 19:55 Urine Protein 1+ (Negative) H 02/11/23 19:55 Urine Glucose (UA) Trace (Normal) H 02/11/23 19:55 Urine Ketones Negative (Negative) 02/11/23 19:55 Urine Blood Neg (Negative) 02/11/23 19:55 Urine Nitrate Negative (Negative) 02/11/23 19:55 Urine Bilirubin Neg (Negative) 02/11/23 19:55 Urine Urobilinogen 1 mg/dL (Negative) H 02/11/23 19:55 Ur Leukocyte Esterase Negative (Negative) 02/11/23 19:55 Urine RBC 0-4 /hpf (0-2) H 02/11/23 19:55 Urine WBC 0-4 /hpf (0-5) H 02/11/23 19:55 Ur Squamous Epith Cells 0-4 /hpf (0-5) H 02/11/23 19:55 Amorphous Sediment Not Reportable 02/11/23 19:55 Urine Bacteria Trace /hpf (NONE) 02/11/23 19:55 Urine Osmolality 625 mOsm/kg (50-1200) 02/11/23 19:55 Ur Random Sodium 124 mmol/L 02/11/23 19:55 Fluid Color Yellow 02/18/23 15:15 Fluid Appearance Clear 02/18/23 15:15 Fluid WBC 139 /uL 02/18/23 15:15 Fluid RBC 6.000 10^3/uL 02/18/23 15:15 Fld Polynuclear WBCs # 0.093 02/18/23 15:15 Fld Polynuclear WBCs % 66.900 % 02/18/23 15:15 Fl Mononucl WBCs #(Auto) 0.046 02/18/23 15:15 Fl Mononuclear % Auto 33.100 % 02/18/23 15:15 Fld Crystal Laterality Paraspinal 02/18/23 15:15 CSF Appearance Bloody (CLEAR) 02/12/23 15:46 CSF Color Xanthocromic (COLORLESS) 02/12/23 15:46 CSF WBC 2827 /uL (0-5) H 02/12/23 15:46 CSF RBC 44 10^3/uL (0-0) H 02/12/23 15:46 CSF Mononuclear # Auto 0.197 10^3/uL (50-90) L 02/12/23 15:46 CSF Mononuclear WBCs % 7 % (50-90) L 02/12/23 15:46 CSF Polynuclear WBCs # 2.630 10^3/uL (0-10) 02/12/23 15:46 CSF Polynuclear WBCs % 93 % (0-10) H 02/12/23 15:46 CSF Glucose 192 mg/dL (40-70) H 02/12/23 15:46 CSF Total Protein > 693 mg/dL (15-45) H 02/12/23 15:46 Nasal Influ A H1 2008 PCR Not detected (NOT DETECT) 02/11/23 18:21 Vancomycin Trough 14.2 ug/mL (10-15) 02/14/23 22:05 Adenovirus (PCR) Not detected (NOT DETECT) 02/11/23 18:21 C. pneumoniae DNA (PCR) Not detected (NOT DETECT) 02/11/23 18:21 Coronavirus 229E (PCR) Not detected (NOT DETECT) 02/11/23 18:21 Human Metapneumovir PCR Not detected (NOT DETECT) 02/11/23 18:21 Influenza A (H1) PCR Not detected (NOT DETECT) 02/11/23 18:21 Influenza A (H3) PCR Not detected (NOT DETECT) 02/11/23 18:21 Influenza Type A (PCR) Not detected (NOT DETECT) 02/11/23 18:21 Influenza Type B (PCR) Not detected (NOT DETECT) 02/11/23 18:21 M. pneumoniae (PCR) Not detected (NOT DETECT) 02/11/23 18:21 Parainfluenza 1 (PCR) Not detected (NOT DETECT) 02/11/23 18:21 Parainfluenza 2 (PCR) Not detected (NOT DETECT) 02/11/23 18:21 Parainfluenza 3 (PCR) Not detected (NOT DETECT) 02/11/23 18:21 Parainfluenza 4 (PCR) Not detected (NOT DETECT) 02/11/23 18:21 RSV Type A (PCR) Not detected (NOT DETECT) 02/11/23 18:21 RSV Type B (PCR) Not detected (NOT DETECT) 02/11/23 18:21 Entero/Rhino (PCR) Not detected (NOT DETECT) 02/11/23 18:21 SARS-CoV-2 (PCR) Not detected (NOT DETECT) 02/11/23 18:21 Vitals Last Vital Signs Temp 97.6 F 02/21/23 08:00 Pulse 70 02/21/23 08:00 Resp 18 02/21/23 08:00 BP 148/71 02/21/23 03:32 Pulse Ox 95 02/21/23 08:00 O2 Del Method Room Air 02/21/23 03:32 Discharge Plan Discharge Patient Disposition: Xfer SNF Condition: Stable Prescriptions: New sodium chloride 1,000 mg Tablet,Soluble 1 g PO TID Qty: 42 0RF atenolol 50 mg Tablet 50 mg PO DAILY Qty: 30 0RF sennosides-docusate sodium [Stool Softener-Laxative] 8.6-50 mg Tablet 1 tab PO BID Qty: 14 0RF Continued ascorbic acid (vitamin C) 500 mg capsule 500 mg PO DAILY (DME) Bone Growth Stimulator E0748 See Rx Instructions .Route .MEDSUPPLY Qty: 1 0RF Rx Instructions: As directed (DME) Lift Chair See Rx Instructions .Route .MEDSUPPLY Qty: 1 0RF Rx Instructions: As directed multivitamin [Multiple Vitamins] Tablet 1 tab PO DAILY atorvastatin 10 mg Tablet 10 mg PO DAILY aspirin 81 mg Tablet,Delayed Release (Dr/Ec) 81 mg PO DAILY metformin 1,000 mg Tablet 1,000 mg PO BID Hold Instructions: Resume on 05/14/20. May resume 05/14/20 calcium carbonate 500 mg calcium (1,250 mg) Tablet 500 mg PO DAILY hydrocodone-acetaminophen 10-325 mg tablet 1 - 2 tab PO Q4H PRN (Reason: pain) 7 Days Qty: 40 0RF cyclobenzaprine 10 mg tablet 10 mg PO TID PRN (Reason: muscle spasm) 10 Days Qty: 30 0RF Changed isosorbide mononitrate 30 mg tablet extended release 24 hr 30 mg PO BID Qty: 90 3RF lisinopril 10 mg Tablet 20 mg PO DAILY Qty: 60 0RF Discontinued atenolol 100 mg tablet 100 mg PO DAILY Qty: 90 3RF hydrochlorothiazide 25 mg Tablet 25 mg PO DAILY Discharge Orders: Discharge Order (Routine); Ordered 02/21/23 Ordered By: Simón Jordan Referrals: [facility] [Outside] Jim Banda DO [Physician] - 3 weeks Staci Harvey MD [Hospitalist] - 3 weeks Chinedu Babin DO [Primary Care Provider] - 02/24/23 2:20 pm Discharge Diet: Soft Mechanical Discharge Activity: Resume usual activity and Increase activity as tolerated Patient Instructions: Hyponatremia (ED), Benzodiazepine Use Disorder (ED), Dementia (ED), Non-diabetic Hypoglycemia (ED), Hypoglycemia in a Person with Diabetes (ED), Concussion (ED), Alcohol Intoxication (ED), Subarachnoid Hemorrhage (GEN), Altered Mental Status (ED), Opioid Safety Activity Restrictions/Additional Instructions: Please follow-up with ID clinic and Dr. Banda from orthopedics in 3 weeks. Patient is to have weekly CBC, LFT and creatinine while being on antibiotics. He is to have repeat CT imaging of the spine in 3 weeks. Continue with IV antibiotics every 12 hours. IV antibiotics are to be followed up with ID clinic. Scan is to be followed up through neurosurgery. Continue with weekly PICC line dressing changes. PICC line to be removed after completion of IV antibiotic course. Discharge Attestations Time Spent in Discharge Care*: greater than 30 min Specific Discharge Activities: educating patient, educating and/or supporting family/caregiver, discussing with pcp/other providers, discussing with case management social worker/social workers/dc planners, documenting/other paperwork and evaluating patient/reviewing data Status at Discharge: Cognitive status at discharge: cognitively intact, Behavioral status at discharge: cooperative, Functional status at discharge: uses cane/walker, Overall status at discharge: patient is progressing back to baseline Quality Metrics Clinical Quality Measures [ No reported AMI, CVA or VTE this stay] Coding Level of Care Code 38802 Total time (in minutes) for Discharge: 70 Diagnoses Meningitis G03.9 Status post cervical spinal fusion Z98.1 Postoperative abscess T81.49XA Epidural abscess G06.2 Altered mental status R41.82 Post-operative state Z98.890 Acute hyponatremia E87.1 Diabetes mellitus E11.9 Primary hypertension I10 Dyslipidemia E78.5 Pacemaker Z95.0 Coronary atherosclerosis I25.119 Coronary Disease-Associated Artery/Lesion type: [place] artery [place] vs. transplanted heart: [place] heart Associated angina: with unspecified angina Hyperlipemia E78.2 Hyperlipidemia type: mixed hyperlipidemia
--- NOTE | 2023-02-21 13:45 | P.PN_ITS ---
Subjective Subjective: Infectious disease progress note Patient continues to feel well No fever Denies any current pain, he is planned to be discharged to SNF shortly. PICC line placed, no acute issues. Cultures from CSF and and paraspinal fluid remain negative to date. Medications: Reviewed: Yes Medication Review Details: cefepime, vancomycin 02/11-02/13 02/13-02/13, CTX, vancomycin, ampicillin, ACV 02/13-current Cefepime 2 g iv q12h last febrile 02/13 100.4F t max Vitals/I&O/Wt Last Vital Signs Temp 97.6 F 02/21/23 08:00 Pulse 70 02/21/23 08:00 Resp 18 02/21/23 08:00 BP 148/71 02/21/23 03:32 Pulse Ox 95 02/21/23 08:00 O2 Del Method Room Air 02/21/23 03:32 02/20/23 02/21/23 02/21/23 22:59 06:59 14:59 Intake Total 290 / 1130 170 / 1300 Output Total 400 / 1700 275 / 1975 Balance -110 / -570 -105 / -675 Physical Exam Narrative: General: No acute distress, AO x3 HEENT: PERRLA, pupils bilaterally equal and reactive, pallors not present Chest: Normal vesicular breath sounds, no added sounds, equal good air entry bilaterally CVS: S1-S2 regular, no murmurs, no tachycardia, no gallops, no rubs Abdomen: Soft, nontender, no organomegaly, bowel sounds present Neuro: No focal deficits, no facial deformity, AO x3, power 5/5 in all limbs Data 02/20/23 03:24 02/20/23 03:24 Micro: Microbiology 02/18/23 15:15 Gram Stain - Final Other Source Body Fluid Culture - Preliminary ? [facility]? [facility] ? [address] [place] [address]? [place] [id number] ? DR. ALBAN CLARK, [employer]INEER? NAME:?Ishaan,Alex L ?ACCT #:?[id number]?LOC:? [facility]? ??U #:?[id number] ?AGE/SX:?77/M ?ROOM:?255? REG:?02/13/[address]:? Simón Jordan MD?:? ? 1945 ??BED:? 1? DIS:? FAX #:?STATUS:?ADM IN ?TLOC:? Spec : [id number] ? Carlene: 02/12/23001 Status: COMP ? ? Req : [id number] ? Recd: 02/12/[address]: Patrick Wang MD? ? Ordered:? CSF Analysis, CSF Glu, CSF TP? Test ? Low? Normal ? High? ? Flag Reference? Site ? CSF Adan? BLOODY ? CLEAR ? CSF Col? XANTHOCROMIC ? COLORLESS ? CSF WBC? 2827? ? H 0-5 /uL ? CSF RBC? 44 ? ? H 0-0 10^3/uL ? CSF [place] WBC % ? 7? L 50-90 % ? CSF Poly WBC % ? 93 ? ? H 0-10 %? CSF Glu? 192 ? ? H 40-70 mg/dL ? CSF TP ? > 693? ? H 15-45 mg/dL ? CSF [place] # ? 0.197? L 50-90 10^3/uL ? ? ? CSF Poly # ? 2.630? 0-10 10^3/ uL? [facility]? [facility] ? [address] [place] [address] ? DR. ALBAN CLARK, [employer] MECH[employer]ICAL ENGINEER? NAME:?Alex Quiros ?ACCT #:?[id number]?LOC:? [facility]? ??U #:?[id number] ?AGE/SX:?77/M ?ROOM:?255? REG:?02/13/[address]:? Simón Jordan MD?:? ? 1945 ??BED:? 1? DIS:? FAX #:?STATUS:?ADM IN ?TLOC:? Spec #: [id number] ? Carlene: 02/12/23 Status: COMP ? ? Req #: [id number] ? Recd: 02/12/[address]: Patrick Wang MD? Src:? CSF ? SpDesc: ? Ordered:? CSf Culture GS ? Procedure ? Result ? Verified ? Site ? Gram Stain??Final? 02/12/23 ? Result? NO ORGANISMS SEEN ? Gram Stain??Final (changed)? 02/12/23 ? Result? NO ORGANISMS SEEN ? CSF Culture??Final? 02/15/23 ? NO GROWTH AT 72 HOURS ? CSF Culture??Preliminary (changed)? 02/14/23 ? NO GROWTH AT 36-48 HOURS ? CSF Culture??Preliminary (changed)? 02/13/23 ? NO GROWTH AT 18-24 HOURS ? [facility]? [facility] ? [address]? [place], [place] [address] ? DR. ALBAN CLARK, [employer] MECH[employer]ICAL ENGINEER? NAME:?Alex Quiors ?ACCT #:?[id number]?LOC:? [facility]SURG? ??U # :?[id number] ?AGE/SX:?77/M ?ROOM:?255? REG:?02/13/[address]:? Simón Jordan MD?:? ? 1945 ??BED:? 1? DIS:? FAX #:?STATUS:?ADM IN ?TLOC:? Spec #: [id number] ? Carlene: 02/18/23-3710 Status: RES? ? ? Req #: [id number] ? Recd: 02/18/[address]: Simón Jordan MD ? Src:? Other Sour? ? SpDesc: ? Ordered:? Body FL Cult&GS ? ('paraspinal , IR guided drainage ? ) ? Procedure ? Result ? Verified ? Site ? Gram Stain??Final? 02/18/23 ? Result? FEW WHITE BLOOD CELLS ? NO ORGANISMS SEEN ? Body Fluid Culture??Preliminary? 02/20/23-1346 ? NO GROWTH AT 36-48 HOURS ? Body Fluid Culture??Preliminary (changed)? 02/19/23-1102 A&P Assessment and plan (1) Meningitis: (2) Status post cervical spinal fusion: (3) Postoperative abscess: (4) Epidural abscess: Plan 77-year-old male with C2-T2 posterior instrumented fusion with decompression from C3-C7 posteriorly on 02/05/23 presenting on 02/11/23 with meningitis, manifesting as hallucinations, fever, altered mental status. Patient was started on treatment with cefepime and vancomycin on the day of admission. Underwent lumbar puncture on the subsequent day which showed abnormal CSF as noted above consistent with meningitis. CSF cultures remain negative to date, of note taken approximately 24 hours after starting antibiotic coverage. Reviewed op note in detail, there does not appear to have been durotomy i ntraoperatively, however given the presence of meningitis now, suspect that dural breach may have occurred at some point perioperatively. He is additionally noted to have a large fluid collection in the surgical bed measuring 10.7 x 4.7 cm, differentials for which include a dural leak, pseudomeningocoele postop seroma versus hematoma or an epidural abscess.? Externally there are no signs of wound dehiscnce, wound is healing well, no drainage. Patient is unable to get an MRI at our facility due to having a pacemaker in place. Care plan was discussed extensively with Dr. Banda, given that patient is overall clinically improving with resolution of symptoms of meningitis, not currently complaining of any worsening pain, surgical reexploration is not recommended at this time from a surgical standpoint.Should he indeed have a dural leak leading to the large collection, treatment would be conservative given clinical improvement. Patient underwent IR guided drainage of above collection, cultures from which remain negative to date. Of note patient has been on antibiotics for nearly 1 week prior to this aspiration therefore negative cultures need to be interpreted with caution. Given negative CSF cultures, cannot exclude the possibility of chemical meningitis, however need to interpret culture data with caution given that CSF cultures were obtained approximately 24 hours after starting antibiotics. No signs of discitis on imaging Plan: We will presumptively treat the patient for epidural abscess and meningitis. Overall this is a clinically complex case with negative cultures however both CSF culture and abscess cultures taken after being on antibiotics therefore cannot conclusively rule out possibility of infection especially with patient's symptoms. We will plan on treating with empiric cefepime 2 g IV every 12 hours over the next 6 weeks until resolution of the above collection. plan to repeat a CT C-spine in 3 weeks to assess for serial improvement. If the above collection is noted to be worsening without corresponding signs of infection would be concerned for ongoing dural leak in which case myelogram may be indicated. However deferred to spine surgery regarding timing and indication for myelogram eventually. While on cefepime, obtain weekly CBC, LFT and creatinine to monitor for any potential side effects Patient is planned to transition to SNF after discharge. PICC line to facilitate long-term antibiotics Final duration of antibiotics to be determined based on serial follow-up on imaging and clinically as outpatient, however anticipate at least 4-6 weeks at this point. Care plan discussed in detail with patient and his at bedside. All question s answered to their satisfaction. Follow up in ID clinic in 3 weeks. recommend to closely also follow with spine surgery Stable for discharge from ID standpoint Thank you for this consult. please call with any further questions Attestations Medical Necessity Statement*: per admitting note Coding Level of Care Code Acute Code for Chg Fwd Diagnoses Meningitis G03.9 Status post cervical spinal fusion Z98.1 Postoperative abscess T81.49XA Epidural abscess G06.2
[2023-02-21 16:40] LABS: Glucose Point of Care 202 mg/dL (70-110)
[2023-02-24 17:44] LABS: Beta 2 Transferrin DETECTED (Not Detected)
== END 2023-02-21 14:28 | disposition skilled nursing facility (03) | DRG 97 ==
LOC: ER 21:06 → MEDSURG 22:27
PROVIDERS: Internal Medicine; Student in an Organized Health Care Education/Training Program; Admitting Provider Internal Medicine; Emergency Provider Emergency Medicine; PCP Electrodiagnostic Medicine; Visit Provider Student in an Organized Health Care Education/Training Program
DX: G03.9 Meningitis, unspecified (principal); G93.41 Metabolic encephalopathy; F05 Delirium due to known physiological condition; E87.1 Hypo-osmolality and hyponatremia; I25.10 Atherosclerotic heart disease of native coronary artery without angina pectoris; E11.9 Type 2 diabetes mellitus without complications; Z95.0 Presence of cardiac pacemaker; E78.2 Mixed hyperlipidemia; Z87.891 Personal history of nicotine dependence; Z86.73 Personal history of transient ischemic attack (TIA), and cerebral infarction without residual deficits; Z98.1 Arthrodesis status; Z79.82 Long term (current) use of aspirin; Z79.4 Long term (current) use of insulin; R00.1 Bradycardia, unspecified; H91.90 Unspecified hearing loss, unspecified ear; B96.5 Pseudomonas (aeruginosa) (mallei) (pseudomallei) as the cause of diseases classified elsewhere; K59.00 Constipation, unspecified; D64.9 Anemia, unspecified; R09.02 Hypoxemia; E86.0 Dehydration
CPT/HCPCS: 10160; 36415; 36416; 36569; 36592; 36600; 62328; 70450; 71045; 72126; 72129; 72132; 76942; 80048; 80053; 80061; 80202; 80503; 81001; 82140; 82607; 82746; 82803; 82945; 82962; 83540; 83550; 83605; 83735; 83880; 83930; 83935; 84100; 84145; 84157; 84300; 84443; 84484; 85025; 86140; 86334; 86335; 87040; 87070; 87075; 87205; 87486; 87581; 87633; 87641; 89050; 93005; 96361; 96372; 96374; 97110; 97116; 97161; 97530; G0378; J0133; J0290; J0692; J0696; J1650; J1815; J1940; J2270; J3370; J3372; J3475; J7030; J7050; Q9967

== ENCOUNTER → 2023-02-26 09:55 | Day surgery (SDC) | payer MEDICARE, SELFPAY ==
[2023-02-26 10:00] VITALS: BP 141/81; PULSE 73; RESP 18; TEMP 36.5; O2SAT 91
--- NOTE | 2023-02-26 10:25 | XRR_ITS ---
PROCEDURE INFORMATION: Exam: XR Chest Exam date and time: 02/26/2023 9:53 AM Age: 77 years old Clinical indication: Other vascular access device placement or adjustment; Picc; Additional info: Post picc insertion, marlon placing in gi. Will call when ready TECHNIQUE: Imaging protocol: Radiologic exam of the chest. Views: 1 view. COMPARISON: CR XR chest 1V portable [id number] 02/19/2023 1:14 PM FINDINGS: Tubes, catheters and devices: Cardiac device left anterior chest bipolar leads are in good position. There is an apparent new left PICC line present . This line extends to the axillary region and cannot be traced distal to this point near the cardiac device. Lungs: Unremarkable. No consolidation. Pleural spaces: Unremarkable. No pleural effusion. No pneumothorax. Heart/Mediastinum: Unremarkable. No cardiomegaly. Bones/joints: Metallic surgical hardware is present in the cervical spine stable since prior XR/XR chest 1V portable [id number] IMPRESSION: 1. Left PICC line extends to the left axillary region 2. Stable cardiac device left anterior chest in good position. 3. Stable orthopedic hardware cervical spine 4. No acute findings.
--- NOTE | 2023-02-26 11:30 | PC.NURSE ---
Pt to GI infusions for evaluation of right PICC line. Infusion tubing end broke off in cath hub of PICC. Unable to remove plastic piece from PICC. PICC to right upper extremity removed. Pt needs additional 5 weeks of IV antibiotics. Attempted PICC to left arm. Pt has history of pacemaker to left side and recent neck surgery with plate and screws. Unable to pass catheter past pacemaker. Multiple attempts made and noted to wrap around pacemaker on xray. Cath trimmed to 10 cm and made a double lumen midline. Mid-arm circumference measured 10 cm from left AC 29 cm. Report called to Leslie, nurse at [facility], explaining that patient has midline. If patient needs PICC, retirement to call in 1 week to allow rest of right arm for new PICC.
== END ==
PROVIDERS: PCP Internal Medicine; Visit Provider Internal Medicine
DX: Z45.2 Encounter for adjustment and management of vascular access device (principal)
CPT/HCPCS: 36569; 71045

== ENCOUNTER → 2023-03-07 07:50 | Day surgery (SDC) | payer MEDICARE, SELFPAY ==
--- NOTE | 2023-03-07 07:54 | XR_ITS ---
WS: [id number] Exam: XR chest 1V portable [id number] Date/Time of Exam: 03/07/2023 7:54 AM Reason For Exam: Post PICC insertion Comparison 02/26/2023. A right-sided PICC line has been placed and appears to end in the lower one third of the SVC. The jacki gs are fully expanded and clear. The heart is enlarged but unchanged in size. No pleural effusions. A permanent cardiac pacer is noted over the left chest. Hardware noted in the lower cervical and upper thoracic spine as well as the right humeral head. XR/XR chest 1V portable [id number] IMPRESSION: 1. Right-sided PICC line ending in the lower one third of the SVC in good posit ion. 2. No acute process noted. 3. Cardiac enlargement unchanged.
[2023-03-07 08:00] VITALS: BP 137/90; PULSE 89; RESP 18; TEMP 36.4; O2SAT 90
--- NOTE | 2023-03-07 08:30 | PC.NURSE ---
Pt to GI infusions for replacement of PICC line to right arm. Patient states midline to left arm was accidentally pulled out yesterday at the [facility]. Pt noted to have peripheral IV in right AC. Informed consent obtained from patient prior to insertion. Single lumen PICC placed to right basilic vein without difficulty. Vein measured 5 mm and appeared straight and best choice for placement. Mid-arm circumference measured 10 cm from right AC noted 28 cm. Trimmed cath length 42 cm with 1 cm external length noted. CXR confirms tip in distal SVC, in good position for use per radiologist. Insertion site covered with Biopatch. Statlock and TSM used to secure line in place. Pt tolerated well. Peripheral IV to right AC removed. Report sheet sent with antonio Ennis from [facility].
== END ==
PROVIDERS: PCP Internal Medicine; Visit Provider Internal Medicine
DX: Z45.2 Encounter for adjustment and management of vascular access device (principal)
CPT/HCPCS: 36569; 71045

== ENCOUNTER → 2023-03-13 10:27 | Outpatient (BNVA) | payer OTHER, SELFPAY | PROVIDERS: PCP Internal Medicine; Visit Provider Physician Assistant | DX: Z01.818 Encounter for other preprocedural examination (principal); Z98.1 Arthrodesis status; M54.12 Radiculopathy, cervical region; G95.9 Disease of spinal cord, unspecified | CPT/HCPCS: 72040; 99024 ==

== ENCOUNTER 2023-03-14 12:36 | Outpatient (CLI) | payer OTHER, SELFPAY ==
--- NOTE | 2023-03-14 12:57 | CTR_ITS ---
PROCEDURE INFORMATION: Exam: CT Cervical Spine With Contrast Exam date and time: 03/14/2023 1:12 PM Age: 77 years old Clinical indication: Condition or disease; Other: Recent meningitis; Prior surgery; Surgery date: 6+ months; Surgery type: History of cervical spine surgery at unknown date. ; Additional info: Meningitis/infection following procedure/abscess TECHNIQUE: Imaging protocol: Computed tomography of the cervical spine with contrast. Radiation optimization: All CT scans at this facility use at least one of these dose optimization techniques: automated exposure control; mA and/or kV adjustment per patient size (includes targeted exams where dose is matched to clinical indication); or iterative reconstruction. Contrast material: OMNI 350; Contrast volume: 100 ml; Contrast route: INTRAVENOUS (IV); REPORTING DATA: Count of CT and Cardiac NM exams in prior 12 months: This patient has received 4 known CTs and 0 known cardiac nuclear medicine studies in the 12 months prior to the current study. COMPARISON: CT cervical spine w con [id number] 02/17/2023 11:32 AM RADIATION DOSE METRICS: Total DLP (mGy-cm): 169.87 FINDINGS: Tubes, catheters and devices: Pacemaker leads and right subclavian central line noted. Bones/joints: The patient is status post posterior cervical decompression and fusion from C2-T2. No evidence of hardware related complication. Mild dextrocurvature of the cervical spine is present. There is straightening of the normal cervical lordosis with trace retrolisthesis of C3 and trace anterolisthesis of C7. No fracture identified. Vertebral body heights are well preserved. There is multilevel degenerative changes, manifested by intervertebral disc space narrowing, endplate osteophytes and facet joint arthrosis. No significant disc protrusion. No severe spinal canal stenosis. Lungs: Centrilobular emphysema is present. Soft tissues: Posterior to the thecal sac and extending into the subcutaneous tissues. Extending from the level of C2-T2, posterior to thecal sac, and into the subcutaneous tissues, there is a large rim enhancing fluid collection, measuring approximally 7.7 x 7.[address]/CT cervical spine w con [id number] IMPRESSION: Large rim enhancing fluid collection extending posterior to the thecal sac into the subcutaneous tissues, from C2-T2.
[2023-03-14] MEDS: iohexol 350 mg/mL 500 mL Btl (per mL) IV (13:00)
== END 2023-03-14 12:37 | disposition home or self-care (01) ==
PROVIDERS: PCP Internal Medicine; Visit Provider Internal Medicine
DX: T81.49XD Infection following a procedure, other surgical site, subsequent encounter (principal); G06.2 Extradural and subdural abscess, unspecified; G03.9 Meningitis, unspecified; Y65.8 Other specified misadventures during surgical and medical care
CPT/HCPCS: 72126; Q9967

== ENCOUNTER → 2023-03-19 15:12 | Outpatient (BNVA) | payer MEDICARE, SELFPAY | PROVIDERS: PCP Electrodiagnostic Medicine; Referring Provider Student in an Organized Health Care Education/Training Program; Visit Provider Psychiatry & Neurology Neurology | DX: G93.40 Encephalopathy, unspecified (principal); G06.2 Extradural and subdural abscess, unspecified; T81.49XA Infection following a procedure, other surgical site, initial encounter; G03.9 Meningitis, unspecified; R41.82 Altered mental status, unspecified; Y83.8 Other surgical procedures as the cause of abnormal reaction of the patient, or of later complication, without mention of misadventure at the time of the procedure | CPT/HCPCS: 99202 ==

== ENCOUNTER 2023-03-20 06:55 | Inpatient (IN) | payer OTHER, SELFPAY ==
[2023-03-20] VITALS (23 sets, daily range): BP systolic 109–183; BP diastolic 67–136; PULSE 68–147; RESP 15–35; TEMP 36.7–37.1; O2SAT 88–98; BMI 26.2
--- NOTE | 2023-03-20 07:09 | CT_ITS ---
WS: [id number] CT CERVICAL with and without contrast. HISTORY: s/p cervical fusion, with complications Technique: CT with and without IV contrast. All CT scans at [facility] use at least one of the se dose optimization techniques: automated exposure control; mA and/or kV adjustment per patient size (includes targeted exams where dose is matched to clinical indication); or iterative reconstruction. Omnipaque 350; 100 mL IV. DLP: 183.37 mGy.cm COMPARISON: 03/14/2023 Advanced degenerative changes throughout the cervical spine. Disc spaces are narrowed with osteophyto sis. No destructive bone lesion is identified. Patient is status post extensive posterior cervical decompression fusion from C2 through T2. Large po sterior laminectomy defects. Along the surgical site there is a large fluid collection with mild rim enhancement which has been pr eviously described. This fluid collection extends from the C2 level inferiorly by 10.4 cm. Maximum tr ansverse diameter is 6.8 cm. Fluid collection extends into the surgical decompressive sites. Again no shiva is air anterior to the brainstem with small foci of air along the decompressive site at the C2-3 and C4-5. There has been no change in position of the hardware. The posterior cervical fluid collection does extend into the postoperative site and is closely associ ated with the thecal sac. Would be difficult to exclude epidural abscess. CT/CT cervical spine w con [id number] IMPRESSION: 1. Large rim-enhancing fluid collection in the cervical spine from C3 to T2 is similar to the prior study of 03/14/2023. No improvement. 2. New foci of air in the postoperative collection with extension of air exten ding through the anterior foramen magnum.
--- NOTE | 2023-03-20 07:44 | W.ED.GENADLT ---
HPI - General Adult General: Chief complaint: ER Hold Stated complaint: SURGICAL SITE LEAKING Time Seen by Provider: 03/20/23 07:02 Source: patient Mode of arrival: EMS History of Present Illness: 77-year-old male [facility] Patient underwent a cervical decompression and fusion on February 05. He presented to the emergency room on February 13 confused and disoriented was found to have meningitis and he was admitted started on IV antibiotics PICC line is placed and he was discharged from the hospital to skilled care. He is been receiving antibiotics via PICC line since then. This morning patient was receiving a bath and noted to have a clear spinal fluid leakage from his incision. There is a small area that is dehisced pinpoint in size leaking clear fluid. On arrival here he is soaked washcloth his c-collar and his clothing with the fluid drainage. It is completely clear. Cultures at the time the patient was discharged from his spinal tap were negative. 6 days ago patient had a CT of the cervical spine which showed a large fluid collection 7.7 x 7 x 12.8 cm with enhancing rim extending through the subcutaneous tissues posterior to the thecal sac extending from C2-T12. Patient has not had any worsening of fever sweats or chills he has a mild headache it does not change with body position. Onset (ago): minute(s) Location: neck Relieving factors: none Exacerbating factors: none Associated symptoms: Deny chest pain, dyspnea, malaise, nausea, rash or vomiting Review of Systems Const: Denies: fever(s), chills, body aches, change in appetite, fatigue or malaise ENMT: Denies: throat pain, ear or mastoid pain, nasal discharge or nasal congestion Card: Denies: chest pain, edema, dyspnea on exertion or orthopnea Resp: Denies: dyspnea, productive cough or non-productive cough GI: Denies: abdominal pain, nausea, vomiting, hematemesis, coffee ground emesis, diarrhea, constipation, bloating, hematochezia or melena : Denies: flank pain, dysuria, urinary frequency or urinary urgency Skin/Breast: Denies: rash or pruritus PFS ED PFSH: Medical History Abnormal stress test Atherosclerosis of coronary artery of [place] heart without angina pectoris Benign essential HTN Bilateral bunions Bilateral foot pain Bradycardia Bradycardia Cervical myelopathy with cervical radiculopathy Chest pain Coronary atherosclerosis Degenerative cervical spinal stenosis Diabetes mellitus Diastasis recti Dyslipidemia History of cardiac pacemaker History of colon polyps Hyperlipemia Intermittent palpitations Internal hemorrhoids Male erectile dysfunction Non-sustained ventricular tachycardia Obesity Osteoarthritis of left knee Pacemaker Presence of permanent cardiac pacemaker Primary hypertension Prostatic cancer Tear of meniscus of right knee Transient cerebral ischemia Urinary incontinence Ventricular arrhythmia Surgical History History of arthroscopic surgery of shoulder History of colonoscopy with polypectomy History of eye surgery History of knee replacement History of knee surgery History of prostatectomy Post-operative state Family History Mother CAD (coronary artery disease) Diabetes Father Cancer Diabetes Denies family history of Clotting disorder Dementia Chronic kidney disease (CKD) Suicide Anesthesia complication Bleeding disorder Lung disease Stroke Social History Smoking and tobacco status: former smoker Alcohol intake: former Substance/Drug Use: never Physical Exam Const: GENERAL APPEARANCE: cooperative and comfortable ORIENTATION/CONSCIOUSNESS: Yes awake, Yes oriented to person, Yes oriented to place and Yes oriented to time HENMT: COMMON NORMALS: normocephalic, atraumatic and hearing grossly normal bilaterally HEAD & SCALP: normocephalic and atraumatic Neck/C-Spine: OTHER: Incision in the back of the neck is well-healed there is a small pinpoint opening. He has clear fluid there appears to be cerebrospinal fluid draining and can be either expressed or is also noticed to be draining when patient exhales. No purulence no bloody drainage there is no localized erythema or redness or induration around the incision. Resp: COMMON NORMALS: normal respiratory effort, No retractions, No use of accessory muscles and clear to auscultation bilaterally AUSCULTATION: clear to auscultation bilaterally Cardio: COMMON NORMALS: regular rate, regular rhythm and No murmurs present (Cardio) RATE: regular rate RHYTHM: regular rhythm Extremity: COMMON NORMALS: normal to inspection, capillary refill normal, no clubbing, cyanosis or edema, no calf tenderness and no pedal edema Neuro: SENSORIUM/ORIENTATION: Yes oriented to person, Yes oriented to place and Yes oriented to time Skin: COMMON NORMALS: no rashes or lesions noted GENERAL SKIN EXAM: no rashes or lesions noted Course Vital Signs: Vital signs: Vital Signs Temperature 98.0 F 03/20/23 06:59 Pulse Rate 73 03/20/23 06:59 Blood Pressure 158/83 03/20/23 06:59 Pulse Oximetry 97 03/20/23 06:59 Oxygen Delivery Me thod Room Air 03/20/23 06:59 MDM - General Adult Medical Decision Making Continuing spinal fluid leak from the incision site with a large area of fluid collection is actually still present given the amount of fluid he drained and thought it would be a bit depleted. He additionally has a new encephalopathy. He is afebrile there is no redness or inflammation at the incision sites no purulent drainage. Reviewed the cultures from previous hospitalization they have all grown out negative he is currently on cefepime received the last dose around 11:00 last night he is supposed to be on it from 519 through 630 through PICC line. I discussed Dr. Harvey who will admit him also Dr. Banda he is planning on doing a dural patch tomorrow. Orders written for admission. Medical Records I reviewed the patient's medical records. Lab Data I reviewed the patient's lab results. 03/20/23 07:43 03/20/23 07:43 Radiology Impressions Cervical Spine CT 03/20/23 07:09 IMPRESSION: 1. Large rim-enhancing fluid collection in the cervical spine from C3 to T2 is similar to the prior study of 03/14/2023. No improvement. 2. New foci of air in the postoperative collection with extension of air extending through the anterior foramen magnum. Head CT 03/20/23 08:02 IMPRESSION: 1. Development of a large amount of pneumocephalus. There is a large amount of air within the ventricular system and noted within the foramen magnum. New since 02/11/2023. By history patient has a known CSF leak. 2. Atrophy and moderate small vessel ischemic disease. No herniation. Notified Bacilio Ramsey DO at 03/20/2023 8:41 AM. Laboratory Results WBC 4.5 10^3/uL (4.0-10.0) 03/20/23 07:43 RBC 4.28 10^6/uL (4.1-5.3) 03/20/23 07:43 Hgb 12.5 g/dL (11.7-16.6) 03/20/23 07:43 Hct 39.4 % (42.0-52.0) L 03/20/23 07:43 MCV 92.1 fl (80-94) 03/20/23 07:43 MCH 29.2 pg (28.0-34.0) 03/20/23 07:43 MCHC 31.7 g/dL (30.0-36.0) 03/20/23 07:43 RDW 13.6 % (12.1-15.1) 03/20/23 07:43 Plt Count 149 10^3/cmm (130-400) 03/20/23 07:43 MPV 9.7 fL (7.4-10.4) 03/20/23 07:43 Neut % (Auto) 73.5 % 03/20/23 07:43 Lymph % (Auto) 14.7 % 03/20/23 07:43 [place] % (Auto) 8.7 % 03/20/23 07:43 Eos % (Auto) 1.3 % 03/20/23 07:43 Baso % (Auto) 0.7 % 03/20/23 07:43 Neut # (Auto) 3.29 10^3/uL (1.8-7.7) 03/20/23 07:43 Lymph # (Auto) 0.7 10^3/uL (0.8-4.8) L 03/20/23 07:43 [place] # (Auto) 0.4 10^3/uL (0.2-0.9) 03/20/23 07:43 Eos # (Auto) 0.1 10^3/uL (0.0-0.8) 03/20/23 07:43 Baso # (Auto) 0.0 10^3/uL (0.0-0.1) 03/20/23 07:43 Nucleated RBC % (auto) 0 % 03/20/23 07:43 Nucleated RBCs # 0.0 /100WBC 03/20/23 07:43 Sodium 135 mmol/L (136-145) L 03/20/23 07:43 Potassium 4.6 mmol/L (3.5-5.1) 03/20/23 07:43 Chloride 98 mmol/L (98-107) 03/20/23 07:43 Carbon Dioxide 29 mmol/L (22-29) 03/20/23 07:43 Anion Gap 12.6 (5-19) 03/20/23 07:43 BUN 13 mg/dL (8-23) 03/20/23 07:43 Creatinine 0.5 mg/dL (0.7-1.2) L 03/20/23 07:43 GFR Calculation Not Reportable 03/20/23 07:43 Glucose 176 mg/dL (65-115) H 03/20/23 07:43 Calculated Osmolality 284 mOsm/kg (285-295) L 03/20/23 07:43 Calcium 9.3 mg/dL (8.5-10.5) 03/20/23 07:43 C-Reactive Protein 7.8 mg/L (0.0-4.9) H 03/20/23 07:43 Discharge Plan Discharge Patient Disposition: Admitted As Inpatient Admit Provider: Staci Harvey Clinical Impression: Status post cervical spinal fusion, Cerebrospinal fluid leak following surgery Condition: Stable Coding Level of Care Code ED Banquet Pilot for Ravi Lee
[2023-03-20 07:53] LABS: Basophils % 0.7 %; Eosinophils # 0.1 10^3/uL (0.0-0.8); Eosinophils % 1.3 %; Hematocrit 39.4 % (42.0-52.0); Hemoglobin 12.5 g/dL (11.7-16.6); Lymphocytes # 0.7 10^3/uL (0.8-4.8); Lymphocytes % 14.7 %; Mean Corpuscular HGB Conc 31.7 g/dL (30.0-36.0); Mean Corpuscular Hemoglobin 29.2 pg (28.0-34.0); Mean Corpuscular Volume 92.1 fl (80-94); Mean Platelet Volume 9.7 fL (7.4-10.4); Monocytes # 0.4 10^3/uL (0.2-0.9); Monocytes % 8.7 %; Neutrophils # 3.29 10^3/uL (1.8-7.7); Neutrophils % 73.5 %; Nucleated Red Blood Cells % 0 %; Platelet Count 149 10^3/cmm (130-400); Red Blood Count 4.28 10^6/uL (4.1-5.3); Red Cell Distribution Width 13.6 % (12.1-15.1); White Blood Count 4.5 10^3/uL (4.0-10.0)
[2023-03-20] MEDS: iohexol 350 mg/mL 500 mL Btl (per mL) IV (08:01)
--- NOTE | 2023-03-20 08:02 | CT_ITS ---
WS: [id number] CT HEAD NONCONTRAST HISTORY: S/P CERVICAL FUSION, WITH COMPLICATIONS TECHNIQUE: Contiguous axial imaging performed through the brain in 2.5 mm imaging. Bone and soft tiss ue windows. Sagittal and coronal reformats reviewed. All CT scans at [facility] use at least one of these dose optimization techniques: automated exposure control; mA and/or kV adjustment per pa tient size (includes targeted exams where dose is matched to clinical indication); or iterative recon struction. DLP: 1088.63 mGy-cm. COMPARISON: 02/11/2023 No acute intracranial hemorrhage, midline shift or mass effect. Mild atrophy and moderate small vessel ischemic disease. No midline shift. Ventricles: Significant change in appearance of ventricular system since the prior examination. Ther e is now a large amount of air filling the ventricular system. There is air filling approximately 50% of the lateral ventricles and extending through the third ventricle and the temporal horns. There is air anterior to the brainstem and through the foramen magnum. No herniation. Paranasal sinuses: As visualized are clear. Mastoid air cells: Well pneumatized. Calvarium and scalp: Skull is intact with no soft tissue edema or swelling. CT/CT head wo con* [id number] IMPRESSION: 1. Development of a large amount of pneumocephalus. There is a large amount of air within the ventricular system and noted within the foramen magnum. New sin ce 02/11/2023. By history patient has a known CSF leak. 2. Atrophy and moderate small vessel ischemic disease. No herniation. Notified Bacilio Ramsey DO at 03/20/2023 8:41 AM.
[2023-03-20 08:16] LABS: Blood Urea Nitrogen 13 mg/dL (8-23); C Reactive Protein 7.8 mg/L (0.0-4.9); Calcium 9.3 mg/dL (8.5-10.5); Carbon Dioxide 29 mmol/L (22-29); Chloride 98 mmol/L (98-107); Glucose 176 mg/dL (65-115); Osmolality Calculated 284 mOsm/kg (285-295); Sodium 135 mmol/L (136-145)
[2023-03-20 08:18] LABS: Anion Gap 12.6 (5-19); Creatinine Clr Calc Pharmacy 85.5587; Potassium 4.6 mmol/L (3.5-5.1)
--- NOTE | 2023-03-20 11:44 | PC.NURSE ---
Report update given to QUITA Ewing at [facility] where patient is from. Aware that pt will be admitted to hospital.
--- NOTE | 2023-03-20 11:57 | P.HP_ITS ---
Providers/Chief Complaint Admitting Physician: Staci Harvey MD Primary Care Provider: Chinedu Babin DO Chief Complaint: SURGICAL SITE LEAKING History of Present Illness SpineAlex Quiros is a 77 year old male significant medical history for diabetes, hypertension, significant bradycardia requiring pacemaker?, recently diagnosed with Cervical myelopathy with cervical radiculopathy for which he underwent C2-T2 posterior instrumented fusion with decompression from C3-C7 posteriorly on 02/05/23.? After which he was admitted from 02/11?02/15 for altered mental status when he was found to have meningitis with large fluid collection at surgical site contiguous with a possible CSF leak versus epidural abscess/seroma or hematoma. He was started on IV cefepime after which his mentation improved. Patient was discharged on IV cefepime 2 g every 12 hourly for 6 weeks to SNF. Today he is brought back from the SNF with concerns for wound dehiscence and CSF leak. Patient seen in the ER with spouse at bedside. As per patient and his spouse he has been having nausea, vomiting with mild headache since discharge but has been doing better. He has been working with physical therapy and walking and his mentation has remained stable. Today morning while he was given a bath he was noticed to have mild CSF leak and small wound dehiscence hence he was sent to the ER. 6 days ago was done which showed a large fluid collection of 7.7 into 712 point. With enhancing rim extending through the subcutaneous tissue posterior to the thecal sac extending from C2-T12. Patient himself denies of having any chills or fever at the alf but does complain of feeling colder than usual requiring multiple blankets. Review of Systems General: Reports: 10 or more systems reviewed and unremarkable except in HPI and below Const: Denies: fever(s), chills, body aches, change in appetite, change in weight, malaise, night sweats, diaphoresis, change in sleep pattern, daytime sleepiness or snoring Eyes: Denies: change in vision, blurry vision, photophobia, eye discomfort or eye discharge ENMT: Denies: throat pain, enlarged tonsils, hoarseness, mouth pain, oral sores, dry mouth, tinnitus, nasal congestion or post nasal drip Card: Denies: chest pain, palpitations, irregular heart rhythm, edema, swelling of feet/ankles, lightheadedness, syncope, pre-syncope, dyspnea on ex ertion, orthopnea, leg pain with exertion or acrocyanosis Resp: Denies: dyspnea, productive cough, non-productive cough, wheezing, stridor, pain on inspiration, change in phlegm color, hemoptysis or chest congestion GI: Denies: abdominal pain, nausea, vomiting, hematemesis, coffee ground emesis, dysphagia, heartburn, diarrhea, constipation, bloating, GI cramping, change in bowel habits, pain on defecation, hematochezia or melena : Denies: flank pain, difficulty urinating, dysuria, urinary frequency, uri nary urgency, urinary hesitancy, urinary dribbling, difficulty starting urination, change in urine stream, nocturia or hematuria Musc: Denies: neck pain, back pain, extremity pain, joint pain, joint swelling, joint redness, joint stiffness or limited range of motion Neuro: Denies: headache(s), numbness in extremities, weakness in extremities, sensory changes, lack of coordination, difficulty walking, frequent falls, dizziness, vertigo, confusion, Slurred speech present, difficulty communicating thoughts or seizure-like activity Psych: Denies: anxiety, depression, mood swings, panic attacks, hopelessness or irritability Endo: Denies: polyuria, polydipsia, tired all the time, cold intolerance, excessive sweating, flushing or heat intolerance Michael/Lymph: Denies: easy bruising or easy bleeding All/Imm: Denies: tongue swelling, facial swelling or acute wheezing Medications/Allergies Home Medications Medication Instructions Recorded Confirmed Last Taken Type aspirin 81 mg tablet,delayed 81 mg PO DAILY 11/01/19 03/20/23 03/20/23 History release atorvastatin 10 mg tablet 10 mg PO DAILY 11/01/19 03/20/23 03/20/23 History Bone Growth Stimulator E0748 #1 ea 01/31/23 03/20/23 03/07/23 Rx Lift Chair #1 ea 02/11/23 03/20/23 03/07/23 Rx atenolol 50 mg tablet 50 mg PO DAILY #30 tabs 02/21/23 03/20/23 03/20/23 Rx isosorbide mononitrate 30 mg 30 mg PO BID #90 tabs 02/21/23 03/20/23 03/20/23 Rx tablet,extended release 24 hr sennosides 8.6 mg-docusate sodium 1 tab PO BID #14 tabs 02/21/23 03/20/23 03/20/23 Rx 50 mg tablet (Stool Softener-Laxative) acetaminophen 325 mg tablet 325 mg PO QID PRN Pain 03/20/23 03/20/23 Unknown History amlodipine 5 mg tablet 5 mg PO DAILY 03/20/23 03/20/23 03/20/23 History bisacodyl 10 mg rectal suppository 10 mg [place] DAILY PRN Constipation 03/20/23 03/20/23 Unknown History (Dulcolax (bisacodyl)) cefepime 2 gram solution for 2,000 mg IV BID 03/20/23 03/20/23 03/19/23 History injection cyclobenzaprine 10 mg tablet 10 mg PO TID PRN Muscle Spasm 03/20/23 03/20/23 Unknown History lisinopril 40 mg tablet 40 mg PO DAILY 03/20/23 03/20/23 03/20/23 History magnesium hydroxide 400 mg/5 mL 30 ml PO DAILY PRN Constipation 03/20/23 03/20/23 Unknown History oral suspension (Milk of Magnesia) omeprazole 20 mg capsule,delayed 20 mg PO DAILY 03/20/23 03/20/23 03/20/23 History release ondansetron HCl 8 mg tablet 8 mg PO Q6H PRN Nausea And Vomiting 03/20/23 03/20/23 Unknown History sodium chloride 0.9 % 10 ml IV Q12H 03/20/23 03/20/23 03/19/23 History sodium phosphates 19 gram-7 118 ml [place] DAILY PRN Constipation 03/20/23 03/20/23 Unknown History gram/118 mL enema (Fleet Enema) tuberculin PPD 5 tub. unit/0.1 mL 1 tb unit intradermal Q14D 03/20/23 03/20/23 Unknown History intradermal injection solution Allergies Allergy/AdvReac Type Severity Reaction Status Date / Time meloxicam Allergy elevated Verified 03/19/23 13:20 blood pressure Sulfa (Sulfonamide Allergy ALGY-Rash Verified 03/19/23 13:20 Antibiotics) PFSH Acute 2 PFSH: Medical History Abnormal stress test Atherosclerosis of coronary artery of [place] heart without angina pectoris Benign essential HTN Bilateral bunions Bilateral foot pain Bradycardia Bradycardia Cervical myelopathy with cervical radiculopathy Chest pain Coronary atherosclerosis Degenerative cervical spinal stenosis Diabetes mellitus Diastasis recti Dyslipidemia History of cardiac pacemaker History of colon polyps Hyperlipemia Intermittent palpitations Internal hemorrhoids Male erectile dysfunction Non-sustained ventricular tachycardia Obesity Osteoarthritis of left knee Pacemaker Presence of permanent cardiac pacemaker Primary hypertension Prostatic cancer Tear of meniscus of right knee Transient cerebral ischemia Urinary incontinence Ventricular arrhythmia Surgical History History of arthroscopic surgery of shoulder History of colonoscopy with polypectomy History of eye surgery History of knee replacement History of knee surgery History of prostatectomy Post-operative state Family History Mother CAD (coronary artery disease) Diabetes Father Cancer Diabetes Denies family history of Clotting disorder Dementia Chronic kidney disease (CKD) Suicide Anesthesia complication Bleeding disorder Lung disease Stroke Social History (Updated 03/20/23 @ 13:19 by Simón Jordan MD) Smoking and tobacco status: former smoker Alcohol intake: former Substance/Drug Use: never Housing: [facility] Marital status: Vitals/I&O/Wt Last Vital Signs Temp 98.0 F 03/20/23 06:59 Pulse 73 03/20/23 06:59 BP 158/83 03/20/23 06:59 Pulse Ox 97 03/20/23 06:59 O2 Del Method Room Air 03/20/23 06:59 Weight last 48 hrs Weight 83.007 kg Physical Exam Narrative: General: No acute distress, AO x3, pleasant, in cervical collar HEENT: PERRLA, pupils bilaterally equal and reactive Chest: Normal vesicular breath sounds, no added sounds, equal good air entry bilaterally CVS: S1-S2 regular, no murmurs, no tachycardia, no gallops, no rubs Abdomen: Soft, nontender, no organomegaly, bowel sounds present Neuro: No focal deficits, no facial deformity, AO x3, power 5/5 in all limbs Data 03/20/23 07:43 03/20/23 07:43 A&P Assessment and plan (1) Wound dehiscence: (2) Cerebrospinal fluid leak following surgery: (3) Status post cervical spinal fusion: (4) Meningitis: (5) Diabetes mellitus: (6) Benign essential HTN: (7) Pacemaker: Plan Wound dehiscence with CSF leak: Post cervical spinal fusion surgery: Orthopedic surgery consulted from the ER. Plan for dural patch in AM. Continue with cervical collar. Bedrest. N.p.o. after midnight. Cardiac diet. Meningitis: Continue IV cefepime 2 g twice daily to finish a 6-week course. Appreciate lab work. Check blood culture, MRSA swab. We will consult ID as patient was supposed to be seen 4 weeks postdischarge. Hypertension: Goal blood pressure less than 140/90 mmHg. Continue with home dose of atenolol, Imdur, lisinopril. Recent echocardiogram showed a normal EF with grade 1 diastolic dysfunction Type 2 diabetes mellitus: Recent A1c 6.9. insulin sliding scale low-dose protocol. Full code. Cardiac diet. SCDs for DVT prophylaxis. Hold off on heparin drip given OR in AM. Protonix for PUD prophylaxis. Attestations Medical Necessity Statement*: Admission for more than 2 midnights for management of wound dehiscence with CSF leak in a patient with recent cervical spinal fusion surgery and postoperative meningitis Diagnoses Wound dehiscence T81.30XA Cerebrospinal fluid leak following surgery G97.82; G96.00 Status post cervical spinal fusion Z98.1 Meningitis G03.9 Diabetes mellitus E11.9 Benign essential HTN I10 Pacemaker Z95.0
[2023-03-20] MEDS: cefepime 2,000 MG in sodium chloride 0.9% (plus) 50 ML 100 MG IV ×2 (12:35→23:30)
[2023-03-20 12:43] LABS: Procalcitonin 0.05 ng/mL (0-0.5)
[2023-03-20] MEDS: ondansetron 2 mg/ML SDV 2 mL 4 MG IVP (13:12)
[2023-03-20] MEDS: sodium chloride 0.9% 1,000 ML 100 ML IV ×2 (13:13→23:30)
--- NOTE | 2023-03-20 16:11 | P.CONIM_ITS ---
Providers/Reason For Consult Consulting Physician/Specialty*: Hospitalist Reason for Consult*: Dural leak Attending Physician: Simón Jordan MD Primary Care Provider: Chinedu Babin DO History of Present Illness History of Present Illness Alex Quiros is a 77 year old male Was treated with posterior cervical fusion. This time patient started having clear fluid leaking from the wound. At this point likely patient has dural leak. For the most part patient just has cervical neck pain overly symptomatic however the likelihood wound healing if it is a dural leak is very low. Plan will be to go in tomorrow and wash this out patch the leak and closed back up. Review of Systems General: Reports: 10 or more systems reviewed and unremarkable except in HPI and below Const: Denies: fever(s), chills, body aches, change in appetite, change in weight, malaise, night sweats, diaphoresis, change in sleep pattern, daytime sleepiness or snoring Eyes: Denies: change in vision, blurry vision, photophobia, eye discomfort or eye discharge ENMT: Denies: throat pain, enlarged tonsils, hoarseness, mouth pain, oral sores, dry mouth, tinnitus, nasal congestion or post nasal drip Card: Denies: chest pain, palpitations, irregular heart rhythm, edema, swelling of feet/ankles, lightheadedness, syncope, pre-syncope, dyspnea on exertion, orthopnea, leg pain with exertion or acrocyanosis Resp: Denies: dyspnea, productive cough, non-productive cough, wheezing, stridor, pain on inspiration, change in phlegm color, hemoptysis or chest conges tion GI: Denies: abdominal pain, nausea, vomiting, hematemesis, coffee ground emesis, dysphagia, heartburn, diarrhea, constipation, bloating, GI cramping, change in bowel habits, pain on defecation, hematochezia or melena : Denies: flank pain, difficulty urinating, dysuria, urinary frequency, urinary urgency, urinary hesitancy, urinary dribbling, difficulty starting urination, change in urine stream, nocturia or hematuria Musc: Denies: neck pain, back pain, extremity pain, joint pain, joint swelling, joint redness, joint stiffness or limited range of motion Neuro: Denies: headache(s), numbness in extremities, weakness in extremities, sensory changes, lack of coordination, difficulty walking, frequent falls, dizziness, vertigo, confusion, Slurred speech present, difficulty communicating thoughts or seizure-like activity Psych: Denies: anxiety, depression, mood swings, panic attacks, hopelessness or irritability Endo: Denies: polyuria, polydipsia, tired all the time, cold intolerance, excessive sweating, flushing or heat intolerance Michael/Lymph: Denies: easy bruising or easy bleeding All/Imm: Denies: tongue swelling, facial swelling or acute wheezing Medications/Allergies Home Medications Medication Instructions Recorded Confirmed Last Taken Type aspirin 81 mg tablet,delayed 81 mg PO DAILY 11/01/19 03/20/23 03/20/23 History release atorvastatin 10 mg tablet 10 mg PO DAILY 11/01/19 03/20/23 03/20/23 History Bone Growth Stimulator E0748 #1 ea 01/31/23 03/20/23 03/07/23 Rx Lift Chair #1 ea 02/11/23 03/20/23 03/07/23 Rx atenolol 50 mg tablet 50 mg PO DAILY #30 tabs 02/21/23 03/20/23 03/20/23 Rx isosorbide mononitrate 30 mg 30 mg PO BID #90 tabs 02/21/23 03/20/23 03/20/23 Rx tablet,extended release 24 hr sennosides 8.6 mg-docusate sodium 1 tab PO BID #14 tabs 02/21/23 03/20/23 03/20/23 Rx 50 mg tablet (Stool Softener-Laxative) acetaminophen 325 mg tablet 325 mg PO QID PRN Pain 03/20/23 03/20/23 Unknown History amlodipine 5 mg tablet 5 mg PO DAILY 03/20/23 03/20/23 03/20/23 History bisacodyl 10 mg rectal suppository 10 mg [place] DAILY PRN Constipation 03/20/23 03/20/23 Unknown History (Dulcolax (bisacodyl)) cefepime 2 gram solution for 2,000 mg IV BID 03/20/23 03/20/23 03/19/23 History injection cyclobenzaprine 10 mg tablet 10 mg PO TID PRN Muscle Spasm 03/20/23 03/20/23 Unknown History lisinopril 40 mg tablet 40 mg PO DAILY 03/20/23 03/20/23 03/20/23 History magnesium hydroxide 400 mg/5 mL 30 ml PO DAILY PRN Constipation 03/20/23 03/20/23 Unknown History oral suspension (Milk of Magnesia) omeprazole 20 mg capsule,delayed 20 mg PO DAILY 03/20/23 03/20/23 03/20/23 History release ondansetron HCl 8 mg tablet 8 mg PO Q6H PRN Nausea And Vomiting 03/20/23 03/20/23 Unknown History sodium chloride 0.9 % 10 ml IV Q12H 03/20/23 03/20/23 03/19/23 History sodium phosphates 19 gram-7 118 ml [place] DAILY PRN Constipation 03/20/23 03/20/23 Unknown History gram/118 mL enema (Fleet Enema) tuberculin PPD 5 tub. unit/0.1 mL 1 tb unit intradermal Q14D 03/20/23 03/20/23 Unknown History intradermal injection solution Allergies Allergy/AdvReac Type Severity Reaction Status Date / Time meloxicam Allergy elevated Verified 03/19/23 13:20 blood pressure Sulfa (Sulfonamide Allergy ALGY-Rash Verified 03/19/23 13:20 Antibiotics) Current Medications Generic Name Dose Route Start Last Admin Trade Name Freq PRN Reason Stop Dose Admin Cefepime HCl 2,000 mg/ Sodium 50 mls @ 100 mls/hr 03/20/23 12:30 03/20/23 13:10 Chloride IV Infused Q12H YAMILETH Infusion Protocol Sodium Chloride 1,000 mls @ 100 mls/hr 03/20/23 13:06 03/20/23 13:13 Sodium Chloride 0.9% IV 100 mls/hr .Q10H YAMILETH Administration Ondansetron HCl 4 mg 03/20/23 11:50 03/20/23 13:12 Ondansetron 2 Mg/Ml Sdv 2 Ml IVP 4 mg Q8H PRN Administration vomiting, or N/V if npo PFSH Acute PFSH: Medical History Abnormal stress test Atherosclerosis of coronary artery of [place] heart without angina pectoris Benign essential HTN Bilateral bunions Bilateral foot pain Bradycardia Bradycardia Cervical myelopathy with cervical radiculopathy Chest pain Coronary atherosclerosis Degenerative cervical spinal stenosis Diabetes mellitus Diastasis recti Dyslipidemia History of cardiac pacemaker History of colon polyps Hyperlipemia Intermittent palpitations Internal hemorrhoids Male erectile dysfunction Non-sustained ventricular tachycardia Obesity Osteoarthritis of left knee Pacemaker Presence of permanent cardiac pacemaker Primary hypertension Prostatic cancer Tear of meniscus of right knee Transient cerebral ischemia Urinary incontinence Ventricular arrhythmia Surgical History History of arthroscopic surgery of shoulder History of colonoscopy with polypectomy History of eye surgery History of knee replacement History of knee surgery History of prostatectomy Post-operative state Family History Mother CAD (coronary artery disease) Diabetes Father Cancer Diabetes Denies family history of Clotting disorder Dementia Chronic kidney disease (CKD) Suicide Anesthesia complication Bleeding disorder Lung disease Stroke Social History (Updated 03/20/23 @ 13:19 by Simón Jordan MD) Smoking and tobacco status: former smoker Alcohol intake: former Substance/Drug Use: never Housing: [facility] Marital status: Vitals/I&O/Wt Last Vital Signs Temp 98.0 F 03/20/23 06:59 Pulse 75 03/20/23 14:00 Resp 18 03/20/23 13:12 BP 123/98 03/20/23 13:12 Pulse Ox 98 03/20/23 13:12 O2 Del Method Room Air 03/20/23 13:21 03/20/23 03/20/23 03/20/23 06:59 14:59 22:59 Intake Total 50 / 50 Balance 50 / 50 Weight last 48 hrs Weight 183 lb Physical Exam Narrative: Patient is resting in bed at this point is in cervical collar. Report of clear fluid draining from the wound. Data 03/20/23 07:43 03/20/23 07:43 Micro: Microbiology 03/20/23 13:55 Blood Culture - Preliminary Blood SPECIMEN COLLECTED 03/20/23 14:03 Blood Culture - Preliminary Blood SPECIMEN COLLECTED A&P Assessment and plan (1) Wound dehiscence: Plan is to small bowel and divide and irrigate the wound and patch the dural leak. Consult Attestations Medical Necessity Statement: dural leak Coding Level of Care Code Acute Code for Chg Fwd Diagnoses Wound dehiscence T81.30XA
[2023-03-20] MEDS: isosorbide mononitrate ER 30 mg Tablet PO (17:25)
[2023-03-20] MEDS: sennosides-docusate Tablet 1 TAB PO (17:25)
[2023-03-21] VITALS (24 sets, daily range): BP systolic 107–161; BP diastolic 53–112; PULSE 60–91; RESP 11–32; TEMP 36.5–36.6; O2SAT 89–99; BMI 26.2
[2023-03-21 03:26] LABS: Basophils % 0.2 %; Hematocrit 35.7 % (42.0-52.0); Hemoglobin 11.4 g/dL (11.7-16.6); Lymphocytes % 23.5 %; Mean Corpuscular HGB Conc 31.9 g/dL (30.0-36.0); Mean Corpuscular Hemoglobin 28.8 pg (28.0-34.0); Mean Corpuscular Volume 90.2 fl (80-94); Mean Platelet Volume 9.8 fL (7.4-10.4); Monocytes # 0.4 10^3/uL (0.2-0.9); Neutrophils # 2.66 10^3/uL (1.8-7.7); Neutrophils % 64.6 %; Nucleated Red Blood Cells % 0 %; Platelet Count 160 10^3/cmm (130-400); Red Blood Count 3.96 10^6/uL (4.1-5.3); Red Cell Distribution Width 13.2 % (12.1-15.1); White Blood Count 4.1 10^3/uL (4.0-10.0)
[2023-03-21 03:45] LABS: Alanine Aminotransferase 17 U/L (0-41); Albumin Level 3.1 g/dL (3.5-5.2); Alkaline Phosphatase 90 U/L (40-130); Aspartate Amino Transferase 17 U/L (0-40); Blood Urea Nitrogen 12 mg/dL (8-23); Calcium 8.9 mg/dL (8.5-10.5); Carbon Dioxide 30 mmol/L (22-29); Chloride 94 mmol/L (98-107); Globulin 2.4 g/dL (1.3-4.6); Glucose 145 mg/dL (65-115); Magnesium 1.5 mg/dL (1.7-2.3); Osmolality Calculated 274 mOsm/kg (285-295); Phosphorus 3.5 mg/dL (2.5-4.5); Sodium 131 mmol/L (136-145); Total Bilirubin 0.7 mg/dL (0.15-1.2); Total Protein 5.5 g/dL (6.6-8.7)
[2023-03-21 03:54] LABS: Anion Gap 11.3 (5-19); Creatinine Clr Calc Pharmacy 85.5587; Potassium 4.3 mmol/L (3.5-5.1)
[2023-03-21] MEDS: isosorbide mononitrate ER 30 mg Tablet PO ×2 (08:08→17:28)
[2023-03-21] MEDS: sennosides-docusate Tablet 1 TAB PO ×2 (08:08→17:28)
[2023-03-21] MEDS: pantoprazole DR 40 mg Tablet PO (08:08)
[2023-03-21] MEDS: atorvastatin 40 mg Tablet 10 MG PO (08:08)
[2023-03-21] MEDS: amlodipine 5 mg Tablet PO (08:08)
[2023-03-21] MEDS: aspirin 81 mg EC Tablet PO (08:08)
[2023-03-21] MEDS: atenolol 50 mg Tablet PO (08:08)
[2023-03-21] MEDS: lisinopril 20 mg Tablet 40 MG PO (08:08)
[2023-03-21] MEDS: sodium chloride 0.9% 1,000 ML 100 ML IV (09:45)
--- NOTE | 2023-03-21 11:43 | W.PM.OPSUD ---
Surgery/Procedure H&P Update DATE OF PROCEDURE: March 21, 2023 DATE H&P PERFORMED: 03/20/23 H&P UPDATE INFORMATION: I have reviewed H&P completed within last 30 days, I have examined patient prior to procedure and No changes to prior documentation PLANNED PROCEDURE: Operation Date: 03/21/23 12:40 Proposed Procedures p I&D, Dura Repair(Not Applicable) - Jim Banda, DO
[2023-03-21] MEDS: cefepime 2,000 MG in sodium chloride 0.9% (plus) 50 ML 100 MG IV (12:05)
--- NOTE | 2023-03-21 13:01 | ANES.PREANE2 ---
Pre-Anesthetic Assessment Height/Weight: Height 1.78 m Weight 82.69 kg Temp Pulse Resp BP Pulse Ox O2 Del Method 97.9 F 61 17 132/76 90 Room Air 03/21/23 09:00 03/21/23 12:00 03/21/23 12:00 03/21/23 12:00 03/21/23 12:00 03/20/23 13:21 Operation Date: 03/21/23 12:40 Proposed Procedures p I&D, Dura Repair(Not Applicable) - Jim Banda, DO Was Beta Obie taken within 24 hours: Yes Was Clonidine taken within 24 hours: N/A Social No alcohol and No tobacco Airway Submandibular: Other (C-Collar) Cervical ROM: Other Mallampati: Class I CV/HEM Stable Angina and Coronary Artery Disease Metabolic Hyperlipidemia Musc/skel Lower Back Pain, Osteoarthritis/DJD and Weakness Anesthetic Plan ASA status: 3E Anesthesia: General Medications/Allergies Home Medications Medication Instructions Recorded Confirmed Last Taken Type aspirin 81 mg tablet,delayed 81 mg PO DAILY 11/01/19 03/20/23 03/20/23 History release atorvastatin 10 mg tablet 10 mg PO DAILY 11/01/19 03/20/23 03/20/23 History Bone Growth Stimulator E0748 #1 ea 01/31/23 03/20/23 03/07/23 Rx Lift Chair #1 ea 02/11/23 03/20/23 03/07/23 Rx atenolol 50 mg tablet 50 mg PO DAILY #30 tabs 02/21/23 03/20/23 03/20/23 Rx isosorbide mononitrate 30 mg 30 mg PO BID #90 tabs 02/21/23 03/20/23 03/20/23 Rx tablet,extended release 24 hr sennosides 8.6 mg-docusate sodium 1 tab PO BID #14 tabs 02/21/23 03/20/23 03/20/23 Rx 50 mg tablet (Stool Softener-Laxative) acetaminophen 325 mg tablet 325 mg PO QID PRN Pain 03/20/23 03/20/23 Unknown History amlodipine 5 mg tablet 5 mg PO DAILY 03/20/23 03/20/23 03/20/23 History bisacodyl 10 mg rectal suppository 10 mg RI DAILY PRN Constipation 03/20/23 03/20/23 Unknown History (Dulcolax (bisacodyl)) cefepime 2 gram solution for 2,000 mg IV BID 03/20/23 03/20/23 03/19/23 History injection cyclobenzaprine 10 mg tablet 10 mg PO TID PRN Muscle Spasm 03/20/23 03/20/23 Unknown History lisinopril 40 mg tablet 40 mg PO DAILY 03/20/23 03/20/23 03/20/23 History magnesium hydroxide 400 mg/5 mL 30 ml PO DAILY PRN Constipation 03/20/23 03/20/23 Unknown History oral suspension (Milk of Magnesia) omeprazole 20 mg capsule,delayed 20 mg PO DAILY 03/20/23 03/20/23 03/20/23 History release ondansetron HCl 8 mg tablet 8 mg PO Q6H PRN Nausea And Vomiting 03/20/23 03/20/23 Unknown History sodium chloride 0.9 % 10 ml IV Q12H 03/20/23 03/20/23 03/19/23 History sodium phosphates 19 gram-7 118 ml RI DAILY PRN Constipation 03/20/23 03/20/23 Unknown History gram/118 mL enema (Fleet Enema) tuberculin PPD 5 tub. unit/0.1 mL 1 tb unit intradermal Q14D 03/20/23 03/20/23 Unknown History intradermal injection solution Allergies Allergy/AdvReac Type Severity Reaction Status Date / Time meloxicam Allergy elevated Verified 03/19/23 13:20 blood pressure Sulfa (Sulfonamide Allergy ALGY-Rash Verified 03/19/23 13:20 Antibiotics) Current Medications Generic Name Dose Route Start Last Admin [facility] Reason Stop Dose Admin Aspirin 81 mg 03/21/23 09:00 03/21/23 08:08 Aspirin 81 Mg Ec Tablet PO 81 mg DAILY YAMILETH Administration Atenolol 50 mg 03/21/23 09:00 03/21/23 08:08 Atenolol 50 Mg Tablet PO 50 mg DAILY YAMILETH Administration Atorvastatin Calcium 10 mg 03/21/23 09:00 03/21/23 08:08 Atorvastatin 40 Mg Tablet PO 10 mg DAILY YAMILETH Administration Cefepime HCl 2,000 mg/ Sodium 50 mls @ 100 mls/hr 03/20/23 12:30 03/21/23 12:52 Chloride IV Infused Q12H YAMILETH Infusion Protocol Sodium Chloride 1,000 mls @ 100 mls/hr 03/20/23 13:06 03/21/23 09:45 Sodium Chloride 0.9% IV 100 mls/hr .Q10H YAMILETH Administration Isosorbide Mononitrate 30 mg 03/20/23 18:00 03/21/23 08:08 Isosorbide Mononitrate Er 30 Mg Tablet PO 30 mg BID YAMILETH Administration Lisinopril 40 mg 03/21/23 09:00 03/21/23 08:08 Lisinopril 20 Mg Tablet PO 40 mg DAILY YAMILETH Administration Ondansetron HCl 4 mg 03/20/23 11:50 03/20/23 13:12 Ondansetron 2 Mg/Ml Sdv 2 Ml IVP 4 mg Q8H PRN Administration vomiting, or N/V if npo Pantoprazole Sodium 40 mg 03/21/23 09:00 03/21/23 08:[address] 40 Mg Tablet PO 40 mg DAILY YAMILETH Administration Senna/Docusate Sodium 1 tab 03/20/23 18:00 03/21/23 08:08 Sennosides-Docusate Tablet PO 1 tab BID YAMILETH Administration PFSH Anesthesia Medical History Abnormal stress test Atherosclerosis of coronary artery of [place] heart without angina pectoris Benign essential HTN Bilateral bunions Bilateral foot pain Bradycardia Bradycardia Cervical myelopathy with cervical radiculopathy Chest pain Coronary atherosclerosis Degenerative cervical spinal stenosis Diabetes mellitus Diastasis recti Dyslipidemia History of cardiac pacemaker History of colon polyps Hyperlipemia Intermittent palpitations Internal hemorrhoids Male erectile dysfunction Non-sustained ventricular tachycardia Obesity Osteoarthritis of left knee Pacemaker Presence of permanent cardiac pacemaker Primary hypertension Prostatic cancer Tear of meniscus of right knee Transient cerebral ischemia Urinary incontinence Ventricular arrhythmia Surgical History History of arthroscopic surgery of shoulder History of colonoscopy with polypectomy History of eye surgery History of knee replacement History of knee surgery History of prostatectomy Post-operative state Family History Mother CAD (coronary artery disease) Diabetes Father Cancer Diabetes Denies family history of Clotting disorder Dementia Chronic kidney disease (CKD) Suicide Anesthesia complication Bleeding disorder Lung disease Stroke Social History (Updated 03/20/23 @ 13:19 by Simón Jordan MD) Smoking and tobacco status: former smoker Alcohol intake: former Substance/Drug Use: never Housing: [place] Marital status: Data Anesthesia 03/21/23 02:42 03/21/23 02:42 Short CBC 03/20/23 03/21/23 Range/Units 07:43 02:42 WBC 4.5 4.1 (4.0-10.0) 10^3/uL Hgb 12.5 11.4 L (11.7-16.6) g/dL Hct 39.4 L 35.7 L (42.0-52.0) % MCV 92.1 90.2 (80-94) fl Plt Count 149 160 (130-400) 10^3/cmm Neut % (Auto) 73.5 64.6 % Neut # (Auto) 3.29 2.66 (1.8-7.7) 10^3/uL BMP 03/20/23 03/21/23 07:43 02:42 Sodium 135 L 131 L Potassium 4.6 4.3 Chloride 98 94 L Carbon Dioxide 29 30 H BUN 13 12 Creatinine 0.5 L 0.5 L Glucose 176 H 145 H Calcium 9.3 8.9 Liver Function 03/21/23 Range/Units 02:42 Total Bilirubin 0.7 (0.15-1.2) mg/dL AST 17 (0-40) U/L ALT 17 (0-41) U/L Alkaline Phosphatase 90 (40-130) U/L Albumin 3.1 L (3.5-5.2) g/dL Coags 03/20/23 07:43 C-Reactive Protein 7.8 H Microbiology 03/20/23 13:55 Blood Culture - Preliminary Blood SPECIMEN COLLECTED 03/20/23 14:03 Blood Culture - Preliminary Blood SPECIMEN COLLECTED Cardiac Studies: Echocardiogram 03/01/22 Sestamibi Stress Test (Cardiology) 02/28/22 Holter Monitor 04/25/20
[2023-03-21] MEDS: lidocaine-epi 2% 20 mL INJ INJECTION (13:08)
[2023-03-21] MEDS: vancomycin 1,000 MG SDV 1000 MG XX (13:35)
--- NOTE | 2023-03-21 14:58 | PC.NURSE ---
Patient arrived back from surgery at 1450. Family bedside
--- NOTE | 2023-03-21 15:11 | P.OP_ITS ---
Operative Report Date of procedure: March 21, 2023 Pre-op diagnosis: dural tear posterior cervical spine Post-op diagnosis: same Procedure done: 1. Repair dural tear 2. Irrigation and debridement down to bone of 10 inch long, 3 inch wide 2inch deep Specimens removed/disposition: cultures sent Surgeon: Jim Banda [employer] Supervisor: none Estimated blood loss (mL): 50 Procedure: 1. Repair dural tear 2. Irrigation and debridement down to bone of 10 inch long, 3 inch wide 2inch deep Patient is brought to the operative suite after emergency was placed in prone position. All pressure well-padded patient's prepped draped normal sterile fashion. Skin incision made once the skin was cut large amount of cerebrospinal fluid came out. Cultures were sent of this layer as well. The retractors were placed. And attention was brought to the area where the dura leak was coming from. This was up above the C2 level between C1 and C2 on the left side. Retractors were placed. The 2 pedicles were identified where the dural leak was. Attempt was made to place a stitch in however the angle was too acute to get a stitch in and at this point I placed a dural patch and sutured the ligament over this patch to allow compression of this. Did a Valsalva maneuver and there was no dural leak. And then the DuraSeal was placed over this. Debridement of the spinous process at T1 was performed was going to be prominent in the wound. The extensor muscles were then repaired back to each other. And also help close the space. Then another layer of the fascia was then closed with Vicryl. Between these 2 layers vancomycin powder was placed. Above the fascia a drain was placed. And 2-0 Vicryl was placed to close the skin and the skin itself was closed with nylon suture. Sterile dressings were applied and patient was flipped into the supine position and transferred to the PACU in stable condition.
[2023-03-21] MEDS: lactated ringers 1,000 ML 90 ML IV (15:42)
--- NOTE | 2023-03-21 16:35 | ANE.PACU2 ---
Inpatient post-anesthesia follow up: Vital signs: Temperature 97.9 F Pulse Rate 71 Respiratory Rate 16 Blood Pressure 128/82 Pulse Oximetry 92 Oxygen Delivery Me thod Room Air Oxygen Flow Rate Fraction of Inspir ed Oxygen Hydration adequate: Yes Nausea and vomiting: No Pain level: 2 Mental status: Baseline
--- NOTE | 2023-03-21 17:04 | PM.PN ---
Subjective Subjective: No acute events overnight. Today morning seen with family at bedside. Did have mild episode of agitation overnight which resolved after placing Omrocho catheter. Today morning laying comfortably in bed. Has remained hemodynamically stable and afebrile. During examination is revealed to the OR for dural patch. Blood work appreciated for a stable CBC, mild hyponatremia with sodium of 131. Vitals/I&O/Wt Last Vital Signs Temp 97.9 F 03/21/23 09:00 Pulse 71 03/21/23 15:35 Resp 16 03/21/23 15:35 BP 128/82 03/21/23 15:00 Pulse Ox 92 03/21/23 15:35 O2 Del Method Room Air 03/21/23 15:35 03/21/23 03/21/23 03/21/23 06:59 14:59 22:59 Intake Total 1050 / 1830 1050 / 1050 Output Total 1000 / 1000 Balance 1050 / 1830 1050 / 1050 -1000 / 50 Weight last 48 hrs Weight 82.69 kg Weight 83.007 kg Physical Exam Narrative: General: No acute distress, AO x3, pleasant, in cervical collar HEENT: PERRLA, pupils bilaterally equal and reactive Chest: Normal vesicular breath sounds, no added sounds, equal good air entry bilaterally CVS: S1-S2 regular, no murmurs, no tachycardia, no gallops, no rubs Abdomen: Soft, nontender, no organomegaly, bowel sounds present Neuro: No focal deficits, no facial deformity, AO x3, power 5/5 in all limbs Urinary Catheter Management: [place]: Cath Placed During This Visit: yes Urinary Catheter Date of Insertion: 03/21/23 Urinary Catheter Time of Insertion: 07:58 Data 03/21/23 02:42 03/21/23 02:42 Micro: Microbiology 03/20/23 14:03 Blood Culture - Preliminary Blood NEGATIVE TO DATE 03/20/23 13:55 Blood Culture - Preliminary Blood NEGATIVE TO DATE 03/20/23 12:32 MRSA Culture - Final Nose A&P Assessment and plan (1) Wound dehiscence: (2) Cerebrospinal fluid leak following surgery: (3) Status post cervical spinal fusion: (4) Meningitis: (5) Diabetes mellitus: (6) Benign essential HTN: (7) Pacemaker: Plan Wound dehiscence with CSF leak: Post cervical spinal fusion surgery: Plan for dural patch today. N.p.o. currently. Postoperatively anticoagulation, diet, PT as per orthopedic team. We will request for OR cultures. Continue with cervical collar.? Bedrest. Meningitis: Continue IV cefepime 2 g twice daily to finish a 6-week course. Appreciate lab work.? Follow-up blood culture, MRSA swab, OR cultures. Appreciate ID and orthopedic recommendations. Hypertension: Goal blood pressure less than 140/90 mmHg. Continue with home dose of atenolol, Imdur, lisinopril. Increase dose of amlodipine to 10 mg daily. Recent echocardiogram showed a normal EF with grade 1 diastolic dysfunction Type 2 diabetes mellitus: Recent A1c 6.9. insulin sliding scale low-dose protocol. Full code. NPO. SCDs for DVT prophylaxis.? Prophylactic medical management as per orthopedic team. Protonix for PUD prophylaxis. Attestations Medical Necessity Statement*: Requires further hospitalization for management of CSF leak and wound dehiscence in a patient post cervical spinal infusion requiring the OR correction, meningitis Diagnoses Wound dehiscence T81.30XA Cerebrospinal fluid leak following surgery G97.82; G96.00 Status post cervical spinal fusion Z98.1 Meningitis G03.9 Diabetes mellitus E11.9 Benign essential HTN I10 Pacemaker Z95.0
[2023-03-21] MEDS: docusate sodium 100 mg Capsule PO (17:28)
--- NOTE | 2023-03-21 17:48 | PC.NURSE ---
Patient resting in room at this time. Previous attempts of getting out of bed and patient being confused intermittently. So far patient more alert at this time. Notified Dr. Jordan who gave PRN orders for a low dose of precedex overnight if needed for patients safety to remain in bed at this time. HOB to be elevated greater than [address] Crabtree orders.
[2023-03-21] MEDS: dexmedetomidine 400 MCG in sodium chloride 0.9% (100 ml) 100 ML IV (19:02)
[2023-03-21] MEDS: acetaminophen 325 mg Tablet 650 MG PO (23:13)
[2023-03-22] VITALS (20 sets, daily range): BP systolic 103–156; BP diastolic 56–78; PULSE 64–91; RESP 0–24; TEMP 36.6–36.9; O2SAT 90–97; BMI 26.2
[2023-03-22] MEDS: cefepime 2,000 MG in sodium chloride 0.9% (plus) 50 ML 100 MG IV ×2 (00:45→12:12)
[2023-03-22 04:35] LABS: Basophils % 0.2 %; Eosinophils % 0.2 %; Hematocrit 34.7 % (42.0-52.0); Hemoglobin 11.1 g/dL (11.7-16.6); Lymphocytes # 0.7 10^3/uL (0.8-4.8); Lymphocytes % 13.8 %; Mean Corpuscular Hemoglobin 28.9 pg (28.0-34.0); Mean Corpuscular Volume 90.4 fl (80-94); Mean Platelet Volume 9.5 fL (7.4-10.4); Monocytes # 0.4 10^3/uL (0.2-0.9); Monocytes % 8.7 %; Neutrophils # 3.61 10^3/uL (1.8-7.7); Neutrophils % 76.5 %; Nucleated Red Blood Cells % 0 %; Platelet Count 148 10^3/cmm (130-400); Red Blood Count 3.84 10^6/uL (4.1-5.3); Red Cell Distribution Width 13.3 % (12.1-15.1); White Blood Count 4.7 10^3/uL (4.0-10.0)
[2023-03-22 04:52] LABS: Alanine Aminotransferase 16 U/L (0-41); Albumin Level 2.8 g/dL (3.5-5.2); Alkaline Phosphatase 86 U/L (40-130); Anion Gap 11.8 (5-19); Aspartate Amino Transferase 14 U/L (0-40); Blood Urea Nitrogen 16 mg/dL (8-23); Carbon Dioxide 30 mmol/L (22-29); Chloride 97 mmol/L (98-107); Globulin 2.4 g/dL (1.3-4.6); Glucose 169 mg/dL (65-115); Magnesium 1.6 mg/dL (1.7-2.3); Osmolality Calculated 283 mOsm/kg (285-295); Phosphorus 4.7 mg/dL (2.5-4.5); Potassium 4.8 mmol/L (3.5-5.1); Sodium 134 mmol/L (136-145); Total Bilirubin 0.6 mg/dL (0.15-1.2); Total Protein 5.2 g/dL (6.6-8.7)
[2023-03-22] MEDS: atorvastatin 40 mg Tablet 10 MG PO (08:17)
[2023-03-22] MEDS: aspirin 81 mg EC Tablet PO (08:17)
[2023-03-22] MEDS: atenolol 50 mg Tablet PO (08:17)
[2023-03-22] MEDS: amlodipine 5 mg Tablet 10 MG PO (08:17)
[2023-03-22] MEDS: lisinopril 20 mg Tablet 40 MG PO (08:17)
[2023-03-22] MEDS: sennosides-docusate Tablet 1 TAB PO ×2 (08:18→17:52)
[2023-03-22] MEDS: docusate sodium 100 mg Capsule PO ×2 (08:18→17:52)
[2023-03-22] MEDS: pantoprazole DR 40 mg Tablet PO (08:18)
[2023-03-22] MEDS: isosorbide mononitrate ER 30 mg Tablet PO ×2 (08:18→17:52)
--- NOTE | 2023-03-22 09:07 | PM.PN ---
Subjective Subjective: Patient is postop day 1 from dural repair. At this point he is doing well no complaints. Plan will be to get him up with physical therapy today. Vitals/I&O/Wt Last Vital Signs Temp 97.9 F 03/22/23 00:00 Pulse 64 03/22/23 08:00 Resp 10 L 03/22/23 08:00 BP 105/64 03/22/23 08:00 Pulse Ox 92 03/22/23 07:47 O2 Del Method Nasal Cannula 03/22/23 07:47 O2 Flow Rate 1 03/22/23 07:47 03/21/23 03/22/23 03/22/23 22:59 06:59 14:59 Intake Total 1723.225 / 2773.225 1367.617 / 4140.842 248.528 / 248.528 Output Total 1450 / 1450 380 / 1830 Balance 273.225 / 1323.225 987.617 / 2310.842 248.528 / 248.528 Weight last 48 hrs Weight 182 lb 4.8 oz Weight 182 lb 4.8 oz Physical Exam Narrative: Patient is resting in bed no complaints of pain. Drain had minimal output plan will be to remove the drain. Urinary Catheter Management: [place]: Cath Placed During This Visit: yes Reason for Continuing Indwelling Catheter: Accurate Measurement of Urinary Output in Critically Ill Patients Urinary Catheter Date of Insertion: 03/21/23 Urinary Catheter Time of Insertion: 07:58 Data 03/22/23 03:40 03/22/23 03:40 Micro: Microbiology 03/20/23 07:10 Wound Culture - Preliminary Incision 03/20/23 14:03 Blood Culture - Preliminary Blood NEGATIVE TO DATE 03/20/23 13:55 Blood Culture - Preliminary Blood NEGATIVE TO DATE 03/20/23 12:32 MRSA Culture - Final Nose A&P Assessment and plan (1) Encounter for postoperative care: Patient is postop day 1 from dural repair. This point he is doing well no complaints. From my standpoint get him up with physical therapy consider start looking at discharge planning. Attestations Medical Necessity Statement*: per primary service Coding Level of Care Code Acute Code for Chg Fwd Diagnoses Encounter for postoperative care Z48.89
[2023-03-22 11:15] LABS: Add Urine Culture? No; Add Urine Microscopic? YES; Bacteria Urine TRACE /hpf; Bilirubin Urine Neg (Negative); Blood Urine 2+ (Negative); Calcium Oxalate Crystals Urine 0-4 /hpf; Glucose Urine UA Norm (Normal); Ketones Urine 1+ (Negative); Leukocyte Esterase Urine Negative (Negative); Mucus Urine 1+ /hpf; Nitrate Urine Negative (Negative); Protein Urine Trace (Negative); RBC Urine 0-4 /hpf (0-2); Specific Gravity, Urine 1.025 (1.005-1.030); Squamous Epithelial Cell Urine 0-4 /hpf (0-5); Urine Appearance Clear (CLEAR); Urine Color Amber (Yellow); Urobilinogen Urine 1 mg/dL (Negative); WBC Urine 0-4 /hpf (0-5); pH Urine 5 (5-7)
[2023-03-22] MEDS: HYDROcodone-acetaminophen 5-325 mg Tablet 1 TAB PO (12:12)
[2023-03-22] MEDS: ondansetron 2 mg/ML SDV 2 mL 4 MG IVP (12:13)
[2023-03-22 12:32] LABS: Glucose Point of Care 252 mg/dL (70-110)
--- NOTE | 2023-03-22 15:24 | P.PN_ITS ---
Subjective Subjective: No acute events overnight. Patient has remained medically stable and afebrile. Postoperatively patient has been doing well. Morocho in place. Sitting up in chair today. Worked with physical therapy. Patient is able to have a complete conversation and is AOx3 though less mobile today. Documented urine output of around 1.8 L. Blood on the patient for a stable CBC, CMP showing improving hyponatremia, stable creatinine, mildly elevated phosphorus with hypomagnesemia 1.6. Vitals/I&O/Wt Last Vital Signs Temp 98.2 F 03/22/23 15:22 Pulse 72 03/22/23 15:22 Resp 16 03/22/23 15:22 BP 126/71 03/22/23 15:22 Pulse Ox 96 03/22/23 15:22 O2 Del Method Nasal Cannula 03/22/23 07:47 O2 Flow Rate 1 03/22/23 07:47 03/22/23 03/22/23 03/22/23 06:59 14:59 22:59 Intake Total 1367.617 / 4140.842 298.528 / 298.528 Output Total 380 / 1830 Balance 987.617 / 2310.842 298.528 / 298.528 Weight last 48 hrs Weight 82.69 kg Weight 82.69 kg Physical Exam Narrative: General: No acute distress, AO x3, pleasant, in cervical collar HEENT: PERRLA, pupils bilaterally equal and reactive Chest: Normal vesicular breath sounds, no added sounds, equal good air entry bilaterally CVS: S1-S2 regular, no murmurs, no tachycardia, no gallops, no rubs Abdomen: Soft, nontender, no organomegaly, bowel sounds present Neuro: No focal deficits, no facial deformity, AO x3, power 5/5 in all limbs Urinary Catheter Management: [place]: Cath Placed During This Visit: yes Reason for Continuing Indwelling Catheter: Accurate Measurement of Urinary Output in Critically Ill Patients Urinary Catheter Date of Insertion: 03/21/23 Urinary Catheter Time of Insertion: 07:58 Data 03/22/23 03:40 03/22/23 03:40 Micro: Microbiology 03/21/23 13:12 Gram Stain - Final Neck Wound Culture - Preliminary 03/20/23 07:10 Wound Culture - Preliminary Incision 03/20/23 14:03 Blood Culture - Preliminary Blood NEGATIVE TO DATE 03/20/23 13:55 Blood Culture - Preliminary Blood NEGATIVE TO DATE 03/20/23 12:32 MRSA Culture - Final Nose A&P Assessment and plan (1) Wound dehiscence: (2) Cerebrospinal fluid leak following surgery: (3) Status post cervical spinal fusion: (4) Meningitis: (5) Diabetes mellitus: (6) Benign essential HTN: (7) Pacemaker: Plan Wound dehiscence with CSF leak: Post cervical spinal fusion surgery: Post dural patch day 1. Follow-up for cultures. PT as per neurosurgery team. Continue cervical collar. Start on anticoagulation once okay with neurosurgery team. Meningitis: Continue IV cefepime 2 g twice daily to finish a 6-week course. Appreciate lab work.? Follow-up blood cultures in OR cultures. MRSA negative. Appreciate ID and orthopedic recommendations. Hypertension: Goal blood pressure less than 140/90 mmHg. Blood pressure slightly soft today. Continue with home dose of atenolol, Imdur, lisinopril. Hold off on amlodipine for now. Recent echocardiogram showed a normal EF with grade 1 diastolic dysfunction Type 2 diabetes mellitus: Recent A1c 6.9. insulin sliding scale low-dose protocol. Replete magnesium. Full code. Cardiac diet. SCDs for DVT prophylaxis.? Prophylactic medical management as per orthopedic team. Protonix for PUD prophylaxis. Transfer to [facility]. Attestations Medical Necessity Statement*: Requires further hospitalization for post dural patch repair surgery in a patient with wound dehiscence with CSF leak, status post cervical fusion surgery with meningitis Diagnoses Wound dehiscence T81.30XA Cerebrospinal fluid leak following surgery G97.82; G96.00 Status post cervical spinal fusion Z98.1 Meningitis G03.9 Diabetes mellitus E11.9 Benign essential HTN I10 Pacemaker Z95.0
[2023-03-22 17:12] LABS: Glucose Point of Care 248 mg/dL (70-110)
[2023-03-22 21:14] LABS: Glucose Point of Care 197 mg/dL (70-110)
[2023-03-23] VITALS (26 sets, daily range): BP systolic 111–160; BP diastolic 64–92; PULSE 70–79; RESP 12–33; TEMP 36.4–37; O2SAT 90–95
[2023-03-23] MEDS: cefepime 2,000 MG in sodium chloride 0.9% (plus) 50 ML 100 MG IV ×2 (00:41→14:57)
[2023-03-23 05:32] LABS: Basophils % 0.3 %; Eosinophils % 0.5 %; Hematocrit 36.3 % (42.0-52.0); Hemoglobin 11.7 g/dL (11.7-16.6); Lymphocytes # 0.9 10^3/uL (0.8-4.8); Lymphocytes % 14.7 %; Mean Corpuscular HGB Conc 32.2 g/dL (30.0-36.0); Mean Corpuscular Hemoglobin 29.3 pg (28.0-34.0); Mean Corpuscular Volume 90.8 fl (80-94); Mean Platelet Volume 10.1 fL (7.4-10.4); Monocytes # 0.6 10^3/uL (0.2-0.9); Monocytes % 9.9 %; Neutrophils # 4.33 10^3/uL (1.8-7.7); Neutrophils % 73.7 %; Nucleated Red Blood Cells % 0 %; Platelet Count 158 10^3/cmm (130-400); Red Cell Distribution Width 13.5 % (12.1-15.1); White Blood Count 5.9 10^3/uL (4.0-10.0)
[2023-03-23 05:52] LABS: Alanine Aminotransferase 22 U/L (0-41); Albumin Level 3.2 g/dL (3.5-5.2); Alkaline Phosphatase 92 U/L (40-130); Anion Gap 12.9 (5-19); Aspartate Amino Transferase 15 U/L (0-40); Blood Urea Nitrogen 22 mg/dL (8-23); Calcium 9.1 mg/dL (8.5-10.5); Carbon Dioxide 29 mmol/L (22-29); Chloride 95 mmol/L (98-107); Globulin 2.3 g/dL (1.3-4.6); Glucose 138 mg/dL (65-115); Magnesium 1.8 mg/dL (1.7-2.3); Osmolality Calculated 282 mOsm/kg (285-295); Phosphorus 3.2 mg/dL (2.5-4.5); Potassium 3.9 mmol/L (3.5-5.1); Sodium 133 mmol/L (136-145); Total Bilirubin 0.6 mg/dL (0.15-1.2); Total Protein 5.5 g/dL (6.6-8.7)
[2023-03-23 06:53] LABS: Glucose Point of Care 182 mg/dL (70-110)
[2023-03-23] MEDS: sennosides-docusate Tablet 1 TAB PO (08:45)
[2023-03-23] MEDS: lisinopril 20 mg Tablet 40 MG PO (08:45)
[2023-03-23] MEDS: atenolol 50 mg Tablet PO (08:45)
[2023-03-23] MEDS: aspirin 81 mg EC Tablet PO (08:45)
[2023-03-23] MEDS: pantoprazole DR 40 mg Tablet PO (08:45)
[2023-03-23] MEDS: isosorbide mononitrate ER 30 mg Tablet PO (08:45)
[2023-03-23] MEDS: atorvastatin 40 mg Tablet 10 MG PO (08:45)
[2023-03-23] MEDS: docusate sodium 100 mg Capsule PO (08:45)
--- NOTE | 2023-03-23 11:14 | CTR_ITS ---
PROCEDURE INFORMATION: Exam: CT Head Without Contrast Exam date and time: 03/23/2023 12:12 PM Age: 77 years old Clinical indication: Altered mental status/memory loss; Confusion or disorientation; Additional info: Mental status change TECHNIQUE: Imaging protocol: Computed tomography of the head without contrast. Radiation optimization: All CT scans at this facility use at least one of these dose optimization techniques: automated exposure control; mA and/or kV adjustment per patient size (includes targeted exams where dose is matched to clinical indication); or iterative reconstruction. REPORTING DATA: Count of CT and Cardiac NM exams in prior 12 months: This patient has received 7 known CTs and 0 known cardiac nuclear medicine studies in the 12 months prior to the current study. COMPARISON: CT head wo con* [id number] 03/20/2023 7:51 AM RADIATION DOSE METRICS: Total DLP (mGy-cm): 599.48 FINDINGS: Brain: No mass, mass effect or midline shift. There is no evidence of acute large vessel infarct. There is dependent subarachnoid hemorrhage in the lateral ventricles, bilaterally. Cerebral ventricles: There is worsening dilatation of the ventricular system suspicious for hydrocephalus. There is decreased gas in the ventricular system. Paranasal sinuses: The visualized paranasal sinuses are clear. Mastoid air cells: No mastoid effusion. Orbital cavities: The visualized orbits are unremarkable. Bones/joints: No acute fracture is seen. There is decreased gas in the foramen magnum/left cerebellopontine angle/left internal auditory canal. Soft tissues: No significant scalp soft tissue swelling. There are gas/fluid collections in the posterior soft tissues of the upper neck measuring approximally 1.3 x 1.7 cm and 1.3 x 2.4 cm. These are suspicious for abscesses. CT/CT head wo con* [id number] IMPRESSION: 1. Worsening dilatation of the ventricular system suspicious for hydrocephalus. 2. New dependent subarachnoid hemorrhage in the lateral ventricles, bilaterally. 3. Decreased gas in the ventricular system. 4. Decreased gas in the foramen magnum/left cerebellopontine angle/left internal auditory canal. 5. Gas/fluid collections in the posterior soft tissues of the upper neck suspicious for abscesses.
[2023-03-23 11:52] LABS: Glucose Point of Care 229 mg/dL (70-110)
--- NOTE | 2023-03-23 13:17 | PC.SOCIAL ---
IMM Update pg 2 of IMM updated and reviewed w/ patients . Copy provided and Copy dated, initialed and placed in chart.
--- NOTE | 2023-03-23 16:49 | P.TS_ITS ---
Transfer Summary Providers Date of Admission: 03/20/23 13:05 Date of Discharge/Transfer: 03/23/23 Attending Provider at Admission: Staci Harvey MD Attending Provider at Transfer: Simón Jordan MD Consults: Orthopedic surgery: Dr. Banda ID: Dr. Harvey Primary Care Provider: Chinedu Babin DO Transfer Plans: Anticipated date of transfer: 03/23/23 . Diagnoses at Discharge Discharge Diagnosis (1) Wound dehiscence: Status: Acute (2) Cerebrospinal fluid leak following surgery: Status: Acute (3) Status post cervical spinal fusion: Status: Acute (4) Meningitis: Status: Acute (5) Diabetes mellitus: Status: Acute (6) Benign essential HTN: Status: Acute (7) Pacemaker: Status: Acute (8) Subarachnoid hemorrhage: Status: Acute (9) Hydrocephalus in adult: Status: Acute Reason for Visit Reason for Visit SURGICAL SITE LEAKING Hospital Course Hospital Course Alex Quiros is a 77 year old male significant medical history for diabetes, hypertension, significant bradycardia requiring pacemaker?, recently diagnosed with Cervical myelopathy with cervical radiculopathy for which he underwent C2-T2 posterior instrumented fusion with decompression from C3-C7 posteriorly on 02/05/23.? After which he was admitted from 02/11?02/15 for altered mental status when he was found to have meningitis with large fluid collection at surgical site contiguous with a possible CSF leak versus epidural abscess/seroma or hematoma.? He was started on IV cefepime after which his mentation improved.? Patient was discharged on IV cefepime 2 g every 12 hourly for 6 weeks to SNF. Today he is brought back from the SNF with concerns for wound dehiscence and CSF leak. Patient seen in the ER with spouse at bedside.? As per patient and his spouse he has been having nausea, vomiting with mild headache since discharge but has been doing better.? He has been working with physical therapy and walking and his mentation has remained stable.? Today morning while he was given a bath he was noticed to have mild CSF leak and small wound dehiscence hence he was sent to the ER.? 6 days ago was done which showed a large fluid collection of 7.7 into 712 point.? With enhancing rim extending through the subcutaneous tissue posterior to the thecal sac extending from C2-T12.? Patient himself denies of having any chills or fever at the assisted but does complain of feeling colder than usual requiring multiple blankets. Patient was sent to the hospital further evaluation and management of dural leak along with wound dehiscence. Orthopedic surgery was consulted. ID was consulted for follow-up from recent hospitalization. There was no active signs of meningitis or infection. Patient underwent dural patch repair on 03/21. Patient tolerated the procedure well and has been doing well postoperatively. On 03/23 patient was found to be slow to respond and slightly confused along with being averbal hence CT head was done which showed patient has developed bilateral subarachnoid lateral ventricular hemorrhage along with worsening hydrocephalus. Care was discussed in detail with neurology on-call and with Dr. Banda who advised patient to be transferred to a higher center for continuous monitoring of intracranial pressures along with possible need of PUBLIC ADDRESS TECHNICIAN shunting as there is no neurosurgeon available at our facility. Care was discussed in detail with neurosurgeon at [facility] who is excepted the patient to stepdown but patient is awaiting bed. They recommend patient to have continuous monitoring, head of bed elevation, out of bed to chair and a repeat CT scan in 24 hours if patient does not come to their facility by then. Given no way of monitoring intracranial pressures at our facility further transfer plans were discussed in detail with the facilities. Patient was finally accepted at by neurosurgeon Dr. Serrano to neuro ICU. Physical Exam Narrative: General: No acute distress, confused, slow to respond, AO x1, fidgety HEENT: PERRLA, pupils bilaterally equal and reactive Chest: Normal vesicular breath sounds, no added sounds, equal good air entry bilaterally CVS: S1-S2 regular, no murmurs, no tachycardia, no gallops, no rubs Abdomen: Soft, nontender, no organomegaly, bowel sounds present Neuro: No focal deficits, no facial deformity fidgety, moving all limbs, AO x1 Urinary Catheter Management: [place]: Cath Placed During This Visit: yes Reason for Continuing Indwelling Catheter: Acute Urinary Retention or Obstruction Urinary Catheter Date of Insertion: 03/21/23 Urinary Catheter Time of Insertion: 07:58 TS Data Studies Completed and Pending Pending at discharge Category Date Time Status Anaerobic Culture Routine Lab 03/21/23 13:12 Results Blood Culture Stat Lab 03/20/23 13:55 Results Complete Blood Count w/Auto AM LABS Lab 03/24/23 04:00 Ordered Comprehensive Metabolic Panel AM LABS Lab 03/24/23 04:00 Ordered Wound Culture and Gram Stain Routine Lab 03/21/23 13:12 Results Labs from last 24 hours 03/23/23 03/23/23 03/23/23 11:45 06:49 04:30 WBC RBC Hgb Hct MCV MCH MCHC RDW Plt Count MPV Neut % (Auto) Lymph % (Auto) Grant % (Auto) Eos % (Auto) Baso % (Auto) Neut # (Auto) Lymph # (Auto) Grant # (Auto) Eos # (Auto) Baso # (Auto) Nucleated RBC % (auto) Nucleated RBCs # Sodium 133 L Potassium 3.9 Chloride 95 L Carbon Dioxide 29 Anion Gap 12.9 BUN 22 Creatinine 0.7 GFR Calculation Not Reportable Glucose 138 H POC Glucose 229 H 182 H Calculated Osmolality 282 L Calcium 9.1 Phosphorus 3.2 Magnesium 1.8 Total Bilirubin 0.6 AST 15 ALT 22 Alkaline Phosphatase 92 Total Protein 5.5 L Albumin 3.2 L Globulin 2.3 03/23/23 03/22/23 03/22/23 04:30 21:10 16:57 WBC 5.9 RBC 4.00 L Hgb 11.7 Hct 36.3 L MCV 90.8 MCH 29.3 MCHC 32.2 RDW 13.5 Plt Count 158 MPV 10.1 Neut % (Auto) 73.7 Lymph % (Auto) 14.7 Grant % (Auto) 9.9 Eos % (Auto) 0.5 Baso % (Auto) 0.3 Neut # (Auto) 4.33 Lymph # (Auto) 0.9 Grant # (Auto) 0.6 Eos # (Auto) 0.0 Baso # (Auto) 0.0 Nucleated RBC % (auto) 0 Nucleated RBCs # 0.0 Sodium Potassium Chloride Carbon Dioxide Anion Gap BUN Creatinine GFR Calculation Glucose POC Glucose 197 H 248 H Calculated Osmolality Calcium Phosphorus Magnesium Total Bilirubin AST ALT Alkaline Phosphatase Total Protein Albumin Globulin Completed Studies During Hospitalization Category Date Time Status CT cervical spine w con [id number] Stat Cat Scan 03/20/23 07:[address] head wo con* [id number] Stat Cat Scan 03/20/23 08:[address] head wo con* [id number] Urgent Cat Scan 03/23/23 11:14 Completed Laboratory Last Values WBC 5.9 10^3/uL (4.0-10.0) 03/23/23 04:30 RBC 4.00 10^6/uL (4.1-5.3) L 03/23/23 04:30 Hgb 11.7 g/dL (11.7-16.6) 03/23/23 04:30 Hct 36.3 % (42.0-52.0) L 03/23/23 04:30 MCV 90.8 fl (80-94) 03/23/23 04:30 MCH 29.3 pg (28.0-34.0) 03/23/23 04:30 MCHC 32.2 g/dL (30.0-36.0) 03/23/23 04:30 RDW 13.5 % (12.1-15.1) 03/23/23 04:30 Plt Count 158 10^3/cmm (130-400) 03/23/23 04:30 MPV 10.1 fL (7.4-10.4) 03/23/23 04:30 Neut % (Auto) 73.7 % 03/23/23 04:30 Lymph % (Auto) 14.7 % 03/23/23 04:30 Grant % (Auto) 9.9 % 03/23/23 04:30 Eos % (Auto) 0.5 % 03/23/23 04:30 Baso % (Auto) 0.3 % 03/23/23 04:30 Neut # (Auto) 4.33 10^3/uL (1.8-7.7) 03/23/23 04:30 Lymph # (Auto) 0.9 10^3/uL (0.8-4.8) 03/23/23 04:30 Grant # (Auto) 0.6 10^3/uL (0.2-0.9) 03/23/23 04:30 Eos # (Auto) 0.0 10^3/uL (0.0-0.8) 03/23/23 04:30 Baso # (Auto) 0.0 10^3/uL (0.0-0.1) 03/23/23 04:30 Nucleated RBC % (auto) 0 % 03/23/23 04:30 Nucleated RBCs # 0.0 /100WBC 03/23/23 04:30 Sodium 133 mmol/L (136-145) L 03/23/23 04:30 Potassium 3.9 mmol/L (3.5-5.1) 03/23/23 04:30 Chloride 95 mmol/L (98-107) L 03/23/23 04:30 Carbon Dioxide 29 mmol/L (22-29) 03/23/23 04:30 Anion Gap 12.9 (5-19) 03/23/23 04:30 BUN 22 mg/dL (8-23) 03/23/23 04:30 Creatinine 0.7 mg/dL (0.7-1.2) 03/23/23 04:30 GFR Calculation Not Reportable 03/23/23 04:30 Glucose 138 mg/dL (65-115) H 03/23/23 04:30 POC Glucose 229 mg/dL (70-110) H 03/23/23 11:45 Calculated Osmolality 282 mOsm/kg (285-295) L 03/23/23 04:30 Calcium 9.1 mg/dL (8.5-10.5) 03/23/23 04:30 Phosphorus 3.2 mg/dL (2.5-4.5) 03/23/23 04:30 Magnesium 1.8 mg/dL (1.7-2.3) 03/23/23 04:30 Total Bilirubin 0.6 mg/dL (0.15-1.2) 03/23/23 04:30 AST 15 U/L (0-40) 03/23/23 04:30 ALT 22 U/L (0-41) 03/23/23 04:30 Alkaline Phosphatase 92 U/L (40-130) 03/23/23 04:30 C-Reactive Protein 7.8 mg/L (0.0-4.9) H 03/20/23 07:43 Total Protein 5.5 g/dL (6.6-8.7) L 03/23/23 04:30 Albumin 3.2 g/dL (3.5-5.2) L 03/23/23 04:30 Globulin 2.3 g/dL (1.3-4.6) 03/23/23 04:30 Procalcitonin 0.05 ng/mL (0-0.5) 03/20/23 07:43 Urine Color Bernie (Yellow) 03/22/23 10:53 Urine Appearance Clear (CLEAR) 03/22/23 10:53 Urine pH 5 (5-7) 03/22/23 10:53 Ur Specific [place] 1.025 (1.005-1.030) 03/22/23 10:53 Urine Protein Trace (Negative) 03/22/23 10:53 Urine Glucose (UA) Norm (Normal) 03/22/23 10:53 Urine Ketones 1+ (Negative) H 03/22/23 10:53 Urine Blood 2+ (Negative) H 03/22/23 10:53 Urine Nitrate Negative (Negative) 03/22/23 10:53 Urine Bilirubin Neg (Negative) 03/22/23 10:53 Urine Urobilinogen 1 mg/dL (Negative) H 03/22/23 10:53 Ur Leukocyte Esterase Negative (Negative) 03/22/23 10:53 Urine RBC 0-4 /hpf (0-2) H 03/22/23 10:53 Urine WBC 0-4 /hpf (0-5) H 03/22/23 10:53 Ur Squamous Epith Cells 0-4 /hpf (0-5) H 03/22/23 10:53 Calcium Oxalate Crystal 0-4 /hpf H 03/22/23 10:53 Amorphous Sediment Not Reportable 03/22/23 10:53 Urine Bacteria Trace /hpf (NONE) 03/22/23 10:53 Urine Mucus 1+ /hpf 03/22/23 10:53 Radiology Impressions Cervical Spine CT 03/20/23 07:09 IMPRESSION: 1. Large rim-enhancing fluid collection in the cervical spine from C3 to T2 is similar to the prior study of 03/14/2023. No improvement. 2. New foci of air in the postoperative collection with extension of air extending through the anterior foramen magnum. Head CT 03/23/23 11:14 IMPRESSION: 1. Worsening dilatation of the ventricular system suspicious for hydrocephalus. 2. New dependent subarachnoid hemorrhage in the lateral ventricles, bilaterally. 3. Decreased gas in the ventricular system. 4. Decreased gas in the foramen magnum/left cerebellopontine angle/left internal auditory canal. 5. Gas/fluid collections in the posterior soft tissues of the upper neck suspicious for abscesses. ADDENDUM: 03/23/23 1317 Findings discussed with SIMÓN JORDAN at 03/23/2023 1:16 PM CDT. Recent Clincial Data Last Vital Signs Temp 98.3 F 03/23/23 13:45 Pulse 70 03/23/23 16:00 Resp 21 H 03/23/23 15:00 BP 130/75 03/23/23 15:00 Pulse Ox 93 03/23/23 15:00 O2 Del Method Nasal Cannula 03/23/23 15:00 O2 Flow Rate 2 03/23/23 15:00 Vital Signs Temp Pulse Resp BP Pulse Ox O2 Del Method O2 Flow Rate 03/23/23 16:00 70 03/23/23 15:00 75 21 H 130/75 93 Nasal Cannula 2 03/23/23 14:45 73 20 H 112/64 94 Nasal Cannula 2 03/23/23 14:30 74 15 156/66 Nasal Cannula 2 03/23/23 14:15 74 16 133/74 93 Nasal Cannula 2 03/23/23 14:00 74 14 111/81 94 Nasal Cannula 2 03/23/23 13:45 98.3 F 76 19 H 135/69 Nasal Cannula 2 03/23/23 13:43 78 18 135/69 92 Nasal Cannula 2 03/23/23 15:10 70 03/23/23 08:01 97.5 F L 77 16 150/78 93 Room Air 03/23/23 05:13 77 Intake & Output/Weight 03/21/23 03/22/23 03/23/23 03/24/23 06:59 06:59 06:59 06:59 Intake Total 1829 / 0 4140.842 / 4140.842 588.528 / 588.528 360 / 360 Output Total 1829 530 / 530 450 / 450 Balance 1829 / 1829 2310.842 / 2310.842 58.528 / 58.528 -90 / -90 Weight 82.69 kg 82.69 kg 85.774 kg Vitals Last Vital Signs Temp 98.3 F 03/23/23 13:45 Pulse 70 03/23/23 16:00 Resp 21 H 03/23/23 15:00 BP 130/75 03/23/23 15:00 Pulse Ox 93 03/23/23 15:00 O2 Del Method Nasal Cannula 03/23/23 15:00 O2 Flow Rate 2 03/23/23 15:00 TS Medications Medications Acetaminophen (Acetaminophen 325 Mg Tablet) 650 mg PO Q6H PRN PRN Reason: Mild/Mod Pain Or Temp >/= 101 Last Admin: 03/21/23 23:13 Dose: 650 mg Al Hydrox/Mg Hydrox/Simethicone (Djjf-Ibm-Xawgcwblu-Ana Luisa 30 Ml Udc) 30 ml PO Q4H PRN PRN Reason: INDIGESTION Aspirin (Aspirin 81 Mg Ec Tablet) 81 mg PO DAILY [facility] Last Admin: 03/23/23 08:45 Dose: 81 mg Atenolol (Atenolol 50 Mg Tablet) 50 mg PO DAILY [facility] Last Admin: 03/23/23 08:45 Dose: 50 mg Atorvastatin Calcium (Atorvastatin 40 Mg Tablet) 10 mg PO DAILY [facility] Last Admin: 03/23/23 08:45 Dose: 10 mg Dextrose (Dextrose 50% Syringe 50 Ml) 50 ml IVP PRN PRN; Protocol PRN Reason: hypoglycemia protocol Dextrose (Dextrose 50% Syringe 50 Ml) 25 ml IVP ONCE PRN; Protocol PRN Reason: hypoglycemia protocol Docusate Sodium (Docusate Sodium 100 Mg Capsule) 100 mg PO BID [facility] Last Admin: 03/23/23 11:45 Dose: Not Given Glucagon (Glucagon 1 Mg/Ml Inj 1 Ml) 1 mg IM ONCE PRN; Protocol PRN Reason: Adult Acute Hypoglycemia Prot. Cefepime HCl 2,000 mg/ Sodium (Chloride) 50 mls @ 100 mls/hr IV Q12H [facility]; Protocol Last Admin: 03/23/23 14:57 Dose: 100 mls/hr Dextrose (D5w) 500 mls @ 100 mls/hr IV ONCE PRN; Protocol PRN Reason: Adult Acute Hypoglycemia Prot Isosorbide Mononitrate (Isosorbide Mononitrate Er 30 Mg Tablet) 30 mg PO BID [facility] Last Admin: 03/23/23 08:45 Dose: 30 mg Ketorolac Tromethamine (Ketorolac 30 Mg/Ml Inj) 30 mg IVP Q6H PRN PRN Reason: BREAKTHROUGH PAIN Lisinopril (Lisinopril 20 Mg Tablet) 40 mg PO DAILY [facility] Last Admin: 03/23/23 08:45 Dose: 40 mg Magnesium Hydroxide (Magnesium Hydroxide 30 Ml Udc) 30 ml PO DAILY PRN; Protocol PRN Reason: Constipation (see protocol) Ondansetron HCl (Ondansetron 2 Mg/Ml Sdv 2 Ml) 4 mg IVP Q8H PRN PRN Reason: vomiting, or N/V if npo Last Admin: 03/22/23 12:13 Dose: 4 mg Pantoprazole Sodium (Pantoprazole Dr 40 Mg Tablet) 40 mg PO DAILY [facility] Last Admin: 03/23/23 08:45 Dose: 40 mg Senna/Docusate Sodium (Sennosides-Docusate Tablet) 1 tab PO BID [facility] Last Admin: 03/23/23 11:45 Dose: Not Given Tramadol HCl (Tramadol 50 Mg Tablet) 50 mg PO Q4H PRN PRN Reason: MODERATE PAIN Discontinued Medications Acetaminophen (Acetaminophen 325 Mg Tablet) 650 mg PO Q4H PRN PRN Reason: Mild Pain or fever >101.5 Hydrocodone Bitart/Acetaminophen (Hydrocodone-Acetaminophen 5-325 Mg Tablet) 1 - 2 tab PO Q4H PRN PRN Reason: MODERATE TO SEVERE PAIN Hydrocodone Bitart/Acetaminophen (Hydrocodone-Acetaminophen 5-325 Mg Tablet) 1 tab PO Q6H PRN PRN Reason: MODERATE TO SEVERE PAIN Last Admin: 03/22/23 12:12 Dose: 1 tab Amlodipine Besylate (Amlodipine 5 Mg Tablet) 5 mg PO DAILY [facility] Last Admin: 03/21/23 08:08 Dose: 5 mg Amlodipine Besylate (Amlodipine 5 Mg Tablet) 10 mg PO DAILY [facility] Last Admin: 03/22/23 08:17 Dose: 10 mg Dexamethasone (Dexamethasone 4 Mg/Ml Inj) Confirm Administered Dose 4 mg .ROUTE .STK-MED ONE Stop: 03/21/23 13:01 Ephedrine Sulfate (Ephedrine 50 Mg/Ml Inj) Confirm Administered Dose 50 mg .ROUTE .STK-MED ONE Stop: 03/21/23 14:55 Fentanyl (Fentanyl 50 Mcg/Ml Inj 2ml) Confirm Administered Dose 100 mcg .ROUTE .STK-MED ONE Stop: 03/21/23 14:31 Fentanyl (Fentanyl 50 Mcg/Ml Inj 2ml) Confirm Administered Dose 100 mcg .ROUTE .STK-MED ONE Stop: 03/21/23 16:29 Glycopyrrolate (Glycopyrrolate 0.2 Mg/Ml Sdv 2 Ml) Confirm Administered Dose 0.4 mg .ROUTE .STK-MED ONE Stop: 03/21/23 15:16 Sodium Chloride (Sodium Chloride 0.9%) 1,000 mls @ 100 mls/hr IV .Q10H [facility] Last Infusion: 03/21/23 21:00 Dose: Infused Lidocaine HCl (Xylocaine) Confirm Administered Dose 4 mls @ as directed .ROUTE .STK-MED ONE Stop: 03/21/23 13:01 Lactated Ringer's (Lactated Ringers) 1,000 mls @ 90 mls/hr IV .Q11H7M [facility] Stop: 03/22/23 02:06 Last Infusion: 03/22/23 03:11 Dose: Infused Dexmedetomidine HCl 400 mcg/ (Sodium Chloride) 104 mls @ 0 mls/hr IV .Q0M PRN; Protocol PRN Reason: AGITATION Last Titration: 03/22/23 08:29 Dose: 0 mcg/kg/hr, 0 mls/hr Iohexol (Iohexol 350 Mg/Ml 500 Ml Btl (Per Ml)) 0 ml IV ONCE ONE Stop: 03/20/23 08:02 Last Admin: 03/20/23 08:01 Dose: 100 ml Lidocaine/Epinephrine (Lidocaine-Epi 2% 20 Ml Inj) Confirm Administered Dose 20 ml .ROUTE .STK-MED ONE Stop: 03/21/23 12:19 Lidocaine/Epinephrine (Lidocaine-Epi 2% 20 Ml Inj) 20 ml INJECTION ONCE ONE Stop: 03/21/23 13:35 Last Admin: 03/21/23 13:08 Dose: 20 ml Magnesium Hydroxide (Magnesium Hydroxide 30 Ml Udc) 30 ml PO Q4H PRN PRN Reason: Constipation/indigestion Morphine Sulfate (Morphine 4 Mg/Ml Sdv 1 Ml) 2 mg IVP Q1H PRN PRN Reason: SEVERE PAIN Neostigmine Methylsulfate (Neostigmine 1 Mg/Ml Sdv 10 Ml) Confirm Administered Dose 10 mg .ROUTE .STK-MED ONE Stop: 03/21/23 15:16 Ondansetron HCl (Ondansetron 2 Mg/Ml Sdv 2 Ml) Confirm Administered Dose 4 mg .ROUTE .STK-MED ONE Stop: 03/21/23 13:01 Ondansetron HCl (Ondansetron 2 Mg/Ml Sdv 2 Ml) 4 mg IVP Q6H PRN PRN Reason: NAUSEA AND VOMITING Propofol (Propofol 10 Mg/Ml Sdv 20 Ml) Confirm Administered Dose 200 mg .ROUTE .STK-MED ONE Stop: 03/21/23 13:01 Rocuronium [place] (Rocuronium 10 Mg/Ml Inj 5ml) Confirm Administered Dose 50 mg .ROUTE .STK-MED ONE Stop: 03/21/23 13:01 Vancomycin HCl (Vancomycin 1,000 Mg Sdv) Confirm Administered Dose 1,000 mg .ROUTE .STK-MED ONE Stop: 03/21/23 12:19 Vancomycin HCl (Vancomycin 1,000 Mg Sdv) 1,000 mg XX ONCE ONE; Protocol Stop: 03/21/23 13:36 Last Admin: 03/21/23 13:35 Dose: 1,000 mg Allergies meloxicam Allergy (Verified 03/19/23 13:20) elevated blood pressure Sulfa (Sulfonamide Antibiotics) Allergy (Verified 03/19/23 13:20) ALGY-Rash Home Medications aspirin 81 mg tablet,delayed release 81 mg PO DAILY 11/01/19 [History Confirmed 03/20/23] atorvastatin 10 mg tablet 10 mg PO DAILY 11/01/19 [History Confirmed 03/20/23] Bone Growth Stimulator E0748 #1 ea 01/31/23 [Rx Confirmed 03/20/23] Lift Chair #1 ea 02/11/23 [Rx Confirmed 03/20/23] atenolol 50 mg tablet 50 mg PO DAILY #30 tabs 02/21/23 [Rx Confirmed 03/20/23] isosorbide mononitrate 30 mg tablet,extended release 24 hr 30 mg PO BID #90 tabs 02/21/23 [Rx Confirmed 03/20/23] sennosides 8.6 mg-docusate sodium 50 mg tablet (Stool Softener-Laxative) 1 tab PO BID #14 tabs 02/21/23 [Rx Confirmed 03/20/23] acetaminophen 325 mg tablet 325 mg PO QID PRN Pain 03/20/23 [History Confirmed 03/20/23] amlodipine 5 mg tablet 5 mg PO DAILY 03/20/23 [History Confirmed 03/20/23] bisacodyl 10 mg rectal suppository (Dulcolax (bisacodyl)) [address] DAILY PRN Constipation 03/20/23 [History Confirmed 03/20/23] cefepime 2 gram solution for injection 2,000 mg IV BID 03/20/23 [History Confirmed 03/20/23] cyclobenzaprine 10 mg tablet 10 mg PO TID PRN Muscle Spasm 03/20/23 [History Confirmed 03/20/23] lisinopril 40 mg tablet 40 mg PO DAILY 03/20/23 [History Confirmed 03/20/23] magnesium hydroxide 400 mg/5 mL oral suspension (Milk of Magnesia) 30 ml PO DAILY PRN Constipation 03/20/23 [History Confirmed 03/20/23] omeprazole 20 mg capsule,delayed release 20 mg PO DAILY 03/20/23 [History Confirmed 03/20/23] ondansetron HCl 8 mg tablet 8 mg PO Q6H PRN Nausea And Vomiting 03/20/23 [History Confirmed 03/20/23] sodium chloride 0.9 % 10 ml IV Q12H 03/20/23 [History Confirmed 03/20/23] sodium phosphates 19 gram-7 gram/118 mL enema (Fleet Enema) [address] DAILY PRN Constipation 03/20/23 [History Confirmed 03/20/23] tuberculin PPD 5 tub. unit/0.1 mL intradermal injection solution 1 tb unit intradermal Q14D 03/20/23 [History Confirmed 03/20/23] Discharge Plan Discharge Patient Disposition: Xfer Other Condition: Stable Prescriptions: No Action (DME) Bone Growth Stimulator E0748 See Rx Instructions .Route .MEDSUPPLY Qty: 1 0RF Rx Instructions: As directed (DME) Lift Chair See Rx Instructions .Route .MEDSUPPLY Qty: 1 0RF Rx Instructions: As directed atorvastatin 10 mg Tablet 10 mg PO DAILY aspirin 81 mg Tablet,Delayed Release (Dr/Ec) 81 mg PO DAILY cyclobenzaprine 10 mg Tablet 10 mg PO TID PRN (Reason: Muscle Spasm) Tuberculin 5 tub. unit /0.1 mL Solution 1 tb unit INTRADERMAL Q14D acetaminophen 325 mg Tablet 325 mg PO QID PRN (Reason: Pain) Zofran 8 mg Tablet 8 mg PO Q6H PRN (Reason: Nausea And Vomiting) cefepime 2 gram Recon Soln 2,000 mg IV BID Rx Instructions: use in one exchange per day amlodipine 5 mg Tablet 5 mg PO DAILY sodium chloride 0.9 % Solution 10 ml IV Q12H Rx Instructions: administer before and after IV drug administration as part of [facility] protocol Milk of Magnesia 400 mg/5 mL Suspension 30 ml PO DAILY PRN (Reason: Constipation) Dulcolax (bisacodyl) 10 mg Suppository [address] DAILY PRN (Reason: Constipation) Fleet Enema 19-7 gram/118 mL Enema [address] DAILY PRN (Reason: Constipation) omeprazole 20 mg Capsule,Delayed Release(Dr/Ec) 20 mg PO DAILY lisinopril 40 mg Tablet 40 mg PO DAILY sennosides-docusate sodium [Stool Softener-Laxative] 8.6-50 mg Tablet 1 tab PO BID Qty: 14 0RF atenolol 50 mg Tablet 50 mg PO DAILY Qty: 30 0RF isosorbide mononitrate 30 mg tablet extended release 24 hr 30 mg PO BID Qty: 90 3RF Referrals: Chinedu Babin DO [Primary Care Provider] - Patient Instructions: Opioid Safety Transfer Attestations Time Spent in Transfer Care: critical care time Critical Care Time (min): 90 Specific Discharge Activities: educating patient, educating and/or supporting family/caregiver, discussing with pcp/other providers, discussing with counseling case manager/social workers/dc planners, documenting/other paperwork and evaluating patient/reviewing data Status at Transfer: Cognitive status at transfer: cognitively intact ; Behavioral status at transfer: cooperative ; Functional status at transfer: bed bound ; Overall status at transfer: patient is not back to baseline Quality Metrics Clinical Quality Measures [ No reported AMI, CVA or VTE this stay] Coding Level of Care Code Critical Care >/= 30 minutes Critical care time (in minutes): 90 The high probability of a clinically significant, sudden or life threatening deterioration, as referenced in this documentation, required my full and direct attention, intervention and personal management. The critical care time shown is in addition to time spent performing any reported separately billable procedures and includes the following: [x] Data and vital sign review and interpretation [x ] Patient assessment, examination and intervention [x] Medication orders and management [x] Patient/Family updates as able [x] Care Coordination and Documentation. Other Coding Information Initial examination the morning, ordering scans, transferring from general floor to ICU. Discussing the case with multiple physician in house and outside hospital for further management and possible transfer. Diagnoses Wound dehiscence T81.30XA Cerebrospinal fluid leak following surgery G97.82; G96.00 Status post cervical spinal fusion Z98.1 Meningitis G03.9 Diabetes mellitus E11.9 Benign essential HTN I10 Pacemaker Z95.0 Subarachnoid hemorrhage I60.9 Hydrocephalus in adult G91.9
--- NOTE | 2023-03-23 18:13 | PC.NURSE ---
Report called to [facility] in [place], [place]. Report given to Julio Cesar Cat Rn. All questions answered. Ambulance called for transport.
[2023-03-23 18:22] LABS: Glucose Point of Care 172 mg/dL (70-110)
--- NOTE | 2023-03-23 18:45 | PC.NURSE ---
[facility] called. Transport time moved back half hour to 1930 from 1900.
--- NOTE | 2023-03-23 19:34 | PC.NURSE ---
n the midst of bedside report to Zuri, ambulance crew arrived. Report given to crew. Care transferred to them.
--- NOTE | 2023-03-23 19:38 | PC.NURSE ---
Called [facility] to update. Nurse to call back.
--- NOTE | 2023-03-23 19:46 | PC.NURSE ---
Addendum entered by Elyssa Laguna RN 03/23/23 19:50: Bilat hearing aides and glasses with pt. , Rima, took the rest of pt's belongings with her. Original Note: [facility] called back. Updated on neuro status, Incision , aspen collar and drain, VS and urine output. Pt out of hospital.
== END 2023-03-23 19:50 | disposition short-term general hospital (02) | DRG 28 ==
LOC: ER 08:21 → ER IP 10:26 → ICU 13:26 → ER IP 03-21 06:22 → MEDSURG 03-22 14:22 → ICU 03-23 13:37
PROVIDERS: Orthopaedic Surgery; Admitting Provider Student in an Organized Health Care Education/Training Program; Emergency Provider Family Medicine; PCP Electrodiagnostic Medicine; Visit Provider Student in an Organized Health Care Education/Training Program
PROC: 00UT0JZ Supplement Spinal Meninges with Synthetic Substitute, Open Approach (ICD-10-PCS; CPT 63005; principal; 2023-03-21 12:40)
DX: G96.09 Other spinal cerebrospinal fluid leak (principal); I60.9 Nontraumatic subarachnoid hemorrhage, unspecified; E87.1 Hypo-osmolality and hyponatremia; G93.40 Encephalopathy, unspecified; T81.31XA Disruption of external operation (surgical) wound, not elsewhere classified, initial encounter; G91.9 Hydrocephalus, unspecified; Y83.1 Surgical operation with implant of artificial internal device as the cause of abnormal reaction of the patient, or of later complication, without mention of misadventure at the time of the procedure; I25.10 Atherosclerotic heart disease of native coronary artery without angina pectoris; I10 Essential (primary) hypertension; E11.9 Type 2 diabetes mellitus without complications; E78.5 Hyperlipidemia, unspecified; Z95.0 Presence of cardiac pacemaker; Z87.891 Personal history of nicotine dependence; R00.1 Bradycardia, unspecified; Z79.82 Long term (current) use of aspirin; E83.42 Hypomagnesemia
CPT/HCPCS: 36415; 36416; 36592; 51702; 70450; 72126; 80048; 80053; 81001; 82962; 83735; 84100; 84145; 85025; 86140; 87040; 87070; 87075; 87205; 87641; 94664; 96374; 97110; 97116; 97162; 99285; J0692; J1100; J2405; J2704; J2710; J3010; J3370; J3490; J7030; J7120; Q9967

== ENCOUNTER → 2023-08-07 09:48 | Outpatient (BNVA) | payer OTHER, SELFPAY | PROVIDERS: PCP Electrodiagnostic Medicine; Visit Provider Internal Medicine Cardiovascular Disease | DX: Z95.0 Presence of cardiac pacemaker (principal); Z98.2 Presence of cerebrospinal fluid drainage device; I25.10 Atherosclerotic heart disease of native coronary artery without angina pectoris; E78.5 Hyperlipidemia, unspecified; I10 Essential (primary) hypertension; I49.8 Other specified cardiac arrhythmias; Z87.891 Personal history of nicotine dependence | CPT/HCPCS: 99214 ==

== ENCOUNTER → 2023-08-12 14:54 | Outpatient (BNVA) | payer OTHER, SELFPAY | PROVIDERS: PCP Electrodiagnostic Medicine; Visit Provider Orthopaedic Surgery | DX: Z47.89 Encounter for other orthopedic aftercare (principal); Z98.1 Arthrodesis status; M54.2 Cervicalgia; Z98.2 Presence of cerebrospinal fluid drainage device | CPT/HCPCS: 72040; 99213 ==

== ENCOUNTER 2023-08-14 12:51 | Inpatient (IN) | payer OTHER, SELFPAY ==
[2023-08-14] VITALS (8 sets, daily range): BP systolic 85–161; BP diastolic 63–91; PULSE 59–68; RESP 15–19; TEMP 36.5–37.2; O2SAT 97–98; BMI 32.3
--- NOTE | 2023-08-14 13:13 | XR_ITS ---
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 Findings: The shunt tube is properly placed through a ute hole into the skull and appears to be in t he region of the ventricles. The tube then decends through the right side of the neck, right side of the chest and into the peritoneum. The patient is had a posterior cervical fusion which appears stabl e. Impression: Satisfactory placement of ventriculoperitoneal shunt tube.
--- NOTE | 2023-08-14 13:13 | CT_ITS ---
WS: [id number] CT HEAD NONCONTRAST HISTORY: Altered mental status TECHNIQUE: Contiguous axial imaging performed through the brain in 3.0 mm imaging. Bone and soft tiss ue windows. Sagittal and coronal reformats reviewed. All CT scans at [facility] use at least one of these dose optimization techniques: automated exposure control; mA and/or kV adjustment per pa tient size (includes targeted exams where dose is matched to clinical indication); or iterative recon struction. DLP: 1097.94 mGy.cm COMPARISON: 03/23/2023 New since the prior examination is a DELIVERY TRUCK DRIVER HEAVY shunt catheter entering through the RIGHT parietal bone. The tip of the catheter crosses the midline to terminate in the anterior horn of the LEFT lateral ventric le. Previously described pneumo hydrocephalus has resolved. There is no longer air in the lateral usha tricles. Ventricles are slitlike now. Bilateral low-attenuation subdural collections which may be hygromas are now evident. These are new s britany the prior study with mass effect upon the cerebrum. The RIGHT extra-axial subdural collection is 1.4 cm in diameter. The LEFT measures 1.0 cm in diameter. No acute blood products. Mild cerebellar atrophy. Loss of the montoya-white matter differentiation of the sulci is due to the chr onic subdural collections most likely. Paranasal sinuses: As visualized are clear. Mastoid air cells: Well pneumatized. Calvarium and scalp: RIGHT posterior parietal ute hole. IMPRESSION: 1. Interval placement of a RIGHT parietal DELIVERY TRUCK DRIVER HEAVY shunt catheter since the prior study of 03/23/2023. 2. Resolved hydrocephalus since the prior study. 3. Low-attenuation, bilateral extra-axial fluid collections are most likely subdural hygromas/chronic subdural hematomas. There is mass effect upon the brain. The largest subdural is 1.4 cm on the RIGHT . Smaller on the LEFT at 1.0 cm.
--- NOTE | 2023-08-14 13:14 | XR_ITS ---
WS: [id number] Portable PA upright chest, 08/14/2023 Clinical Data: dyspnea/cough Comparison: Portable chest, 03/07/2023 Findings: No nodules, masses or effusions are seen. The heart is enlarged. The pulmonary vascularity is not increased. No pneumonia or pneumothorax is seen. There is a ventriculoperitoneal shunt tube ov erlying the right chest. There our cardiac pacemaker wires unchanged in position. The patient is had a posterior cervical fusion. There are orthopedic anchors in the right humeral head. Impression: Cardiomegaly and permanent pacemaker unchanged.
--- NOTE | 2023-08-14 13:47 | ED_ITS ---
HPI - Altered Mental Status General: Chief Complaint: Altered Mental Status Stated Complaint: Shunt in head, dr told to come over for ct Time Seen by Provider: 08/14/23 13:07 Source: patient Mode of arrival: ambulatory History of Present Illness: 78-year-old male presents emergency room with altered mental status. Patient has a history of a epidural leak after a spinal fusion then developed a subarachnoid hemorrhage and subsequently hydrocephalus. He was transferred to [place] where a EMERGENCY RESPONSE TECHNICIAN shunt was placed. He has had complications disease P shunt and had developed subdural hematomas that he had done some adjustments to the shunt. At this point he seems to worsen as the feels he is having recurrent symptoms and contacted the neurosurgeons in [place] and was recommended that he proceed to the emergency room for further evaluation. He denies any fever sweats chills cough or shortness of breath MD complaint: altered mental status and confusion Review of Systems Const: Denies: fever(s) or chills Card: Denies: chest pain Resp: Denies: dyspnea GI: Denies: abdominal pain : Denies: dysuria, urinary frequency or urinary urgency Musc: Denies: neck pain or back pain Skin/Breast: Denies: rash PFSH ED PFSH: Medical History Abnormal stress test Acute hyponatremia Atherosclerosis of coronary artery of [place] heart without angina pectoris Benign essential HTN Bilateral bunions Bilateral foot pain Bradycardia Bradycardia Cervical myelopathy with cervical radiculopathy Chest pain Coronary atherosclerosis Degenerative cervical spinal stenosis Diabetes mellitus Diastasis recti Dyslipidemia History of cardiac pacemaker History of colon polyps Hyperlipemia Intermittent palpitations Internal hemorrhoids Male erectile dysfunction Non-sustained ventricular tachycardia Obesity Osteoarthritis of left knee Pacemaker Presence of permanent cardiac pacemaker Primary hypertension Prostatic cancer Tear of meniscus of right knee Transient cerebral ischemia Urinary incontinence Ventricular arrhythmia Surgical History History of arthroscopic surgery of shoulder History of colonoscopy with polypectomy History of eye surgery History of knee replacement History of knee surgery History of prostatectomy Post-operative state Family History Mother CAD (coronary artery disease) Diabetes Father Cancer Diabetes Denies family history of Clotting disorder Dementia Chronic kidney disease (CKD) Suicide Anesthesia complication Bleeding disorder Lung disease Stroke Social History Smoking and tobacco/nicotine status: former use of tobacco/nicotine Alcohol intake: former Substance/Drug Use: never Housing: [facility] Marital status: Physical Exam Const: GENERAL APPEARANCE: cooperative and comfortable O RIENTATION/CONSCIOUSNESS: Yes awake HENMT: COMMON NORMALS: normocephalic, atraumatic and hearing grossly normal bilaterally HEAD & SCALP: normocephalic and atraumatic Resp: COMMON NORMALS: normal respiratory effort, No retractions, No use of accessory muscles and clear to auscultation bilaterally AUSCULTATION: clear to auscultation bilaterally Cardio: COMMON NORMALS: regular rate, regular rhythm and No murmurs present (Cardio) RATE: regular rate RHYTHM: regular rhythm GI: COMMON NORMALS: Soft to palpation and No hepatosplenomegaly present AUSCULTATION: Yes normoactive bowel sounds PALPATION: Yes Soft to palpation, No Tenderness to palpation present (GI), No Guarding due to palpation present (GI) and Yes No hepatosplenomegaly present Extremity: COMMON NORMALS: normal to inspection, capillary refill normal, no clubbing, cyanosis or edema, no calf tenderness and no pedal edema Skin: COMMON NORMALS: no rashes or lesions noted GENERAL SKIN EXAM: no rashes or lesions noted Course Vital Signs: Vital signs: Vital Signs Temperature 97.7 F 08/14/23 13:05 Pulse Rate 66 08/14/23 15:47 Respiratory Rate 15 08/14/23 15:47 Blood Pressure 85/63 08/14/23 15:47 Pulse Oximetry 98 08/14/23 15:47 Oxygen Delivery Me thod Room Air 08/14/23 15:47 MDM - Altered Mental Status Medical Decision Making Cystitis on UA with normal white count lactic acid initially elevated improved after fluids transient drop in blood pressure to 80s this [place] but has improved as well. Patient is still somewhat lethargic as he was mildly confused. CT of the head shows old subdural hematomas. I contacted his doctor at in comparing the reports and in our discussion the subdural hematomas have both decreased slightly in size. Neurosurgeon there recommends proceeding with treating infection and contacting them again if he does not seem to improve further and changes. Discussed with the family. Will admit to the hospitalist service. Medical Records I reviewed the patient's medical records. Lab Data I reviewed the patient's lab results. 08/14/23 13:39 08/14/23 13:39 Laboratory Results WBC 5.85 10^3/uL (3.29-11.43) 08/14/23 13:39 RBC 4.81 10^6/uL (3.85-5.65) 08/14/23 13:39 Hgb 14.00 g/dL (11.27-16.99) 08/14/23 13:39 Hct 44.3 % (37-53) 08/14/23 13:39 MCV 92.1 fl (82-101) 08/14/23 13:39 MCH 29.1 pg (27-33) 08/14/23 13:39 MCHC 31.6 g/dL (30-55) 08/14/23 13:39 RDW 15.1 % (12.1-15.1) 08/14/23 13:39 Plt Count 151 10^3/cmm (157-399) L 08/14/23 13:39 MPV 9.4 fL (7.4-10.4) 08/14/23 13:39 Neut % (Auto) 72.8 % 08/14/23 13:39 Lymph % (Auto) 17.6 % 08/14/23 13:39 [place] % (Auto) 7.0 % 08/14/23 13:39 Eos % (Auto) 1.2 % 08/14/23 13:39 Baso % (Auto) 0.7 % 08/14/23 13:39 Neut # (Auto) 4.26 10^3/uL (1.8-7.7) 08/14/23 13:39 Lymph # (Auto) 1.0 10^3/uL (0.8-4.8) 08/14/23 13:39 [place] # (Auto) 0.4 10^3/uL (0.2-0.9) 08/14/23 13:39 Eos # (Auto) 0.1 10^3/uL (0.0-0.8) 08/14/23 13:39 Baso # (Auto) 0.0 10^3/uL (0.0-0.1) 08/14/23 13:39 Nucleated RBC % (auto) 0 % 08/14/23 13:39 Nucleated RBCs # 0.0 /100WBC 08/14/23 13:39 Sodium 142 mmol/L (136-145) 08/14/23 13:39 Potassium 5.1 mmol/L (3.5-5.1) 08/14/23 13:39 Chloride 102 mmol/L (98-107) 08/14/23 13:39 Carbon Dioxide 30 mmol/L (22-29) H 08/14/23 13:39 Anion Gap 15.1 (5-19) 08/14/23 13:39 BUN 20 mg/dL (8-23) 08/14/23 13:39 Creatinine 1.0 mg/dL (0.7-1.2) 08/14/23 13:39 GFR Calculation Not Reportable 08/14/23 13:39 Glucose 197 mg/dL (65-115) H 08/14/23 13:39 Calculated Osmolality 302 mOsm/kg (285-295) H 08/14/23 13:39 Lactic Acid 2.4 mmol/L (0.5-2.2) H 08/14/23 13:39 Lactic Acid (Sepsis) 1.7 mmol/L (0.5-2.2) 08/14/23 16:09 Calcium 10.0 mg/dL (8.5-10.5) 08/14/23 13:39 Total Bilirubin 0.6 mg/dL (0.15-1.2) 08/14/23 13:39 AST 16 U/L (0-40) 08/14/23 13:39 ALT 20 U/L (0-41) 08/14/23 13:39 Alkaline Phosphatase 78 U/L (40-130) 08/14/23 13:39 Creatine Kinase 88 U/L (39-308) 08/14/23 13:39 Total Protein 6.9 g/dL (6.6-8.7) 08/14/23 13:39 Albumin 4.6 g/dL (3.5-5.2) 08/14/23 13:39 Globulin 2.3 g/dL (1.3-4.6) 08/14/23 13:39 Urine Color Yellow (Yellow) 08/14/23 15:37 Urine Appearance Cloudy (CLEAR) A 08/14/23 15:37 Urine pH 6 (5-7) 08/14/23 15:37 Ur Specific [place] 1.015 (1.005-1.030) 08/14/23 15:37 Urine Protein Trace (Negative) 08/14/23 15:37 Urine Glucose (UA) Norm (Normal) 08/14/23 15:37 Urine Ketones Negative (Negative) 08/14/23 15:37 Urine Blood Neg (Negative) 08/14/23 15:37 Urine Nitrate Positive (Negative) H 08/14/23 15:37 Urine Bilirubin Neg (Negative) 08/14/23 15:37 Urine Urobilinogen Norm mg/dL (Negative) 08/14/23 15:37 Ur Leukocyte Esterase 1+ (Negative) H 08/14/23 15:37 Urine RBC 0-4 /hpf (0-2) H 08/14/23 15:37 Urine WBC 15-25 /hpf (0-5) H 08/14/23 15:37 Ur Squamous Epith Cells 0-4 /hpf (0-5) H 08/14/23 15:37 Amorphous Sediment Not Reportable 08/14/23 15:37 Urine Bacteria 3+ /hpf (NONE) H 08/14/23 15:37 Hyaline Casts 0-4 /lpf H 08/14/23 15:37 Urine Mucus 1+ /hpf 08/14/23 15:37 All radiology interpretation(s) finalized by discharge Discharge Plan Discharge Patient Disposition: Admitted As Inpatient Clinical Impression: Cystitis, Encephalopathy, Cerebrospinal fluid leak following surgery, Hydrocephalus in adult, Ventriculo-peritoneal shunt status Condition: Stable Coding Level of Care Code ED Clinic Nurse for Ravi Lee
[2023-08-14 13:48] LABS: Basophils % 0.7 %; Eosinophils # 0.1 10^3/uL (0.0-0.8); Eosinophils % 1.2 %; Hematocrit 44.3 % (37-53); Lymphocytes % 17.6 %; Mean Corpuscular HGB Conc 31.6 g/dL (30-55); Mean Corpuscular Hemoglobin 29.1 pg (27-33); Mean Corpuscular Volume 92.1 fl (82-101); Mean Platelet Volume 9.4 fL (7.4-10.4); Monocytes # 0.4 10^3/uL (0.2-0.9); Neutrophils # 4.26 10^3/uL (1.8-7.7); Neutrophils % 72.8 %; Nucleated Red Blood Cells % 0 %; Platelet Count 151 10^3/cmm (157-399); Red Blood Count 4.81 10^6/uL (3.85-5.65); Red Cell Distribution Width 15.1 % (12.1-15.1); White Blood Count 5.85 10^3/uL (3.29-11.43)
[2023-08-14 14:05] LABS: Lactic Sepsis W/Reflex 2.4 mmol/L (0.5-2.2)
[2023-08-14 14:06] LABS: Alanine Aminotransferase 20 U/L (0-41); Albumin Level 4.6 g/dL (3.5-5.2); Alkaline Phosphatase 78 U/L (40-130); Anion Gap 15.1 (5-19); Aspartate Amino Transferase 16 U/L (0-40); Blood Urea Nitrogen 20 mg/dL (8-23); Carbon Dioxide 30 mmol/L (22-29); Chloride 102 mmol/L (98-107); Creatine Phosphokinase 88 U/L (39-308); Globulin 2.3 g/dL (1.3-4.6); Glucose 197 mg/dL (65-115); Osmolality Calculated 302 mOsm/kg (285-295); Potassium 5.1 mmol/L (3.5-5.1); Sodium 142 mmol/L (136-145); Total Bilirubin 0.6 mg/dL (0.15-1.2); Total Protein 6.9 g/dL (6.6-8.7)
[2023-08-14] MEDS: sodium chloride 0.9% 1,000 ML 999 ML IV (15:09)
[2023-08-14 15:30] LABS: Reflex Lactate Order REFLEX LACTIC ORDERD
[2023-08-14 15:58] LABS: Add Urine Microscopic? YES; Bilirubin Urine Neg (Negative); Blood Urine Neg (Negative); Glucose Urine UA Norm (Normal); Ketones Urine Negative (Negative); Leukocyte Esterase Urine 1+ (Negative); Nitrate Urine Positive (Negative); Protein Urine Trace (Negative); Specific Gravity, Urine 1.015 (1.005-1.030); Urine Appearance Cloudy (CLEAR); Urine Color Yellow (Yellow); Urobilinogen Urine Norm (Negative); pH Urine 6 (5-7)
[2023-08-14 16:01] LABS: Add Urine Culture? Yes; Bacteria Urine 3+ /hpf; Hyaline Casts Urine 0-4 /lpf; Mucus Urine 1+ /hpf; RBC Urine 0-4 /hpf (0-2); Squamous Epithelial Cell Urine 0-4 /hpf (0-5); WBC Urine 15-25 /hpf (0-5)
[2023-08-14 16:36] LABS: Lactic Acid level (Lactate) 1.7 mmol/L (0.5-2.2)
[2023-08-14] MEDS: cefTRIAXone 1,000 MG in sodium chloride 0.9% (plus) 50 ML 100 MG IV (16:42)
--- NOTE | 2023-08-14 17:42 | PM.HP ---
Providers/Chief Complaint Primary Care Provider: Chinedu Babin DO Chief Complaint: Shunt in head, dr told to come over for ct History of Present Illness Alex Quiros is a 78 year old male with a past medical history of [id number] type 2 diabetes mellitus, hypertension, history of bradycardia requiring pacemaker placement, history of cervical myelopathy with radiculopathy, status post C2-T2 posterior instrumented fusion, with decompression C3 C7, with concerns for altered mental status, found to have meningitis, found to have fluid collection, at surgical site continuous with possible CSF leak versus epidural abscess seroma, status post dural repair 03/21, with bilateral subarachnoid lateral ventricular hemorrhage with hydrocephalus, status post transfer to [facility], status post SPECIAL SYSTEMS TECHNICIAN shunt placement, with multiple repeat admissions according to family due to issues with SPECIAL SYSTEMS TECHNICIAN shunt, last hospitalization was over 3 weeks ago, who presents [facility] due to altered mental status, currently patient is alert to person, to place, not to time, can follow commands, patient tells me that he has been weak and fatigued for the last few days, tells me that he has been increasingly confused, he normally can ambulate, with a wheeled walker, he has had a fall in the last 24 hours, she tells me that this morning he was confused, he could not button up his shirt, he has had a poor appetite, no fevers, no chills, no headache, blurry vision, no nausea, vomiting, abdominal pain, dysuria, no diarrhea, he was brought into the emergency room, family was worried about issues with his possible SPECIAL SYSTEMS TECHNICIAN shunt, he had a x-ray of the SPECIAL SYSTEMS TECHNICIAN shunt, including a CT of the head, ER physician reviewed it with neurosurgery at [facility], they felt this subdural hematomas were slightly smaller compared to their prior studies, the resolving hydrocephalus, they recommended as we had a good source of infection he has a UTI, for him to be monitored with antibiotic therapy, I spoke to patient about this, he is agreeable to be admitted here at [facility], will continue IV antibiotics, monitor his mentation closely, he has had a Morocho catheter his prior hospitalization so this could be a risk factor for UTI no history of kidney stones, no flank pain Review of Systems Const: Denies: fever(s) or chills Eyes: Denies: change in vision Card: Denies: chest pain Resp: Denies: dyspnea GI: Denies: abdominal pain, nausea or vomiting : Denies: flank pain, difficulty urinating or dysuria Musc: Denies: neck pain or back pain Skin/Breast: Denies: rash Neuro: Reports: frequent falls; Denies: headache(s), numbness in extremities or dizziness Endo: Denies: polyuria Medications/Allergies Home Medications Medication Instructions Recorded Confirmed Last Taken Type aspirin 81 mg tablet,delayed 81 mg PO QAM 11/01/19 08/14/23 08/14/23 History release atorvastatin 10 mg tablet 10 mg PO QPM 11/01/19 08/14/23 08/14/23 History Bone Growth Stimulator [id number] #1 ea 01/31/23 08/14/23 03/07/23 Rx Lift Chair #1 ea 02/11/23 08/14/23 03/07/23 Rx acetaminophen 325 mg tablet 325 mg PO QID PRN Pain 03/20/23 08/14/23 Unknown History hydrochlorothiazide 25 mg tablet 25 mg PO DAILY 08/07/23 08/14/23 08/14/23 History metformin 1,000 mg tablet 1,000 mg PO BID 08/07/23 08/14/23 08/14/23 History cyclobenzaprine 10 mg tablet 10 mg PO TID PRN muscle spasm #20 08/12/23 08/14/23 08/13/23 Rx tabs atenolol 100 mg tablet 100 mg PO QAM 08/14/23 08/14/23 08/14/23 History isosorbide mononitrate 30 mg 30 mg PO DAILY 08/14/23 08/14/23 08/14/23 History tablet,extended release 24 hr lisinopril 5 mg tablet 5 mg PO DAILY 08/14/23 08/14/23 08/14/23 History multivitamin 1 tab PO QAM 08/14/23 08/14/23 08/14/23 History Allergies Allergy/AdvReac Type Severity Reaction Status Date / Time meloxicam Allergy elevated Verified 08/12/23 15:24 blood pressure Sulfa (Sulfonamide Allergy ALGY-Rash Verified 08/12/23 15:24 Antibiotics) PFSH Acute PFSH: Medical History Abnormal stress test Acute hyponatremia Atherosclerosis of coronary artery of [place] heart without angina pectoris Benign essential HTN Bilateral bunions Bilateral foot pain Bradycardia Bradycardia Cervical myelopathy with cervical radiculopathy Chest pain Coronary atherosclerosis Degenerative cervical spinal stenosis Diabetes mellitus Diastasis recti Dyslipidemia History of cardiac pacemaker History of colon polyps Hyperlipemia Intermittent palpitations Internal hemorrhoids Male erectile dysfunction Non-sustained ventricular tachycardia Obesity Osteoarthritis of left knee Pacemaker Presence of permanent cardiac pacemaker Primary hypertension Prostatic cancer Tear of meniscus of right knee Transient cerebral ischemia Urinary incontinence Ventricular arrhythmia Surgical History History of arthroscopic surgery of shoulder History of colonoscopy with polypectomy History of eye surgery History of knee replacement History of knee surgery History of prostatectomy Post-operative state Family History Mother CAD (coronary artery disease) Diabetes Father Cancer Diabetes Denies family history of Clotting disorder Dementia Chronic kidney disease (CKD) Suicide Anesthesia complication Bleeding disorder Lung disease Stroke Social History Smoking and tobacco/nicotine status: former use of tobacco/nicotine Alcohol intake: former Substance/Drug Use: never Housing: Skilled Nursing Marital status: Vitals/I&O/Wt Last Vital Signs Temp 97.7 F 08/14/23 13:05 Pulse 66 08/14/23 15:47 Resp 15 08/14/23 15:47 BP 85/63 08/14/23 15:47 Pulse Ox 98 08/14/23 15:47 O2 Del Method Room Air 08/14/23 15:47 08/14/23 08/14/23 08/14/23 06:59 14:59 22:59 Intake Total 1000 / 1000 Balance 1000 / 1000 Weight last 48 hrs Weight 102.058 kg Physical Exam Const: COMMON NORMALS: no acute distress ORIENTATION/CONSCIOUSNESS: Yes awake, Yes oriented to person and Yes oriented to place; not oriented to time HENMT: COMMON NORMALS: normocephalic HEAD & SCALP: normocephalic Eye: COMMON NORMALS: Equal, round and reactive pupils present and EOMs intact bilaterally OTHER: Right eyelid drooping, chronic Neck/C-Spine: COMMON NORMALS: no JVD Lymph: LYMPHATIC: no lymphadenopathy noted Chest: COMMONS NORMALS: normal inspection of the chest Resp: COMMON NORMALS: normal respiratory effort, No retractions, No use of accessory muscles and clear to auscultation bilaterally AUSCULTATION: clear to auscultation bilaterally Cardio: COMMON NORMALS: regular rate, regular rhythm, S1 normal heart sound present and S2 normal heart sound present RATE: regular rate RHYTHM: regular rhythm HEART SOUNDS: S1 normal heart sound present and S2 normal heart sound present GI: COMMON NORMALS: Normal to inspection, nondistended, normoactive bowel sounds present, Soft to palpation and non-tender : COMMON NORMALS: Yes no CVA tenderness Extremity: COMMON NORMALS: no pedal edema Neuro: COMMON NORMALS: CN's II-XII intact bilaterally and moves all extremities Psych: COMMON NORMALS: mental status grossly normal Data 08/14/23 13:39 08/14/23 13:39 Micro: Microbiology 08/14/23 14:28 Blood Culture - Preliminary Blood SPECIMEN COLLECTED 08/14/23 13:39 Blood Culture - Preliminary Blood SPECIMEN COLLECTED A&P Assessment and plan (1) Encephalopathy acute: (2) UTI (urinary tract infection): (3) Cystitis: (4) Ventriculo-peritoneal shunt status: (5) Subarachnoid hemorrhage: (6) Subdural hematoma: (7) Primary hypertension: (8) Pacemaker: Plan Acute encephalopathy ? Likely secondary to UTI, ? Does have a history with issues of SPECIAL SYSTEMS TECHNICIAN shunt, last hospitalization was roughly 3 weeks ago, we will continue to monitor mentation closely ? If mentation does not improve, will consider speaking to neurosurgery again at [facility], ? Repeat head CT tomorrow Urinary tract infection, follow urine cultures, blood cultures, renal ultrasound, history of Morocho catheter, history of multiple hospitalizations, broaden antibiotic coverage to zosyn History of meningitis, history of dural leak, requiring SPECIAL SYSTEMS TECHNICIAN shunt ? History of issues with SPECIAL SYSTEMS TECHNICIAN shunt -tatus post C2-T2 posterior instrumented fusion, with decompression C3 C7, with concerns for altered mental status, found to have meningitis, found to have fluid collection, at surgical site continuous with possible CSF leak versus epidural abscess seroma, status post dural repair 03/21, with bilateral subarachnoid lateral ventricular hemorrhage with hydrocephalus, status post transfer to [facility], status post SPECIAL SYSTEMS TECHNICIAN shunt placement, xr vp delivery shunt ?Impression: Satisfactory placement of ventriculoperitoneal shunt tube. ct head 1. Interval placement of a RIGHT parietal SPECIAL SYSTEMS TECHNICIAN shunt catheter since the prior study of 03/23/2023. 2. Resolved hydrocephalus since the prior study. 3. Low-attenuation, bilateral extra-axial fluid collections are most likely subdural hygromas/chronic subdural hematomas. There is mass effect upon the brain. The largest subdural is 1.4 cm on the RIGHT. Smaller on the LEFT at 1.0 cm. -Repeat CT head tomorrow, ? ER provider spoke to neurosurgery at [facility], they compared our CT to their CT they felt that the subdural size has decreased, recommended inpatient monitoring with IV antibiotics for source of infection as UTI as above, Type 2 diabetes mellitus, low-dose sliding scale, Deconditioning, PT OT Neurochecks, aspiration precautions, night stroke scale, Full code, SCDs for DVT prophylaxis, anticoag is relatively contraindicated given subdural hematoma as above Attestations Medical Necessity Statement*: Patient requires hospitalization, for altered mental status, secondary to UTI, with history of SPECIAL SYSTEMS TECHNICIAN shunt, history of subdural hematoma, subarachnoid bleed, inpatient, greater than 2 midnights Diagnoses Encephalopathy acute G93.40 UTI (urinary tract infection) N39.0 Cystitis N30.90 Ventriculo-peritoneal shunt status Z98.2 Subarachnoid hemorrhage I60.9 Subdural hematoma S06.5XAA Primary hypertension I10 Pacemaker Z95.0
--- NOTE | 2023-08-14 18:00 | USR_ITS ---
PROCEDURE INFORMATION: Exam: US Retroperitoneal; Complete; Kidneys and Bladder Exam date and time: 08/14/2023 6:32 PM Age: 78 years old Clinical indication: Condition or disease; Kidney or ureter condition; Other: UTI; Prior surgery; Surgery date: 6+ months; Surgery type: Prostatectomy 2004 C/O CA; Additional info: UTI R/O stone TECHNIQUE: Imaging protocol: Real-time ultrasound of the retroperitoneum with image documentation. Complete exam focused on the kidneys and bladder. COMPARISON: US renal BI* [id number] 06/26/2022 9:43 AM FINDINGS: Right kidney: Right kidney measures 10.6 cm in length. Several simple appearing cysts noted in the right kidney measuring up to 3.6 cm. No stones. No hydronephrosis. Left kidney: Left kidney measures 12.2 cm in length. Simple appearing cyst noted in the left kidney measuring up to 1.7 cm. No stones. No hydronephrosis. Urinary bladder: Postvoid residual of 23 cc. US/US renal BI* [id number] IMPRESSION: No acute findings.
[2023-08-14 18:45] LABS: Procalcitonin 0.05 ng/mL (0-0.5)
[2023-08-14 20:08] LABS: Thyroid Stimulating Hormone 1.35 uIU/mL (0.27-4.20)
[2023-08-14 20:31] LABS: Glucose Point of Care 139 mg/dL (70-110)
[2023-08-14] MEDS: pantoprazole 40 mg SDV IVP (20:53)
[2023-08-14] MEDS: piperacillin-tazobactam 3.375 GM in sodium chloride 0.9% (plus) 50 ML IV (20:54)
[2023-08-14] MEDS: sodium chloride 0.9% 1,000 ML 100 ML IV (20:54)
[2023-08-14] MEDS: acetaminophen 325 mg Tablet PO (21:04)
[2023-08-15] MEDS: piperacillin-tazobactam 3.375 GM in sodium chloride 0.9% (plus) 50 ML IV ×3 (03:00→20:55)
[2023-08-15 04:28] VITALS: BP 160/60; PULSE 68; RESP 18; TEMP 37; O2SAT 96
[2023-08-15 05:12] VITALS: PULSE 74
[2023-08-15] MEDS: atenolol 50 mg Tablet 100 MG PO (06:08)
[2023-08-15] MEDS: multivitamin therapeutic Tablet 1 TAB PO (06:08)
[2023-08-15] MEDS: sodium chloride 0.9% 1,000 ML 100 ML IV (06:08)
[2023-08-15 06:49] LABS: Glucose Point of Care 136 mg/dL (70-110)
[2023-08-15 06:53] LABS: Basophils % 0.7 %; Eosinophils # 0.1 10^3/uL (0.0-0.8); Eosinophils % 3.1 %; Hematocrit 40.3 % (37-53); Lymphocytes % 24.3 %; Mean Corpuscular HGB Conc 31.3 g/dL (30-55); Mean Corpuscular Hemoglobin 28.9 pg (27-33); Mean Corpuscular Volume 92.4 fl (82-101); Monocytes # 0.4 10^3/uL (0.2-0.9); Monocytes % 9.1 %; Neutrophils # 2.59 10^3/uL (1.8-7.7); Neutrophils % 62.3 %; Nucleated Red Blood Cells % 0 %; Platelet Count 131 10^3/cmm (157-399); Red Blood Count 4.36 10^6/uL (3.85-5.65); White Blood Count 4.16 10^3/uL (3.29-11.43)
[2023-08-15 07:14] LABS: Alanine Aminotransferase 16 U/L (0-41); Albumin Level 3.7 g/dL (3.5-5.2); Alkaline Phosphatase 66 U/L (40-130); Anion Gap 12.3 (5-19); Aspartate Amino Transferase 13 U/L (0-40); Blood Urea Nitrogen 15 mg/dL (8-23); Carbon Dioxide 27 mmol/L (22-29); Chloride 111 mmol/L (98-107); Globulin 2.1 g/dL (1.3-4.6); Glucose 143 mg/dL (65-115); Magnesium 1.8 mg/dL (1.7-2.3); Osmolality Calculated 305 mOsm/kg (285-295); Phosphorus 3.4 mg/dL (2.5-4.5); Potassium 4.3 mmol/L (3.5-5.1); Sodium 146 mmol/L (136-145); Total Bilirubin 0.6 mg/dL (0.15-1.2); Total Protein 5.8 g/dL (6.6-8.7)
[2023-08-15 07:21] LABS: NT Pro B Type Natriuretic Pept 508 pg/mL (0-450)
[2023-08-15 08:00] VITALS: BP 169/102; PULSE 68; RESP 18; O2SAT 97
[2023-08-15] MEDS: hydroCHLOROthiazide 25 mg Tablet PO (08:45)
[2023-08-15] MEDS: isosorbide mononitrate ER 30 mg Tablet PO (08:45)
[2023-08-15] MEDS: lisinopril 5 mg Tablet PO (08:45)
--- NOTE | 2023-08-15 09:10 | PC.CHAP ---
Pastoral Care Encounter/Spiritual Assessment Type of Contact [] Declined plant facilities technician visit [] Patient/Family/Request visit [] Outpatient visit [] Follow-up visit [] Physician referral [] Code/Alert [] Routine visit [] Staff referral [] Actively dying [] Patient sleeping [] Family support [] [] Out of room [] Palliative care [] [x] Receiving care in room [] Pre-surgical visit [] Trauma [] Long length of stay [] ICU visit [] Other: Relational/Emotional Strength [] Patient feels connected with others/family/visitors/staff [] Distress [] Loneliness/isolation [] Abandonment Spirituality of Patient [] Person of [place] [] Attends Religion of their [place] [] Believes in Prayer [] Reads Bible or Episcopal materials [] There are Spiritual issues to be addressed Digital Solution Architect Interventions [] Prayer [] Active listening [] Non-anxious presence [] Spiritual/emotional support [] Crisis/trauma care [] Spiritual counseling [] Bereavement support [] Provided bereavement packet [] Provided Bible/devotional materials [] Provided toy/stuffed animal, coloring book to patient or family member [] Provided Communion [] Anointing/[place] [] Salvation [] Completed spiritual assessment [] Other: Impact on Illness or Injury [] Angry [] Fearful [] Anxious [] Often cries [] Exhaustion [] Unable to work [] Unable to attend protestant [] Unable to walk/stand [] Unable to read [] Unable to drive [] Unable to eat/drink [] Unable to sleep [] Unable to be with family [] Patient intubated [] Other: Summary Time spent with patient
[2023-08-15 11:38] LABS: Glucose Point of Care 160 mg/dL (70-110)
[2023-08-15 12:00] VITALS: BP 142/73; PULSE 54; RESP 17; TEMP 36.3; O2SAT 96
[2023-08-15] MEDS: insulin lispro 100 unit/1 mL SUBCUT ×2 (12:22→17:59)
--- NOTE | 2023-08-15 13:54 | PC.SOCIAL ---
Pg 2 IMM Explained to pt Pg 2 IMM. No questions voiced. Provided pt a copy. Initialed, dated, & timed a copy & placed in chart.
--- NOTE | 2023-08-15 15:43 | PM.PN ---
Subjective Subjective: Patient was seen this morning, he is alert oriented x3, following all commands, nursing staff tell me that he was threatening to stab nursing staff, I confronted patient about this he denies this, he denies any suicidal ideation, homicidal ideation, denies feeling down depressed or sad, denies any anger, denies any issues with nursing staff, advised him that we will not tolerate any threats towards nursing staff, and we take them very safely he understands this, he apologizes, denies any nausea, vomiting, headache, blurry vision, Vitals/I&O/Wt Last Vital Signs Temp 97.4 F L 08/15/23 12:00 Pulse 54 L 08/15/23 12:00 Resp 17 08/15/23 12:00 BP 142/73 08/15/23 12:00 Pulse Ox 96 08/15/23 12:00 O2 Del Method Room Air 08/14/23 19:43 08/15/23 08/15/23 08/15/23 06:59 14:59 22:59 Intake Total 1023.333 / 5135.073 600 / 600 Output Total 400 / 1125 1200 / 1200 Balance 623.333 / 4010.073 -600 / -600 Weight last 48 hrs Weight 102.058 kg Physical Exam Const: COMMON NORMALS: no acute distress and patient oriented x3 Resp: COMMON NORMALS: normal respiratory effort, No retractions, No use of accessory muscles and clear to auscultation bilaterally AUSCULTATION: clear to auscultation bilaterally Cardio: COMMON NORMALS: regular rate, regular rhythm, S1 normal heart sound present and S2 normal heart sound present RATE: regular rate RHYTHM: regular rhythm HEART SOUNDS: S1 normal heart sound present and S2 normal heart sound present GI: COMMON NORMALS: Normal to inspection, nondistended, normoactive bowel sounds present and non-tender Extremity: COMMON NORMALS: no pedal edema Neuro: COMMON NORMALS: patient oriented x3 Psych: COMMON NORMALS: mental status grossly normal Data 08/15/23 05:51 08/15/23 05:51 Micro: Microbiology 08/14/23 14:28 Blood Culture - Preliminary Blood NEGATIVE TO DATE 08/14/23 13:39 Blood Culture - Preliminary Blood NEGATIVE TO DATE 08/14/23 15:37 Urine Culture - Preliminary Urine,Clean Catch Gram Negative Rods A&P Assessment and plan (1) Encephalopathy acute: (2) UTI (urinary tract infection): (3) Cystitis: (4) Ventriculo-peritoneal shunt status: (5) Subarachnoid hemorrhage: (6) Subdural hematoma: (7) Primary hypertension: (8) Pacemaker: Plan Acute encephalopathy ? Likely secondary to UTI, ? Does have a history with issues of CLINICAL HAEMATOLOGIST shunt, last hospitalization was roughly 3 weeks ago, we will continue to monitor mentation closely ? If mentation does not improve, will consider speaking to neurosurgery again at [facility], ? Repeat head CT today Urinary tract infection, follow urine cultures, blood cultures, renal ultrasound WNL, history of Morocho catheter, history of multiple hospitalizations, broaden antibiotic coverage to zosyn History of meningitis, history of dural leak, requiring CLINICAL HAEMATOLOGIST shunt ? History of issues with CLINICAL HAEMATOLOGIST shunt -tatus post C2-T2 posterior instrumented fusion, with decompression C3 C7, with concerns for altered mental status, found to have meningitis, found to have fluid collection, at surgical site continuous with possible CSF leak versus epidural abscess seroma, status post dural repair 03/21, with bilateral subarachnoid lateral ventricular hemorrhage with hydrocephalus, status post transfer to [facility], status post CLINICAL HAEMATOLOGIST shunt placement, xr vp patient shunt ?Impression: Satisfactory placement of ventriculoperitoneal shunt tube. ct head 1. Interval placement of a RIGHT parietal CLINICAL HAEMATOLOGIST shunt catheter since the prior study of 03/23/2023. 2. Resolved hydrocephalus since the prior study. 3. Low-attenuation, bilateral extra-axial fluid collections are most likely subdural hygromas/chronic subdural hematomas. There is mass effect upon the brain. The largest subdural is 1.4 cm on the RIGHT. Smaller on the LEFT at 1.0 cm. -Repeat CT head tomorrow, ? ER provider spoke to neurosurgery at [facility], they compared our CT to their CT they felt that the subdural size has decreased, recommended inpatient monitoring with IV antibiotics for source of infection as UTI as above, Type 2 diabetes mellitus, low-dose sliding scale, Deconditioning, PT OT Neurochecks, aspiration precautions, night stroke scale, Full code, SCDs for DVT prophylaxis, anticoag is relatively contraindicated given subdural hematoma as above Attestations Medical Necessity Statement*: Patient requires hospitalization for encephalopathy secondary to UTI, requiring IV antibiotics, risk of ESBL infections Diagnoses Encephalopathy acute G93.40 UTI (urinary tract infection) N39.0 Cystitis N30.90 Ventriculo-peritoneal shunt status Z98.2 Subarachnoid hemorrhage I60.9 Subdural hematoma S06.5XAA Primary hypertension I10 Pacemaker Z95.0
--- NOTE | 2023-08-15 15:47 | CTR_ITS ---
PROCEDURE INFORMATION: Exam: CT Head Without Contrast Exam date and time: 08/15/2023 5:31 PM Age: 78 years old Clinical indication: Condition or disease; Other: Sdh; Prior surgery; Surgery date: 6+ months; Surgery type: Shunt; Additional info: Monitor subdural TECHNIQUE: Imaging protocol: Computed tomography of the head without contrast. Radiation optimization: All CT scans at this facility use at least one of these dose optimization techniques: automated exposure control; mA and/or kV adjustment per patient size (includes targeted exams where dose is matched to clinical indication); or iterative reconstruction. REPORTING DATA: Count of CT and Cardiac NM exams in prior 12 months: This patient has received 9 known CTs and 0 known cardiac nuclear medicine studies in the 12 months prior to the current study. COMPARISON: CT head wo con* [id number] 08/14/2023 1:43 PM RADIATION DOSE METRICS: Total DLP (mGy-cm): 1133.18 FINDINGS: Tubes, catheters and devices: Right parietal approach ventriculostomy catheter with its tip in the midline right lateral ventricle. Brain: Chronic right hemispheric subdural collection measuring 2.0 cm, previously measuring 1.9 cm. Left hemispheric chronic subdural collection measures 1.3 cm, previously 1.3 cm. Cerebral ventricles: Ventricles are slit-like. Paranasal sinuses: Visualized sinuses are unremarkable. No fluid levels. Mastoid air cells: Visualized mastoid air cells are well aerated. Bones/joints: Right posterior parietal ute hole. Soft tissues: Unremarkable. CT/CT head wo con* [id number] IMPRESSION: Bilateral chronic subdural collections with with no significant change when measured similarly.
[2023-08-15 16:00] VITALS: BP 136/73; PULSE 76; RESP 18; O2SAT 97
[2023-08-15] MEDS: atorvastatin 40 mg Tablet 20 MG PO (17:59)
[2023-08-15 18:26] LABS: Glucose Point of Care 196 mg/dL (70-110)
[2023-08-15 20:17] VITALS: BP 145/71; PULSE 80; RESP 19; TEMP 37; O2SAT 97
[2023-08-15] MEDS: pantoprazole 40 mg SDV IVP (20:55)
[2023-08-15 21:02] LABS: Glucose Point of Care 165 mg/dL (70-110)
[2023-08-16 00:30] VITALS: BP 140/70; PULSE 75; RESP 18; TEMP 37; O2SAT 96
[2023-08-16 05:00] VITALS: BP 147/74; PULSE 68; RESP 18; TEMP 37; O2SAT 95
[2023-08-16] MEDS: piperacillin-tazobactam 3.375 GM in sodium chloride 0.9% (plus) 50 ML IV ×3 (05:07→20:06)
[2023-08-16] MEDS: atenolol 50 mg Tablet 100 MG PO (05:07)
[2023-08-16] MEDS: multivitamin therapeutic Tablet 1 TAB PO (05:07)
[2023-08-16 05:56] LABS: Basophils % 0.5 %; Eosinophils # 0.1 10^3/uL (0.0-0.8); Eosinophils % 2.2 %; Hematocrit 38.9 % (37-53); Lymphocytes % 25.1 %; Mean Corpuscular HGB Conc 32.1 g/dL (30-55); Mean Corpuscular Hemoglobin 29.5 pg (27-33); Mean Corpuscular Volume 91.7 fl (82-101); Mean Platelet Volume 9.7 fL (7.4-10.4); Monocytes # 0.3 10^3/uL (0.2-0.9); Monocytes % 8.3 %; Neutrophils # 2.61 10^3/uL (1.8-7.7); Neutrophils % 63.4 %; Nucleated Red Blood Cells % 0 %; Platelet Count 115 10^3/cmm (157-399); Red Blood Count 4.24 10^6/uL (3.85-5.65); Red Cell Distribution Width 15.2 % (12.1-15.1); White Blood Count 4.11 10^3/uL (3.29-11.43)
[2023-08-16 06:19] LABS: Alanine Aminotransferase 12 U/L (0-41); Albumin Level 3.6 g/dL (3.5-5.2); Alkaline Phosphatase 62 U/L (40-130); Anion Gap 14.7 (5-19); Aspartate Amino Transferase 12 U/L (0-40); Blood Urea Nitrogen 13 mg/dL (8-23); Carbon Dioxide 24 mmol/L (22-29); Chloride 109 mmol/L (98-107); Globulin 2.1 g/dL (1.3-4.6); Glucose 141 mg/dL (65-115); Magnesium 1.8 mg/dL (1.7-2.3); Osmolality Calculated 300 mOsm/kg (285-295); Phosphorus 3.7 mg/dL (2.5-4.5); Potassium 3.7 mmol/L (3.5-5.1); Sodium 144 mmol/L (136-145); Total Bilirubin 0.5 mg/dL (0.15-1.2); Total Protein 5.7 g/dL (6.6-8.7)
[2023-08-16 06:57] LABS: Glucose Point of Care 132 mg/dL (70-110)
[2023-08-16 08:00] VITALS: BP 166/80; PULSE 83; RESP 17; TEMP 36.6; O2SAT 94
[2023-08-16] MEDS: lisinopril 5 mg Tablet PO (09:44)
[2023-08-16] MEDS: isosorbide mononitrate ER 30 mg Tablet PO (09:44)
[2023-08-16] MEDS: hydroCHLOROthiazide 25 mg Tablet PO (09:45)
[2023-08-16 12:00] VITALS: BP 130/67; PULSE 63; RESP 17; TEMP 36.8; O2SAT 96
[2023-08-16 12:03] LABS: Glucose Point of Care 181 mg/dL (70-110)
--- NOTE | 2023-08-16 13:13 | PM.PN ---
Subjective Subjective: Patient was seen this morning, he is alert and awake, following all commands, he wanted to clarify his comment about stabbing, he tells me that he is only joking with the nursing staff, he tells me that he has been in and out of the hospital for the last month, and that you have to treat the nursing staff for well, or its like they are stabbing you multiple times, however he denies any active suicidal ideation, homicidal ideation, denies feeling down depressed or sad, denies feeling angry, he did does report a couples of episodes of visual hallucinations, as such as the roof moving, but and that he is feeling okay, no fevers, chills Vitals/I&O/Wt Last Vital Signs Temp 98.3 F 08/16/23 12:00 Pulse 63 08/16/23 12:00 Resp 17 08/16/23 12:00 BP 130/67 08/16/23 12:00 Pulse Ox 96 08/16/23 12:00 O2 Del Method Room Air 08/14/23 19:43 08/15/23 08/16/23 08/16/23 22:59 06:59 14:59 Intake Total 1530 / 2130 290 / 2420 650 / 650 Output Total 300 / 1500 600 / 2100 Balance 1230 / 630 -310 / 320 650 / 650 Physical Exam Const: COMMON NORMALS: no acute distress and patient oriented x3 Resp: COMMON NORMALS: normal respiratory effort, No retractions, No use of accessory muscles and clear to auscultation bilaterally AUSCULTATION: clear to auscultation bilaterally Cardio: COMMON NORMALS: regular rate, regular rhythm, S1 normal heart sound present and S2 normal heart sound present RATE: regular rate RHYTHM: regular rhythm HEART SOUNDS: S1 normal heart sound present and S2 normal heart sound present GI: COMMON NORMALS: Normal to inspection, nondistended, normoactive bowel sounds present and non-tender Extremity: COMMON NORMALS: no pedal edema Neuro: COMMON NORMALS: patient oriented x3, CN's II-XII intact bilaterally, moves all extremities and no focal motor deficits Psych: COMMON NORMALS: mental status grossly normal Data 08/16/23 05:16 08/16/23 05:16 Micro: Microbiology 08/14/23 15:37 Urine Culture - Final Urine,Clean Catch Klebsiella pneumoniae 08/14/23 14:28 Blood Culture - Preliminary Blood NEGATIVE TO DATE 08/14/23 13:39 Blood Culture - Preliminary Blood NEGATIVE TO DATE A&P Assessment and plan (1) Encephalopathy acute: (2) UTI (urinary tract infection): (3) Cystitis: (4) Ventriculo-peritoneal shunt status: (5) Subarachnoid hemorrhage: (6) Subdural hematoma: (7) Primary hypertension: (8) Pacemaker: Plan Acute encephalopathy, resolving ? Likely secondary to UTI, ? Does have a history with issues of MIDWIFE PRACTITIONER shunt, last hospitalization was roughly 3 weeks ago, we will continue to monitor mentation closely ? If mentation does not improve, will consider speaking to neurosurgery again at [facility], ? Repeat head yesterday CT/CT head wo con* [id number] IMPRESSION: Bilateral chronic subdural collections with with no significant change when measured similarly. Urinary tract infection, follow urine cultures, blood cultures, renal ultrasound WNL, history of Morocho catheter, history of multiple hospitalizations, broaden antibiotic coverage to zosyn History of meningitis, history of dural leak, requiring MIDWIFE PRACTITIONER shunt ? History of issues with MIDWIFE PRACTITIONER shunt -tatus post C2-T2 posterior instrumented fusion, with decompression C3 C7, with concerns for altered mental status, found to have meningitis, found to have fluid collection, at surgical site continuous with possible CSF leak versus epidural abscess seroma, status post dural repair 03/21, with bilateral subarachnoid lateral ventricular hemorrhage with hydrocephalus, status post transfer to [facility], status post MIDWIFE PRACTITIONER shunt placement, xr second vp hr assessment shunt ?Impression: Satisfactory placement of ventriculoperitoneal shunt tube. ct head 1. Interval placement of a RIGHT parietal MIDWIFE PRACTITIONER shunt catheter since the prior study of 03/23/2023. 2. Resolved hydrocephalus since the prior study. 3. Low-attenuation, bilateral extra-axial fluid collections are most likely subdural hygromas/chronic subdural hematomas. There is mass effect upon the brain. The largest subdural is 1.4 cm on the RIGHT. Smaller on the LEFT at 1.0 cm. -Repeat CT head tomorrow, ? ER provider spoke to neurosurgery at [facility], they compared our CT to their CT they felt that the subdural size has decreased, recommended inpatient monitoring with IV antibiotics for source of infection as UTI as above, - CT/CT head wo con* [id number] IMPRESSION: Bilateral chronic subdural collections with with no significant change when measured similarly. Type 2 diabetes mellitus, low-dose sliding scale, Deconditioning, PT OT Neurochecks, aspiration precautions, night stroke scale, Full code, SCDs for DVT prophylaxis, anticoag is relatively contraindicated given subdural hematoma as above Attestations Medical Necessity Statement*: Patient requires hospitalization for UTI, with encephalopathy, history of multiple hospitalizations, at risk of ESBL infections, continue inpatient monitoring Diagnoses Encephalopathy acute G93.40 UTI (urinary tract infection) N39.0 Cystitis N30.90 Ventriculo-peritoneal shunt status Z98.2 Subarachnoid hemorrhage I60.9 Subdural hematoma S06.5XAA Primary hypertension I10 Pacemaker Z95.0
[2023-08-16 16:00] VITALS: BP 121/70; PULSE 66; RESP 17; TEMP 36.6; O2SAT 97
[2023-08-16 17:10] LABS: Glucose Point of Care 165 mg/dL (70-110)
[2023-08-16] MEDS: atorvastatin 40 mg Tablet 20 MG PO (17:30)
[2023-08-16] MEDS: insulin lispro 100 unit/1 mL SUBCUT (17:30)
[2023-08-16 20:00] VITALS: BP 154/81; PULSE 60; RESP 17; TEMP 36.5; O2SAT 96
[2023-08-16] MEDS: pantoprazole 40 mg SDV IVP (20:06)
[2023-08-16] MEDS: cyclobenzaprine 10 mg Tablet PO (20:13)
[2023-08-16 20:58] LABS: Glucose Point of Care 113 mg/dL (70-110)
[2023-08-17 00:05] VITALS: BP 145/88; PULSE 66; RESP 19; TEMP 36.8; O2SAT 96
[2023-08-17 03:40] VITALS: BP 152/78; PULSE 58; RESP 18; TEMP 36.8; O2SAT 95
[2023-08-17] MEDS: piperacillin-tazobactam 3.375 GM in sodium chloride 0.9% (plus) 50 ML IV ×2 (03:44→12:46)
[2023-08-17 04:45] LABS: Basophils % 0.8 %; Eosinophils # 0.1 10^3/uL (0.0-0.8); Eosinophils % 2.2 %; Hematocrit 40.4 % (37-53); Lymphocytes # 1.3 10^3/uL (0.8-4.8); Lymphocytes % 25.4 %; Mean Corpuscular HGB Conc 31.9 g/dL (30-55); Mean Corpuscular Hemoglobin 29.1 pg (27-33); Mean Platelet Volume 9.8 fL (7.4-10.4); Monocytes # 0.5 10^3/uL (0.2-0.9); Monocytes % 9.3 %; Neutrophils # 3.05 10^3/uL (1.8-7.7); Neutrophils % 61.9 %; Nucleated Red Blood Cells % 0 %; Platelet Count 117 10^3/cmm (157-399); Red Blood Count 4.44 10^6/uL (3.85-5.65); White Blood Count 4.93 10^3/uL (3.29-11.43)
[2023-08-17 05:05] LABS: Alanine Aminotransferase 15 U/L (0-41); Albumin Level 3.6 g/dL (3.5-5.2); Alkaline Phosphatase 62 U/L (40-130); Anion Gap 11.8 (5-19); Aspartate Amino Transferase 14 U/L (0-40); Blood Urea Nitrogen 16 mg/dL (8-23); Calcium 9.1 mg/dL (8.5-10.5); Carbon Dioxide 27 mmol/L (22-29); Chloride 105 mmol/L (98-107); Creatinine Clr Calc Pharmacy 82.2726; Globulin 2.3 g/dL (1.3-4.6); Glucose 151 mg/dL (65-115); Magnesium 1.9 mg/dL (1.7-2.3); Osmolality Calculated 294 mOsm/kg (285-295); Phosphorus 3.7 mg/dL (2.5-4.5); Potassium 3.8 mmol/L (3.5-5.1); Sodium 140 mmol/L (136-145); Total Bilirubin 0.5 mg/dL (0.15-1.2); Total Protein 5.9 g/dL (6.6-8.7)
[2023-08-17] MEDS: atenolol 50 mg Tablet 100 MG PO (06:13)
[2023-08-17] MEDS: multivitamin therapeutic Tablet 1 TAB PO (06:13)
[2023-08-17 06:15] VITALS: BP 131/78
[2023-08-17 08:00] VITALS: BP 167/84; PULSE 64; RESP 17; TEMP 36.6; O2SAT 98
[2023-08-17 08:02] LABS: Glucose Point of Care 142 mg/dL (70-110)
[2023-08-17] MEDS: isosorbide mononitrate ER 30 mg Tablet PO (08:26)
[2023-08-17] MEDS: lisinopril 5 mg Tablet PO (08:26)
[2023-08-17] MEDS: hydroCHLOROthiazide 25 mg Tablet PO (08:26)
[2023-08-17 11:59] LABS: Glucose Point of Care 192 mg/dL (70-110)
[2023-08-17 12:00] VITALS: BP 114/66; PULSE 57; RESP 17; TEMP 36.5; O2SAT 94
--- NOTE | 2023-08-17 12:26 | P.DS_ITS ---
Discharge Providers Date of Admission: 08/14/23 17:40 Date of Discharge: August 17, 2023 Attending Provider at Admission: Kasi Lees MD Attending Provider at Discharge: Kasi Lees MD Primary Care Provider: Chinedu Babin DO Diagnoses at Discharge Discharge Diagnosis (1) Encephalopathy acute: Status: Acute (2) UTI (urinary tract infection): Status: Acute (3) Cystitis: Status: Acute (4) Ventriculo-peritoneal shunt status: Status: Acute (5) Subarachnoid hemorrhage: Status: Acute (6) Subdural hematoma: Status: Acute (7) Primary hypertension: Status: Acute (8) Pacemaker: Status: Acute Reason for Visit Reason for Visit: Shunt in head, dr told to come over for ct Hospital Course Hospital Course Alex Quiros is a 78 year old male with a past medical history of [id number] type 2 diabetes mellitus, hypertension, history of bradycardia requiring pacemaker placement, history of cervical myelopathy with radiculopathy, status post C2-T2 posterior instrumented fusion, with decompression C3 C7, with concerns for altered mental status, found to have meningitis, found to have fluid collection, at surgical site continuous with possible CSF leak versus epidural abscess seroma, status post dural repair 03/21, with bilateral subarachnoid lateral ventricular hemorrhage with hydrocephalus, status post transfer to [facility], status post GEOGRAPHY DEPARTMENT CHAIR shunt placement, with multiple repeat admissions according to family due to issues with GEOGRAPHY DEPARTMENT CHAIR shunt, last hospitalization was over 3 weeks ago, who presents [facility] due to altered mental status, currently patient is alert to person, to place, not to time, can follow commands, patient tells me that he has been weak and fatigued for the last few days, tells me that he has been increasingly confused, he normally can ambulate, with a wheeled walker, he has had a fall in the last 24 hours, she tells me that this morning he was confused, he could not button up his shirt, he has had a poor appetite, no fevers, no chills, no headache, blurry vision, no nausea, vomiting, abdominal pain, dysuria, no diarrhea, he was brought into the emergency room, family was worried about issues with his possible GEOGRAPHY DEPARTMENT CHAIR shunt, he had a x-ray of the GEOGRAPHY DEPARTMENT CHAIR shunt, including a CT of the head, ER physician reviewed it with neurosurgery at [facility], they felt this subdural hematomas were slightly smaller compared to their prior studies, the resolving hydrocephalus, they recommended as we had a good source of infection he has a UTI, for him to be monitored with antibiotic therapy, I spoke to patient about this, he is agreeable to be admitted here at [facility], will continue IV antibiotics, monitor his mentation closely, he has had a Morocho catheter his prior hospitalization so this could be a risk factor for UTI no history of kidney stones, no flank pain This is a 78-year-old male, who presents [facility] for acute encephalopathy, secondary to UTI, received IV antibiotics, urine culture showing Klebsiella, discharged on 5 remaining days of cefdinir, discharged alert oriented x3, following all commands, For his history of meningitis, history of dural leak, history of requiring GEOGRAPHY DEPARTMENT CHAIR shunt, initially his head CT was discussed with neurosurgery at [facility] by ER provider, they felt that the subdural hematoma, had decreased in size, recom mended inpatient monitoring, patient was monitored as inpatient, no headache, blurry vision, his mentation significantly improved, repeat head CT showed bilateral chronic subdural collections with no significant change when measured similarly, patient was advised to follow-up with neurosurgery at [facility] this week, if any changes in his mentation, please come back to the emergency room or call 911 Physical Exam Const: COMMON NORMALS: no acute distress and patient oriented x3 Resp: COMMON NORMALS: normal respiratory effort, No retractions, No use of accessory muscles and clear to auscultation bilaterally AUSCULTATION: clear to auscultation bilaterally Cardio: COMMON NORMALS: regular rate, regular rhythm, S1 normal heart sound present and S2 normal heart sound present RATE: regular rate RHYTHM: regular rhythm HEART SOUNDS: S1 normal heart sound present and S2 normal heart sound present GI: COMMON NORMALS: Normal to inspection, nondistended, normoactive bowel sounds present and non-tender Extremity: COMMON NORMALS: no pedal edema Neuro: COMMON NORMALS: patient oriented x3 Psych: COMMON NORMALS: mental status grossly normal Discharge Data Studies Completed and Pending Completed Studies During Hospitalization Category Date Time Status CT head wo con* [id number] Routine Cat Scan 08/15/23 15:[address] head wo con* [id number] Stat Cat Scan 08/14/23 13:13 Completed XR chest 1V portable [id number] Stat Exams 08/14/23 13:14 Completed XR shunt series Stat Exams 08/14/23 13:13 Completed US renal BI* [id number] Stat Ultrasound 08/14/23 18:00 Completed Pending at discharge Category Date Time Status Blood Culture Stat Lab 08/14/23 14:28 Results Radiology Impressions Renal Ultrasound 08/14/23 18:00 IMPRESSION: No acute findings. Head CT 08/15/23 15:47 IMPRESSION: Bilateral chronic subdural collections with with no significant change when measured similarly. Laboratory Results WBC 4.93 10^3/uL (3.29-11.43) 08/17/23 02:34 RBC 4.44 10^6/uL (3.85-5.65) 08/17/23 02:34 Hgb 12.90 g/dL (11.27-16.99) 08/17/23 02:34 Hct 40.4 % (37-53) 08/17/23 02:34 MCV 91.0 fl (82-101) 08/17/23 02:34 MCH 29.1 pg (27-33) 08/17/23 02:34 MCHC 31.9 g/dL (30-55) 08/17/23 02:34 RDW 15.0 % (12.1-15.1) 08/17/23 02:34 Plt Count 117 10^3/cmm (157-399) L 08/17/23 02:34 MPV 9.8 fL (7.4-10.4) 08/17/23 02:34 Neut % (Auto) 61.9 % 08/17/23 02:34 Lymph % (Auto) 25.4 % 08/17/23 02:34 [place] % (Auto) 9.3 % 08/17/23 02:34 Eos % (Auto) 2.2 % 08/17/23 02:34 Baso % (Auto) 0.8 % 08/17/23 02:34 Neut # (Auto) 3.05 10^3/uL (1.8-7.7) 08/17/23 02:34 Lymph # (Auto) 1.3 10^3/uL (0.8-4.8) 08/17/23 02:34 [place] # (Auto) 0.5 10^3/uL (0.2-0.9) 08/17/23 02:34 Eos # (Auto) 0.1 10^3/uL (0.0-0.8) 08/17/23 02:34 Baso # (Auto) 0.0 10^3/uL (0.0-0.1) 08/17/23 02:34 Nucleated RBC % (auto) 0 % 08/17/23 02:34 Nucleated RBCs # 0.0 /100WBC 08/17/23 02:34 Sodium 140 mmol/L (136-145) 08/17/23 02:34 Potassium 3.8 mmol/L (3.5-5.1) 08/17/23 02:34 Chloride 105 mmol/L (98-107) 08/17/23 02:34 Carbon Dioxide 27 mmol/L (22-29) 08/17/23 02:34 Anion Gap 11.8 (5-19) 08/17/23 02:34 BUN 16 mg/dL (8-23) 08/17/23 02:34 Creatinine 0.9 mg/dL (0.7-1.2) 08/17/23 02:34 GFR Calculation Not Reportable 08/17/23 02:34 Glucose 151 mg/dL (65-115) H 08/17/23 02:34 POC Glucose 192 mg/dL (70-110) H 08/17/23 11:57 Calculated Osmolality 294 mOsm/kg (285-295) 08/17/23 02:34 Lactic Acid 2.4 mmol/L (0.5-2.2) H 08/14/23 13:39 Lactic Acid (Sepsis) 1.7 mmol/L (0.5-2.2) 08/14/23 16:09 Calcium 9.1 mg/dL (8.5-10.5) 08/17/23 02:34 Phosphorus 3.7 mg/dL (2.5-4.5) 08/17/23 02:34 Magnesium 1.9 mg/dL (1.7-2.3) 08/17/23 02:34 Total Bilirubin 0.5 mg/dL (0.15-1.2) 08/17/23 02:34 AST 14 U/L (0-40) 08/17/23 02:34 ALT 15 U/L (0-41) 08/17/23 02:34 Alkaline Phosphatase 62 U/L (40-130) 08/17/23 02:34 Creatine Kinase 88 U/L (39-308) 08/14/23 13:39 C-Reactive Protein 3.0 mg/L (0.0-4.9) 08/14/23 13:39 NT-Pro-B Natriuret Pep 508 pg/mL (0-450) H 08/15/23 05:51 Total Protein 5.9 g/dL (6.6-8.7) L 08/17/23 02:34 Albumin 3.6 g/dL (3.5-5.2) 08/17/23 02:34 Globulin 2.3 g/dL (1.3-4.6) 08/17/23 02:34 Procalcitonin 0.05 ng/mL (0-0.5) 08/14/23 13:39 TSH 1.35 uIU/mL (0.27-4.20) 08/14/23 13:39 Urine Color Yellow (Yellow) 08/14/23 15:37 Urine Appearance Cloudy (CLEAR) A 08/14/23 15:37 Urine pH 6 (5-7) 08/14/23 15:37 Ur Specific [place] 1.015 (1.005-1.030) 08/14/23 15:37 Urine Protein Trace (Negative) 08/14/23 15:37 Urine Glucose (UA) Norm (Normal) 08/14/23 15:37 Urine Ketones Negative (Negative) 08/14/23 15:37 Urine Blood Neg (Negative) 08/14/23 15:37 Urine Nitrate Positive (Negative) H 08/14/23 15:37 Urine Bilirubin Neg (Negative) 08/14/23 15:37 Urine Urobilinogen Norm mg/dL (Negative) 08/14/23 15:37 Ur Leukocyte Esterase 1+ (Negative) H 08/14/23 15:37 Urine RBC 0-4 /hpf (0-2) H 08/14/23 15:37 Urine WBC 15-25 /hpf (0-5) H 08/14/23 15:37 Ur Squamous Epith Cells 0-4 /hpf (0-5) H 08/14/23 15:37 Amorphous Sediment Not Reportable 08/14/23 15:37 Urine Bacteria 3+ /hpf (NONE) H 08/14/23 15:37 Hyaline Casts 0-4 /lpf H 08/14/23 15:37 Urine Mucus 1+ /hpf 08/14/23 15:37 Vitals Last Vital Signs Temp 97.8 F 08/17/23 08:00 Pulse 64 08/17/23 08:00 Resp 17 08/17/23 08:00 BP 167/84 08/17/23 08:00 Pulse Ox 98 08/17/23 08:00 O2 Del Method Room Air 08/14/23 19:43 Discharge Plan Discharge Patient Disposition: Home Condition: Stable Prescriptions: New cefdinir 300 mg capsule 300 mg PO BID 5 Days Qty: 10 0RF Continued metformin 1,000 mg tablet 1,000 mg PO BID hydrochlorothiazide 25 mg tablet 25 mg PO DAILY cyclobenzaprine 10 mg tablet 10 mg PO TID PRN (Reason: muscle spasm) Qty: 20 0RF (DME) Bone Growth Stimulator [id number] See Rx Instructions .Route .MEDSUPPLY Qty: 1 0RF Rx Instructions: As directed (DME) Lift Chair See Rx Instructions .Route .MEDSUPPLY Qty: 1 0RF Rx Instructions: As directed atorvastatin 10 mg Tablet 10 mg PO QPM aspirin 81 mg Tablet,Delayed Release (Dr/Ec) 81 mg PO QAM acetaminophen 325 mg Tablet 325 mg PO QID PRN (Reason: Pain) atenolol 100 mg Tablet 100 mg PO QAM lisinopril 5 mg Tablet 5 mg PO DAILY isosorbide mononitrate 30 mg tablet extended release 24 hr 30 mg PO DAILY Multi-Vitamins Tablet 1 tab PO QAM Discharge Orders: Discharge Order (Routine); Ordered 08/17/23 Ordered By: Kasi Lees Referrals: Chinedu Babin DO [Primary Care Provider] - Discharge Diet: Cardiac Discharge Activity: Resume usual activity Patient Instructions: Altered Mental Status (ED) Activity Restrictions/Additional Instructions: - Please take antibiotics as prescribed, if you have any worsening mentation please come back to the emergency room, please follow-up with neurosurgery at [facility], this week Discharge Attestations Time Spent in Discharge Care*: greater than 30 min Status at Discharge: Cognitive status at discharge: cognitively intact , Behavioral status at discharge: cooperative , Quality Metrics Clinical Quality Measures [ No reported AMI, CVA or VTE this stay] Coding Level of Care Code 20633 Total time (in minutes) for Discharge: 45 Diagnoses Encephalopathy acute G93.40 UTI (urinary tract infection) N39.0 Cystitis N30.90 Ventriculo-peritoneal shunt status Z98.2 Subarachnoid hemorrhage I60.9 Subdural hematoma S06.5XAA Primary hypertension I10 Pacemaker Z95.0
[2023-08-17] MEDS: insulin lispro 100 unit/1 mL SUBCUT (12:47)
[2023-08-17 14:55] VITALS: BP 114/66; PULSE 57; RESP 17; TEMP 36.5; O2SAT 94
== END 2023-08-17 14:55 | disposition home or self-care (01) | DRG 70 ==
LOC: ER 17:17 → MEDSURG 18:46
PROVIDERS: Admitting Provider Family Medicine; Emergency Provider Family Medicine; PCP Electrodiagnostic Medicine; Visit Provider Family Medicine
DX: G93.40 Encephalopathy, unspecified (principal); I62.03 Nontraumatic chronic subdural hemorrhage; Z98.1 Arthrodesis status; I25.10 Atherosclerotic heart disease of native coronary artery without angina pectoris; I10 Essential (primary) hypertension; E11.9 Type 2 diabetes mellitus without complications; E78.5 Hyperlipidemia, unspecified; N52.9 Male erectile dysfunction, unspecified; E66.9 Obesity, unspecified; Z68.32 Body mass index [BMI] 32.0-32.9, adult; Z95.0 Presence of cardiac pacemaker; Z98.2 Presence of cerebrospinal fluid drainage device; N30.90 Cystitis, unspecified without hematuria; B96.1 Klebsiella pneumoniae [K. pneumoniae] as the cause of diseases classified elsewhere
CPT/HCPCS: 36415; 36416; 70250; 70450; 71045; 71046; 72040; 74019; 76770; 80053; 81001; 82550; 82962; 83605; 83735; 83880; 84100; 84145; 84443; 85025; 86140; 87040; 87077; 87086; 87186; 94664; 96372; 96374; 97161; 97166; 97530; 99285; C9113; J0696; J1815; J2543; J7030

== ENCOUNTER → 2023-09-25 16:02 | Outpatient (BNVA) | payer OTHER, SELFPAY | PROVIDERS: PCP Electrodiagnostic Medicine; Visit Provider Physician Assistant | DX: Z98.1 Arthrodesis status (principal); Z47.89 Encounter for other orthopedic aftercare | CPT/HCPCS: 72040; 99213 ==

== ENCOUNTER → 2023-11-21 14:16 | Outpatient (BNVA) | payer OTHER, SELFPAY | PROVIDERS: PCP Electrodiagnostic Medicine; Visit Provider Orthopaedic Surgery | DX: M54.2 Cervicalgia (principal); Z98.1 Arthrodesis status | CPT/HCPCS: 72040; 99213 ==

== ENCOUNTER → 2023-12-11 11:04 | Outpatient (BNVA) | payer MEDICARE, SELFPAY | PROVIDERS: PCP Electrodiagnostic Medicine; Referring Provider Electrodiagnostic Medicine; Visit Provider Psychiatry & Neurology Neurology | DX: R29.90 Unspecified symptoms and signs involving the nervous system (principal); R26.89 Other abnormalities of gait and mobility; Z95.0 Presence of cardiac pacemaker | CPT/HCPCS: 99212 ==

== ENCOUNTER 2024-01-01 11:31 | Outpatient (CLI) | payer MEDICARE, SELFPAY ==
--- NOTE | 2024-01-01 12:00 | CT_ITS ---
WS: [id number] CT HEAD TECHNIQUE: Noncontrast and contrast-enhanced CT of the head. CLINICAL INFORMATION: S06.5XAA - Traumatic subdural hemorrhage with loss of con... COMPARISON: CT 08/15/2023 DLP: 2674.[address] scans at [facility] use at least one of these dose optimization techniques: automated e xposure control; mA and/or kV adjustment per patient size (includes targeted exams where dose is matc hed to clinical indication); or iterative reconstruction. FINDINGS: Moderate small vessel changes. Moderate parenchymal volume loss. No abnormal intracranial enhancement . RIGHT parietal shunt catheter with tip in the RIGHT lateral ventricle. Moderate distention of the ventricular system progressed compared to 08/15/2023. No significant trans ependymal edema. Ventricles were slitlike on the prior examination. Progressed distention of the four th ventricle with mild mass effect on the dorsal bruce. Advanced parenchymal volume loss involving the cerebellar and vermis appears progressed compared to the prior examination 08/15/2023. Small bilateral subdural hematomas RIGHT greater than LEFT have decreased in size compared to the moni or examination today measuring 10 mm on the RIGHT and 6.5 mm on the LEFT in maximal transverse dimens ion. Minimal mass effect on the underlying brain parenchyma RIGHT greater than LEFT. Paranasal sinuses and mastoid air cells are well aerated. IMPRESSION: 1. Interval decrease in size of the bilateral low-attenuation chronic subdural hematomas RIGHT great er than LEFT described above. 2. Stable RIGHT parietal shunt catheter with tip in the RIGHT lateral ventricle. Moderate dilatation of the ventricular system has progressed compared to previous with dilatation of the fourth ventricl e. Mass effect on the dorsal bruce. No transependymal edema. 3. Moderate small vessel changes with moderate parenchymal volume loss. 4. No other interval changes. Notified Neto Lane MD at 01/01/2024 3:40 PM.
[2024-01-01 12:27] LABS: Blood Urea Nitrogen 20 mg/dL (8-23)
--- NOTE | 2024-01-01 12:30 | CT_ITS ---
WS: [id number] CTA HEAD AND NECK TECHNIQUE: Contrast enhanced CTA of the head and neck with coronal and sagittal reformatted images an d maximum intensity projection (MIP) images. NASCET criteria utilized. CLINICAL INFORMATION: S06.5XAA - Traumatic subdural hemorrhage with loss of con... COMPARISON: None. DLP: [address] scans at [facility] use at least one of these dose optimization techniques: automated e xposure control; mA and/or kV adjustment per patient size (includes targeted exams where dose is matc hed to clinical indication); or iterative reconstruction. FINDINGS: RIGHT: RIGHT common carotid artery is patent. Moderate atheromatous plaque RIGHT carotid bulb. No sig nificant RIGHT ICA stenosis. RIGHT ICA is patent to the skull base. Cavernous carotid calcification. LEFT: LEFT common carotid artery is patent. Moderate calcified atheromatous plaque LEFT carotid bulb extending into the ICA. LEFT ICA stenosis measures approximately 23%. LEFT ICA remains patent to the skull base. Cavernous carotid calcification. LEFT dominant vertebral artery. LEFT vertebral artery is patent to the basilar junction. Minuscule RI GHT vertebral artery arising from the aortic arch. Proximal basilar artery is somewhat diminutive but patent. Patent posterior communicating arteries bilaterally. Normal vascularity to the FOUNDRY MOLDER territory bilaterally. Both ICAs are patent at the skull base. Cavernous carotid calcification. Mild narrowing of the RIGHT supraclinoid ICA which remains patent. Hypoplastic LEFT A1 segment. Normal vascularity to the JOSE and MCA territories bilaterally. No proximal flow-limiting stenosis. Tiny LEFT thyroid nodule. Normal posterior nasopharynx. Paranasal sinuses and mastoid air cells are w ell aerated. RIGHT parietal shunt catheter with tip in the RIGHT lateral ventricle. Moderate chronic small vessel changes. Mild parenchymal volume loss. Moderate to advanced volume loss involving the ce rebellum and vermis. RIGHT greater than LEFT chronic appearing subdural hematomas described on the ac companying head CT. Proximal subclavian arteries are patent. Prior postoperative changes decompressiv e laminectomies in the cervical spine with dorsal fusion. Advancement spondylitic changes cervical sp ine. Bovine arch anatomy. IMPRESSION: 1. No significant RIGHT ICA stenosis. Moderate calcified atheromatous plaque. 2. LEFT ICA stenosis 23%. Bulky calcified atheromatous plaque LEFT carotid bulb extending into the I CA. 3. LEFT dominant vertebral artery is patent. Minuscule RIGHT vertebral artery arising from the aorti c arch. 4. No intracranial proximal flow-limiting stenosis. 5. Hypoplastic LEFT A1 segment. 6. Patent posterior communicating arteries. 7. Mild stenosis RIGHT supraclinoid ICA. 8. Basilar artery is somewhat diminutive but patent. 9. Intracranial findings described on the concurrent head CT.
[2024-01-01] MEDS: iohexol 350 mg/mL 500 mL Btl (per mL) IV (12:39)
== END 2024-01-01 11:32 | disposition home or self-care (01) ==
LOC: RAD 11:31
PROVIDERS: PCP Electrodiagnostic Medicine; Visit Provider Psychiatry & Neurology Neurology
DX: S06.5XAA Traumatic subdural hemorrhage with loss of consciousness status unknown, initial encounter (principal); X58.XXXA Exposure to other specified factors, initial encounter
CPT/HCPCS: 70470; 70496; 70498; 82565; 84520; Q9967

== ENCOUNTER 2024-01-03 19:58 | Emergency (ER) | payer OTHER, SELFPAY ==
[2024-01-03 20:02] VITALS: BP 144/80; PULSE 92; RESP 18; TEMP 36.4; O2SAT 95; BMI 27.2
--- NOTE | 2024-01-03 20:24 | ED_ITS ---
HPI - Male Genitourinary General: Chief complaint: Urogenital-Male Stated complaint: blood in urine, cold Time Seen by Provider: 01/03/24 20:09 History of Present Illness: 78-year-old male who noted blood coming from his urethral meatus earlier today. He has had prostate cancer, with some incontinence. He wears depends. The blood was a small amount, no clots. Painless bleeding. He believes it is associated with urination. He has a previous history of UTI with confusion, so this was concerning to him. No recent procedures. Associated symptoms: Deny nausea or vomiting Review of Systems 2 Const: Denies: fever(s), chills or body aches Eyes: Denies: change in vision Card: Denies: chest pain or palpitations Resp: Denies: dyspnea, productive cough, non-productive cough or wheezing GI: Denies: abdominal pain, nausea, vomiting, diarrhea or hematochezia Skin/Breast: Denies: rash Neuro: Denies: headache(s), weakness in extremities, dizziness or confusion PFSH ED PFSH: Medical History Acute hyponatremia Degenerative cervical spinal stenosis Cervical myelopathy with cervical radiculopathy Bilateral bunions Bilateral foot pain History of cardiac pacemaker Presence of permanent cardiac pacemaker Atherosclerosis of coronary artery of [place] heart without angina pectoris Dyslipidemia Diastasis recti Osteoarthritis of left knee Benign essential HTN Pacemaker Non-sustained ventricular tachycardia Bradycardia Bradycardia Ventricular arrhythmia Intermittent palpitations Urinary incontinence History of colon polyps Internal hemorrhoids Male erectile dysfunction Coronary atherosclerosis Prostatic cancer Chest pain Hyperlipemia Transient cerebral ischemia Diabetes mellitus Primary hypertension Abnormal stress test Tear of meniscus of right knee Obesity Surgical History Post-operative state History of knee surgery History of eye surgery History of colonoscopy with polypectomy History of knee replacement History of arthroscopic surgery of shoulder History of prostatectomy Family History Mother CAD (coronary artery disease) Diabetes Father Cancer Diabetes Denies family history of Clotting disorder Dementia Chronic kidney disease (CKD) Suicide Anesthesia complication Bleeding disorder Lung disease Stroke Social History Smoking and tobacco/nicotine status: former use of tobacco/nicotine Alcohol intake: former Substance/Drug Use: never Housing: [facility] Marital status: Physical Exam Const: COMMON NORMALS: no acute distress GENERAL APPEARANCE: cooperative; not ill appearing and not frail appearing HENMT: COMMON NORMALS: normocephalic, atraumatic and Normal external nose present HEAD & SCALP: normocephalic and atraumatic FACE & SINUS: normal facial exam and face symmetric NOSE: Normal external nose present Eye: COMMON NORMALS: Equal, round and reactive pupils present and EOMs intact bilaterally PUPIL: Yes Equal, round and reactive pupils present Neck/C-Spine: GENERAL: Yes trachea midline Chest: CHEST: Yes Symmetrical chest wall rise Resp: COMMON NORMALS: normal respiratory effort, No retractions, No use of accessory muscles and clear to auscultation bilaterally AUSCULTATION: clear to auscultation bilaterally Cardio: COMMON NORMALS: regular rate and regular rhythm RATE: regular rate RHYTHM: regular rhythm GI: COMMON NORMALS: Normal to inspection, nondistended, normoactive bowel sounds present : PENIS: normal penis, uncircumcised, not edematous, erythematous and no swelling MEATUS: Erythema at meatus SCROTUM: No scrotal swelling Extremity: COMMON NORMALS: no pedal edema Neuro: JOSE COMA SCALE: document GCS findings Mazon coma scale eye ope tj: Spontaneous Mazon coma scale verbal response: Orientated Jose coma scale motor response: Obey commands Jose coma scale total score: 15 SENSORY EXAM: Yes extremities (intact) Psych: COMMON NORMALS: speech normal SPEECH: Yes normal speech Skin: COMMON NORMALS: no rashes or lesions noted GENERAL SKIN EXAM: no rashes or lesions noted Course Vital Signs: Vital signs: Vital Signs Temperature 97.6 F 01/03/24 20:02 Pulse Rate 70 01/03/24 21:40 Respiratory Rate 16 01/03/24 21:40 Blood Pressure 123/74 01/03/24 21:40 Pulse Oximetry 96 01/03/24 21:40 Oxygen Delivery Me thod Room Air 01/03/24 21:36 [facility] - Male Medical Decision Making Urinalysis does not reveal blood. He is afebrile. Postvoid residual by bladder scan reveals no retention. With no evidence of bleeding currently, some erythema surrounding the meatus and glans, would assume this is urethral irritation causing the bleeding. He will be prescribed mupirocin topically. He is asymptomatic now. Outpatient follow-up. Return for worsening symptoms. Lab Data Laboratory Results Urine Color Colorless (Yellow) 01/03/24 20:30 Urine Appearance Clear (CLEAR) 01/03/24 20:30 Urine pH 7 (5-7) 01/03/24 20:30 Ur Specific [place] 1.010 (1.005-1.030) 01/03/24 20:30 Urine Protein Neg (Negative) 01/03/24 20:30 Urine Glucose (UA) 4+ (Normal) H 01/03/24 20:30 Urine Ketones Negative (Negative) 01/03/24 20:30 Urine Blood Neg (Negative) 01/03/24 20:30 Urine Nitrate Negative (Negative) 01/03/24 20:30 Urine Bilirubin Neg (Negative) 01/03/24 20:30 Urine Urobilinogen 1 mg/dL (Negative) H 01/03/24 20:30 Ur Leukocyte Esterase Negative (Negative) 01/03/24 20:30 No radiology studies performed this visit Discharge Plan Discharge Patient Disposition: Home Clinical Impression: Urethral bleeding Condition: Stable Prescriptions: No Action metformin 1,000 mg tablet 1,000 mg PO BID hydrochlorothiazide 25 mg tablet 25 mg PO DAILY cyclobenzaprine 10 mg tablet 10 mg PO TID PRN (Reason: muscle spasm) Qty: 20 0RF tramadol 50 mg tablet 50 mg PO DAILY Qty: 30 0RF (DME) Bone Growth Stimulator [id number] See Rx Instructions .Route .MEDSUPPLY Qty: 1 0RF Rx Instructions: As directed (DME) Lift Chair See Rx Instructions .Route .MEDSUPPLY Qty: 1 0RF Rx Instructions: As directed atorvastatin 10 mg Tablet 10 mg PO QPM aspirin 81 mg Tablet,Delayed Release (Dr/Ec) 81 mg PO QAM acetaminophen 325 mg Tablet 325 mg PO QID PRN (Reason: Pain) atenolol 100 mg Tablet 100 mg PO QAM lisinopril 5 mg Tablet 5 mg PO DAILY isosorbide mononitrate 30 mg tablet extended release 24 hr 30 mg PO DAILY multivitamin Tablet 1 tab PO QAM Discharge Orders: Discharge ED (Routine); Ordered 01/03/24 Ordered By: Emigdio Seth Referrals: Chinedu Babin DO [Primary Care Provider] - Patient Instructions: Opioid Safety, Pain Management Activity Restrictions/Additional Instructions: Use the prescribed mupirocin twice daily to the red area of your penis. Return for worsening bleeding, fever, mental status changes, any other concerning symptoms. Coding Level of Care Code ED Crown Wheel Assembler for Ravi Lee
[2024-01-03 20:38] LABS: Add Urine Microscopic? NO; Charge for UA Resulting for Rev
[2024-01-03 20:40] LABS: Bilirubin Urine Neg (Negative); Blood Urine Neg (Negative); Glucose Urine UA 4+ (Normal); Ketones Urine Negative (Negative); Leukocyte Esterase Urine Negative (Negative); Nitrate Urine Negative (Negative); Protein Urine Neg (Negative); Urine Appearance Clear (CLEAR); Urine Color Colorless (Yellow); Urobilinogen Urine 1 mg/dL (Negative); pH Urine 7 (5-7)
[2024-01-03 21:36] VITALS: BP 123/74; PULSE 73; RESP 16; O2SAT 97
[2024-01-03] MEDS: mupirocin oint 22 gm 1 APPLIC TOPICAL (21:38)
[2024-01-03 21:40] VITALS: BP 123/74; PULSE 70; RESP 16; O2SAT 96
--- NOTE | 2024-01-05 09:18 | PC.SOCIAL ---
Records faxed to [facility].
== END 2024-01-03 21:42 | disposition home or self-care (01) ==
PROVIDERS: Emergency Provider Emergency Medicine; PCP Electrodiagnostic Medicine
DX: N36.8 Other specified disorders of urethra (principal); Z79.82 Long term (current) use of aspirin; Z79.84 Long term (current) use of oral hypoglycemic drugs; Z87.891 Personal history of nicotine dependence; Z95.0 Presence of cardiac pacemaker; I25.10 Atherosclerotic heart disease of native coronary artery without angina pectoris; E78.5 Hyperlipidemia, unspecified; I10 Essential (primary) hypertension; Z85.46 Personal history of malignant neoplasm of prostate
CPT/HCPCS: 51798; 81003; 99283

== ENCOUNTER 2024-02-04 14:30 | Outpatient (CLI) | payer OTHER, SELFPAY ==
--- NOTE | 2024-02-04 14:39 | CT_ITS ---
WS: [id number] CT HEAD TECHNIQUE: Noncontrast CT of the head obtained from the skullbase to the vertex. CLINICAL INFORMATION: VENTRICUIOMEGALY COMPARISON: 01/01/2024 DLP: 1103.[address] scans at [facility] use at least one of these dose optimization techniques: automated e xposure control; mA and/or kV adjustment per patient size (includes targeted exams where dose is matc hed to clinical indication); or iterative reconstruction. FINDINGS: RIGHT parietal shunt catheter with tip in the RIGHT frontal horn. This is unchanged compared to previ ous. Ventricular size has decreased compared to the prior study. Again seen are the chronic bilateral low-attenuation subdural hematomas stable compared to 01/01/2024. No evidence of progression. No evidence of new or progressive hemorrhage. Subdural hematomas measure 10 mm on the RIGHT unchanged and 6 mm on the LEFT unchanged. Mild mass effect on the underlying brain parenchyma. Dilatation of the fourth ventricle has improved. Mass effect on the bruce has improved. P aranasal sinuses are well aerated. Mastoid air cells are well aerated. Intracranial vascular calcific ation. Moderate small vessel changes with moderate parenchymal volume loss. CT/CT head wo con* [id number] IMPRESSION: 1. Stable RIGHT parietal shunt catheter with tip in the RIGHT frontal horn 2. Ventriculomegaly has improved compared to the prior study. 3. Stable bilateral chronic subdural hematomas. No evidence of new or progress susan hemorrhage. 4. Fourth ventricular dilatation and mass effect on the bruce has improved.
== END 2024-02-04 14:31 | disposition home or self-care (01) ==
LOC: RAD 14:30
PROVIDERS: PCP Electrodiagnostic Medicine; Visit Provider Internal Medicine Gastroenterology
DX: Q04.8 Other specified congenital malformations of brain (principal); I62.03 Nontraumatic chronic subdural hemorrhage
CPT/HCPCS: 70450

== ENCOUNTER → 2024-02-05 10:21 | Outpatient (BNVA) | payer OTHER, SELFPAY | PROVIDERS: PCP Electrodiagnostic Medicine; Visit Provider Internal Medicine Cardiovascular Disease | DX: I49.8 Other specified cardiac arrhythmias (principal); Z95.0 Presence of cardiac pacemaker; I10 Essential (primary) hypertension; Z98.2 Presence of cerebrospinal fluid drainage device; Z87.891 Personal history of nicotine dependence | CPT/HCPCS: 99214 ==

== ENCOUNTER → 2024-02-10 13:55 | Outpatient (BNVA) | payer OTHER, SELFPAY | PROVIDERS: PCP Electrodiagnostic Medicine; Visit Provider Orthopaedic Surgery | DX: Z98.1 Arthrodesis status (principal) | CPT/HCPCS: 72040; 99213 ==

== ENCOUNTER → 2024-02-26 13:00 | Outpatient (BNVA) | payer OTHER, SELFPAY | PROVIDERS: PCP Electrodiagnostic Medicine; Visit Provider Internal Medicine Cardiovascular Disease | DX: Z45.010 Encounter for checking and testing of cardiac pacemaker pulse generator [battery] (principal) | CPT/HCPCS: 93296 ==

== ENCOUNTER → 2024-03-11 11:41 | Outpatient (BNVA) | payer MEDICARE, SELFPAY | PROVIDERS: PCP Electrodiagnostic Medicine; Visit Provider Psychiatry & Neurology Neurology | DX: R29.90 Unspecified symptoms and signs involving the nervous system (principal); R26.89 Other abnormalities of gait and mobility; Z87.898 Personal history of other specified conditions; Z98.2 Presence of cerebrospinal fluid drainage device; Z95.0 Presence of cardiac pacemaker; H53.8 Other visual disturbances | CPT/HCPCS: 99212 ==

== ENCOUNTER → 2024-03-19 12:12 | Outpatient (BNVA) | payer MEDICARE, SELFPAY | PROVIDERS: PCP Electrodiagnostic Medicine; Visit Provider Specialist | DX: H53.2 Diplopia (principal); G24.3 Spasmodic torticollis | CPT/HCPCS: 83516; 83519; 99213; 99214 ==

== ENCOUNTER → 2024-04-15 13:26 | Outpatient (BNVA) | payer MEDICARE, SELFPAY | PROVIDERS: PCP Electrodiagnostic Medicine; Visit Provider Orthopaedic Surgery | DX: Z98.1 Arthrodesis status (principal) | CPT/HCPCS: 72040; 99213 ==

== ENCOUNTER 2024-04-20 00:58 | Emergency (ER) | payer OTHER, MEDICARE, SELFPAY ==
[2024-04-20 01:09] VITALS: BP 154/82; PULSE 74; RESP 16; TEMP 36.7; O2SAT 98; BMI 27.2
--- NOTE | 2024-04-20 01:24 | CTR_ITS ---
PROCEDURE INFORMATION: Exam: CT Head Without Contrast Exam date and time: 04/20/2024 1:32 AM Age: 78 years old Clinical indication: Injury or trauma; Fall; Other: Pain; Prior surgery; Surgery date: 6+ months; Surgery type: Shunt; Additional info: Fall trauma headache, history of shunt and bleed TECHNIQUE: Imaging protocol: Computed tomography of the head without contrast. Radiation optimization: All CT scans at this facility use at least one of these dose optimization techniques: automated exposure control; mA and/or kV adjustment per patient size (includes targeted exams where dose is matched to clinical indication); or iterative reconstruction. COMPARISON: CT head wo con* [id number] 02/04/2024 2:56 PM RADIATION DOSE METRICS: Total DLP (mGy-cm): 1131.1 FINDINGS: Tubes, catheters and devices: There is a ventriculostomy catheter via a posterior approach on the right with its tip within the right lateral ventricle. Brain: There is prominence of the subarachnoid spaces compatible with atrophy. There are small-vessel ischemic change within the periventricular white matter. There is no evidence of an acute stroke or hemorrhage. There are small low-density subdural fluid collections slightly greater on the right. These have decreased slightly in size when compared to prior exam. Cerebral ventricles: Ventricular size has increased when compared to prior exam. The right lateral ventricle measures proximally 19 mm in transverse dimension (previously 11 mm). The left lateral ventricle measures 17 mm in transverse dimension (previously 12 mm). The 3rd ventricle measures 10 mm in transverse dimension (previously 5.3 mm). The temporal tips and 4th ventricle also appear to be increased in size when compared to prior exam. Paranasal sinuses: Visualized sinuses are unremarkable. No fluid levels. Mastoid air cells: Visualized mastoid air cells are well aerated. Bones: Unremarkable. No acute fracture. Soft tissues: Unremarkable. CT/CT head wo con* [id number] IMPRESSION: 1. Shunt catheter on the right with its tip within the right lateral ventricle. Ventricular size has increased when compared to prior exam. This suggests that the shunt may not be functioning optimally. Recommend clinical correlation. 2. Atrophy with small-vessel ischemic change. 3. Small subdural hygromas decreased when compared to prior exam.
--- NOTE | 2024-04-20 01:24 | CTR_ITS ---
PROCEDURE INFORMATION: Exam: CT Cervical Spine Without Contrast Exam date and time: 04/20/2024 1:32 AM Age: 78 years old Clinical indication: Injury or trauma; Fall; Other: Pain; Additional info: Fall neck pain TECHNIQUE: Imaging protocol: Computed tomography of the cervical spine without contrast. Radiation optimization: All CT scans at this facility use at least one of these dose optimization techniques: automated exposure control; mA and/or kV adjustment per patient size (includes targeted exams where dose is matched to clinical indication); or iterative reconstruction. COMPARISON: CT cervical spine w con [id number] 03/20/2023 7:54 AM RADIATION DOSE METRICS: Total DLP (mGy-cm): 605.9 FINDINGS: Bones: There is slight anterolisthesis of C7 in relation to T1. The C3, C4, C5, C6 and C7 vertebral bodies appear to be partially fused anteriorly. There is posterior fusion extending from C2 through T2 with posterior rods and intrapedicular screws. No definite hardware complications are appreciated. No definite fractures are identified. Alignment is unchanged when compared to prior exam. Examination of the axial images demonstrates no definite fractures to be present. There are postoperative changes status post unroofing procedure extending from the C2-C3 interspace level through the C7-T1 interspace level. Lungs: Lung apices are normal. Soft tissues: Partially imaged OPERATIONS LIEUTENANT shunt catheter traverses the right neck. CT/CT cervical spin wo con* [id number] IMPRESSION: 1. Postoperative changes. 2. Spondylosis.
[2024-04-20 02:21] VITALS: BP 158/92; PULSE 56; RESP 16; O2SAT 97
--- NOTE | 2024-04-20 02:27 | W.ED.HEATRA ---
HPI - Head Injury General: Chief complaint: Head Injury Stated complaint: Fell\Face and Neck Injury\Eyes Time Seen by Provider: 04/20/24 02:22 History of Present Illness: Patient presents to the ER with complaints of falling hitting his head and having head pain. Patient said he was back trying to sit in a chair and remove his shoes and he lost his balance and landed on the floor hitting his head on the floor. Patient denies any loss of consciousness or passing out. Patient did have a brain bleed and shunt placed approximately February 2023. Patient is had cervical spine surgery with multiple fusions. Review of Systems General: Reports: 10 or more systems reviewed and unremarkable except in HPI and below PFSH ED PFSH: Medical History Acute hyponatremia Degenerative cervical spinal stenosis Cervical myelopathy with cervical radiculopathy Bilateral bunions Bilateral foot pain History of cardiac pacemaker Presence of permanent cardiac pacemaker Atherosclerosis of coronary artery of [place] heart without angina pectoris Dyslipidemia Diastasis recti Osteoarthritis of left knee Benign essential HTN Pacemaker Non-sustained ventricular tachycardia Bradycardia Bradycardia Ventricular arrhythmia Intermittent palpitations Urinary incontinence History of colon polyps Internal hemorrhoids Male erectile dysfunction Coronary atherosclerosis Prostatic cancer Chest pain Hyperlipemia Transient cerebral ischemia Diabetes mellitus Primary hypertension Abnormal stress test Tear of meniscus of right knee Obesity Surgical History Post-operative state History of knee surgery History of eye surgery History of colonoscopy with polypectomy History of knee replacement History of arthroscopic surgery of shoulder History of prostatectomy Family History Mother CAD (coronary artery disease) Diabetes Father Cancer Diabetes Denies family history of Clotting disorder Dementia Chronic kidney disease (CKD) Suicide Anesthesia complication Bleeding disorder Lung disease Stroke Social History Smoking and tobacco/nicotine status: never used tobacco/nicotine Alcohol intake: former Substance/Drug Use: never Housing: Assisted Marital status: Physical Exam Const: COMMON NORMALS: no acute distress, average body habitus, patient oriented x3, no limitations, healthy appearing, alert and well nourished HENMT: COMMON NORMALS: normocephalic, hearing grossly normal bilaterally, external ears normal, Normal external nose present and moist oral mucous membranes; head/scalp not atraumatic (Abrasion noted to anterior scalp region) HEAD & SCALP: normocephalic; not atraumatic (Abrasion noted to anterior scalp region) NOSE: Normal external nose present EXTERNAL EAR: Yes external ears normal Eye: COMMON NORMALS: Equal, round and reactive pupils present, EOMs intact bilaterally, conjunctivae normal and no scleral icterus CONJUNCTIVA: Yes conjunctivae normal PUPIL: Yes Equal, round and reactive pupils present Neck/C-Spine: COMMON NORMALS: no lymphadenopathy, supple, no meningeal signs and no JVD; negative for full ROM (Limited range of motion secondary to effusions) Chest: COMMONS NORMALS: normal inspection of the chest and normal palpation of entire chest wall Resp: COMMON NORMALS: normal respiratory effort, No retractions, No use of accessory muscles and clear to auscultation bilaterally AUSCULTATION: clear to auscultation bilaterally Cardio: COMMON NORMALS: no JVD, regular rate, regular rhythm, S1 normal heart sound present, S2 normal heart sound present, No gallops present (Cardio), No clicks present (Cardio), No murmurs present (Cardio) and No rub (Cardio) RATE: regular rate RHYTHM: regular rhythm HEART SOUNDS: S1 normal heart sound present and S2 normal heart sound present GI: COMMON NORMALS: Normal to inspection, nondistended, normoactive bowel sounds present, Soft to palpation, non-tender, No hepatosplenomegaly present and no masses PALPATION: Yes Soft to palpation and Yes No hepatosplenomegaly present Neuro: COMMON NORMALS: patient oriented x3 SENSORIUM/ORIENTATION: Yes alert MENINGEAL SIGNS: Yes no meningeal signs Course Vital Signs: Vital signs: Vital Signs Temperature 98.0 F 04/20/24 01:09 Pulse Rate 60 04/20/24 03:30 Respiratory Rate 18 04/20/24 03:30 Blood Pressure 137/84 04/20/24 03:30 Pulse Oximetry 97 04/20/24 03:30 Oxygen Delivery Me thod Room Air 04/20/24 01:09 MDM - Head Injury Medcial Decision Making Patient is a head CT and cervical spine CT cervical spine CT was unchanged, head CT showed possible ventricular increase by about 2 mm this was discussed with the patient. Patient will follow-up with his PCP. Differential Diagnosis Likely closed head injury Medical Records I reviewed the patient's medical records. Lab Data I reviewed the patient's lab results. Radiology Impressions Cervical Spine CT 04/20/24 01:24 IMPRESSION: 1. Postoperative changes. 2. Spondylosis. Head CT 04/20/24 01:24 IMPRESSION: 1. Shunt catheter on the right with its tip within the right lateral ventricle. Ventricular size has increased when compared to prior exam. This suggests that the shunt may not be functioning optimally. Recommend clinical correlation. 2. Atrophy with small-vessel ischemic change. 3. Small subdural hygromas decreased when compared to prior exam. All radiology interpretation(s) finalized by discharge Discharge Plan Discharge Patient Disposition: Home Clinical Impression: Closed head injury, Fall Condition: Stable Prescriptions: No Action metformin 1,000 mg tablet 1,000 mg PO BID hydrochlorothiazide 25 mg tablet 25 mg PO DAILY Jardiance 25 mg tablet 25 mg PO DAILY (DME) Bone Growth Stimulator [id number] See Rx Instructions .Route .MEDSUPPLY Qty: 1 0RF Rx Instructions: As directed (DME) Lift Chair See Rx Instructions .Route .MEDSUPPLY Qty: 1 0RF Rx Instructions: As directed atorvastatin 10 mg Tablet 10 mg PO QPM aspirin 81 mg Tablet,Delayed Release (Dr/Ec) 81 mg PO QAM acetaminophen 325 mg Tablet 325 mg PO QID PRN (Reason: Pain) atenolol 100 mg Tablet 100 mg PO QAM lisinopril 5 mg Tablet 5 mg PO DAILY isosorbide mononitrate 30 mg tablet extended release 24 hr 30 mg PO DAILY multivitamin Tablet 1 tab PO QAM Discharge Orders: Discharge ED (Routine); Ordered 04/20/24 Ordered By: Bryce Mcdermott Referrals: Chinedu Babin DO [Primary Care Provider] - 1 week Patient Instructions: Head Injury (ED) Activity Restrictions/Additional Instructions: In the ER CT scan of your head and neck was performed, neck CT was read as unchanged, head CT showed your ventricle had increased in size by approximately 2 mm this may be due to imaging technique please have it followed up within approximately 3 months for further evaluation and treatment. Coding Level of Care Code ED Thermal Intelligence Analyst for Ravi Lee
[2024-04-20 02:30] VITALS: BP 145/83; PULSE 60; RESP 16; O2SAT 97
[2024-04-20 03:08] VITALS: BP 140/86; PULSE 60; RESP 16; O2SAT 96
[2024-04-20 03:30] VITALS: BP 137/84; PULSE 60; RESP 18; O2SAT 97
== END 2024-04-20 04:34 | disposition home or self-care (01) ==
PROVIDERS: Emergency Provider Emergency Medicine; PCP Electrodiagnostic Medicine
DX: S09.8XXA Other specified injuries of head, initial encounter (principal); Z79.82 Long term (current) use of aspirin; Z79.84 Long term (current) use of oral hypoglycemic drugs; Z95.0 Presence of cardiac pacemaker; I25.10 Atherosclerotic heart disease of native coronary artery without angina pectoris; E78.5 Hyperlipidemia, unspecified; I10 Essential (primary) hypertension; E11.9 Type 2 diabetes mellitus without complications; Z85.46 Personal history of malignant neoplasm of prostate; W07.XXXA Fall from chair, initial encounter
CPT/HCPCS: 70450; 72125; 99284

== ENCOUNTER 2024-05-07 12:32 | Outpatient (CLI) | payer OTHER, SELFPAY ==
--- NOTE | 2024-05-07 12:35 | CT_ITS ---
WS: [id number] CT HEAD TECHNIQUE: Noncontrast CT of the head obtained from the skullbase to the vertex. CLINICAL INFORMATION: HYDROCEPHALUS IN PRESENCE OF RN ALLERGY SHUNT COMPARISON: CT 04/20/2024 and 02/04/2024 DLP: 1253.[address] scans at [facility] use at least one of these dose optimization techniques: automated e xposure control; mA and/or kV adjustment per patient size (includes targeted exams where dose is matc hed to clinical indication); or iterative reconstruction. FINDINGS: RIGHT parietal shunt catheter with tip in the RIGHT frontal horn is unchanged. Ventricular size has decreased slightly compared to the prior study. Again seen are the chronic bilateral low-attenuation subdural hematomas stable compared to 04/20/2024. No evidence of progression. No evidence of new or progressive hemorrhage. Subdural hematomas measure 9 mm on the RIGHT unchanged and 4 mm on the LEFT unchanged. Mild mass effe ct on the underlying brain parenchyma. Dilatation of the fourth ventricle and temporal horns have imp roved. Dilatation of the lateral ventricles and third ventricle have improved. Paranasal sinuses are well aerated. Mastoid air cells are well aerated. Intracranial vascular calcif ication. Moderate small vessel changes with moderate parenchymal volume loss. CT/CT head wo con* [id number] IMPRESSION: 1. Stable RIGHT parietal shunt catheter. 2. Hydrocephalus has improved slightly compared to previous with decrease in s ize of the lateral ventricles, third ventricle, temporal horns and fourth ventr icle. 3. Stable RIGHT greater than LEFT chronic subdural hematoma as described above . No evidence of new or progressive hemorrhage. 4. Vascular calcification.
== END 2024-05-07 12:33 | disposition home or self-care (01) ==
LOC: RAD 12:32
PROVIDERS: PCP Electrodiagnostic Medicine
DX: G91.9 Hydrocephalus, unspecified (principal); Z45.41 Encounter for adjustment and management of cerebrospinal fluid drainage device; I62.03 Nontraumatic chronic subdural hemorrhage; I67.2 Cerebral atherosclerosis
CPT/HCPCS: 70450

== ENCOUNTER → 2024-07-16 14:03 | Outpatient (BNVA) | payer OTHER, SELFPAY | PROVIDERS: PCP Electrodiagnostic Medicine; Visit Provider Specialist | DX: R03.0 Elevated blood-pressure reading, without diagnosis of hypertension (principal); G24.3 Spasmodic torticollis; G91.9 Hydrocephalus, unspecified; Z98.2 Presence of cerebrospinal fluid drainage device | CPT/HCPCS: 64616; 99213; J0585 ==

== ENCOUNTER → 2024-08-11 14:31 | Outpatient (BNVA) | payer OTHER, SELFPAY | PROVIDERS: PCP Electrodiagnostic Medicine; Visit Provider Specialist | DX: M25.522 Pain in left elbow (principal); M70.22 Olecranon bursitis, left elbow; M19.022 Primary osteoarthritis, left elbow; Y93.9 Activity, unspecified | CPT/HCPCS: 73080; 99204 ==

== ENCOUNTER → 2024-09-13 13:20 | Outpatient (BNVA) | payer MEDICARE, SELFPAY | PROVIDERS: PCP Electrodiagnostic Medicine; Visit Provider Psychiatry & Neurology Neurology | DX: S06.5XAA Traumatic subdural hemorrhage with loss of consciousness status unknown, initial encounter (principal); R26.89 Other abnormalities of gait and mobility; R29.90 Unspecified symptoms and signs involving the nervous system; G93.40 Encephalopathy, unspecified; G06.2 Extradural and subdural abscess, unspecified; T81.49XA Infection following a procedure, other surgical site, initial encounter; G03.9 Meningitis, unspecified; R41.82 Altered mental status, unspecified; X58.XXXA Exposure to other specified factors, initial encounter | CPT/HCPCS: 99212 ==

== ENCOUNTER → 2024-10-22 11:56 | Outpatient (BNVA) | payer MEDICARE, OTHER, SELFPAY | PROVIDERS: PCP Electrodiagnostic Medicine; Visit Provider Specialist | DX: G24.3 Spasmodic torticollis (principal) | CPT/HCPCS: 64616; J0585 ==

== ENCOUNTER → 2025-01-28 11:09 | Outpatient (BNVA) | payer MEDICARE, SELFPAY | PROVIDERS: PCP Electrodiagnostic Medicine; Visit Provider Specialist | DX: G24.3 Spasmodic torticollis (principal) | CPT/HCPCS: 64616; J0585; J9999 ==

== ENCOUNTER 2025-02-09 13:56 | Outpatient (RCR) | payer MEDICARE, SELFPAY | END 2025-03-05 23:59 | disposition home or self-care (01) | LOC: SPT 13:56 | PROVIDERS: Visit Provider Specialist | DX: G24.3 Spasmodic torticollis (principal) | CPT/HCPCS: 97110; 97140; 97161 ==

== ENCOUNTER → 2025-02-22 16:46 | Outpatient (BNVA) | payer MEDICARE, SELFPAY | PROVIDERS: Visit Provider Internal Medicine Cardiovascular Disease | DX: I49.8 Other specified cardiac arrhythmias (principal); I10 Essential (primary) hypertension; Z79.82 Long term (current) use of aspirin; Z98.2 Presence of cerebrospinal fluid drainage device; Z95.0 Presence of cardiac pacemaker; Z87.891 Personal history of nicotine dependence | CPT/HCPCS: 99214 ==

== ENCOUNTER → 2025-03-02 10:01 | Outpatient (BNVA) | payer MEDICARE, SELFPAY | PROVIDERS: Visit Provider Internal Medicine Cardiovascular Disease | DX: Z45.018 Encounter for adjustment and management of other part of cardiac pacemaker (principal) | CPT/HCPCS: 93296 ==

== ENCOUNTER 2025-03-06 05:00 | Outpatient (RCR) | payer MEDICARE, SELFPAY | END 2025-03-25 07:40 | disposition home or self-care (01) | LOC: SPT 05:00 | PROVIDERS: Visit Provider Specialist | DX: G24.3 Spasmodic torticollis (principal) | CPT/HCPCS: 97110; 97140; 97164 ==

== ENCOUNTER → 2025-04-28 10:44 | Outpatient (BNVA) | payer MEDICARE, SELFPAY | PROVIDERS: PCP Electrodiagnostic Medicine; Visit Provider Specialist | DX: G24.3 Spasmodic torticollis (principal); G91.9 Hydrocephalus, unspecified; Z98.2 Presence of cerebrospinal fluid drainage device; R03.0 Elevated blood-pressure reading, without diagnosis of hypertension | CPT/HCPCS: 64616; 99213; J0585; J9999 ==

== ENCOUNTER 2025-05-10 10:22 | Outpatient (CLI) | payer MEDICARE, SELFPAY ==
--- NOTE | 2025-05-10 10:45 | CT_ITS ---
WS: [id number] CT HEAD TECHNIQUE: Noncontrast CT of the head obtained from the skullbase to the vertex. CLINICAL INFORMATION: G91.9 - Hydrocephalus, unspecified COMPARISON: 2023 DLP: 1063.[address] scans at [facility] use at least one of these dose optimization techniques: automated exposure control; mA and/or kV adjustment per patient size (includes targeted exams where dose is matched to clinical indication); or iterative reconstruction. FINDINGS: RIGHT parietal shunt catheter with tip in the RIGHT frontal horn is unchanged. Ventricular size has decreased compared to previous with slit-like ventricles today. Stable encephalomalacia along the RIGHT shunt catheter tract Again seen are the low-attenuation chronic bilateral subdural hematomas stable since May 2024. Subdural hematomas measure 9 mm on the RIGHT and 5 mm on the LEFT not significantly changed. Stable mild mass effect on the underlying brain parenchyma. Paranasal sinuses are well aerated. Mastoid air cells are well aerated. Intracranial vascular calcification. CT/CT head wo con* [id number] IMPRESSION: 1. Decreased ventricular size with slit-like ventricles today. 2. Stable RIGHT parietal shunt catheter with tip in the RIGHT frontal horn. 3. Stable RIGHT greater than LEFT chronic subdural hematomas. 4. Moderate small vessel changes with moderate parenchymal volume loss. 5. Vascular calcification.
== END 2025-05-10 10:23 | disposition home or self-care (01) ==
PROVIDERS: PCP Electrodiagnostic Medicine; Visit Provider Specialist
DX: G91.9 Hydrocephalus, unspecified (principal); G93.89 Other specified disorders of brain; Z98.2 Presence of cerebrospinal fluid drainage device; I67.2 Cerebral atherosclerosis
CPT/HCPCS: 70450

== ENCOUNTER → 2025-08-04 09:12 | Outpatient (BNVA) | payer MEDICARE, SELFPAY | PROVIDERS: PCP Electrodiagnostic Medicine; Visit Provider Specialist | DX: G24.3 Spasmodic torticollis (principal); G91.9 Hydrocephalus, unspecified; R03.0 Elevated blood-pressure reading, without diagnosis of hypertension; Z98.2 Presence of cerebrospinal fluid drainage device | CPT/HCPCS: 64616; J0585; J9999 ==

== ENCOUNTER → 2025-08-15 10:43 | Outpatient (BNVA) | payer OTHER, SELFPAY | PROVIDERS: PCP Electrodiagnostic Medicine; Visit Provider Surgery | DX: Z12.11 Encounter for screening for malignant neoplasm of colon (principal) | CPT/HCPCS: 99204 ==

== ENCOUNTER 2025-09-08 08:28 | Day surgery (SDC) | payer OTHER, SELFPAY ==
[2025-09-08 08:42] VITALS: BP 138/82; PULSE 88; RESP 18; TEMP 36.1; O2SAT 96; BMI 27.5
--- NOTE | 2025-09-08 08:47 | P.HPUD_ITS ---
Surgery/Procedure H&P Update DATE OF PROCEDURE: September 08, 2025 DATE H&P PERFORMED: 08/15/25 H&P UPDATE INFORMATION: I have reviewed H&P completed within last 30 days, I have examined patient prior to procedure, No changes to prior documentation, H&P is in [facility] EMR on date indicated and Risks and benefits of the procedure reviewed PLANNED PROCEDURE: Operation Date: 09/08/25 09:55 Proposed Procedures p Colonoscopy [id number] G0121 Z12.11(Not Applicable) - Abdirahman Hernandez MD
--- NOTE | 2025-09-08 09:03 | ANES.PREANE2 ---
Pre-Anesthetic Assessment Height/Weight: Height 1.78 m Weight 87.09 kg Temp Pulse Resp BP Pulse Ox O2 Del Method 97.0 F L 88 18 138/82 96 Room Air 09/08/25 08:42 09/08/25 08:42 09/08/25 08:42 09/08/25 08:42 09/08/25 08:42 09/08/25 08:42 Preop Diagnosis: screening Operation Date: 09/08/25 09:55 Proposed Procedures p Colonoscopy 12432 G0121 Z12.11(Not Applicable) - Abdirahman Hernandez MD Familial anesthetic complications: awareness during anesthesia. Was Beta Obie taken within 24 hours: Yes Last intake: Intake Last Liquid Date 09/07/25 Last Liquid Time 23:59 Last Solid Date 09/06/25 Last Solid Time 18:00 Social No alcohol and No tobacco Exam alert, oriented x 3, clear to auscultation bilaterally and regular rate & rhythm Airway Submandibular: within normal limits Cervical ROM: Other (limited previous ACDF) Mallampati: Class I Dentition: false (upper and lower plate removed) Pulmonary None reported CV/HEM Arrythmia (pacemaker 2022) and Hypertension None reported Hepatic None reported GI Gastroesophageal Reflux Disease Metabolic Diabetes Mellitus and Hyperlipidemia Musc/skel Weakness balance issues previous subdural hematoma which resulted in INOCULATOR shunt placement 2022 Anesthetic Plan ASA status: 3 Anesthesia: MAC Medications/Allergies Home Medications ?Medication ?Instructions ?Recorded ?Confirmed ?Last Taken ?Type aspirin 81 mg tablet,delayed 81 mg PO QAM 11/01/19 09/05/25 09/05/25 History release atorvastatin 10 mg tablet 10 mg PO QPM 11/01/19 09/05/25 09/04/25 History Bone Growth Stimulator E0748 #1 ea 01/31/23 08/29/25 03/07/23 Rx hydrochlorothiazide 25 mg tablet 25 mg PO DAILY 08/07/23 09/05/25 09/07/25 History metformin 1,000 mg tablet 1,000 mg PO BID 08/07/23 09/05/25 09/07/25 History atenolol 100 mg tablet 100 mg PO QAM 08/14/23 09/05/25 09/08/25 History isosorbide mononitrate 30 mg 30 mg PO DAILY 08/14/23 09/05/25 09/08/25 History tablet,extended release 24 hr lisinopril 5 mg tablet 5 mg PO DAILY 08/14/23 09/05/25 09/07/25 History multivitamin 1 tab PO QAM 08/14/23 09/05/25 09/05/25 History empagliflozin 25 mg tablet 25 mg PO DAILY 02/05/24 09/05/25 09/07/25 History (Jardiance) cholecalciferol (vitamin D3) 50 50 mcg PO BID 08/11/24 09/05/25 09/05/25 History mcg (2,000 unit) tablet ascorbic acid (vitamin C) 500 mg 500 mg PO DAILY 09/13/24 09/05/25 09/05/25 History tablet (Vitamin C) Allergies Allergy/AdvReac Type Severity Reaction Status Date / Time meloxicam Allergy elevated Verified 09/05/25 10:48 blood pressure Sulfa (Sulfonamide Allergy ALGY-Rash Verified 09/05/25 10:48 Antibiotics) Current Medications Generic Name Dose Route Start Last Admin Trade Name Freq PRN Reason Stop Dose Admin Sodium Chloride 1,000 mls @ 15 mls/hr 09/08/25 08:36 09/08/25 08:50 Sodium Chloride 0.9% IV 09/09/25 08:35 15 mls/hr .Q24H PRN Administration COLONOSCOPY FLUIDS PFSH Anesthesia Medical History Acute hyponatremia Degenerative cervical spinal stenosis Cervical myelopathy with cervical radiculopathy Bilateral bunions Bilateral foot pain History of cardiac pacemaker Presence of permanent cardiac pacemaker Atherosclerosis of coronary artery of [place] heart without angina pectoris Dyslipidemia Diastasis recti Osteoarthritis of left knee Benign essential HTN Pacemaker Non-sustained ventricular tachycardia Bradycardia Bradycardia Ventricular arrhythmia Intermittent palpitations Urinary incontinence History of colon polyps Internal hemorrhoids Male erectile dysfunction Coronary atherosclerosis Prostatic cancer Chest pain Hyperlipemia Transient cerebral ischemia Diabetes mellitus Primary hypertension Abnormal stress test Tear of meniscus of right knee Obesity Surgical History Post-operative state History of knee surgery History of eye surgery History of colonoscopy with polypectomy History of knee replacement History of arthroscopic surgery of shoulder History of prostatectomy Family History Mother CAD (coronary artery disease) Diabetes Father Cancer Diabetes Denies family history of Clotting disorder Dementia Chronic kidney disease (CKD) Suicide Anesthesia complication Bleeding disorder Lung disease Stroke Social History Smoking and tobacco/nicotine status: former use of tobacco/nicotine (quit in 77) Alcohol intake: former Substance/Drug Use: never Housing: [facility] Marital status: Data Anesthesia Cardiac Studies: Echocardiogram 03/01/22 Sestamibi Stress Test (Cardiology) 02/28/22 Holter Monitor 04/25/20
[2025-09-08 09:50] VITALS: BP 97/64; PULSE 65; RESP 14; TEMP 36.2; O2SAT 95
[2025-09-08 10:00] VITALS: BP 96/66; PULSE 60; RESP 16; O2SAT 98
[2025-09-08 10:11] VITALS: BP 107/69; PULSE 63; RESP 18; O2SAT 95
[2025-09-08 10:25] VITALS: BP 111/66; PULSE 67; RESP 18; O2SAT 95
--- NOTE | 2025-09-08 15:30 | ANE.PACU2 ---
Inpatient post-anesthesia follow up: Airway intact: Yes Vital signs: Temperature 97.1 F Pulse Rate 67 Respiratory Rate 18 Blood Pressure 111/66 Pulse Oximetry 95 Oxygen Delivery Me thod Room Air Oxygen Flow Rate Fraction of Inspir ed Oxygen Hydration adequate: Yes Nausea and vomiting: No Pain level: 1 Mental status: Baseline
== END 2025-09-08 10:27 | disposition home or self-care (01) ==
PROVIDERS: PCP Electrodiagnostic Medicine; Visit Provider Surgery
PROC: 0DJD8ZZ Inspection of Lower Intestinal Tract, Via Natural or Artificial Opening Endoscopic (ICD-10-PCS; CPT 45378; principal; 2025-09-08 09:55)
DX: Z12.11 Encounter for screening for malignant neoplasm of colon (principal); D12.8 Benign neoplasm of rectum; Z79.82 Long term (current) use of aspirin; Z79.84 Long term (current) use of oral hypoglycemic drugs; Z95.0 Presence of cardiac pacemaker; R00.1 Bradycardia, unspecified; Z85.46 Personal history of malignant neoplasm of prostate; I10 Essential (primary) hypertension; E11.9 Type 2 diabetes mellitus without complications; E66.9 Obesity, unspecified; Z68.27 Body mass index [BMI] 27.0-27.9, adult; I25.10 Atherosclerotic heart disease of native coronary artery without angina pectoris; E78.5 Hyperlipidemia, unspecified; Z86.0100 Personal history of colon polyps, unspecified; I47.29 Other ventricular tachycardia; Z80.9 Family history of malignant neoplasm, unspecified; Z87.891 Personal history of nicotine dependence; I49.9 Cardiac arrhythmia, unspecified; K21.9 Gastro-esophageal reflux disease without esophagitis
CPT/HCPCS: 36416; 45380; 82962; 88305; J2704; J7030

== ENCOUNTER → 2025-09-20 10:01 | Outpatient (BNVA) | payer OTHER, SELFPAY | PROVIDERS: PCP Electrodiagnostic Medicine; Visit Provider Surgery | DX: Z51.89 Encounter for other specified aftercare (principal) | CPT/HCPCS: 99213 ==